=== PATIENT | female | born 1935 | race Caucasian/White ===

== ENCOUNTER 2018-12-09 13:43 | Emergency (ER) | payer OTHER ==
--- OUTSIDE RECORDS SUMMARY | 2018-12-09 13:47 | XMS REPORT ---
:1935 [facility] Care Team Providers Name Role Phone Dixonmadeleine Kourtney Provider Role Unavailable Allergies, Adverse Reactions, Alerts Substance Reaction Event Type Lisinopril rash, itching, bad cough Drug Allergy Levaquin itching and increased anxiety Drug Allergy Problems Problem Type Condition Code Onset Dates Condition Status Problem Weakness R53.1 Active Problem 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 Active Problem History of TIA (transient ischemic Z86.73 Active attack) Problem Dizziness R42 Active Assessment Acute pharyngitis, unspecified J02.9 Active etiology Problem Abnormal liver function K76.89 Active Assessment Respiratory symptoms R09.89 Active Assessment Diarrhea, unspecified type R19.7 Active Problem Hypertension I10 Active Problem Cardiomyopathy I42.9 Active Problem Hypotension I95.9 Active Problem Osteoporosis M81.0 Active Problem Atrial fibrillation I48.91 Active Problem 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 Problem History of fall Z91.81 Active Assessment URI, acute J06.9 Active Problem Serum creatinine raised R79.89 Active Problem IBS (irritable bowel syndrome) K58.9 Active Problem Anorexia R63.0 Active Problem Hypercholesteremia E78.00 Active Problem Hypokalemia E87.6 Active Problem Rib pain R07.81 Active Problem Congestive heart failure I50.9 Active Medications Medication Code Code Instructions Start End Date Status Dosage System Date ProAir HFA [facility] [id number] 108 (90 Base) December Active 2 puffs as MCG/ACT 2017 needed for Inhalation every sob/wheezi 4-6 hrs ng Potassium ND 35993910614 20 MEQ Orally Oct 09January 07, Active 1 capsule Chloride Once a day 2017 2017 Omeprazole ND 38118615589 20 MG Orally Active 1 capsule Once daily Ventolin HFA ND 91415865305 108 (90 Base) December Active 2 puffs as MCG/ACT 2017 needed for Inhalation every sob/wheezi 4-6 hrs ng Cardura ND 24773552191 1 MG topically Active 1 tablet Once a day in evening Augmentin [facility] 35095229547 500-125 MG December Active 1 tablet Orally every 12 2017 hrs Gabapentin [facility] 69564629640 400 MG Orally Active 1 capsule 1-3x ramesh Results Name Result Date Reference Range Unit Abnormality Flag FLU TEST ----A Negative [id number] ----B Negative [id number] STREP A RAPID ----Result Negative [id number] Summary Purpose eClinicalWorks Submission
--- OUTSIDE RECORDS SUMMARY | 2018-12-09 13:47 | XMS REPORT | Clinical Summary ---
:1935 Author Organization [facility] Address [address] [place] [address] Care Team Providers Name Role Phone Kourtney Smith MD Primary Care Provider Allergies Active Allergy Reactions Severity Noted Date Comments Levofloxacin Rash Low 04/06/2016 Lisinopril Rash Low 04/06/2016 Medications Medication Sig Dispensed Refills Start Date End Date Status apixaban (ELIQUIS) 2.5 Take by mouth 2 0 Active mg tablet (two) times a day. amIODarone (PACERONE) Take 200 mg by 0 Active 200 MG tablet mouth daily. potassium chloride Take 20 mEq by 0 Active (K-DUR) 20 MEQ CR mouth 2 (two) tablet times a day. levothyroxine Take 50 mcg by 0 Active (SYNTHROID, LEVOTHROID) mouth every 50 MCG tablet morning. atorvastatin (LIPITOR) Take 20 mg by 0 Active 20 MG tablet mouth daily. gabapentin (NEURONTIN) Take 400 mg by 0 Active 400 MG capsule mouth 2 (two) times a day. omeprazole (PriLOSEC) Take 40 mg by 0 Active 40 MG capsule mouth daily. calcium Chew 1 tablet 2 0 Active carbonate-vitamin D3 (two) times a (CALTRATE 600 + D) 600 day. mg (1,500 mg)-800 unit tablet,chewable MAGNESIUM CHLORIDE Take 1 tablet by 0 Active (SLOW-MAG ORAL) mouth 2 (two) times a day. FOLIC Take 1 tablet by 0 Active ACID/MULTIVIT-MIN/LUTEI mouth daily. N (CENTRUM SILVER ORAL) lidocaine (LIDODERM) 5 Place 1 patch on 0 Active % the skin as needed for mild pain. Remove & Discard patch within 12 hours or as directed by MD Active Problems Problem Noted Date Hyperlipidemia 04/30/2016 Disease of thyroid gland 04/27/2016 Diarrhea 04/27/2016 Acute on chronic systolic CHF (congestive heart failure) 04/27/2016 Anemia 04/27/2016 Atrial fibrillation 04/23/2016 Family History Medical History Relation Name Comments Heart disease Father Breast cancer Mother Heart disease Mother Relation Name Status Comments Father Mother Social History Tobacco Use Types Packs/Day Years Used Date Former Smoker Cigarettes 1947 - 1949 Alcohol Use Drinks/Week oz/Week Comments No Sex Assigned at Date Recorded Not on file Job Start Date Occupation Industry Not on file Not on file Not on file Travel History Travel Start Travel End No recent travel history available. Last Filed Vital Signs Not on file Plan of Treatment Health Maintenance Due Date Last Done Comments SHINGLES VACCINES (#1) 01/18/1984 65+ PNEUMOCOCCAL VACCINE (1 of 2 - PCV13) 1999 PNEUMOCOCCAL POLYSACCHARIDE VACCINE AGE 65 AND OVER 1999 INFLUENZA VACCINE 04/09/2018 Implants Implanted Type Area Soldering Machine Tender Device Identifier Shelf Expiration Model / Date Serial / Lot Medtronic Pacemaker Results Not on fileafter 12/08/2017 Insurance Payer Benefit Plan / Group Subscriber ID Type Phone Address AETNA MEDICARE AETNA MEDICARE HMO/PPO [facility] xxxxxxxx HMO ([place]) [place] [address] Advance Directives Patient has advance care planning documents on file. For more information, please contact:[place] [address]
--- OUTSIDE RECORDS SUMMARY | 2018-12-09 13:47 | XMS REPORT ---
:1935 Author Organization eClinicalWorks Care Team Providers Name Role Phone Kourtney Smith Provider Role Unavailable Allergies No Known Allergies Problems Problem Type Condition Code Onset Dates Condition Status Assessment Exposure to influenza Z20.828 Active Problem Other chronic pain G89.29 Active Problem Chronic kidney disease, unspecified N18.9 Active CKD stage Problem Insomnia, unspecified type G47.00 Active Problem Prediabetes R73.03 Active Problem Hypothyroidism, unspecified type E03.9 Active Problem Neck pain M54.2 Active Problem Hypokalemia E87.6 Active Problem Congestive heart failure I50.9 Active Problem Gastroesophageal reflux disease, K21.9 Active esophagitis presence not specified Problem Weakness R53.1 Active Problem 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 Active Problem History of TIA (transient ischemic Z86.73 Active attack) Problem 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 Problem Serum creatinine raised R79.89 Active Problem History of fall Z91.81 Active Problem 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 Active Problem Chronic pain syndrome G89.4 Active Problem Dorsalgia, unspecified M54.9 Active Problem Cardiomyopathy I42.9 Active Problem Hypotension I95.9 Active Problem Rib pain R07.81 Active Problem 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 11463574421 75 MG Orally Once Oct 31, Active 1 capsule a day 2019 Results No Known Results Summary Purpose eClinicalWorks Submission
--- OUTSIDE RECORDS SUMMARY | 2018-12-09 13:47 | XMS REPORT ---
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 Active Assessment Hypercholesteremia E78.00 Active Problem Chronic pain syndrome G89.4 Active Problem Dorsalgia, unspecified M54.9 Active Assessment Gastroesophageal reflux disease, K21.9 Active esophagitis presence not specified Problem Cardiomyopathy I42.9 Active Assessment Insomnia, unspecified type G47.00 Active Problem Hypotension I95.9 Active Assessment Chronic pain syndrome G89.4 Active Problem Rib pain R07.81 Active Problem 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 Assessment 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 Problem Osteoporosis M81.0 Active Assessment Congestive heart failure I50.9 Active Problem Abnormal liver function K76.89 Active Assessment Prediabetes R73.03 Active Problem Hypercholesteremia E78.00 Active Assessment 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 Active Problem Atrial fibrillation I48.91 Active Assessment Hypothyroidism, unspecified type E03.9 Active Problem IBS (irritable bowel syndrome) K58.9 Active Assessment Chronic kidney disease, unspecified N18.9 Active CKD stage Problem Anorexia R63.0 Active Problem Dizziness R42 Active Problem Hypertension I10 Active Medications Medication Code Code Instructions Start End Status Dosage System Date Date Cardura [facility] 88913639696 1 MG Orally Active 1 tablet Once a day in evening Omeprazole [facility] 02634824554 20 mg Orally Active 1 capsule Once daily ProAir HFA [facility] 32562787648 108 (90 Base) December Active 2 puffs as MCG/ACT 2017 needed for Inhalation sob/wheezi every 4-6 hrs ng Ventolin HFA [facility] 03190742468 108 (90 Base) December Active 2 puffs as MCG/ACT 2017 needed for Inhalation sob/wheezi every 4-6 hrs ng Levothyroxine [facility] 41183050858 50 MCG Orally Active 1 tablet Sodium Once a day on an empty stomach in the morning Potassium [facility] 45803967732 20 MEQ Orally Active 1 tablet Chloride ER Twice a day with food Gabapentin [facility] 62745981562 400 MG Orally Active 1 capsule Three times daily Lasix [facility] 09189554826 20 mg Orally Active 1 tablet Twice daily Results No Known Results Summary Purpose eClinicalWorks Submission
--- OUTSIDE RECORDS SUMMARY | 2018-12-09 13:47 | XMS REPORT ---
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 Active Problem History of TIA (transient ischemic Z86.73 Active attack) Problem Dizziness R42 Active Problem Abnormal liver function K76.89 Active Problem Hypertension I10 Active Problem Cardiomyopathy I42.9 Active Problem Hypotension I95.9 Active Problem Osteoporosis M81.0 Active Problem Atrial fibrillation I48.91 Active Problem 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
--- OUTSIDE RECORDS SUMMARY | 2018-12-09 13:47 | XMS REPORT ---
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 Active Assessment Cardiomyopathy I42.9 Active Assessment Congestive heart failure I50.9 Active Assessment Hypertension I10 Active Problem Other chronic pain G89.29 Active Problem Neck pain M54.2 Active Problem Gastroesophageal reflux disease, K21.9 Active esophagitis presence not specified Problem Dizziness R42 Active Problem Dorsalgia, unspecified M54.9 Active Problem Hypertension I10 Active Problem 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 Active Problem Rib pain R07.81 Active Problem Anorexia R63.0 Active Problem IBS (irritable bowel syndrome) K58.9 Active Problem Hypotension I95.9 Active Problem 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 Active Problem Prediabetes R73.03 Active Problem Insomnia, unspecified type G47.00 Active Problem Cardiomyopathy I42.9 Active Problem Chronic kidney disease, unspecified N18.9 Active CKD stage Problem Congestive heart failure I50.9 Active Problem Hypokalemia E87.6 Active Problem History of TIA (transient ischemic Z86.73 Active attack) Problem Weakness R53.1 Active Assessment Chronic kidney disease, unspecified N18.9 Active CKD stage Problem 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 Assessment Prediabetes R73.03 Active Problem History of fall Z91.81 Active Assessment Hypercholesteremia E78.00 Active Problem Hypothyroidism, unspecified type E03.9 Active Assessment Hypothyroidism, unspecified type E03.9 Active Problem Serum creatinine raised R79.89 Active Assessment Insomnia, unspecified type G47.00 Active Problem Osteoporosis M81.0 Active Assessment Gastroesophageal reflux disease, K21.9 Active esophagitis presence not specified Problem Abnormal liver function K76.89 Active Problem Hypercholesteremia E78.00 Active Problem Atrial fibrillation I48.91 Active Medications Medication Code Code Instructions Start End Status Dosage System Date Date ProAir HFA [facility] 28481574730 108 (90 Base) December Active 2 puffs as MCG/ACT 2017 needed for Inhalation sob/wheezi every 4-6 hrs ng Gabapentin [facility] 37083497642 400 MG Orally Active 1 capsule 1-3x ramesh Lasix [facility] 13535275347 20 mg Orally Active 1 tablet Twice daily Omeprazole [facility] 61190273008 20 mg Orally Active 1 capsule Once daily Potassium [facility] 62029181096 20 MEQ Orally Active 1 tablet Chloride ER Twice a day with food Levothyroxine [facility] 45088024316 50 MCG Orally Active 1 tablet Sodium Once a day on an empty stomach in the morning Ventolin HFA [facility] 55767452825 108 (90 Base) December Active 2 puffs as MCG/ACT 2017 needed for Inhalation sob/wheezi every 4-6 hrs ng Cardura [facility] 16035112660 1 MG Orally Active 1 tablet Once a day in evening Results No Known Results Summary Purpose eClinicalWorks Submission
--- NOTE | 2018-12-09 15:06 | RAD REPORT ---
EXAM DESCRIPTION: CT - Head C Spine Mpr Wo Con - 12/09/2018 2:48 pm CLINICAL HISTORY: Head and neck injury status post fall. Head and neck pain COMPARISON: 2015 TECHNIQUE: Computed axial tomography of the head and cervical spine was obtained. Sagittal and coronal reconstruction was performed. All CT scans are performed using dose optimization technique as appropriate and may include automated exposure control or mA/KV adjustment according to patient size. FINDINGS: Posterior scalp swelling An intracranial bleed is not seen. The ventricles are normal in caliber. An extra-axial fluid collect ion is not noted.Fluid within the visualized sinuses and mastoids is not seen A cervical fracture is not visualized. No dislocation is noted. Spondylosis without significant agee e from 2015 Mild ground-glass opacities right upper lobe IMPRESSION: No acute intracranial abnormality is seen. A cervical fracture is not visualized. If the patient continues to have symptoms to suggest intracra nial /spinal cord pathology then MRI would be recommended Mild ground-glass opacities right upper lobe indicative of an alveolitis
--- NOTE | 2018-12-09 15:12 | RAD REPORT ---
EXAM DESCRIPTION: CT - Facial Bones W/ Mpr - 12/09/2018 2:48 pm CLINICAL HISTORY: Facial injury status post fall TECHNIQUE: Computed axial tomography of the face was obtained. Coronal and sagittal reconstruction w as performed. All CT scans are performed using dose optimization technique as appropriate and may include automated exposure control or mA/KV adjustment according to patient size. FINDINGS: Evaluation of portions of the mandible is nondiagnostic secondary to motion artifact. A f racture is not seen. A fracture is not seen. A TMJ dislocation is not noted. The globes are intact. Fluid within the sinuses is not seen. IMPRESSION: No fracture seen.
[2018-12-09] MEDS ORDERED: ACETAMINOPHEN 325 MG TABLET ONE (15:35)
[2018-12-09] MEDS ORDERED: cloNIDine HCl 0.1 MG TAB ONE (15:41)
[2018-12-09] MEDS ORDERED: AMLODIPINE 5 MG TAB ONE (15:42)
--- NOTE | 2018-12-09 15:42 | RAD REPORT ---
EXAM DESCRIPTION: RAD - Chest Single View - 12/09/2018 3:35 pm CLINICAL HISTORY: COUGH Chest pain. COMPARISON: <Comparisons> FINDINGS: Portable technique limits examination quality. The lungs are grossly clear. The heart is normal in size. No displaced fractures.Multi lead pacer dev ice is present. IMPRESSION: No acute intrathoracic process suspected.
[2018-12-09 15:52] LABS: Absolute Lymphocytes (CBC) 2.6 K/uL (0.7-4.9); Absolute Monocytes 0.8 K/uL (0.1-1.3); Basophils % 1.3 % (0-1.3); Eosinophils % 2.4 % (0-4.4); Hematocrit 42.1 % (36.0-45.0); Lymphocytes % 29.6 % (15.3-44.8); MPV 8.8 fL (7.6-11.3); Monocytes % 9.6 % (3.3-12.3); RBC Red Blood Cell Count 4.68 M/uL (3.86-4.86)
[2018-12-09 15:53] LABS: Protime INR 1.17
[2018-12-09 16:08] LABS: ALT/SGPT 15 U/L (12-78); AST/SGOT 19 U/L (15-37); Albumin 3.6 g/dL (3.4-5.0); Alkaline Phosphatase 71 U/L (45-117); BUN Blood Urea Nitrogen 23 mg/dL (7-18); Bicarbonate 26 mmol/L (21-32); Bilirubin Direct 0.1 mg/dL (0-0.2); Bilirubin Total 0.6 mg/dL (0.2-1.0); Glucose Level 80 mg/dL (74-106); NT PRO-BNP 4345 pg/mL (<450); Protein, Total 7.2 g/dL (6.4-8.2); Sodium Level 142 mmol/L (136-145); Troponin (Emerg Dept Use Only) < 0.02 ng/mL (0.0-0.045)
[2018-12-09] MEDS ORDERED: DOXAZOSIN 4 MG TAB PO ONE (18:00)
--- NOTE | 2018-12-09 18:25 | EDPHYS ---
Physician Documentation [facility] Name: Suri Lemus Age: 83 yrs Sex: Female : 1935 Arrival Date: 12/09/2018 Time: 13:48 Bed 4 Private MD: Kourtney Smith ED Physician Moisés Luna HPI: 12/09 14:10 This 83 yrs old Female presents to ER via Wheelchair with complaints of Fall malia Injury, Head Injury-Adult, Jaw Injury. 14:10 Details of fall: The patient fell from seated position, out of a chair. Onset: The malia symptoms/episode began/occurred just prior to arrival. Associated injuries: The patient sustained injury to the head, neck injury, right cheek and right jaw. Severity of symptoms: At their worst the symptoms were mild, in the emergency department the symptoms are unchanged. The patient has not experienced similar symptoms in the past. Historical: - Allergies: 13:58 Levaquin; tw2 13:58 Lisinopril; tw2 - Home Meds: 13:58 Eliquis 2.5 mg Oral tab 1 tab 2 times per day [Active]; tw2 15:27 Caltrate 600 + D 600 mg (1,500 mg)-800 unit Oral chew twice a day [Active]; Slow-Mag ss 71.5 mg Oral TbEC twice a day [Active]; furosemide 20 mg Oral tab 1 tab 2 times per day [Active]; levothyroxine 50 mcg tab 1 tab once daily [Active]; doxazosin 1 mg oral tab 1 tab once daily [Active]; omeprazole 40 mg Oral cpDR 1 cap once daily [Active]; gabapentin 400 mg Oral cap 1 cap three times a day [Active]; potassium chloride 20 mEq Oral TbER 1 tab once daily [Active]; Centrum Silver 400-250 mcg Oral chew daily [Active]; - PMHx: 13:58 Hyperlipidemia; Hypertension; neuropathy; CHF; tw2 - PSHx: 13:58 Hysterectomy; pacemaker/defibrilator placement; tw2 - Immunization history:: Adult Immunizations. - Social history:: Smoking status: . - Ebola Screening: : Patient negative for fever greater than or equal to 101.5 degrees Fahrenheit, and additional compatible Ebola Virus Disease symptoms. - Family history:: not pertinent. ROS: 14:10 Constitutional: Negative for fever, chills, and weight loss, Eyes: Negative for injury, malia pain, redness, and discharge, ENT: Negative for injury, pain, and discharge, Cardiovascular: Negative for chest pain, palpitations, and edema, Respiratory: Negative for shortness of breath, cough, wheezing, and pleuritic chest pain, Abdomen/GI: Negative for abdominal pain, nausea, vomiting, diarrhea, and constipation, Back: Negative for injury and pain, : Negative for injury, bleeding, discharge, and swelling, Skin: Negative for injury, rash, and discoloration, Psych: Negative for depression, anxiety, suicide ideation, homicidal ideation, and hallucinations, Allergy/Immunology: Negative for hives, rash, and allergies, Endocrine: Negative for neck swelling, polydipsia, polyuria, polyphagia, and marked weight changes, Hematologic/Lymphatic: Negative for swollen nodes, abnormal bleeding, and unusual bruising. 14:10 Neck: Positive for pain with movement, pain at rest. 14:10 Neuro: Positive for headache. Exam: 14:10 Constitutional: This is a well developed, well nourished patient who is awake, alert, malia and in no acute distress. Eyes: Pupils equal round and reactive to light, extra-ocular motions intact. Lids and lashes normal. Conjunctiva and sclera are non-icteric and not injected. Cornea within normal limits. Periorbital areas with no swelling, redness, or edema. ENT: Nares patent. No nasal discharge, no septal abnormalities noted. Tympanic membranes are normal and external auditory canals are clear. Oropharynx with no redness, swelling, or masses, exudates, or evidence of obstruction, uvula midline. Mucous membranes moist. Neck: Trachea midline, no thyromegaly or masses palpated, and no cervical lymphadenopathy. Supple, full range of motion without nuchal rigidity, or vertebral point tenderness. No Meningismus. Chest/axilla: Normal chest wall appearance and motion. Nontender with no deformity. No lesions are appreciated. Cardiovascular: Regular rate and rhythm with a normal S1 and S2. No gallops, murmurs, or rubs. Normal PMI, no JVD. No pulse deficits. Respiratory: Lungs have equal breath sounds bilaterally, clear to auscultation and percussion. No rales, rhonchi or wheezes noted. No increased work of breathing, no retractions or nasal flaring. Abdomen/GI: Soft, non-tender, with normal bowel sounds. No distension or tympany. No guarding or rebound. No evidence of tenderness throughout. Back: No spinal tenderness. No costovertebral tenderness. Full range of motion. Skin: Warm, dry with normal turgor. Normal color with no rashes, no lesions, and no evidence of cellulitis. MS/ Extremity: Pulses equal, no cyanosis. Neurovascular intact. Full, normal range of motion. Neuro: Awake and alert, GCS 15, oriented to person, place, time, and situation. Cranial nerves II-XII grossly intact. Motor strength 5/5 in all extremities. Sensory grossly intact. Cerebellar exam normal. Normal gait. Psych: Awake, alert, with orientation to person, place and time. Behavior, mood, and affect are within normal limits. 14:10 Head/face: Noted is contusion, swelling, that is mild, of the left occipital area, left base of the skull, right occipital area and right base of the skull. 14:10 Neck: External neck: is normal, Thyroid: appears normal, Trachea: is midline with no obvious abnormalities, ROM/movement: limited range of motion, that is mild, in any direction. Vital Signs: 13:57 BP 199 / 85; Pulse 71; Resp 17; Temp 99.2(TE); Pulse Ox 100% on R/A; Weight 49.9 kg tw2 (R); Pain 10/10; 15:03 BP 222 / 98; Pulse 70; Resp 18; Pulse Ox 99% ; sv 15:19 BP 229 / 100; Pulse 71; Resp 14; Pulse Ox 98% on R/A; ph 15:40 BP 214 / 95; Pulse 70; Resp 18; Pulse Ox 98% ; sv 17:00 BP 182 / 91; Pulse 71; Resp 16; Pulse Ox 98% ; sv 17:54 BP 198 / 98; Pulse 71; Resp 15; Pulse Ox 98% ; sv 18:35 BP 179 / 85; Pulse 70; Resp 18; Temp 98.0; Pulse Ox 99% on R/A; ph Ruthann Coma Score: 13:55 Eye Response: spontaneous(4). Verbal Response: oriented(5). Motor Response: obeys tw2 commands(6). Total: 15. 15:19 Eye Response: spontaneous(4). Verbal Response: oriented(5). Motor Response: obeys ph commands(6). Total: 15. 17:51 Eye Response: spontaneous(4). Verbal Response: oriented(5). Motor Response: obeys ph commands(6). Total: 15. 18:35 Eye Response: spontaneous(4). Verbal Response: oriented(5). Motor Response: obeys ph commands(6). Total: 15. Trauma Score (Adult): 13:55 Eye Response: spontaneous(1); Verbal Response: oriented(1); Motor Response: obeys tw2 commands(2); Systolic BP: > 89 mm Hg(4); Respiratory Rate: 10 to 29 per min(4); Ruthann Score: 15; Trauma Score: 12 15:19 Eye Response: spontaneous(1); Verbal Response: oriented(1); Motor Response: obeys ph commands(2); Systolic BP: > 89 mm Hg(4); Respiratory Rate: 10 to 29 per min(4); Ruthann Score: 15; Trauma Score: 12 17:51 Eye Response: spontaneous(1); Verbal Response: oriented(1); Motor Response: obeys ph commands(2); Systolic BP: > 89 mm Hg(4); Respiratory Rate: 10 to 29 per min(4); Ruthann Score: 15; Trauma Score: 12 18:35 Eye Response: spontaneous(1); Verbal Response: oriented(1); Motor Response: obeys ph commands(2); Systolic BP: > 89 mm Hg(4); Respiratory Rate: 10 to 29 per min(4); Ruthann Score: 15; Trauma Score: 12 MDM: 14:08 Patient medically screened. [facility] 14:10 Data reviewed: vital signs, nurses notes, radiologic studies, CT scan. malia 12/09 15:20 Order name: Basic Metabolic Panel; Complete Time: 16:24 malia 12/09 15:20 Order name: CBC with Diff; Complete Time: 16:24 malia 12/09 15:20 Order name: LFT's; Complete Time: 16:24 malia 12/09 15:20 Order name: Magnesium; Complete Time: 16:24 malia 12/09 15:20 Order name: NT PRO-BNP; Complete Time: 16:24 malia 12/09 15:20 Order name: PT-INR; Complete Time: 16:24 malia 12/09 14:09 Order name: CT Head C Spine; Complete Time: 15:15 [facility] 12/09 14:09 Order name: CT Facial Bones W/O Con; Complete Time: 15:15 [facility] 12/09 15:20 Order name: Troponin (emerg Dept Use Only); Complete Time: 16:24 [facility] 12/09 15:20 Order name: XRAY Chest (1 view); Complete Time: 16:24 [facility] 12/09 15:20 Order name: Urine Culture [facility] 12/09 15:23 Order name: Lipase; Complete Time: 16:24 [facility] 12/09 17:55 Order name: Urine Dipstick--Ancillary (enter results) 12/09 17:55 Order name: Urine Dipstick-Ancillary EDMS 12/09 14:10 Order name: Ice pack; Complete Time: 14:38 [facility] 12/09 15:16 Order name: Vital Signs; Complete Time: 15:37 [facility] 12/09 15:20 Order name: EKG; Complete Time: 15:21 [facility] 12/09 15:20 Order name: Cardiac monitoring; Complete Time: 15:36 [facility] 12/09 15:20 Order name: EKG - Nurse/Tech; Complete Time: 15:36 [facility] 12/09 15:20 Order name: Labs collected and sent; Complete Time: 15:36 [facility] 12/09 15:20 Order name: O2 Per Protocol; Complete Time: 15:37 [facility] 12/09 15:20 Order name: O2 Sat Monitoring; Complete Time: 15:37 [facility] 12/09 15:20 Order name: Urine Dipstick-Ancillary (obtain specimen); Complete Time: 17:47 [facility] Administered Medications: 15:10 Drug: Tylenol 650 mg Route: PO; ph 15:35 Drug: Norvasc 5 mg Route: PO; ph 17:47 Follow up: Response: No adverse reaction; Blood pressure is lowered ph 15:35 Drug: cloNIDine 0.1 mg Route: PO; ph 17:48 Follow up: Response: No adverse reaction; Blood pressure is lowered ph 17:47 Drug: Doxazosin 4 mg Route: PO; ph 18:00 Follow up: Response: No adverse reaction ph Disposition: 12/09/18 18:24 Discharged to Home. Impression: Fall due to bumping against object, Headache, Superficial injury of head, Strain of muscle, fascia and tendon at neck level, Essential (primary) hypertension, Unspecified kidney failure, Unspecified combined systolic (congestive) and diastolic (congestive) heart failure - history of CHF. - Condition is Stable. - Discharge Instructions: Head Injury, Adult, Hypertension, Hypertension, Pgns-fa-Ocmu, Cervical Sprain, Zggc-uh-Yceo, Fall Prevention in the Home, Ghyq-mf-Nsuc, How to Take Your Blood Pressure, Higy-zg-Pxdz, Head Injury, Adult, Ynjb-ed-Hyzu, Chronic Kidney Disease, Adult, Tcgt-dy-Nviq, Chronic Kidney Disease, Adult, Managing Your Hypertension. - Prescriptions for Tylenol- Codeine #3 300-30 mg Oral Tablet - take 1 tablet by ORAL route every 6 hours As needed; 20 tablet. Norvasc 5 mg Oral Tablet - take 1 tablet by ORAL route once daily; 20 tablet. Doxazosin 2 mg Oral Tablet - take 1 tablet by ORAL route once daily; 30 tablet. - Medication Reconciliation Form, Thank You Letter, Antibiotic Education, Prescription Opioid Use form. - Follow up: Kourtney Smith; When: 2 - 3 days; Reason: Recheck today's complaints, Continuance of care, Re-evaluation by your physician. Follow up: Peng Mullen; When: 2 - 3 days; Reason: Recheck today's complaints, Continuance of care, Re-evaluation by your physician. - Problem is new. - Symptoms have improved. Signatures: Dispatcher [employer] EDMoisés Escobedo MD MD cha Smirch, Shelby, ANT RN Johanna Velez RN RN ph Wise, Tara, RN RN tw2 Corrections: (The following items were deleted from the chart) 18:48 18:24 12/09/2018 18:24 Discharged to Home. Impression: Fall due to bumping against ph object; Headache; Superficial injury of head; Strain of muscle, fascia and tendon at neck level; Essential (primary) hypertension; Unspecified kidney failure; Unspecified combined systolic (congestive) and diastolic (congestive) heart failure - history of CHF. Condition is Stable. Discharge Instructions: Head Injury, Adult, Cervical Sprain, Flvn-xo-Dfit, Fall Prevention in the Home, Zujn-fw-Ykiq, Head Injury, Adult, Yxdu-tu-Pqvz, Hypertension, Hypertension, Wsby-yw-Fdrt, How to Take Your Blood Pressure, Neeg-nc-Vzij, Managing Your Hypertension, Chronic Kidney Disease, Adult, Uwpa-fz-Gooy, Chronic Kidney Disease, Adult. Prescriptions for Tylenol-Codeine #3 300-30 mg Oral Tablet - take 1 tablet by ORAL route every 6 hours As needed; 20 tablet, Norvasc 5 mg Oral Tablet - take 1 tablet by ORAL route once daily; 20 tablet, Doxazosin 2 mg Oral Tablet - take 1 tablet by ORAL route once daily; 30 tablet. and Forms are Medication Reconciliation Form, Thank You Letter, Antibiotic Education, Prescription Opioid Use. Follow up: Kourtney Smith; When: 2 - 3 days; Reason: Recheck today's complaints, Continuance of care, Re-evaluation by your physician. Follow up: Peng Mullen; When: 2 - 3 days; Reason: Recheck today's complaints, Continuance of care, Re-evaluation by your physician. Problem is new. Symptoms have improved. malia
--- NOTE | 2018-12-09 18:25 | ER ---
Nurse's Notes [facility] Name: Suri Lemus Age: 83 yrs Sex: Female : 1935 Arrival Date: 12/09/2018 Time: 13:48 Bed 4 Private MD: Kourtney Smith Diagnosis: Fall due to bumping against object;Headache;Superficial injury of head;Strain of muscle, fascia and tendon at neck level;Essential (primary) hypertension;Unspecified kidney failure;Unspecified combined systolic (congestive) and diastolic (congestive) heart failure-history of CHF Presentation: 12/09 13:55 Presenting complaint: Patient states: i fell 2 hours ago, i was sitting on a chair on 2 my porch, and i hit the driveway with the back on my head, but my right jaw behind my ear hurts real real bad. Transition of care: patient was not received from another setting of care. Onset of symptoms was December 09, 2018. Risk Assessment: Do you want to hurt yourself or someone else? Patient reports no desire to harm self or others. Initial Sepsis Screen: Does the patient meet any 2 criteria? No. Patient's initial sepsis screen is negative. Does the patient have a suspected source of infection? No. Patient's initial sepsis screen is negative. Care prior to arrival: None. 13:55 Method Of Arrival: Wheelchair [facility] 13:55 Acuity: TAQUERIA 2 2 13:55 Mechanism of Injury: Fall out of chair. Trauma event details: Injury occurred in the [address] 13:57 Note "i dont have blood anywhere but i have a bloody taste in my mouth". [facility] Triage Assessment: 13:56 General: Appears in no apparent distress. Behavior is calm, cooperative, appropriate [facility] for age. Pain: Complains of pain in right ear, right occipital area and right base of the skull. Neuro: Reports blurred vision in right eye. Trauma Activation: Alert Physician: ED Physician; Name: ; Notified At: ; Arrived At: Physician: General Surgeon; Name: ; Notified At: ; Arrived At: Physician: Radiology; Name: ; Notified At: ; Arrived At: Physician: Respiratory; Name: ; Notified At: ; Arrived At: Physician: Lab; Name: ; Notified At: ; Arrived At: Historical: - Allergies: 13:58 Levaquin; tw2 13:58 Lisinopril; tw2 - Home Meds: 13:58 Eliquis 2.5 mg Oral tab 1 tab 2 times per day [Active]; tw2 15:27 Caltrate 600 + D 600 mg (1,500 mg)-800 unit Oral chew twice a day [Active]; Slow-Mag ss 71.5 mg Oral TbEC twice a day [Active]; furosemide 20 mg Oral tab 1 tab 2 times per day [Active]; levothyroxine 50 mcg tab 1 tab once daily [Active]; doxazosin 1 mg oral tab 1 tab once daily [Active]; omeprazole 40 mg Oral cpDR 1 cap once daily [Active]; gabapentin 400 mg Oral cap 1 cap three times a day [Active]; potassium chloride 20 mEq Oral TbER 1 tab once daily [Active]; Centrum Silver 400-250 mcg Oral chew daily [Active]; - PMHx: 13:58 Hyperlipidemia; Hypertension; neuropathy; CHF; tw2 - PSHx: 13:58 Hysterectomy; pacemaker/defibrilator placement; tw2 - Immunization history:: Adult Immunizations. - Social history:: Smoking status: . - Ebola Screening: : Patient negative for fever greater than or equal to 101.5 degrees Fahrenheit, and additional compatible Ebola Virus Disease symptoms. - Family history:: not pertinent. Screenin:18 Abuse screen: Denies threats or abuse. Nutritional screening: No deficits noted. tw2 Tuberculosis screening: No symptoms or risk factors identified. Fall Risk Secondary diagnosis (15 points) impaired mobility. Primary Survey: 13:55 NO uncontrolled hemorrhage observed. A: The patient is alert. Airway: patent. tw2 Breathing/Chest: Respiratory pattern: regular. Breathing/Chest: Respiratory effort: spontaneous, unlabored. Circulation: Skin temperature: warm, dry. Disability Alert. Exposure/Environment: All clothing and personal items were removed. Forensic evidence collection is not deemed to be indicated at this time. Items placed in patient belonging bag. A warming method has been applied: A warm blanket has been provided to the patient. 17:58 Reassessment Airway Airway Patent Oxygen No O2 Breathing/Chest Respiratory pattern ph Regular Respiratory effort Spontaneous Unlabored Circulation Color Burnett Temperature Warm Dry. Assessment: 14:15 General: Appears in no apparent distress. comfortable, slender, well groomed, Behavior ph is calm, cooperative, appropriate for age. Pain: Complains of pain in right jaw and right cheek and right occipital area. Neuro: Level of Consciousness is awake, alert, obeys commands, Oriented to person, place, time, situation, Reports headache Denies dizziness. Cardiovascular: Capillary refill < 3 seconds in bilateral fingers Patient's skin is warm and dry. Respiratory: Airway is patent Respiratory effort is even, unlabored, Respiratory pattern is regular, symmetrical. GI: Patient currently denies nausea, vomiting. Derm: Skin is intact, Skin is pink, warm \\T\\ dry. Musculoskeletal: Circulation, motion, and sensation intact. Range of motion: intact in all extremities. 15:42 Reassessment: Patient appears in no apparent distress at this time. Patient and/or ph family updated on plan of care and expected duration. Pain level reassessed. Patient is alert, oriented x 3, equal unlabored respirations, skin warm/dry/pink. Pt resting quietly, family at bedside, PO BP medications administered per ERP order, will continue to monitor. 16:45 Reassessment: Patient appears in no apparent distress at this time. Patient and/or ph family updated on plan of care and expected duration. Pain level reassessed. Patient is alert, oriented x 3, equal unlabored respirations, skin warm/dry/pink. Pt resting quietly, reports that headache has slightly improved, BP trending downward (see vitals tab), will continue to monitor. 17:48 Reassessment: Patient appears in no apparent distress at this time. Patient and/or ph family updated on plan of care and expected duration. Pain level reassessed. Patient is alert, oriented x 3, equal unlabored respirations, skin warm/dry/pink. Pt ambulated to restroom w/ steady gait, denied dizziness upon standing, accompanied to restroom by communication technician. 18:45 Reassessment: Patient appears in no apparent distress at this time. Patient and/or ph family updated on plan of care and expected duration. Pain level reassessed. Patient is alert, oriented x 3, equal unlabored respirations, skin warm/dry/pink. Patient states feeling better. Vital Signs: 13:57 BP 199 / 85; Pulse 71; Resp 17; Temp 99.2(TE); Pulse Ox 100% on R/A; Weight 49.9 kg tw2 (R); Pain 10/10; 15:03 BP 222 / 98; Pulse 70; Resp 18; Pulse Ox 99% ; sv 15:19 BP 229 / 100; Pulse 71; Resp 14; Pulse Ox 98% on R/A; ph 15:40 BP 214 / 95; Pulse 70; Resp 18; Pulse Ox 98% ; sv 17:00 BP 182 / 91; Pulse 71; Resp 16; Pulse Ox 98% ; sv 17:54 BP 198 / 98; Pulse 71; Resp 15; Pulse Ox 98% ; sv 18:35 BP 179 / 85; Pulse 70; Resp 18; Temp 98.0; Pulse Ox 99% on R/A; ph Ruthann Coma Score: 13:55 Eye Response: spontaneous(4). Verbal Response: oriented(5). Motor Response: obeys tw2 commands(6). Total: 15. 15:19 Eye Response: spontaneous(4). Verbal Response: oriented(5). Motor Response: obeys ph commands(6). Total: 15. 17:51 Eye Response: spontaneous(4). Verbal Response: oriented(5). Motor Response: obeys ph commands(6). Total: 15. 18:35 Eye Response: spontaneous(4). Verbal Response: oriented(5). Motor Response: obeys ph commands(6). Total: 15. Trauma Score (Adult): 13:55 Eye Response: spontaneous(1); Verbal Response: oriented(1); Motor Response: obeys tw2 commands(2); Systolic BP: > 89 mm Hg(4); Respiratory Rate: 10 to 29 per min(4); Dawson Score: 15; Trauma Score: 12 15:19 Eye Response: spontaneous(1); Verbal Response: oriented(1); Motor Response: obeys ph commands(2); Systolic BP: > 89 mm Hg(4); Respiratory Rate: 10 to 29 per min(4); Ruthann Score: 15; Trauma Score: 12 17:51 Eye Response: spontaneous(1); Verbal Response: oriented(1); Motor Response: obeys ph commands(2); Systolic BP: > 89 mm Hg(4); Respiratory Rate: 10 to 29 per min(4); Dawson Score: 15; Trauma Score: 12 18:35 Eye Response: spontaneous(1); Verbal Response: oriented(1); Motor Response: obeys ph commands(2); Systolic BP: > 89 mm Hg(4); Respiratory Rate: 10 to 29 per min(4); Ruthann Score: 15; Trauma Score: 12 ED Course: 13:48 Patient arrived in ED. dp 13:48 Kourtney Smith MD is Private Physician. dp 13:55 Patient maintains SpO2 saturation greater than 95% on room air. tw2 13:56 Triage completed. tw2 13:57 Arm band placed on. tw2 13:58 Placed in gown. Bed in low position. Adult w/ patient. desk monitor on. Pulse ox on. tw2 NIBP on. Warm blanket given. 14:08 Moisés Luna MD is Attending Physician. malia 14:14 Johanna Guido, ANT is Primary Nurse. ph 14:20 Thermoregulation: warm blanket given to patient. sv 14:[address] via stretcher. sj 14:48 CT completed. Patient tolerated procedure well. Patient moved back from CT. sw 14:48 CT Head C Spine In Process Unspecified. EDMS 14:48 CT Facial Bones W/O Con In Process Unspecified. EDMS 15:35 XRAY Chest (1 view) In Process Unspecified. EDMS 15:36 EKG done, by mental health tech. reviewed by Moisés Luna MD. sm3 18:24 Kourtney Smith MD is Referral Physician. malia 18:24 Peng Mullen MD is Referral Physician. malia 18:36 No provider procedures requiring assistance completed. Patient did not have IV access ph during this emergency room visit. Administered Medications: 15:10 Drug: Tylenol 650 mg Route: PO; ph 15:35 Drug: Norvasc 5 mg Route: PO; ph 17:47 Follow up: Response: No adverse reaction; Blood pressure is lowered ph 15:35 Drug: cloNIDine 0.1 mg Route: PO; ph 17:48 Follow up: Response: No adverse reaction; Blood pressure is lowered ph 17:47 Drug: Doxazosin 4 mg Route: PO; ph 18:00 Follow up: Response: No adverse reaction ph Intake: 14:20 PO: 0ml; Total: 0ml. sv Output: 14:20 Urine: 0ml; Total: 0ml. sv Outcome: 18:24 Discharge ordered by . malia 18:46 Discharged to home ambulatory, with family. ph 18:46 Condition: good 18:46 Discharge instructions given to patient, family, Instructed on discharge instructions, follow up and referral plans. medication usage, Demonstrated understanding of instructions, follow-up care, medications, Prescriptions given X 3. 18:48 Patient left the ED. ph 18:48 Patient's length of stay in the Emergency Department was greater than 2 hours. Pt d/c ph after BP stabilizedPatient's length of stay extended due to Signatures: Dispatcher [employer] EDShirin Ching, RN RN Moisés Lassiter MD MD cha Jones, Sujata Tao RN RN ss Johanna Guido RN RN Haroldo, Lisa Bruno RN RN tw2 Beth Judge [facility] Vinod Del Rio
[2018-12-09 19:04] LABS: Urine Blood TRACE (NEG); Urine Glucose NEGATIVE (NEG); Urine Protein NEGATIVE (NEG); Urine Specific Gravity 1.015 (1.005-1.030)
[2018-12-10 07:43] VITALS: BP 179/85; TEMP 98; O2SAT 99
== END 2018-12-09 18:48 | disposition home or self-care (01) ==
LOC: ER 13:43
DX: S16.1XXA Strain of muscle, fascia and tendon at neck level, initial encounter (principal); W07.XXXA Fall from chair, initial encounter; Y93.9 Activity, unspecified; Y92.9 Unspecified place or not applicable; Z79.01 Long term (current) use of anticoagulants; Z88.3 Allergy status to other anti-infective agents; Z88.8 Allergy status to other drugs, medicaments and biological substances; Z95.810 Presence of automatic (implantable) cardiac defibrillator; I10 Essential (primary) hypertension; E78.5 Hyperlipidemia, unspecified; I50.42 Chronic combined systolic (congestive) and diastolic (congestive) heart failure; N19 Unspecified kidney failure
CPT/HCPCS: 36415; 70450; 70486; 71045; 72125; 76377; 80048; 80076; 81003; 83690; 83735; 83880; 84484; 85025; 85610; 87086; 87088; 93005; 99285

== ENCOUNTER 2019-11-16 08:27 | Day surgery (SDC) | payer OTHER ==
--- OUTSIDE RECORDS SUMMARY | 2019-11-16 08:29 | XMS REPORT ---
[...] Start End Date Status Dosage Date Tamiflu [facility] [place] [id number] 75 MG Orally Once Oct 31, Active 1 capsule a day 2019 Results No Known Results Summary Purpose eClinicalWorks Submission
--- OUTSIDE RECORDS SUMMARY | 2019-11-16 08:29 | XMS REPORT ---
:1935 [facility] Team Providers Name Role Phone Kourtney Smith Provider Role Unavailable Allergies No Known Allergies Problems Problem Type Condition Code Onset Dates Condition Status Assessment Fever R50.9 Active Problem Other chronic pain G89.29 Active [...] Status Dosage System Date Date ProAir HFA [facility] [id number] 108 (90 Base) December Active 2 puffs as MCG/ACT 2017 needed for Inhalation sob/wheezi every 4-6 hrs ng Levothyroxine [facility] 76252703086 50 MCG Orally Active 1 tablet Sodium Once a day on an empty stomach in the morning Tamiflu [facility] 25149110514 75 MG Orally Oct 31, Active 1 capsule Once a day 2018 Ventolin HFA [facility] 29430138793 108 (90 Base) December Active 2 puffs as MCG/ACT 2017 needed for Inhalation sob/wheezi every 4-6 hrs ng Cardura [facility] 59220450838 1 MG Orally Active 1 tablet Once a day in evening Potassium [facility] 08105890796 20 MEQ Orally Active 1 tablet Chloride ER Twice a day with food Lasix [facility] 20701144028 20 mg Orally Active 1 tablet Twice daily Gabapentin [facility] 45307047712 400 MG Orally Active 1 capsule Three times daily Omeprazole [facility] 72887655220 20 mg Orally Active 1 capsule Once daily Results Name Result Date Reference Range Unit Abnormality Flag STREP A RAPID ----Result Negative [id number] FLU TEST A/B ----B Negative [id number] ----A Negative [id number] Summary Purpose eClinicalWorks Submission
--- OUTSIDE RECORDS SUMMARY | 2019-11-16 08:29 | XMS REPORT ---
:1935 [facility] Address [address] [place] [address] Dr. Sin [address] [place] [id number] Care Team Providers Name Role Phone Unavailable Unavailable Unavailable Problems This patient has no known problems. Allergies, Adverse Reactions, Alerts This patient has no known allergies or adverse reactions. Medications This patient has no known medications.
--- OUTSIDE RECORDS SUMMARY | 2019-11-16 08:30 | XMS REPORT ---
:1935 Author Organization eClinicalWorks Care Team Providers Name Role Phone Kourtney Smith Provider Role Unavailable Allergies, Adverse Reactions, Alerts Substance Reaction Event Type Lisinopril rash, itching, bad cough Drug Allergy Levaquin itching and increased anxiety Drug Allergy Problems Problem Type Condition Code Onset Dates Condition Status Problem Insomnia, unspecified type G47.00 Active Problem Chronic kidney disease, unspecified N18.9 Active CKD stage Problem Gastroesophageal reflux disease, K21.9 Active esophagitis presence not specified Problem Prediabetes R73.03 Active Problem Other chronic pain G89.29 Active Problem Hypothyroidism, unspecified type E03.9 Active Assessment Gastroesophageal reflux disease, K21.9 Active esophagitis presence not specified Problem Neck pain M54.2 Active Problem Dorsalgia, unspecified M54.9 Active Problem 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 Active Problem History of fall Z91.81 Active Problem 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 Active Problem Hypotension I95.9 Active Problem Hypercholesteremia E78.00 Active Problem Cardiomyopathy I42.9 Active Problem 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 Problem Serum creatinine raised R79.89 Active Problem Diarrhea, unspecified type R19.7 Active Problem Fatigue, unspecified type R53.83 Active Problem Abnormal liver function K76.89 Active Problem Osteoporosis M81.0 Active Assessment Atrial fibrillation I48.91 Active Problem Constipation, unspecified K59.00 Active constipation type Problem Atrial fibrillation I48.91 Active Assessment Chronic kidney disease, unspecified N18.9 Active CKD stage Problem Chronic pain syndrome G89.4 Active Assessment Prediabetes R73.03 Active Problem Rib pain R07.81 Active Assessment Hypercholesteremia E78.00 Active Problem Depression screening Z13.31 Active Assessment Hypothyroidism, unspecified type E03.9 Active Problem 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 Assessment Hypertension I10 Active Problem IBS (irritable bowel syndrome) K58.9 Active Problem Anorexia R63.0 Active Assessment Diarrhea, unspecified type R19.7 Active Problem Dizziness R42 Active Assessment Fatigue, unspecified type R53.83 Active Problem Hypertension I10 Active Assessment Depression screening Z13.31 Active Problem Weakness R53.1 Active Assessment Constipation, unspecified K59.00 Active constipation type Problem History of TIA (transient ischemic Z86.73 Active attack) Problem Hypokalemia E87.6 Active Problem Congestive heart failure I50.9 Active Medications Medication Code Code Instructions Start End Status Dosage System Date Date Tamiflu [facility] 57902379839 75 MG Orally Oct 31, Active 1 capsule Once a day 2018 ProAir A [facility] 78597779578 108 (90 Base) December Active 2 puffs as MCG/ACT 2017 needed for Inhalation sob/wheezi every 4-6 hrs ng Cardura [facility] 71355453035 1 MG Orally Active 1 tablet Once a day in evening Levothyroxine [facility] 74295578178 50 MCG Orally Active 1 tablet Sodium Once a day on an empty stomach in the morning Eliquis 2.5 mg [facility] 18376459413 2.5 mg Orally Active 1 tablet Twice daily Gabapentin [facility] 21624000441 400 MG Orally Active 1 capsule Three times daily Potassium [facility] 38203362145 20 MEQ Orally Active 1 tablet Chloride ER Twice a day with food Lasix [facility] 40295291155 20 mg Orally Active 1 tablet Twice daily Omeprazole [facility] 14858880353 20 MG Orally Active 1 capsule Once daily Ventolin [facility] 34687054171 108 (90 Base) December Active 2 puffs as MCG/ACT 2017 needed for Inhalation sob/wheezi every 4-6 hrs ng Results No Known Results Summary Purpose eClinicalWorks Submission
--- OUTSIDE RECORDS SUMMARY | 2019-11-16 08:30 | XMS REPORT ---
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
--- OUTSIDE RECORDS SUMMARY | 2019-11-16 08:30 | XMS REPORT ---
[...] D04.61 Active skin of right wrist Assessment Acute pharyngitis, unspecified J02.9 Active etiology Problem IBS (irritable bowel syndrome) K58.9 Active Problem Anorexia R63.0 Active Assessment Shortness of breath R06.02 Active Problem Dizziness R42 Active Assessment URI, acute J06.9 Active Problem Hypertension I10 Active Problem Weakness R53.1 Active Problem History of TIA (transient ischemic Z86.73 Active attack) Problem Hypokalemia E87.6 Active Problem Congestive heart failure I50.9 Active Medications Medication Code Code Instructions Start End Status Dosage System Date Date Gabapentin [facility] 58678581980 400 MG Orally Active 1 capsule Three times daily Ventolin HFA [facility] 14807363737 108 (90 Base) December Active 2 puffs as MCG/ACT 2017 needed for Inhalation sob/wheezi every 4-6 hrs ng Levothyroxine [facility] 15898560254 50 MCG Orally Active 1 tablet Sodium Once a day on an empty stomach in the morning Omeprazole [facility] 08820198709 20 MG Orally Active 1 capsule Once daily Tamiflu [facility] 64429940999 75 MG Orally Oct 31, Active 1 capsule Once a day 2018 Eliquis 2.5 mg [facility] 19034419784 2.5 mg Orally Active 1 tablet Twice daily Cardura [facility] 61360547921 1 MG Orally Active 1 tablet Once a day in evening Potassium [facility] 10653973913 20 MEQ Orally Active 1 tablet Chloride ER Twice a day with food Augmentin [facility] 58903759639 500-125 MG Jul 17, Jul 27, Active 1 tablet Orally every 2018 2019 hrs Atorvastatin [place] 11628734690 20 MG Orally March 05, Active 1 tablet Calcium Once a day 2019 ProAir HFA [facility] 34623567088 108 (90 Base) Jul 17, Active 2 puffs as MCG/ACT 2018 needed for Inhalation SOB/wheezi every 4-6 hrs ng ProAir HFA [facility] 88192455144 108 (90 Base) December Active 2 puffs as MCG/ACT 2017 needed for Inhalation sob/wheezi every 4-6 hrs ng Lasix [facility] 12767528687 20 mg Orally Active 1 tablet Twice daily Results Name Result Date Reference Range Unit Abnormality Flag STREP A+ RAPID FLU TEST A/B ----B Negative [id number] ----A Negative [id number] Summary Purpose eClinicalWorks Submission
--- OUTSIDE RECORDS SUMMARY | 2019-11-16 08:30 | XMS REPORT ---
[...] Start End Status Dosage System Date Date Atorvastatin NDC 05425116907 20 MG Orally March 05, Active 1 tablet Calcium Once a day 2019 Results No Known Results Summary Purpose eClinicalWorks Submission
--- OUTSIDE RECORDS SUMMARY | 2019-11-16 08:31 | XMS REPORT ---
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 Active Problem IBS (irritable bowel syndrome) K58.9 Active Problem Anorexia R63.0 Active Problem Hypokalemia E87.6 Active Problem Hypertension I10 Active Problem 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00 Active constipation type Problem Fatigue, unspecified type R53.83 Active Problem Chronic kidney disease, unspecified N18.9 Active CKD stage Problem History of fall Z91.81 Active Problem Insomnia, unspecified type G47.00 Active Problem Hypercholesteremia E78.00 Active Problem Hypotension I95.9 Active Problem Cardiomyopathy I42.9 Active Problem Abnormal liver function K76.89 Active Problem Dizziness R42 Active Problem Atrial fibrillation I48.91 Active Problem Osteoporosis M81.0 Active Medications No Known Medications Results No Known Results Summary Purpose eClinicalWorks Submission
--- OUTSIDE RECORDS SUMMARY | 2019-11-16 08:31 | XMS REPORT ---
:1935 Author Organization eClinicalWorks Care Team Providers Name Role Phone Romy Jain Provider Role Unavailable Allergies, Adverse Reactions, Alerts [...] type G47.00 Active Problem Hypercholesteremia E78.00 Active Assessment Upper respiratory tract infection, J06.9 Active unspecified type Problem Hypotension I95.9 Active Problem Cardiomyopathy I42.9 Active Problem Abnormal liver function K76.89 Active Assessment Cough R05 Active Problem Dizziness R42 Active Problem Atrial fibrillation I48.91 Active Problem Osteoporosis M81.0 Active Medications Medication Code Code Instructions Start End Status Dosage System Date Date Azithromycin [facility] 86284229171 250 MG Orally Sep 25, Sep 30, Active 2 tablets Once a day 2019 2019 on the first day, then 1 tablet daily for 4 days ProAir A [facility] 30641547557 108 (90 Base) Jul 17, Active 2 puffs as MCG/ACT 2018 needed for Inhalation SOB/wheezi every 4-6 hrs ng Ventolin HFA [facility] 55682680739 108 (90 Base) December Active 2 puffs as MCG/ACT 2017 needed for Inhalation sob/wheezi every 4-6 hrs ng Tamiflu [facility] 10579134951 75 MG Orally Oct 31, Active 1 capsule Once a day 2018 Cardura [facility] 68746808770 1 MG Orally Active 1 tablet Once a day in evening Omeprazole [facility] 06100717472 20 MG Orally Active 1 capsule Once daily Levothyroxine [facility] 61622652066 50 MCG Orally Active 1 tablet Sodium Once a day on an empty stomach in the morning Gabapentin [facility] 68608752604 400 MG Orally Active 1 capsule Three times daily Atorvastatin [facility] 95801585164 20 MG Orally March 05, Active 1 tablet Calcium Once a day 2018 ProAir [facility] 73060648984 108 (90 Base) December Active 2 puffs as MCG/ACT 2017 needed for Inhalation sob/wheezi every 4-6 hrs ng Lasix [facility] 60235861190 20 mg Orally Active 1 tablet Twice daily Eliquis 2.5 mg [facility] 51797895415 2.5 mg Orally Active 1 tablet Twice daily Potassium [facility] 05322305336 20 MEQ Orally Active 1 tablet Chloride ER Twice a day with food Results No Known Results Summary Purpose eClinicalWorks Submission
--- OUTSIDE RECORDS SUMMARY | 2019-11-16 08:31 | XMS REPORT ---
[...] Problem Hypothyroidism, unspecified type E03.9 Active Assessment Chronic pain syndrome G89.4 Active Problem Neck pain M54.2 Active Problem [...] K76.89 Active Problem Osteoporosis M81.0 Active Assessment Hypercholesteremia E78.00 Active Problem Constipation, unspecified K59.00 Active constipation type Problem Atrial fibrillation I48.91 Active Assessment Gastroesophageal reflux disease, K21.9 Active esophagitis presence not specified Problem Chronic pain syndrome G89.4 Active Assessment Hypothyroidism, unspecified type E03.9 Active Problem Rib pain R07.81 Active Assessment Neck pain M54.2 Active Problem Depression screening Z13.31 Active Assessment Dorsalgia, unspecified M54.9 Active Problem 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 Assessment Hypertension I10 Active Problem IBS (irritable bowel syndrome) K58.9 Active Problem Anorexia R63.0 Active Assessment 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 Problem Dizziness R42 Active Assessment Atrial fibrillation I48.91 Active Problem Hypertension I10 Active Assessment Prediabetes R73.03 Active Problem Weakness R53.1 Active Assessment Chronic kidney disease, unspecified N18.9 Active CKD stage Problem History of TIA (transient ischemic Z86.73 Active attack) Problem Hypokalemia E87.6 Active Problem Congestive heart failure I50.9 Active Medications Medication Code Code Instructions Start End Status Dosage System Date Date Levothyroxine [facility] 30854867601 50 MCG Orally Active 1 tablet Sodium Once a day on an empty stomach in the morning Omeprazole [facility] 22483072064 20 MG Orally Active 1 capsule Once daily ProAir HFA [facility] 70133869648 108 (90 Base) December Active 2 puffs as MCG/ACT 2017 needed for Inhalation sob/wheezi every 4-6 hrs ng Atorvastatin ND 73656393383 20 MG Orally March 05, Active 1 tablet Calcium Once a day 2018 Potassium [facility] 37506014199 20 MEQ Orally Active 1 tablet Chloride ER Twice a day with food ProAir A [facility] 67120000740 108 (90 Base) Jul 17, Active 2 puffs as MCG/ACT 2018 needed for Inhalation SOB/wheezi every 4-6 hrs ng Gabapentin [facility] 82328073317 400 MG Orally Active 1 capsule Three times daily Cardura [facility] 11018951819 1 MG Orally Active 1 tablet Once a day in evening Lasix [facility] 97054854367 20 mg Orally Active 1 tablet Twice daily Eliquis 2.5 mg [facility] 54160069068 2.5 mg Orally Active 1 tablet Twice daily Tamiflu ND 97631547391 75 MG Orally Oct 31, Active 1 capsule Once a day 2018 Ventolin A [facility] 37190897448 108 (90 Base) December Active 2 puffs as MCG/ACT 2017 needed for Inhalation sob/wheezi every 4-6 hrs ng Results No Known Results Summary Purpose eClinicalWorks Submission
[2019-11-16 09:02] LABS: MPV 8.4 fL (7.6-11.3)
[2019-11-16 09:17] VITALS: BMI 23.2
[2019-11-16 09:50] LABS: Platelet Estimate ADEQ
--- NOTE | 2019-11-16 11:33 | RAD REPORT ---
EXAM DESCRIPTION: RAD - Myelography Lumbar - 11/16/2019 11:23 am CLINICAL HISTORY: . Radiculopathy COMPARISON: No comparisons TECHNIQUE: Lumbar puncture was performed for myelographic contrast injection. CT cervical spine lumb ar myelography separately reported. The procedure, risks and alternatives to the procedure were discussed with the patient in detail. Aft er answering all questions, both oral and written consent were obtained. Time-out procedure was perfo rmed. The patient was placed in an oblique prone position on the fluoroscopic table. The skin of the lower back was prepped and draped in the usual sterile fashion. After anesthetizing the skin and deeper sof t tissues with 1% lidocaine, a 22 gauge needle was advanced into the thecal sac at the L2-3 level. 10 cc of myelographic contrast was injected. At the conclusion of the procedure the needle was withdrawn and a sterile bandage placed over the pun cture site. The patient tolerated the procedure well without immediate complications. The patient was then sent to the the CT gantry for CT myelography as detailed. Total fluoro time: 1.4 minutes Images obtained: 4 IMPRESSION: Successful fluoroscopic guided lumbar puncture for CT myelography.
--- NOTE | 2019-11-16 11:47 | RAD REPORT ---
EXAM DESCRIPTION: CT - Spine Lumbar Wo Con - 11/16/2019 11:26 am CLINICAL HISTORY: Radiculopathy. NECK PAIN , LOW BACK PAIN COMPARISON: No comparisons TECHNIQUE: Axial noncontrast CT imaging of the lumbar spine was performed with coronal and sagittal re-formatted images. All CT scans are performed using dose optimization technique as appropriate and may include automated exposure control or mA/KV adjustment according to patient size. FINDINGS: Lumbar puncture for myelographic injection is separately reported. No acute lumbar spine fracture seen. No aggressive marrow pattern. Paraspinal tissues are normal in thickness. No paraspinal abscess or hematoma seen. T12-L1: Mild posterior disc bulge is seen towards the right without evidence of significant canal or foraminal stenosis. L1-2: Mild posterior disc bulge is seen with central disc calcification evident. Mild facet hypertrop hy is present. Mild narrowing of the anterior inferior aspects of both exit foramina. L2-3: 5 mm retrolisthesis is present, degenerative in etiology. Mild posterior disc bulge with mild f acet and ligamentum flavum hypertrophy and small disc calcification seen. Central canal is mildly carmela rowed no significant exit foraminal stenosis seen. L3-4: Moderate posterior disc bulge asymmetric to the left with moderate facet and ligamentum flavum hypertrophy. Moderate central canal stenosis is seen. Moderate bilateral exit foraminal narrowing. L4-5: Moderate posterior disc bulge with quite significant facet and ligamentum flavum hypertrophy. M oderate central canal stenosis is present. Moderate bilateral exit foraminal narrowing slightly worse on the right. L5-S1: Minimal posterior disc bulge is present mild facet and ligament flavum hypertrophy. No signifi cant canal stenosis or foraminal narrowing. No nerve root clumping is seen to suggest arachnoiditis. IMPRESSION: Multilevel moderately severe spondylosis of the lumbar spine is seen. Moderate central c anal stenosis is seen at L3-4 and L4-5.
[2019-11-16] MEDS ORDERED: HYDROCODONE/APAP 7.5/325 MG TAB ONE (11:51)
--- NOTE | 2019-11-16 12:14 | RAD REPORT ---
EXAM DESCRIPTION: CT - C Spine Wo Con - 11/16/2019 11:26 am CLINICAL HISTORY: NECK PAIN , LOW BACK PAIN Radiculopathy COMPARISON: Head C Spine Mpr Wo Con dated 12/09/2018; CT HEAD CSPINE MPR WO CONTRAST dated 06/09/2015 FINDINGS: Lumbar puncture for myelographic injection is separately reported. No fracture or aggressive marrow lesion is seen. Craniocervical junction is unremarkable. Very prominent left-sided degenerative change with bony hypertrophy and osteophytosis seen at the C1- C2 articulation. C2-3: Mild posterior disc bulge is present attenuating the anterior subarachnoid space. No significan t central or exit foraminal stenosis. C3-4: Mild a posterior disc bulge is seen. No significant canal or foraminal stenosis. C4-5: Posterior osteophyte/disc complex is present. There is a particularly prominent posterior osteo phyte left paracentral location measuring 5 mm in anterior-posterior dimension. This osteophyte appea rs to contact the left hemicord. Uncovertebral spurring is present narrowing both exit foramina. C5-6: Small posterior osteophyte/disc complex is present. Mild right-sided facet hypertrophy narrows the right exit foramen. C6-7: Disc thinning is present with small posterior disc/osteophyte complex. This attenuates the ante rior subarachnoid space and contacts the anterior cord. Left-sided uncovertebral and facet spurring m ildly narrows the left exit foramen. C7-T1: 3 mm anterolisthesis is present. No significant canal or foraminal stenosis. The size of the cervical cord is within normal limits. Prevertebral soft tissues are normal in thickness. IMPRESSION: Moderate multilevel degenerative changes are present throughout the cervical spine. Advanced hypertrophy is present involving the left lateral mass articulation at C1-2. Moderate degenerative changes are noted at C4-5, C6-7. 3 mm degenerative anterolisthesis is present C 7-T1. A particularly prominent left paracentral 5 mm posterior osteophyte is seen at C4-5, contacting the a nterior cord. All CT scans are performed using dose optimization technique as appropriate and may include automated exposure control or mA/KV adjustment according to patient size.
[2019-11-16 13:24] VITALS: BP 186/79; TEMP 98.6; O2SAT 96
== END 2019-11-16 13:30 | disposition home or self-care (01) ==
LOC: DS 08:27
PROVIDERS: ATTEND Specialist
PROC: B02BYZZ Computerized Tomography (CT Scan) of Spinal Cord using Other Contrast (ICD-10-PCS; principal; 2019-11-16)
DX: M54.5 Low back pain (principal); M48.061 Spinal stenosis, lumbar region without neurogenic claudication; M54.2 Cervicalgia
CPT/HCPCS: 36415; 62304; 72125; 72131; 85049

== ENCOUNTER 2020-01-16 12:59 | Emergency (ER) | payer OTHER ==
--- OUTSIDE RECORDS SUMMARY | 2020-01-16 13:02 | XMS REPORT ---
:1935 Author Organization [facility] t Address [address] [place] [address] Care Team Providers Name Role Phone Unavailable Unavailable Unavailable Problems Condition Condition Condition Status Onset Resolution Last Treatin g Comments Name Details Category Date Date Treatment Clinician Date Weakness Weakness Problem Active Eosinophili Eosinophili Problem Active a a History of History of Problem Active TIA TIA (transient (transient ischemic ischemic attack) attack) Dizziness Dizziness Problem Active Abnormal Abnormal Problem Active liver liver function function Hypertensio Hypertensio Problem Active n n Cardiomyopa Cardiomyopa Problem Active thy thy Hypotension Hypotension Problem Active Osteoporosi Osteoporosi Problem Active s s Atrial Atrial Problem Active fibrillatio fibrillatio n n Automatic Automatic Problem Active implantable implantable cardioverte cardioverte r-defibrill r-defibrill ator in ator in situ situ History of History of Problem Active fall fall Serum Serum Problem Active creatinine creatinine raised raised IBS IBS Problem Active (irritable (irritable bowel bowel syndrome) syndrome) Anorexia Anorexia Problem Active Hypercholes Hypercholes Problem Active teremia teremia Hypokalemia Hypokalemia Problem Active Rib pain Rib pain Problem Active Congestive Congestive Problem Active heart heart failure failure Cardiac Cardiac Problem Active pacemaker pacemaker in situ in situ Other Other Problem Active chronic chronic pain pain Neck pain Neck pain Problem Active Gastroesoph Gastroesoph Problem Active ageal ageal reflux reflux disease, disease, esophagitis esophagitis presence presence not not specified specified Dorsalgia, Dorsalgia, Problem Active unspecified unspecified Prediabetes Prediabetes Problem Active Insomnia, Insomnia, Problem Active unspecified unspecified type type Chronic Chronic Problem Active kidney kidney disease, disease, unspecified unspecified CKD stage CKD stage Hypothyroid Hypothyroid Problem Active ism, ism, unspecified unspecified type type 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 Diarrhea, Diarrhea, Problem Active unspecified unspecified type type Fatigue, Fatigue, Problem Active unspecified unspecified type type Constipatio Constipatio Problem Active n, n, unspecified unspecified constipatio constipatio n type n type Depression Depression Problem Active screening screening Upper Upper Problem Active respiratory respiratory tract tract infection, infection, unspecified unspecified type type Cough Cough Problem Active Allergies, Adverse Reactions, Alerts Allergy Name Allergy Status Severity Reaction(s) Onset Inactive Treat ing Comments Type Date Date Clinician Lisinopril Adverse Active rash, Reaction itching, bad cough Levaquin Adverse Active itching and Reaction increased anxiety Medications Ordered Filled Start Stop Current Ordering Indication Dosage Frequency Signature Comments Components Medication Medication Date Date Medication? Clinician (SIG) Name Name Daniella Brewer 2020- Romy 2 tabl ets n n 09-25 Jain on the 00:00: 00:00 first day, 00 :00 then 1 tablet daily for 4 days ProAir HFA ProAir HFA 2018-09 Yes Romy 2 puffs as 1-08 Jain needed for 00:00: SOB/wheezi 00 ng Atorvastati Atorvastati Yes Romy 1 tabl et n Calcium n Calcium 6-27 Jain 00:00: 00 Tamiflu Tamiflu Yes Romy 1 capsule 22 Jain 00:00: 00 Ventolin Ventolin 2017-0 Yes Romy 2 puffs as HFA HFA 4-06 Jain needed for 00:00: sob/wheezi 00 ng ProAir HFA ProAir HFA 0 Yes Romy 2 puffs as 4-06 Jain needed for 00:00: sob/wheezi 00 ng Gabapentin Gabapentin Yes Romy 1 capsule Jain Levothyroxi Levothyroxi Yes Romy 1 table t ne Sodium ne Sodium A[place] on an empty stomach in the morning Omeprazole Omeprazole Yes Romy 1 capsule Jain Eliquis 2.5 Eliquis 2.5 Yes Romy 1 table t mg mg Jain Cardura Cardura Yes Romy 1 tablet Jain in evening Potassium Potassium Yes Romy 1 tablet Chloride ER Chloride ER Jain with theresa d Lasix Lasix Yes Romy 1 tablet Jain Encounters Start End Encounter Admission Attending Care Care Encounter Date/Time Date/Time Type Type Clinicians Facility Department ID 2019-09-25 2019-09-25 [id number] 10:40:00 10:40:00 [facility] 2019-08-17 2019-08-17 [id number] 14:07:00 14:07:00 [facility] 2019-08-17 2019-08-17 [facility] [id number] 08:20:00 08:20:00 [facility] 2019-07-17 2019-07-17 [facility] [id number] 16:20:00 16:20:00 [facility] 2019-03-25 2019-03-25 [facility] [id number] 12:56:00 12:56:00 [facility] 2019-03-05 2019-03-05 [facility] [id number] 09:30:00 09:30:00 [facility] 2019-03-02 2019-03-02 [facility] [id number] 11:00:00 11:00:00 [facility] 2018-12-18 2018-12-18 [facility] [id number] 09:00:00 09:00:00 [facility] 2018-10-31 2018-10-31 [facility] [id number] 12:33:00 12:33:00 [facility] 2018-09-25 2018-09-25 [facility] [id number] 09:00:00 09:00:00 [facility] 2018-03-27 2018-03-27 [facility] [id number] 10:00:00 10:00:00 [facility] 2017-12-13 2017-12-13 [facility] [id number] 16:46:00 16:46:00 [facility] 2017-12-13 2017-12-13 [facility] [id number] 14:45:00 14:45:00 [facility]
--- OUTSIDE RECORDS SUMMARY | 2020-01-16 13:02 | XMS REPORT ---
:1935 [facility] Team Providers Name Role Phone oKurtney Smith Provider Role Unavailable Allergies No Known Allergies Problems Problem Type Condition Code Onset Dates Condition Statu s Assessment Fever R50.9 Active Problem Other chronic pain G89.29 Active Problem Chronic kidney disease, unspecified N18.9 Active CKD stage Problem Insomnia, unspecified type G47.00 A ctive Problem Prediabetes R73.03 Active Problem Hypothyroidism, unspecified type E03.9 Active Problem Neck pain M54.2 Active Problem Hypokalemia E87.6 Active Problem Congestive heart failure I50.9 Act leigha Problem Gastroesophageal reflux disease, K21.9 Active esophagitis presence not specified Problem Weakness R53.1 Active Problem 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 Active Problem History of TIA (transient ischemic Z86.73 Active attack) Problem 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 Problem Serum creatinine raised R79.89 Acti ve Problem History of fall Z91.81 Active Problem 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 Ac tive Problem Chronic pain syndrome G89.4 Active Problem Dorsalgia, unspecified M54.9 Activ e Problem Cardiomyopathy I42.9 Active Problem Hypotension I95.9 Active Problem Rib pain R07.81 Active Problem 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 47470042915 108 (90 Base) December Active 2 p uffs as MCG/ACT 2017 needed for Inhalation sob/wheezi every 4-6 hrs ng Levothyroxine [facility] 61197577957 50 MCG Orally Active 1 tablet Sodium Once a day on an empty stomach in the morning Tamiflu ND 13981131345 75 MG Orally Oct 31 1 capsu le Once a day 2018 Ventolin HFA [facility] 89779970409 108 (90 Base) December Active 2 puffs as MCG/ACT 2017 needed for Inhalation sob/wheezi every 4-6 hrs ng Cardura [facility] 00397267359 1 MG Orally Active 1 tablet Once a day in evening Potassium [facility] 36117884102 20 MEQ Orally Active 1 ta blet Chloride ER Twice a day with theresa d Lasix [facility] 07718693436 20 mg Orally Active 1 table t Twice daily Gabapentin [facility] 87790846001 400 MG Orally Active 1 c apsule Three times daily Omeprazole [facility] 32589026076 20 mg Orally Active 1 ca psule Once daily Results Name Result Date Reference Range Unit Abnormali ty Flag STREP A RAPID ----Result Negative [id number] FLU TEST A/B ----B Negative [id number] ----A Negative [id number] Summary Purpose eClinicalWorks Submission
--- OUTSIDE RECORDS SUMMARY | 2020-01-16 13:02 | XMS REPORT ---
:1935 Author Organization [facility] Care Team Providers Name Role Phone Kourtney Smith Provider Role Unavailable Allergies No Known Allergies Problems Problem Type Condition Code Onset Dates Condition Statu s Assessment Exposure to influenza Z20.828 Active Problem [...] System Code Instructions Start End Date Status Dos age Date Tamiflu [facility] 66530841845 75 MG Orally Once Oct 31, Active 1 capsule a day 2019 Results No Known Results Summary Purpose eClinicalWorks Submission
--- OUTSIDE RECORDS SUMMARY | 2020-01-16 13:02 | XMS REPORT | Clinical Summary ---
:1935 Author Organization [facility] Address [address] [place] [address] Care Team Providers Name Role Phone MD Luis Primary Care Provider Allergies Active Allergy Reactions [...] day. levothyroxine Take 50 mcg by 0 A ctive (SYNTHROID, LEVOTHROID) mouth every 50 MCG tablet morning. atorvastatin (LIPITOR) Take 20 mg by 0 Active 20 MG tablet mouth daily. gabapentin (NEURONTIN) Take 400 mg by 0 Active 400 MG capsule mouth 2 (two) times a day. omeprazole (PriLOSEC) Take 40 mg by 0 Active 40 MG capsule mouth daily. calcium Chew 1 tablet 2 0 Acti ve carbonate-vitamin D3 (two) times a (CALTRATE 600 + D) 600 day. mg (1,500 mg)-800 unit tablet,chewable MAGNESIUM CHLORIDE Take 1 tablet by 0 Active (SLOW-MAG ORAL) mouth 2 (two) times a day. FOLIC Take 1 tablet by 0 Act leigha ACID/MULTIVIT-MIN/LUTEI mouth daily. N (CENTRUM SILVER ORAL) lidocaine (LIDODERM) 5 Place 1 patch on 0 Active % the skin as needed for mild pain. 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
--- OUTSIDE RECORDS SUMMARY | 2020-01-16 13:03 | XMS REPORT ---
:1935 Author Organization [employer]ClinicalWorks Care Team Providers Name Role Phone Kourtney Smith Provider Role Unavailable Allergies No Known Allergies Problems Problem Type Condition Code Onset Dates Condition Statu s Problem Insomnia, unspecified type G47.00 A ctive Problem Chronic kidney disease, unspecified N18.9 Active CKD stage Problem Gastroesophageal reflux disease, K21.9 Active esophagitis presence not specified Problem Prediabetes R73.03 Active Problem Other chronic pain G89.29 Active Problem Hypothyroidism, unspecified type E03.9 Active Problem Neck pain M54.2 Active Problem Dorsalgia, unspecified M54.9 Activ e Problem 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 Ac tive Problem History of fall Z91.81 Active Problem 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 Active Problem Hypotension I95.9 Active Problem Hypercholesteremia E78.00 Active Problem Cardiomyopathy I42.9 Active Problem 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 Problem Serum creatinine raised R79.89 Acti ve Problem Diarrhea, unspecified type R19.7 A ctive Problem Fatigue, unspecified type R53.83 Ac tive Problem Abnormal liver function K76.89 Acti ve Problem Osteoporosis M81.0 Active Problem Constipation, unspecified K59.00 Ac tive constipation type Problem Atrial fibrillation I48.91 Active [...] Problem Congestive heart failure I50.9 Act leigha Medications Medication Code Code Instructions Start End Status Dosage System Date Date Atorvastatin [facility] 10811794234 20 MG Orally March 05, Active 1 tablet Calcium Once a day 2018 Results No Known Results Summary Purpose eClinicalWorks Submission
--- OUTSIDE RECORDS SUMMARY | 2020-01-16 13:03 | XMS REPORT ---
:1935 Author Organization [facility] Care Team Providers Name Role Phone Kourtney Smith Provider Role Unavailable Allergies, Adverse Reactions, Alerts Substance Reaction Event Type Lisinopril rash, itching, bad cough Drug Allergy Levaquin itching and increased anxiety Drug Aller gy Problems Problem Type Condition Code Onset Dates [...] K76.89 Acti ve Problem Osteoporosis M81.0 Active Assessment Atrial fibrillation I48.91 Active Problem Constipation, unspecified K59.00 Ac tive [...] R63.0 Active Assessment Diarrhea, unspecified type R19.7 A ctive Problem Dizziness R42 Active Assessment Fatigue, unspecified type R53.83 Ac tive Problem Hypertension I10 Active Assessment Depression screening Z13.31 Active Problem Weakness R53.1 Active Assessment Constipation, unspecified K59.00 Ac tive constipation type Problem History of TIA (transient ischemic Z86.73 Active attack) Problem Hypokalemia E87.6 Active Problem Congestive heart failure I50.9 Act leigha Medications Medication Code Code Instructions Start End Status Dosage System Date Date Tamiflu [facility] 12539685925 75 MG Orally Oct 31, Active 1 capsu le Once a day 2018 ProAir HFA [facility] 47913796334 108 (90 Base) December Active 2 p uffs as MCG/ACT 2017 needed for Inhalation sob/wheezi every 4-6 hrs ng Cardura [facility] 65522602710 1 MG Orally Active 1 tablet Once a day in evening Levothyroxine [facility] 86894154942 50 MCG Orally Active 1 tablet Sodium Once a day on an empty stomach in the morning Eliquis 2.5 mg [facility] 31371175181 2.5 mg Orally Active 1 tablet Twice daily Gabapentin [facility] 32571341066 400 MG Orally Active 1 c apsule Three times daily Potassium [facility] 22382953685 20 MEQ Orally Active 1 ta blet Chloride ER Twice a day with theresa d Lasix [facility] 77249217441 20 mg Orally Active 1 table t Twice daily Omeprazole [facility] 33208993595 20 MG Orally Active 1 ca psule Once daily Ventolin A [facility] 16724692696 108 (90 Base) December Active 2 puffs as MCG/ACT 2017 needed for Inhalation sob/wheezi every 4-6 hrs ng Results No Known Results Summary Purpose eClinicalWorks Submission
--- OUTSIDE RECORDS SUMMARY | 2020-01-16 13:03 | XMS REPORT ---
[...] Congestive heart failure I50.9 Act leigha Medications No Known Medications Results No Known Results Summary Purpose eClinicalWorks Submission
--- OUTSIDE RECORDS SUMMARY | 2020-01-16 13:04 | XMS REPORT ---
[...] Acti ve Problem Osteoporosis M81.0 Active Assessment Hypercholesteremia E78.00 Active Problem Constipation, unspecified K59.00 Ac tive constipation type Problem Atrial fibrillation I48.91 Active Assessment Gastroesophageal reflux disease, K21.9 Active esophagitis presence not specified Problem Chronic pain syndrome G89.4 Active Assessment Hypothyroidism, unspecified type E03.9 Active Problem Rib pain R07.81 Active Assessment Neck pain M54.2 Active Problem Depression screening Z13.31 Active Assessment Dorsalgia, unspecified M54.9 Activ e Problem Squamous cell carcinoma in situ of [...] Status Dosage System Date Date Levothyroxine [facility] 76434771910 50 MCG Orally Active 1 tablet Sodium Once a day on an empty stomach in the morning Omeprazole ND 44427648796 20 MG Orally Active 1 ca psule Once daily ProAir HFA [facility] 11626830497 108 (90 Base) December Active 2 p uffs as MCG/ACT 2017 needed for Inhalation sob/wheezi every 4-6 hrs ng Atorvastatin ND 31571546835 20 MG Orally March 05, Active 1 tablet Calcium Once a day 2018 Potassium [facility] 23940194112 20 MEQ Orally Active 1 ta blet Chloride ER Twice a day with theresa d ProAir HFA [facility] 36668229829 108 (90 Base) Jul 17, Active 2 p uffs as MCG/ACT 2018 needed for Inhalation SOB/wheezi every 4-6 hrs ng Gabapentin [facility] 43123690003 400 MG Orally Active 1 c apsule Three times daily Cardura [facility] 71582941387 1 MG Orally Active 1 tablet Once a day in evening Lasix ND 44391255869 20 mg Orally Active 1 table t Twice daily Eliquis 2.5 mg ND 64470945734 2.5 mg Orally Active 1 tablet Twice daily Tamiflu ND 70576994938 75 MG Orally Oct 31, Active 1 capsu le Once a day 2018 Ventolin HFA [facility] 01915484863 108 (90 Base) December Active 2 puffs as MCG/ACT 2017 needed for Inhalation sob/wheezi every 4-6 hrs ng Results No Known Results Summary Purpose eClinicalWorks Submission
--- OUTSIDE RECORDS SUMMARY | 2020-01-16 13:04 | XMS REPORT ---
:1935 Author Organization eClinicalWorks Care Team Providers Name Role Phone Kourtney Smith Provider Role Unavailable Allergies No Known Allergies Problems Problem Type Condition Code Onset Dates Condition Statu s Problem Other chronic pain G89.29 Active Problem Gastroesophageal reflux disease, K21.9 Active esophagitis presence not specified Problem Hypothyroidism, unspecified type E03.9 Active Problem Prediabetes R73.03 Active Problem Neck pain M54.2 Active Problem Dorsalgia, unspecified M54.9 Activ e Problem 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 Ac tive Problem IBS (irritable bowel syndrome) K58.9 Active Problem Anorexia R63.0 Active Problem Hypokalemia E87.6 Active Problem Hypertension I10 Active Problem 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 Problem Congestive heart failure I50.9 Act leigha Problem Rib pain R07.81 Active Problem 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 Problem Serum creatinine raised R79.89 Acti ve Problem Upper respiratory tract infection, J06.9 Active unspecified type Problem Depression screening Z13.31 Active Problem 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 Active Problem History of TIA (transient ischemic Z86.73 Active attack) Problem Cough R05 Active Problem Weakness R53.1 Active Problem Diarrhea, unspecified type R19.7 A ctive Problem Chronic pain syndrome G89.4 Active Problem Constipation, unspecified K59.00 Ac tive constipation type Problem Fatigue, unspecified type R53.83 Ac tive Problem Chronic kidney disease, unspecified N18.9 Active CKD stage Problem History of fall Z91.81 Active Problem Insomnia, unspecified type G47.00 A ctive Problem Hypercholesteremia E78.00 Active Problem Hypotension I95.9 Active Problem Cardiomyopathy I42.9 Active Problem Abnormal liver function K76.89 Acti ve Problem Dizziness R42 Active Problem Atrial fibrillation I48.91 Active Problem Osteoporosis M81.0 Active Medications No Known Medications Results No Known Results Summary Purpose eClinicalWorks Submission
--- OUTSIDE RECORDS SUMMARY | 2020-01-16 13:04 | XMS REPORT ---
[...] End Status Dosage System Date Date Gabapentin [facility] 33659950519 400 MG Orally Active 1 c apsule Three times daily Ventolin HFA [facility] 75996749381 108 (90 Base) December Active 2 puffs as MCG/ACT 2017 needed for Inhalation sob/wheezi every 4-6 hrs ng Levothyroxine [facility] 32592238690 50 MCG Orally Active 1 tablet Sodium Once a day on an empty stomach in the morning Omeprazole [facility] 25280681301 20 MG Orally Active 1 ca psule Once daily Tamiflu [facility] 15976436533 75 MG Orally Oct 31, Active 1 capsu le Once a day 2018 Eliquis 2.5 mg [facility] 04168297563 2.5 mg Orally Active 1 tablet Twice daily Cardura [facility] 54843980193 1 MG Orally Active 1 tablet Once a day in evening Potassium [facility] 96778032170 20 MEQ Orally Active 1 ta blet Chloride ER Twice a day with theresa d Augmentin [facility] 78434015910 500-125 MG Jul 17, Jul 27, Active 1 table t Orally every 2018 2019 hrs Atorvastatin [facility] 02826713625 20 MG Orally March 05, Active 1 tablet Calcium Once a day 2018 ProAir HFA [facility] 91562388168 108 (90 Base) Jul 17, Active 2 p uffs as MCG/ACT 2018 needed for Inhalation SOB/wheezi every 4-6 hrs ng ProAir HFA [facility] 19312113607 108 (90 Base) December Active 2 p uffs as MCG/ACT 2017 needed for Inhalation sob/wheezi every 4-6 hrs ng Lasix [facility] 46957937285 20 mg Orally Active 1 table t Twice daily Results Name Result Date Reference Range Unit Abnormali ty Flag STREP A+ RAPID FLU TEST A/B ----B Negative [id number] ----A Negative [id number] Summary Purpose eClinicalWorks Submission
--- OUTSIDE RECORDS SUMMARY | 2020-01-16 13:04 | XMS REPORT ---
:1935 [facility] Team Providers Name Role Phone Cristobal Romy Provider Role Unavailable Allergies, Adverse Reactions, Alerts [...] G47.00 A ctive Problem Hypercholesteremia E78.00 Active Assessment Upper respiratory tract infection, J06.9 Active unspecified type Problem Hypotension I95.9 Active Problem Cardiomyopathy I42.9 Active Problem Abnormal liver function K76.89 Acti ve Assessment Cough R05 Active Problem Dizziness R42 Active Problem Atrial fibrillation I48.91 Active Problem Osteoporosis M81.0 Active Medications Medication Code Code Instructions Start End Status Dosage System Date Date Azithromycin [facility] 32856290683 250 MG Orally Sep 25, Sep 30, Active 2 tablets Once a day 2019 2019 on the first day, then 1 tablet daily for 4 days ProAir HFA [facility] 32375362393 108 (90 Base) Jul 17, Active 2 p uffs as MCG/ACT 2018 needed for Inhalation SOB/wheezi every 4-6 hrs ng Ventolin HFA [facility] 32199527962 108 (90 Base) December Active 2 puffs as MCG/ACT 2017 needed for Inhalation sob/wheezi every 4-6 hrs ng Tamiflu [facility] 34150035082 75 MG Orally Oct 31, Active 1 capsu le Once a day 2018 Cardura [facility] 58457341356 1 MG Orally Active 1 tablet Once a day in evening Omeprazole [facility] 05266379670 20 MG Orally Active 1 ca psule Once daily Levothyroxine [facility] 01128770037 50 MCG Orally Active 1 tablet Sodium Once a day on an empty stomach in the morning Gabapentin ND 45757204535 400 MG Orally Active 1 c apsule Three times daily Atorvastatin ND 93128967642 20 MG Orally March 05, Active 1 tablet Calcium Once a day 2018 ProAir HFA [facility] 06234402173 108 (90 Base) December Active 2 p uffs as MCG/ACT 2017 needed for Inhalation sob/wheezi every 4-6 hrs ng Lasix ND 80344513511 20 mg Orally Active 1 table t Twice daily Eliquis 2.5 mg [facility] 50849421699 2.5 mg Orally Active 1 tablet Twice daily Potassium [facility] 28169483914 20 MEQ Orally Active 1 ta blet Chloride ER Twice a day with theresa d Results No Known Results Summary Purpose eClinicalWorks Submission
[2020-01-16 13:32] LABS: Absolute Lymphocytes (CBC) 1.2 K/uL (0.7-4.9); Hematocrit 38.9 % (36.0-45.0); Lymphocytes % 11.2 % (15.3-44.8); MPV 8.4 fL (7.6-11.3); RBC Red Blood Cell Count 4.42 M/uL (3.86-4.86)
[2020-01-16 13:33] LABS: Protime INR 1.02
[2020-01-16] MEDS ORDERED: NA CHLORIDE 0.9% 1,000 ML ONE (13:49)
[2020-01-16 13:54] LABS: ALT/SGPT 20 U/L (12-78); Albumin 3.4 g/dL (3.4-5.0); Alkaline Phosphatase 68 U/L (45-117); BUN Blood Urea Nitrogen 30 mg/dL (7-18); Bicarbonate 26 mmol/L (21-32); Bilirubin Direct 0.2 mg/dL (0-0.2); Bilirubin Total 0.5 mg/dL (0.2-1.0); Glucose Level 108 mg/dL (74-106); Lipase 169 U/L (73-393); NT PRO-BNP 2357 pg/mL (<450); Protein, Total 7.4 g/dL (6.4-8.2); Sodium Level 142 mmol/L (136-145); Troponin (Emerg Dept Use Only) < 0.02 ng/mL (0.0-0.045)
[2020-01-16 13:55] LABS: AST/SGOT 27 U/L (15-37); Magnesium 2.3 mg/dL (1.8-2.4); Potassium 3.6 mmol/L (3.5-5.1)
--- NOTE | 2020-01-16 14:02 | RAD REPORT ---
EXAM DESCRIPTION: RAD - Chest Single View - 01/16/2020 1:47 pm CLINICAL HISTORY: COUGH COMPARISON: Portable December 2018 TECHNIQUE: AP portable chest image was obtained 01/16/2020 1:47 pm . FINDINGS: Interstitial markings are prominent, slightly increased from comparison. No focal consolid ation or mass. Heart size is upper normal. Vasculature is mildly prominent. Pacemaker overlies the le ft side of the chest. No measurable pleural effusion and no pneumothorax. No acute bony abnormality s een. No acute aortic findings suspected. IMPRESSION: Vasculature and lung markings are fractionally increased over comparison. Differential change is minimal but correlation could be made with any early failure or volume overloa d findings.
--- NOTE | 2020-01-16 14:15 | RAD REPORT ---
EXAM DESCRIPTION: CT - Head Brain Wo Cont - 01/16/2020 1:46 pm CLINICAL HISTORY: Dizziness;Pain, syncope COMPARISON: Head C Spine Mpr Wo Con dated 12/09/2018 TECHNIQUE: Axial 5 mm thick images of the head were obtained without IV contrast. All CT scans are performed using dose optimization technique as appropriate and may include automated exposure control or mA/KV adjustment according to patient size. FINDINGS: No intracranial hemorrhage, mass, edema or shift of mid-line structures. No acute infarcti on changes seen. No abnormal extra-axial fluid collections. Atrophy changes are minimal. Ventricles a re in proportion. Mild for age chronic ischemic changes are present. Intracranial findings are simila r to comparison. Mastoid air cells and visualized portions of the paranasal sinuses are clear. No acute bony findings. IMPRESSION: No acute intracranial finding identifiable. Patient has atrophy and chronic ischemic changes match comparison.
[2020-01-16 14:27] LABS: Urine Blood TRACE (NEG); Urine Glucose NEGATIVE (NEG); Urine Protein TRACE (NEG); Urine Specific Gravity 1.015 (1.005-1.030); Urine pH 5.5 (5.0-7.0)
[2020-01-16] MEDS ORDERED: CEFTRIAXONE/SWI 1gm 1 GM/10 ML SYR ONE (15:04)
[2020-01-16] MEDS ORDERED: FUROSEMIDE 20 MG TABLET ONE (17:14)
[2020-01-16] MEDS ORDERED: AMLODIPINE 5 MG TAB ONE (17:14)
[2020-01-16] MEDS ORDERED: ACETAMINOPHEN 325 MG TABLET ONE ×2 (18:30→18:32)
--- NOTE | 2020-01-16 19:17 | ER ---
Nurse's Notes [facility] [place] Name: Suri Lemus Age: 84 yrs Sex: Female : 1935 Arrival Date: 01/16/2020 Time: 13:05 Bed 14 Private MD: Diagnosis: Weakness;Syncope and collapse-near;Urinary tract infection, site not specified;Unspecified kidney failure;Essential (primary) hypertension Presentation: 01/15 12:58 Chief complaint: EMS states: she walked outside to work with her garden and became ah lightheaded and weak in the legs. EMS states that she was A/O x4 upon arrival. BP 209/88, BS 142. Coronavirus screen: Proceed with normal triage. Patient denies a cough. Patient denies shortness of breath or difficulty breathing. Patient denies measured and/or subjective temperature greater than 100.4F prior to today's visit. Patient denies travel on a cruise ship or to a country the [facility] currently lists as an affected area. Patient denies contact with known and/or suspected case of COVID-19. Ebola Screen: No symptoms or risks identified at this time. Initial Sepsis Screen: Does the patient meet any 2 criteria? No. Patient's initial sepsis screen is negative. Does the patient have a suspected source of infection? No. Patient's initial sepsis screen is negative. Risk Assessment: Do you want to hurt yourself or someone else? Patient reports no desire to harm self or others. Onset of symptoms was January 16, 2020. 12:58 Method Of Arrival: EMS: [facility] 12:58 Acuity: TAQUER[place] 3 ah Historical: - Allergies: 13:18 Levaquin; 13:18 Lisinopril; ah - PMHx: 13:18 CHF; Hyperlipidemia; Hypertension; neuropathy; ah - Immunization history:: Adult Immunizations up to date, Flu vaccine is up to date. - Social history:: Smoking status: Patient denies any tobacco usage or history of. Patient/guardian denies using alcohol. - Family history:: not pertinent. Screenin:47 Abuse screen: Denies threats or abuse. Nutritional screening: No deficits noted. ll1 Tuberculosis screening: No symptoms or risk factors identified. Fall Risk None identified. IV access (20 points). Ambulatory Aid- None/Bed Rest/Nurse Assist (0 pts). Gait- Weak (10 pts.). Total Yadav Fall Scale indicates Low Risk Score (25-44 pts). Fall prevention measures have been instituted. Placed close to Nursing Station Frequent Obs/Assesments occuring As available Patient and Family Educated on Fall Prevention Program and strategies. Assessment: 13:30 General: Appears in no apparent distress. Behavior is calm, cooperative. Pain: Denies ll1 pain. Neuro: Level of Consciousness is awake, alert, obeys commands, Oriented to person, place, time, situation, Water Mechanic are equal bilaterally Moves all extremities. Full function Gait is steady, Speech is normal, Facial symmetry appears normal, Pupils are PERRLA, Had episode of dizziness, generalized weakness that started today while walking. Slight nausea. Feels better at this time.. Reports dizziness, weakness. Cardiovascular:. Respiratory: No deficits noted. GI: Abdomen is flat, Bowel sounds present X 4 quads. Abd is soft and non tender X 4 quads. Reports nausea, episode of nausea, feels better now. : No deficits noted. Musculoskeletal: Circulation, motion, and sensation intact. Capillary refill < 3 seconds, Reports weakness in generalized weakness. 14:00 Reassessment: Patient appears in no apparent distress at this time. Patient and/or vc family updated on plan of care and expected duration. Pain level reassessed. 15:00 Reassessment: Patient appears in no apparent distress at this time. Patient and/or vc family updated on plan of care and expected duration. Pain level reassessed. Patient is alert, oriented x 3, equal unlabored respirations, skin warm/dry/pink. 16:00 Reassessment: Patient appears in no apparent distress at this time. Patient and/or vc family updated on plan of care and expected duration. Pain level reassessed. Patient ambulated to bathroom, very unsteady on her feet. 17:12 Reassessment: Dr. Ford at patients at bedside new orders as follows administer 5mg vc Norvasc, 20mg Lasix, walk patient in one hour, if still unsteady notify Dr. Ford for possible admission. 18:00 Reassessment: Patient appears in no apparent distress at this time. Patient and/or vc family updated on plan of care and expected duration. Pain level reassessed. Patient is alert, oriented x 3, equal unlabored respirations, skin warm/dry/pink. 19:00 Reassessment: Patient appears in no apparent distress at this time. Patient and/or vc family updated on plan of care and expected duration. Pain level reassessed. Patient is alert, oriented x 3, equal unlabored respirations, skin warm/dry/pink. Patient denies pain at this time. Patient states feeling better. Patient states symptoms have improved. 20:00 Reassessment: Patient appears in no apparent distress at this time. Patient and/or vc family updated on plan of care and expected duration. Pain level reassessed. Patient is alert, oriented x 3, equal unlabored respirations, skin warm/dry/pink. Discharge pending med administration, medication not located in ER, must be obtained from one of the floors. Patient denies pain at this time. 20:30 Reassessment: Patient appears in no apparent distress at this time. Patient and/or vc family updated on plan of care and expected duration. Pain level reassessed. Patient is alert, oriented x 3, equal unlabored respirations, skin warm/dry/pink. Patient states feeling better. Patient states symptoms have improved. Vital Signs: 12:58 BP 207 / 84; Pulse 88; Resp 13; Temp 97.8; Pulse Ox 99% ; Weight 52.16 kg; Height 5 ft. ah 0 in. (152.40 cm); Pain 5/10; 13:35 BP 187 / 80; Pulse 69; Resp 15; ll1 14:30 BP 204 / 87; Pulse 68; Resp 12; Pulse Ox 98% on R/A; vc 15:30 BP 189 / 78; Pulse 69; Resp 12; Pulse Ox 95% on R/A; vc 16:00 BP 177 / 86; Pulse 70; Resp 14; Pulse Ox 95% on R/A; vc 16:18 BP 194 / 83 LA Supine (auto/reg); Pulse 72; Pulse Ox 100% on R/A; jp3 16:21 BP 194 / 87 LA Sitting (auto/reg); Pulse 70; Pulse Ox 100% on R/A; jp3 16:25 BP 186 / 84 LA Standing (auto/reg); Pulse 78; Pulse Ox 100% on R/A; jp3 17:00 BP 188 / 77; Pulse 70; Resp 17; Pulse Ox 96% on R/A; vc 18:00 BP 178 / 71; Pulse 69; Resp 13; Pulse Ox 97% on R/A; vc 19:00 BP 186 / 81; Pulse 70; Resp 17; Pulse Ox 94% on R/A; vc 19:30 BP 174 / 68; Pulse 70; Resp 15; Pulse Ox 95% on R/A; vc 12:58 Body Mass Index 22.46 (52.16 kg, 152.40 cm) NIH Stroke Scale Scores: 16:10 NIHSS Score: 0 malia 19:13 NIHSS Score: 0 [facility] ED Course: 13:05 Patient arrived in ED. ll1 13:07 Moisés Luna MD is Attending Physician. [facility] 13:11 Major Mares, ANT is Primary Nurse. ll1 13:17 Triage completed. 13:25 Arm band placed on Patient placed in an exam room, on a stretcher. ll1 13:30 bilingual kindergarten teacher on. Pulse ox on. NIBP on. ll1 13:38 EKG done, by ED staff, reviewed by Moisés Luna MD. jp3 13:46 CT Head Brain wo Cont In Process Unspecified. EDMS 13:46 CT completed. Patient tolerated procedure well. Patient moved back from CT. mw3 13:46 Maintain EMS IV. Dressing intact. Good blood return noted. Site clean \T\ dry. Gauge \T\ ll 1 site: 20 G R AC. 13:48 XRAY Chest (1 view) In Process Unspecified. EDMS 13:48 Patient has correct armband on for positive identification. Bed in low position. Call ll1 light in reach. Side rails up X2. 14:21 Urine collected: clean catch specimen, clear, dayna colored. jp3 19:14 Kourtney Smith MD is Referral Physician. malia 19:14 Corey Zheng MD is Referral Physician. malia 19:15 Jose Francisco Liz MD is Referral Physician. malia 20:00 No provider procedures requiring assistance completed. IV discontinued, intact, vc bleeding controlled, No redness/swelling at site. Pressure dressing applied. Administered Medications: Discontinued: NS 0.9% 1000 ml IV at 1 bolus Per protocol; 1000 mL bolus 13:57 Drug: NS 0.9% 1000 ml Route: IV; Rate: 1 bolus; Site: right antecubital; ll1 14:51 Drug: NS 0.9% 1000 ml Route: IV; Rate: 125 ml/hr; Site: right antecubital; vc 14:58 Drug: Rocephin 1 grams Route: IV; Rate: per protocol; Infused Over: 4 mins; Site: right ll1 antecubital; 17:14 Drug: Norvasc 5 mg Route: PO; vc 17:15 Drug: LaSIX 20 mg Route: PO; vc 18:27 Not Given (Other Intervention Used): Doxazosin 1 mg PO once vc 18:28 Not Given (Other Intervention Used): cloNIDine 0.1 mg PO once vc 18:28 Drug: Tylenol 650 mg Route: PO; vc 20:07 Not Given (Other Intervention Used): Augmentin 500 mg PO once vc 20:08 Drug: Augmentin 875 mg Route: PO; vc 20:30 Drug: Doxazosin 1 mg Route: PO; vc Outcome: 19:16 Discharge ordered by MD. malia 20:00 Discharged to home via wheelchair. vc 20:00 Condition: good 20:00 Discharge instructions given to patient, Instructed on discharge instructions, follow up and referral plans. medication usage, Demonstrated understanding of instructions, follow-up care, medications, Prescriptions given X 3. 20:54 Patient left the ED. vc NIH Stroke Scale - NIH Stroke Score Date: 01/16/2020 Time: 16:10 Total Score = 0 1a. Level of Consciousness (LOC) - 0(Alert) 1b. Level of Consciousness (LOC) (Year \T\ Age) - 0(Both) 1c. LOC Commands (Open \T\ Closes Eyes/[employer]) - 0(Both) 2. Best Gaze (Lateral Gaze Paresis) - 0(Normal) 3. Visual Field Loss - 0(No visual loss) 4. Facial Palsy - 0(Normal) 5a. Left Arm: Motor (10-second hold) - 0(No drift) 5b. Right Arm: Motor (10-second hold) - 0(No drift) 6a. Left Leg: Motor (5-second hold - always test supine) - 0(No drift) 6b. Right Leg: Motor (5-second hold - always test supine) - 0(No drift) 7. Limb Ataxia (finger/nose \T\ heel/hawkins - test with eyes open) - 0(Absent) 8. Sensory Loss (pinprick arms/legs/face) - 0(Normal) 9. Best Language: Aphasia (description/naming/reading) - 0(No aphasia) 10. Dysarthria (speech clarity - read or repeat words) - 0(Normal) 11. Extinction and Inattention (visual/tactile/auditory/spatial/personal) - 0(No abnormality) Initials: malia NIH Stroke Scale - NIH Stroke Score Date: 01/16/2020 Time: 19:13 Total Score = 0 1a. Level of Consciousness (LOC) - 0(Alert) 1b. Level of Consciousness (LOC) (Year \T\ Age) - 0(Both) 1c. LOC Commands (Open \T\ Closes Eyes/[employer]) - 0(Both) 2. Best Gaze (Lateral Gaze Paresis) - 0(Normal) 3. Visual Field Loss - 0(No visual loss) 4. Facial Palsy - 0(Normal) 5a. Left Arm: Motor (10-second hold) - 0(No drift) 5b. Right Arm: Motor (10-second hold) - 0(No drift) 6a. Left Leg: Motor (5-second hold - always test supine) - 0(No drift) 6b. Right Leg: Motor (5-second hold - always test supine) - 0(No drift) 7. Limb Ataxia (finger/nose \T\ heel/hawkins - test with eyes open) - 0(Absent) 8. Sensory Loss (pinprick arms/legs/face) - 0(Normal) 9. Best Language: Aphasia (description/naming/reading) - 0(No aphasia) 10. Dysarthria (speech clarity - read or repeat words) - 0(Normal) 11. Extinction and Inattention (visual/tactile/auditory/spatial/personal) - 0(No abnormality) Initials: malia Addendum: 01/19/2020 15:49 Addendum: Culture Results: Positive urine culture. Bacteria is resistant to, iw has intermediate sensitivity, or is not tested against prescribed antibiotics. Report given to JOSE RAUL for further evaluation and then to cutter down for follow up with patient. Phone call Prescription called-in to pharmacy of choice. called in Bactrim DS, 1 tab, PO BID for 7 days, #14, no refills, called in to [facility]. Signatures: Dispatcher [employer] EDMS Moisés Luna MD MD cha Williams, Irene, RN RN iw Taylor Camarena mw3 Guille Camacho jp3 Sona Gomez RN RN Lyndsey Bazan, RN RN Major Cruz RN RN ll1 Corrections: (The following items were deleted from the chart) 01/15 23:48 22:20 No provider procedures requiring assistance completed. vc vc 23:48 22:20 IV discontinued, intact, bleeding controlled, No redness/swelling at vc site. Pressure dressing applied, vc
--- NOTE | 2020-01-16 19:17 | EDPHYS ---
Physician Documentation [facility] [place] Name: Suri Lemus Age: 84 yrs Sex: Female : 1935 Arrival Date: 01/16/2020 Time: 13:05 Bed 14 Private MD: ED Physician Moisés Luna HPI: 01/15 13:10 This 84 yrs old Female presents to ER via Unassigned with complaints of malia General Weakness. 13:10 The patient has experienced near-syncope, almost passed out, felt dizzy, felt faint, malia felt generally weak. Onset: The symptoms/episode began/occurred just prior to arrival. Duration: This was a single episode, that lasted 2 minute(s). Context: the episode(s) was witnessed, by family, , occurred at home. Associated injury: The patient did not suffer any apparent associated injury. Associated signs and symptoms: Pertinent positives: headache. Current symptoms: Currently, the patient is not experiencing any symptoms. The patient has experienced similar episodes in the past, a few times. Historical: - Allergies: 13:18 Levaquin; ah 13:18 Lisinopril; ah - PMHx: 13:18 CHF; Hyperlipidemia; Hypertension; neuropathy; ah - Immunization history:: Adult Immunizations up to date, Flu vaccine is up to date. - Social history:: Smoking status: Patient denies any tobacco usage or history of. Patient/guardian denies using alcohol. - Family history:: not pertinent. ROS: 13:11 Constitutional: Negative for fever, chills, and weight loss, Eyes: Negative for injury, malia pain, redness, and discharge, ENT: Negative for injury, pain, and discharge, Neck: Negative for injury, pain, and swelling, Cardiovascular: Negative for chest pain, palpitations, and edema, Respiratory: Negative for shortness of breath, cough, wheezing, and pleuritic chest pain, Abdomen/GI: Negative for abdominal pain, nausea, vomiting, diarrhea, and constipation, Back: Negative for injury and pain, : Negative for injury, bleeding, discharge, and swelling, MS/Extremity: Negative for injury and deformity, Skin: Negative for injury, rash, and discoloration. 13:11 Neuro: Positive for headache, near syncope, weakness. Exam: 13:11 Constitutional: This is a well developed, well nourished patient who is awake, alert, malia and in no acute distress. Head/Face: Normocephalic, atraumatic. Eyes: Pupils equal round and reactive to light, extra-ocular motions intact. Lids and lashes normal. Conjunctiva and sclera are non-icteric and not injected. Cornea within normal limits. Periorbital areas with no swelling, redness, or edema. ENT: Nares patent. No nasal discharge, no septal abnormalities noted. Tympanic membranes are normal and external auditory canals are clear. Oropharynx with no redness, swelling, or masses, exudates, or evidence of obstruction, uvula midline. Mucous membranes moist. Neck: Trachea midline, no thyromegaly or masses palpated, and no cervical lymphadenopathy. Supple, full range of motion without nuchal rigidity, or vertebral point tenderness. No Meningismus. Chest/axilla: Normal chest wall appearance and motion. Nontender with no deformity. No lesions are appreciated. Cardiovascular: Regular rate and rhythm with a normal S1 and S2. No gallops, murmurs, or rubs. Normal PMI, no JVD. No pulse deficits. Respiratory: Lungs have equal breath sounds bilaterally, clear to auscultation and percussion. No rales, rhonchi or wheezes noted. No increased work of breathing, no retractions or nasal flaring. Abdomen/GI: Soft, non-tender, with normal bowel sounds. No distension or tympany. No guarding or rebound. No evidence of tenderness throughout. Back: No spinal tenderness. No costovertebral tenderness. Full range of motion. Skin: Warm, dry with normal turgor. Normal color with no rashes, no lesions, and no evidence of cellulitis. MS/ Extremity: Pulses equal, no cyanosis. Neurovascular intact. Full, normal range of motion. Neuro: Awake and alert, GCS 15, oriented to person, place, time, and situation. Cranial nerves II-XII grossly intact. Motor strength 5/5 in all extremities. Sensory grossly intact. Cerebellar exam normal. Normal gait. Psych: Awake, alert, with orientation to person, place and time. Behavior, mood, and affect are within normal limits. 13:11 Neck: C-spine: appears grossly normal, no acute changes, Thyroid: appears normal, no acute changes, Trachea: is midline with no obvious abnormalities, no acute changes, ROM/movement: is normal, no acute changes, Lymph nodes: no appreciated lymphadenopathy, no jvd, no bruits. 13:14 Musculoskeletal/extremity: DVT Exam: No signs of deep vein thrombosis. no pain, no malia swelling, no tenderness, negative Homans' sign noted on exam, no appreciated bluish discoloration, no erythema, no increased warmth. 16:10 Neuro: Orientation: is normal, appropriate for stated age, no acute changes, Mentation: malia is normal, appropriate for stated age, no acute changes, Memory: is normal, appropriate for stated age, no acute changes, Cranial nerves: grossly normal, is grossly normal based on the patient's age, no acute changes, Cerebellar function: is grossly normal, is grossly normal based on the patient's age, no acute changes, Romberg testing is negative, normal finger to nose testing, heel to hawkins testing is normal, able to perform alternating rapid hand movements, Motor: is normal, is grossly normal based on the patient's age, no acute changes, moves all fours, strength is normal, Sensation: is normal, no obvious gross deficits, appropriate no acute changes, numbness, is not appreciated, tingling, is not appreciated, Babinski testing is normal, seizure activity, is not displayed by the patient. Vital Signs: 12:58 BP 207 / 84; Pulse 88; Resp 13; Temp 97.8; Pulse Ox 99% ; Weight 52.16 kg; Height 5 ft. ah 0 in. (152.40 cm); Pain 5/10; 13:35 BP 187 / 80; Pulse 69; Resp 15; ll1 14:30 BP 204 / 87; Pulse 68; Resp 12; Pulse Ox 98% on R/A; vc 15:30 BP 189 / 78; Pulse 69; Resp 12; Pulse Ox 95% on R/A; vc 16:00 BP 177 / 86; Pulse 70; Resp 14; Pulse Ox 95% on R/A; vc 16:18 BP 194 / 83 LA Supine (auto/reg); Pulse 72; Pulse Ox 100% on R/A; jp3 16:21 BP 194 / 87 LA Sitting (auto/reg); Pulse 70; Pulse Ox 100% on R/A; jp3 16:25 BP 186 / 84 LA Standing (auto/reg); Pulse 78; Pulse Ox 100% on R/A; jp3 17:00 BP 188 / 77; Pulse 70; Resp 17; Pulse Ox 96% on R/A; vc 18:00 BP 178 / 71; Pulse 69; Resp 13; Pulse Ox 97% on R/A; vc 19:00 BP 186 / 81; Pulse 70; Resp 17; Pulse Ox 94% on R/A; vc 19:30 BP 174 / 68; Pulse 70; Resp 15; Pulse Ox 95% on R/A; vc 12:58 Body Mass Index 22.46 (52.16 kg, 152.40 cm) NIH Stroke Scale Scores: 16:10 NIHSS Score: 0 malia 19:13 NIHSS Score: 0 malia MDM: 13:08 Patient medically screened. malia 13:13 Differential Diagnosis: cardiac arrhythmia, cerebrovascular accident, GI bleed, malia idiopathic syncope, transient ischemic attack, vasovagal episode. Data reviewed: vital signs, nurses notes, lab test result(s), EKG, radiologic studies, CT scan, plain films. Data interpreted: media monitor: rate is 68 beats/min, Pulse oximetry: on room air is 98 %. Test interpretation: by ED physician or midlevel provider: ECG, plain radiologic studies. Counseling: I had a detailed discussion with the patient and/or guardian regarding: the historical points, exam findings, and any diagnostic results supporting the discharge/admit diagnosis, lab results, radiology results. 16:30 Physician consultation: Edy Ford MD regarding consult, patient's condition, need malia to come to ED to see patient, and will see patient in ED. ED course: pt orthos normal, negative, unsteady when assisted. b/p 186/84. 17:44 ED course: dr morales saw the pt, no grounds to admit despite unsteady state, get malia blood pressure down and dc home for follow up. 19:12 ED course: pt blood pressure is improved, pat ambulating better without assistance. malia 01/15 13:09 Order name: Basic Metabolic Panel; Complete Time: 14:04 malia 01/15 13:09 Order name: CBC with Diff; Complete Time: 13:50 malia 01/15 13:09 Order name: LFT's; Complete Time: 14:04 malia 01/15 13:09 Order name: Magnesium; Complete Time: 14:04 malia 01/15 13:09 Order name: NT PRO-BNP; Complete Time: 14:04 [facility] 01/15 13:09 Order name: PT-INR; Complete Time: 13:50 [facility] 01/15 13:09 Order name: Troponin (emerg Dept Use Only); Complete Time: 14:04 [facility] 01/15 13:09 Order name: XRAY Chest (1 view); Complete Time: 14:04 [facility] 01/15 13:09 Order name: CT Head Brain wo Cont; Complete Time: 14:39 [facility] 01/15 13:09 Order name: Urine Culture [facility] 01/15 13:09 Order name: Lipase; Complete Time: 14:04 [facility] 01/15 14:22 Order name: Urine Dipstick--Ancillary (enter results); Complete Time: 14:39 01/15 13:09 Order name: EKG; Complete Time: 13:10 [facility] 01/15 13:09 Order name: Cardiac monitoring; Complete Time: 13:38 [facility] 01/15 13:09 Order name: EKG - Nurse/Tech; Complete Time: 13:38 [facility] 01/15 13:09 Order name: IV Saline Lock; Complete Time: 13:38 [facility] 01/15 13:09 Order name: Labs collected and sent; Complete Time: 13:39 [facility] 01/15 13:09 Order name: O2 Per Protocol; Complete Time: 13:39 [facility] 01/15 13:09 Order name: O2 Sat Monitoring; Complete Time: 13:38 [facility] 01/15 13:09 Order name: Urine Dipstick-Ancillary (obtain specimen); Complete Time: 14:21 [facility] 01/15 16:03 Order name: Orthostatics; Complete Time: 17:16 [facility] 01/15 16:12 Order name: Misc. Order: ambulate with assistance; Complete Time: 19:46 [facility] 01/15 16:25 Order name: PO challenge: juice; Complete Time: 19:46 [facility] Administered Medications: Discontinued: NS 0.9% 1000 ml IV at 1 bolus Per protocol; 1000 mL bolus 13:57 Drug: NS 0.9% 1000 ml Route: IV; Rate: 1 bolus; Site: right antecubital; ll1 14:51 Drug: NS 0.9% 1000 ml Route: IV; Rate: 125 ml/hr; Site: right antecubital; vc 14:58 Drug: Rocephin 1 grams Route: IV; Rate: per protocol; Infused Over: 4 mins; Site: right ll1 antecubital; 17:14 Drug: Norvasc 5 mg Route: PO; vc 17:15 Drug: LaSIX 20 mg Route: PO; vc 18:27 Not Given (Other Intervention Used): Doxazosin 1 mg PO once vc 18:28 Not Given (Other Intervention Used): cloNIDine 0.1 mg PO once vc 18:28 Drug: Tylenol 650 mg Route: PO; vc 20:07 Not Given (Other Intervention Used): Augmentin 500 mg PO once vc 20:08 Drug: Augmentin 875 mg Route: PO; vc 20:30 Drug: Doxazosin 1 mg Route: PO; vc Disposition: 01/16/20 19:16 Discharged to Home. Impression: Weakness, Syncope and collapse - near, Urinary tract infection, site not specified, Unspecified kidney failure, Essential (primary) hypertension. - Condition is Stable. - Discharge Instructions: Hypertension, Near-Syncope, Urinary Tract Infection, Adult, Weakness, Urinary Tract Infection, Adult, [id number], Near-Syncope, [id number], Hypertension, [id number], How to Take Your Blood Pressure, Prel-ly-Ppdw, Weakness, Cphu-ma-Xdga, Managing Your Hypertension. - Prescriptions for Augmentin 500- 125 mg Oral Tablet - take 1 tablet by ORAL route every 12 hours for 7 days; 14 tablet. Norvasc 5 mg Oral Tablet - take 1 tablet by ORAL route once daily; 20 tablet. Doxazosin 1 mg Oral Tablet - take 1 tablet by ORAL route once daily; 30 tablet. - Medication Reconciliation Form, Thank You Letter, Antibiotic Education, Prescription Opioid Use form. - Follow up: Kourtney Smith MD; When: 2 - 3 days; Reason: Recheck today's complaints, Continuance of care, Re-evaluation by your physician. Follow up: Corey Zheng MD; When: 2 - 3 days; Reason: Recheck today's complaints, Re-evaluation by your physician. Follow up: Jose Francisco Liz MD; When: 2 - 3 days; Reason: Recheck today's complaints, Re-evaluation by your physician. - Problem is new. - Symptoms have improved. NIH Stroke Scale - NIH Stroke Score Date: 01/16/2020 Time: 16:10 Total Score = 0 1a. Level of Consciousness (LOC) - 0(Alert) 1b. Level of Consciousness (LOC) (Year \T\ Age) - 0(Both) 1c. LOC Commands (Open \T\ Closes Eyes/Electric Dolly Operator) - 0(Both) 2. Best Gaze (Lateral Gaze Paresis) - 0(Normal) 3. Visual Field Loss - 0(No visual loss) 4. Facial Palsy - 0(Normal) 5a. Left Arm: Motor (10-second hold) - 0(No drift) 5b. Right Arm: Motor (10-second hold) - 0(No drift) 6a. Left Leg: Motor (5-second hold - always test supine) - 0(No drift) 6b. Right Leg: Motor (5-second hold - always test supine) - 0(No drift) 7. Limb Ataxia (finger/nose \T\ heel/hawkins - test with eyes open) - 0(Absent) 8. Sensory Loss (pinprick arms/legs/face) - 0(Normal) 9. Best Language: Aphasia (description/naming/reading) - 0(No aphasia) 10. Dysarthria (speech clarity - read or repeat words) - 0(Normal) 11. Extinction and Inattention (visual/tactile/auditory/spatial/personal) - 0(No abnormality) Initials: [facility] NIH Stroke Scale - NIH Stroke Score Date: 01/16/2020 Time: 19:13 Total Score = 0 1a. Level of Consciousness (LOC) - 0(Alert) 1b. Level of Consciousness (LOC) (Year \T\ Age) - 0(Both) 1c. LOC Commands (Open \T\ Closes Eyes/Electric Dolly Operator) - 0(Both) 2. Best Gaze (Lateral Gaze Paresis) - 0(Normal) 3. Visual Field Loss - 0(No visual loss) 4. Facial Palsy - 0(Normal) 5a. Left Arm: Motor (10-second hold) - 0(No drift) 5b. Right Arm: Motor (10-second hold) - 0(No drift) 6a. Left Leg: Motor (5-second hold - always test supine) - 0(No drift) 6b. Right Leg: Motor (5-second hold - always test supine) - 0(No drift) 7. Limb Ataxia (finger/nose \T\ heel/hawkins - test with eyes open) - 0(Absent) 8. Sensory Loss (pinprick arms/legs/face) - 0(Normal) 9. Best Language: Aphasia (description/naming/reading) - 0(No aphasia) 10. Dysarthria (speech clarity - read or repeat words) - 0(Normal) 11. Extinction and Inattention (visual/tactile/auditory/spatial/personal) - 0(No abnormality) Initials: malia Signatures: Dispatcher [employer] EDMoisés Escobedo MD MD cha Calcote, Vanessa, RN RN vc Harris, Amy, RN RN ah Lewis, Lynsay, RN RN ll1 Corrections: (The following items were deleted from the chart) 20:54 19:16 01/16/2020 19:16 Discharged to Home. Impression: Weakness; Syncope and vc collapse - near; Urinary tract infection, site not specified; Unspecified kidney failure; Essential (primary) hypertension. Condition is Stable. Forms are Medication Reconciliation Form, Thank You Letter, Antibiotic Education, Prescription Opioid Use. Follow up: Kourtney Smith; When: 2 - 3 days; Reason: Recheck today's complaints, Continuance of care, Re-evaluation by your physician. Follow up: Corey Zheng; When: 2 - 3 days; Reason: Recheck today's complaints, Re-evaluation by your physician. Follow up: Jose Francisco Liz; When: 2 - 3 days; Reason: Recheck today's complaints, Re-evaluation by your physician. Problem is new. Symptoms have improved. malia
[2020-01-16] MEDS ORDERED: AMOX/K CLAV 875 MG TAB ONE (20:04)
[2020-01-16] MEDS ORDERED: DOXAZOSIN 2 MG TAB ONE (20:24)
[2020-01-16 21:14] VITALS: BP 174/68; O2SAT 95
--- NOTE | 2020-01-17 08:40 | EKG ---
Test Date: 2020-01-16 Test Time: 13:36:58 Child Support Agent: ANA MEASUREMENT RESULTS: Intervals: Rate: 70 CT: QRSD: 134 QT: 460 QTc: 496 [place]: P: CT: QRS: 199 T: -6 INTERPRETIVE STATEMENTS: ventricular paced rhythmRight bundle branch block Anterolateral infarct, age undetermined Abnormal ECG Compared to ECG 12/09/2018 15:28:12 [facility] Electronically Signed On 01-17-20 08:40:08 CDT by Corey Zheng
== END 2020-01-16 20:54 | disposition home or self-care (01) ==
LOC: ER 12:59 → SUPCPDRO 12:59 → ER 20:54
DX: N39.0 Urinary tract infection, site not specified (principal); R55 Syncope and collapse; N19 Unspecified kidney failure; I10 Essential (primary) hypertension; Z88.1 Allergy status to other antibiotic agents; Z88.8 Allergy status to other drugs, medicaments and biological substances
CPT/HCPCS: 36415; 70450; 71045; 80048; 80076; 81003; 83690; 83735; 83880; 84484; 85025; 85610; 87077; 87086; 87088; 87186; 93005; 96374; 99285; J0696; J7030

== ENCOUNTER 2022-08-16 11:50 | Inpatient (IN) | payer OTHER ==
--- OUTSIDE RECORDS SUMMARY | 2022-08-16 11:55 | XMS REPORT | Continuity of Care Document ---
:1935 Author Organization [facility] t Address [address] [place] [address] Care Team Providers Name Role Phone Kourtney Smith Primary Care Physician Miriam Rosenbaum Attending Clinician Unavailable Kourtney Smith Attending Clinician Unavailable Doctor Unassigned, [place] Attending Clinician Unavailable Freida Boogie MD Attending Clinician Urmila Bee MD, V. Attending Clinician Byron Wang CRNA Attending Clinician Sam Obrien MD Attending Clinician SAM OBRIEN Attending Clinician Unavailable , [facility] Attending Clinician Unavailable FREIDA BOOGIE Admitting Clinician Unavailable Payers Payer Name Policy Type Policy Number Effective Date Expiration Date S ource AETNA MEDICARE C1 [id number] Common Spi rit PPO - [facility] Problems Condition Condition Condition Status Onset Resolution Last Treating Co mments Source Name Details Category Date Date Treatment Clinician Date AICD at AICD at Disease Active Methodi end of end of [address] st battery battery 00:00: Hospita life life 00 l Primary Primary Disease Active Univers hypothyroi hypothyroi 25 it y of dism dism 00:00: [address] Branch Hyperlipid Hyperlipid Disease Active M ethodi emia emia 04-30 st 00:00: Hospita 00 l Disease of Disease of Disease Active M ethodi thyroid thyroid 04-27 gland gland 00:00: Hospita 00 l Diarrhea Diarrhea Disease Active Metho di 04-27 st 00:00: Hospita 00 l Acute on Acute on Disease Active Metho di chronic chronic 04-27 systolic systolic 00:00: Hospit a CHF CHF 00 l (congestiv (congestiv e heart e heart failure) failure) Anemia Anemia Disease Active Methodi 04-27 st 00:00: Hospita 00 l Atrial Atrial Disease Active Methodi fibrillati fibrillati 04-23 st on on 00:00: Hospita 00 l [id number] Cardiac Problem Active Commo n pacemaker Spirit in [facility] 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 Spir it sterolemia [facility] History of History of Problem Active C ommon fall fall [facility] Serum Serum Problem Active Common creatinine creatinine Sp nieves raised raised [facility] Automatic Automatic Problem Active Com mon implantabl implantabl Sp nieves e cardiac e - CHI defibrilla cardiovert St tor in er-defibri [facility] situ llator in [facility] Anorexia Anorexia Problem Active Commo n [facility] 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) [facility] Rib pain Rib pain Problem Active Commo n [facility] [id number] Gastroesop Problem Active Co mmon hageal Spirit reflux - CHI disease, esophagiti [facility] s presence Medica l not Center specified Hypertensi Hypertensi Problem Active C ommon on on [facility] [id number] Prediabete Problem Active Co mmon s [facility] [id number] Dorsalgia, Problem Active Co mmon unspecifie Spirit d - [facility] [id number] Hypothyroi Problem Active Com mon dism, Spirit unspecifie - CHI d [facility] Eosinophil Eosinophil Problem Active Mary Beth sanchez ia ia [facility] 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 St without attack) [facility] Cardiomyop Cardiomyop Problem Active Mary Beth sanchez athy athy [facility] Hypotensio Hypotensio Problem Active C daniel n n [facility] Osteoporos Osteoporos Problem Active Mary Beth sanchez is is Spirit [facility] [id number] Neck pain Problem Active Comm on [facility] [id number] Other Problem Active Common chronic Spirit pain [facility] Dizziness Dizziness Problem Active Com mon Spirit [facility] [id number] Insomnia, Problem Active Com mon unspecifie Spirit d type [facility] Abnormal Abnormal Problem Active Commo n liver liver Spirit function function - [facility] [id number] Chronic Problem Active Commo n kidney Spirit disease, - [facility] unspecifie [facility] [id number] Chronic Problem Active Commo n pain Spirit syndrome - [facility] [id number] 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 [facility] skin of [facility] [id number] Fatigue, Problem Active Commo n unspecifie Spirit d type [facility] [id number] Cough Problem Active Common [facility] Congestive Congestive Problem Active 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 - [facility] [id number] Skin Problem Active Common lesion [facility] Hypokalemi Hypokalemi Problem Active Mary Beth sanchez a a Spirit [facility] Weakness Weakness Problem Active Commo n [facility] [id number] Constipati Problem Active Com mon on, Spirit unspecifie - CHI d constipati [facility] [id number] Depression Problem Active Co mmon screening Spirit [facility] [id number] Upper Problem Active Common respirator Spirit y tract - [facility]I infection, [facility] Allergies, Adverse Reactions, Alerts Allergy Allergy Status Severity Reaction(s) Onset Inactive Treating Comm ents Source Name Type Date Date Clinician LEVOFLOX DRUG Active Low Rash Univers ACIN INGREDI 10-02 ity of 00:00: [place] 00 [facility] Branch LISINOPR DRUG Active Low Rash Univers IL INGREDI 10-02 ity of 00:00: [place] 00 Medical Branch Levoflox Propensi Active Rash Univer s acin ty to 10-02 ity of adverse 00:00: [place] reaction 00 [facility] Branch Lisinopr Propensi Active Rash Univer s il ty to 10-02 ity of adverse 00:00: [place] reaction Medical s Branch Lisinopr Propensi Active Rash Method i il ty to 04-06 adverse 00:00: Hospita reaction 00 l s to drug Levoflox Propensi Active Rash Method i acin ty to 04-06 adverse 00:00: Hospita reaction 00 l s to drug lisinopr lisinopr Active rash, Common il il itching, bad Spir it cough - [facility] Family History Family Member Diagnosis Comments Start Date Stop Date Source Natural father Heart disease [facility] Natural mother Breast cancer [facility] Natural mother Heart disease [facility] Social History Social Habit Start Date Stop Date Quantity Comments Source History of Common Spirit - Tobacco Use [facility] Exposure to Not sure University SARS-CoV-2 [facility] (event) [place] Alcohol intake 2022-05-07 2022-05-07 [facility] 00:00:00 00:00:00 non-drinker of alcohol (finding) Tobacco use and 2022-05-02 2022-05-02 Smokeless tobacco [facility] exposure 00:00:00 00:00:00 non-user Sex Assigned At [birth year] [facility] 00:00:00 00:00:00 Smoking Status Start Date Stop Date Source Former Smoker 2020-05-29 00:00:00 2020-05-29 00:00:00 Common S pirit - [facility] nter Never smoked tobacco [facility] Medications Ordered Filled Start Stop Current Ordering Indication Dosage Frequency Signature Comments Components Source Medication Medication Date Date Medication? Clinician (SIG) Name Name omeprazole 2022-0 Yes 20mg QD Take 1 Metho di (PriLOSEC) 8-[address] 20 MG 11:47: (20 mg Hospita capsule 02 total) by l mouth daily. donepeziL 2022-0 Yes 5mg QD Take 1 Method i (ARICEPT) 5 8-25 tablet (5 st MG tablet 11:47: mg total) Hos mago 02 by mouth l nightly. amLODIPine 2022-0 Yes 5mg QD Take 1 Metho di (NORVASC) 5 8-25 tablet (5 st mg tablet 11:47: mg total) Hos mago 02 by mouth l daily. carvediloL 2022-0 Yes 25mg Q.5D Take 1 Metho di (COREG) 25 8-25 tablet (25 st MG tablet 11:47: mg total) Hos mago 02 by mouth 2 l (two) times a day with meals. doxazosin 2022-0 Yes 1mg QD Take 1 Method i (CARDURA) 1 8-25 tablet (1 st MG tablet 11:47: mg total) Hos mago 02 by mouth l nightly. hydrOXYzine 2022-0 Yes 25mg Q.5D Take 1 Meth estuardo (ATARAX) 25 8-25 tablet (25 st MG tablet 11:47: mg total) Hos mago 02 by mouth 2 l (two) times a day. furosemide 2022-0 Yes 20mg Q.5D Take 1 Metho di (Lasix) 20 8-25 tablet (20 st mg tablet 11:47: mg total) Hos mago 02 by mouth 2 l (two) times a day. apixaban 2022-0 Yes Q.5D Take by Method i (ELIQUIS) 8-[address] 2.5 mg 11:48: (two) Hospita tablet 08 times a l day. potassium 2022-0 Yes 20meq Q.5D Take 20 Meth estuardo chloride 8-[address] (K-DUR) 20 11:48: mouth 2 Hosp dora MEQ CR 08 (two) l tablet times a day. levothyroxi 2022-0 Yes 50ug QD Take 50 Met hodi ne 8-[address] (SYNTHROID, 11:48: mouth Hospi ta LEVOTHROID) 08 every l 50 MCG morning. tablet atorvastati 2021-0 Yes 20mg QD Take 20 mg Methodi n (LIPITOR) 8-[address] 20 MG 11:48: daily. Hospita tablet 08 l gabapentin 2021-0 Yes 400mg Q.5D Take 400 Me thodi (NEURONTIN) 8-[address] 400 MG 11:48: mouth 2 Hospita capsule 08 (two) l times a day. calcium 2021-0 Yes 1{tbl} Q.5D Chew 1 Method i carbonate-v 8-[address] itamin D3 11:48: (two) Hospita 600 mg-20 08 times a l mcg (800 day. unit) tablet,chew able MAGNESIUM 2021-0 Yes 1{tbl} Q.5D Take 1 Meth estuardo CHLORIDE 8-[address] (SLOW-MAG 11:48: mouth 2 Hospi ta ORAL) 08 (two) l times a day. FOLIC 0 Yes 1{tbl} QD Take 1 Methodi ACID/MULTIV 8-[address] IT-MIN/LUTE 11:48: mouth Hospi ta IN (CENTRUM 08 daily. l SILVER ORAL) lidocaine Yes 1{patch Place 1 Me thodi (LIDODERM) 824 } patch on st 5 % 11:48: the skin Hospita 08 as needed l for mild pain. Remove & Discard patch within 12 hours or as directed by omeprazole 2021- No 40mg QD Take 40 mg Methodi (PriLOSEC) 8- 08-[address] 40 MG 08:07: 00:00 daily. Hospita capsule 04 :00 l amIODarone 0 2021- No 200mg QD Take 200 M ethodi (PACERONE) 8- 08-[address] 200 MG 08:03: 00:00 mouth Hospita tablet 29 :00 daily. l minocycline 2021-0 2021- No 100mg Q.5D Take 1 Me thodi (DYNACIN) 8- 08-[address] 100 MG 00:00: 04:59 (100 mg Hospita tablet 00 :00 total) by l mouth 2 (two) times a day for 5 days. traMADoL 2021-0 2021- [place] [id number] 25mg Q8H Take 0.5 Met hodi (Ultram) 50 8- 08-[address] mg tablet 00:00: 04:59 (25 mg Hospi ta 00 :00 total) by l mouth every 8 (eight) hours as needed for moderate pain for up to 5 days .acute pain. traMADoL 2021- [place] [id number] 50mg Q8H Take 1 Metho di (Ultram) 50 8-24 08-24 tablet (50 s t mg tablet 00:00: 00:00 mg total) Ho spita 00 :00 by mouth l every 8 (eight) hours as needed for moderate pain for up to 5 days .acute pain. levothyroxi Yes [id number] Take one Univers ne 50 mcg 9-10 tablet ity of tablet 00:00: Saturday through Saturday Branch only. Do NOT take on Saturday and saturday levothyroxi Yes [id number] Take one Univers ne 50 mcg 9-10 tablet ity of tablet 00:00: Saturday through Saturday Branch only. Do NOT take on Saturday and saturday Triamcinolo Triamcinolo Yes Kourtney 1 Common ne ne 9-20 Millender applicatio Spir it Acetonide Acetonide 00:00: n to - C HI 00 affected [facility] Triamcinolo Triamcinolo No 1{appli Triamcinol ne ne 9-20 cation_ one Acetonide Acetonide 00:00: to_affe Acetonide 0.1 % 0.1 % 00 cted_ar 0.1 % ea} levothyroxi Yes [id number] Take one Univers ne 50 mcg 9-04 tablet ity of tablet 00:00: Saturday through Saturday Branch only. Do NOT take on Saturday and saturday levothyroxi Yes [id number] Take one Univers ne 50 mcg 9-04 tablet ity of tablet 00:00: Saturday through Saturday Branch only. Do NOT take on Saturday and saturday levothyroxi Yes [id number] Take one Univers ne 50 mcg 9-04 tablet ity of tablet 00:00: Saturday through Saturday Branch only. Do NOT take on Saturday and saturday levothyroxi 2020- No [id number] Take one Univers ne 50 mcg 9-04 09-10 tablet ity of tablet 00:00: 00:00 Saturday [place] 00 :00 through Medical Saturday Branch only. Do NOT take on Saturday and saturday MAGNESIUM Yes 1{tbl} Take 1 Univ ers CHLORIDE 8-30 tablet by ity of (SLOW-MAG 14:54: mouth. [place] ORAL) [address] [place] [address] lidocaine 5 Yes 1{patch Apply 1 Univers % (700 8-30 } Patch to ity of mg/patch) 14:54: skin. [place] patch [address] [place] [address] Multivit-Mi Yes 1{tbl} Take 1 Un viviane neral-Iron- 8-30 tablet by ity of Lutein 14:54: mouth. [place] ([address] ULTRA WOMEN'S) Tab apixaban Yes Take by Univer s 2.5 mg 8-30 mouth. ity of tablet 14:54: [address] calcium Yes 1{tbl} Take 1 Univer s carbonate-v 8-30 tablet by ity of itamin D3 14:54: mouth. [place] (CALTRATE Medical 600 + D) Branch 600 mg (1,500 mg)-800 unit per tablet MAGNESIUM Yes 1{tbl} Take 1 Univ ers CHLORIDE 8-30 tablet by ity of (SLOW-MAG 14:54: mouth. [place] ORAL) [address] [place] [address] lidocaine 5 Yes 1{patch Apply 1 Univers % (700 8-30 } Patch to ity of mg/patch) 14:54: skin. [place] patch [address] [place] [address] Multivit-Mi Yes 1{tbl} Take 1 Un viviane neral-Iron- 8-30 tablet by ity of Lutein 14:54: mouth. [place] ([address] ULTRA WOMEN'S) Tab apixaban Yes Take by Univer s 2.5 mg 8-30 mouth. ity of tablet 14:54: [address] calcium Yes 1{tbl} Take 1 Univer s carbonate-v 8-30 tablet by ity of itamin D3 14:54: mouth. [place] (CALTRATE 23 Medical 600 + D) Branch 600 mg (1,500 mg)-800 unit per tablet MAGNESIUM Yes 1{tbl} Take 1 Univ ers CHLORIDE 8-30 tablet by ity of (SLOW-MAG 14:54: mouth. [place] ORAL) 23 Medical Branch lidocaine 5 Yes 1{patch Apply 1 Univers % (700 8-30 } Patch to ity of mg/patch) 14:54: skin. [place] patch 23 Medical Branch Multivit-Mi Yes 1{tbl} Take 1 Un viviane neral-Iron- 8-30 tablet by ity of Lutein 14:54: mouth. [place] ([facility] 23 Medical SILVER Branch ULTRA WOMEN'S) Tab apixaban Yes Take by Univer s 2.5 mg 8-30 mouth. ity of tablet 14:54: [place] [address] Medical Branch calcium Yes 1{tbl} Take 1 Univer s carbonate-v 8-30 tablet by ity of itamin D3 14:54: mouth. [place] (CALTRATE 23 Medical 600 + D) Branch 600 mg (1,500 mg)-800 unit per tablet MAGNESIUM Yes 1{tbl} Take 1 Univ ers CHLORIDE 8-30 tablet by ity of (SLOW-MAG 14:54: mouth. [place] ORAL) Medical Branch lidocaine 5 Yes 1{patch Apply 1 Univers % (700 8-30 } Patch to ity of mg/patch) 14:54: skin. [place] patch Medical Branch Multivit-Mi Yes 1{tbl} Take 1 Un viviane neral-Iron- 8-30 tablet by ity of Lutein 14:54: mouth. [place] ([facility] 23 Medical SILVER [place] ULTRA WOMEN'S) Tab apixaban Yes Take by Univer s 2.5 mg 8-30 mouth. ity of tablet 14:54: [address] Branch calcium 2018- Yes 1{tbl} Take 1 Univer s carbonate-v 8-30 tablet by ity of itamin D3 14:54: mouth. [place] (CALTRATE 23 Medical 600 + D) Branch 600 mg (1,500 mg)-800 unit per tablet MAGNESIUM 2019-0 Yes 1{tbl} Take 1 Univ ers CHLORIDE 8-30 tablet by ity of (SLOW-MAG 14:54: mouth. [place] ORAL) 23 Medical Branch lidocaine 5 Yes 1{patch Apply 1 Univers % (700 8-30 } Patch to ity of mg/patch) 14:54: skin. [place] patch 23 Medical Branch Multivit-Mi Yes 1{tbl} Take 1 Un viviane neral-Iron- 8-30 tablet by ity of Lutein 14:54: mouth. [place] ([address] SILVER [place] ULTRA WOMEN'S) Tab apixaban Yes Take by Univer s 2.5 mg 8-30 mouth. ity of tablet 14:54: [address] calcium Yes 1{tbl} Take 1 Univer s carbonate-v 8-30 tablet by ity of itamin D3 14:54: mouth. [place] (CALTRATE 23 Medical 600 + D) Branch 600 mg (1,500 mg)-800 unit per tablet apixaban Yes Take by Univer s 2.5 mg 8-30 mouth. ity of tablet 09:54: [address] calcium Yes 1{tbl} Take 1 Univer s carbonate-v 8-30 tablet by ity of itamin D3 09:54: mouth. [place] (CALTRATE 23 Medical 600 + D) Branch 600 mg (1,500 mg)-800 unit per tablet MAGNESIUM Yes 1{tbl} Take 1 Univ ers CHLORIDE 8-30 tablet by ity of (SLOW-MAG 09:54: mouth. [place] ORAL) [address] [place] [address] lidocaine 5 Yes 1{patch Apply 1 Univers % (700 8-30 } Patch to ity of mg/patch) 09:54: skin. [place] patch [address] [place] [address] Multivit-Mi Yes 1{tbl} Take 1 Un viviane neral-Iron- 8-30 tablet by ity of Lutein 09:54: mouth. [place] ([address] SILVER [place] ULTRA WOMEN'S) Tab apixaban Yes Take by Univer s 2.5 mg 8-30 mouth. ity of tablet 09:54: [address] calcium Yes 1{tbl} Take 1 Univer s carbonate-v 8-30 tablet by ity of itamin D3 09:54: mouth. [place] (CALTRATE 23 Medical 600 + D) Branch 600 mg (1,500 mg)-800 unit per tablet MAGNESIUM Yes 1{tbl} Take 1 Univ ers CHLORIDE 8-30 tablet by ity of (SLOW-MAG 09:54: mouth. [place] ORAL) 23 Medical Branch lidocaine 5 Yes 1{patch Apply 1 Univers % (700 8-30 } Patch to ity of mg/patch) 09:54: skin. [place] patch 23 Medical Branch Multivit-Mi Yes 1{tbl} Take 1 Un viviane neral-Iron- 8-30 tablet by ity of Lutein 09:54: mouth. [place] (CENTRUM 23 Medical SILVER Branch ULTRA WOMEN'S) Tab levothyroxi Yes [id number] Take one Univers ne 50 mcg 8-30 tablet ity of tablet 00:00: Saturday 00 through Saturday Branch only. Do NOT take on Saturday and saturday levothyroxi Yes [id number] Take one Univers ne 50 mcg 8-30 tablet ity of tablet 00:00: Saturday through Saturday Branch only. Do NOT take on Saturday and saturday levothyroxi 2020- No [id number] Take one Univers ne 50 mcg 8-30 09-04 tablet ity of tablet 00:00: 00:00 Saturday [place] 00 :00 through Medical Saturday Branch only. Do NOT take on Saturday and saturday levothyroxi 2020- No [id number] Take one Univers ne 50 mcg 8-30 09-04 tablet ity of tablet 00:00: 00:00 Saturday [place] 00 :00 through Saturday Branch only. Do NOT take on Saturday and saturday Atorvastati Atorvastati Yes Kourtney 1 tablet Common n Calcium n Calcium 6-27 Millender Spirit 00:00: - [facility] 00 [facility] levothyroxi Yes [id number] Take one Univers ne 50 mcg 8-20 tablet ity of tablet 00:00: Saturday [place] through Saturday Branch only. Do NOT take on Saturday and saturday calcium Yes 1{tbl} Take 1 Univer s carbonate-v 1-24 tablet by ity of itamin D3 17:07: mouth. [place] (CALTRATE 23 Medical 600 + D) Branch 600 mg (1,500 mg)-800 unit per tablet MAGNESIUM Yes 1{tbl} Take 1 Univ ers CHLORIDE 1-24 tablet by ity of (SLOW-MAG 17:07: mouth. [place] ORAL) 23 Medical Branch lidocaine 5 Yes 1{patch Apply 1 Univers % (700 1-24 } Patch to ity of mg/patch) 17:07: skin. [place] patch 23 Medical [place] Multivit-Mi Yes 1{tbl} Take 1 Un viviane neral-Iron- 1-24 tablet by ity of Lutein 17:07: mouth. [place] (CENTRUM 23 Medical TRAPPE Branch ULTRA WOMEN'S) Tab apixaban Yes Take by Univer s 2.5 mg 1-24 mouth. ity of tablet 17:07: [place] 22 [facility] furosemide Yes TK 1 T PO Un viviane 20 mg 1-11 BID ity of tablet 00:00: [place] [facility] furosemide Yes TK 1 T PO Un viviane 20 mg 1-11 BID ity of tablet 00:00: [place] [facility] furosemide Yes TK 1 T PO Un viviane 20 mg 1-11 BID ity of tablet 00:00: [place] [facility] furosemide Yes TK 1 T PO Un viviane 20 mg 1-11 BID ity of tablet 00:00: [place] [facility] furosemide Yes TK 1 T PO Un viviane 20 mg 1-11 BID ity of tablet 00:00: [address] furosemide Yes TK 1 T PO Un viviane 20 mg 1-11 BID ity of tablet 00:00: [address] furosemide Yes TK 1 T PO Un viviane 20 mg 1-11 BID ity of tablet 00:00: [place] [facility] furosemide Yes TK 1 T PO Un viviane 20 mg 1-11 BID ity of tablet 00:00: [address] omeprazole Yes TK 1 C PO Un viviane 20 mg 1-04 QD ity of capsule 00:00: [place] [facility] omeprazole Yes TK 1 C PO Un viviane 20 mg 1-04 QD ity of capsule 00:00: [address] omeprazole Yes TK 1 C PO Un viviane 20 mg 1-04 QD ity of capsule 00:00: [place] [facility] omeprazole Yes TK 1 C PO Un viviane 20 mg 1-04 QD ity of capsule 00:00: [address] omeprazole Yes TK 1 C PO Un viviane 20 mg 1-04 QD ity of capsule 00:00: [place] [facility] omeprazole Yes TK 1 C PO Un viviane 20 mg 1-04 QD ity of capsule 00:00: [place] [facility] omeprazole Yes TK 1 C PO Un viviane 20 mg -04 QD ity of capsule 00:00: [address] omeprazole Yes TK 1 C PO Un viviane 20 mg - QD ity of capsule 00:00: [place] [facility] doxazosin 1 2015-09 Yes TK 1 T PO U nivers mg tablet 10-01 QHS ity of 00:00: [address] doxazosin 1 2015-09 Yes TK 1 T PO U nivers mg tablet 10-01 QHS ity of 00:00: [address] doxazosin 1 2015-09 Yes TK 1 T PO U nivers mg tablet 10-01 QHS ity of 00:00: [address] doxazosin 1 2015-09 Yes TK 1 T PO U nivers mg tablet 10-01 QHS ity of 00:00: [address] doxazosin 1 2015-09 Yes TK 1 T PO U nivers mg tablet 10-01 QHS ity of 00:00: [address] doxazosin 1 2015-09 Yes TK 1 T PO U nivers mg tablet 10-01 QHS ity of 00:00: [address] doxazosin 1 2015-09 Yes TK 1 T PO U nivers mg tablet 10-01 QHS ity of 00:00: [address] doxazosin 1 2015-09 Yes TK 1 T PO U nivers mg tablet 10-01 QHS ity of 00:00: [address] Eliquis 2.5 Eliquis 2.5 No 1{table Eliquis mg 2.5 mg mg 2.5 mg t} 2.5 mg 2.5 mg Gabapentin Gabapentin No 1{capsu Gabapentin 400 MG 400 MG le} 400 MG Omeprazole Omeprazole No 1{capsu QD Omeprazole 20 MG 20 MG le} 20 MG Potassium Potassium No 1{table BID Potassium Chloride ER Chloride ER t_with_ Chloride 20 MEQ 20 MEQ food} ER 20 MEQ Levothyroxi Levothyroxi No QD Levothyrox ne Sodium ne Sodium ine Sodium 50 MCG 50 MCG 50 MCG Lasix 20 mg Lasix 20 mg No 1{table Lasix 20 t} mg Gabapentin Gabapentin Yes Kourtney 1 capsule Common Millender [facility] Levothyroxi Levothyroxi Yes Kourtney 1 tablet Common ne Sodium ne Sodium Millender on an Spirit empty - [facility] stomach in [facility] Omeprazole Omeprazole Yes Kourtney 1 capsule Common Millender [facility] Eliquis 2.5 Eliquis 2.5 Yes Kourtney 1 tablet Common mg mg Millender [facility] Potassium Potassium Yes Kourtney 1 tablet Common Chloride ER Chloride ER Millender with food [facility] Lasix Lasix Yes Kourtney 1 tablet Common Millender [facility] Cardura Cardura Yes Kourtney 1 tablet Comm on Millender in evening Spir it [facility] Atorvastati Atorvastati No 1{table QD Atorvastat n Calcium n Calcium t} in Calcium 20 MG 20 MG 20 MG Cardura 2 Cardura 2 No QD Cardura 2 MG MG MG Immunizations Ordered Immunization Filled Immunization Date Status Commen ts Source Name Name FLUZONE HIGH DOSE FLUZONE HIGH DOSE 2018-08-06 Completed [employer] OVER 65 OVER 65 13:52:00 [facility] Vital Signs Vital Name Observation Time Observation Value Comments Source Systolic blood 2021-05-19 15:00:00 112 mm[facility]Hg[facility] 2021-05-19 15:00:00 72 [facility] 2021-05-19 15:00:00 92 /min [facility] Body height 2021-05-19 15:00:00 147.3 cm [facility] Body weight 2021-05-19 15:00:00 53.524 kg [facility] BMI 2021-05-19 15:00:00 24.66 kg/m2 [facility] Oxygen saturation in 2021-05-19 15:00:00 95 /min [facility] blood by [facility] Pulse oximetry Branch Systolic blood 2020-05-13 15:47:00 167 mm[Hg] [facility] Diastolic blood 2020-05-13 15:47:00 95 mm[Hg] Unive rsity of pressure [facility] Heart rate 2020-05-13 15:37:00 88 /min Universi ty of [facility] Respiratory rate 2020-05-13 15:37:00 19 /[facility] 2020-05-13 15:37:00 147.3 cm Universi ty of [facility] Body weight 2020-05-13 15:37:00 54.522 kg Universi ty of [facility] BMI 2020-05-13 15:37:00 25.12 kg/m2 Universi ty of [facility] Systolic blood 2020-05-13 15:47:00 167 mm[Hg] Univer sity of pressure [facility] Diastolic blood 2020-05-13 15:47:00 95 mm[Hg] Unive rsity of pressure [facility] Heart rate 2020-05-13 15:37:00 88 /min Universi ty [facility] Respiratory rate 2020-05-13 15:37:00 19 /min [facility] Body height 2020-05-13 15:37:00 147.3 cm Universi ty of [facility] Body weight 2020-05-13 15:37:00 54.522 kg Universi ty [facility] BMI 2020-05-13 15:37:00 25.12 kg/m2 [facility] Systolic blood 2022-05-02 16:30:00 151 mm[Hg] Method [facility] pressure Diastolic blood 2022-05-02 16:30:00 73 mm[Hg] [facility] pressure Heart rate 2022-05-02 16:30:00 69 /min [facility] Respiratory rate 2022-05-02 16:30:00 18 /min [facility] Oxygen saturation in 2022-05-02 16:30:00 97 /min [facility] Arterial blood by Pulse oximetry Body temperature 2022-05-02 14:45:00 35.94 Mar [facility] Body height 2022-05-02 12:53:00 147.3 cm [facility] Body weight 2022-05-02 12:53:00 46.766 kg [facility] BMI 2022-05-02 12:53:00 21.55 kg/m2 [facility] Procedures Procedure Date / Time Performing Clinician Source Performed PHYSICIAN ORDERS 2022-05-19 05:01:00 Doctor Unassigned, No Unive [facility] ECG PRE/POST OP 2022-05-02 14:54:57 [facility] spital EP REMOVE REPLACE 2022-05-02 14:20:26 [facility] PACEMAKER GENERATOR DUAL TYPE AND SCREEN 2022-05-02 12:36:00 [facility]ital ECG PRE/POST OP 2022-05-02 11:22:13 [facility] spital COVID-19 QUALITATIVE 2022-04-30 15:28:00 [facility] RT-PCR COMPREHENSIVE METABOLIC 2022-04-30 15:28:00 [facility] PANEL CBC WITH PLATELET AND 2022-04-30 15:28:00 [facility] DIFFERENTIAL MAGNESIUM LEVEL 2022-04-30 15:28:00 [facility] spital PROTHROMBIN TIME WITH 2022-04-30 15:28:00 [facility] INR ESTIMATED GFR 2022-04-30 15:28:00 [facility] spital ASSIGNMENT OF BENEFITS 2021-05-19 14:24:04 Doctor Unassigned, No [facility] ASSIGNMENT OF BENEFITS 2020-05-13 14:44:43 Doctor Unassigned, No [facility] ASSIGNMENT OF BENEFITS 2019-05-08 14:32:08 Doctor Unassigned, No [facility] Plan of Care Planned Activity Planned Date Details Comments Source Future Scheduled 2022-08-16 HEPATITIS B VACCINES Met [facility] Test 11:53:52 (1 of 3 - 3-dose series) [code = HEPATITIS B VACCINES (1 of 3 - 3-dose series)] Future Scheduled 2022-08-16 SHINGLES VACCINES (1 [facility] Test 11:53:52 of 2) [code = SHINGLES VACCINES (1 of 2)] Future Scheduled 2022-08-16 65+ PNEUMOCOCCAL [facility] Test 11:53:52 VACCINE (2 - PCV) [code = 65+ PNEUMOCOCCAL VACCINE (2 - PCV)] Future Scheduled 2022-08-16 COVID-19 VACCINE (4 - [facility] Test 11:53:52 Booster for Moderna series) [code = COVID-19 VACCINE (4 - Booster for Moderna series)] Future Scheduled 2022-08-16 INFLUENZA VACCINE [facility] Test 11:53:52 [code = INFLUENZA VACCINE] Encounters Start End Encounter Admission Attending Care Care Encounter Source Date/Time Date/Time Type Type Clinicians Facility Department ID 2021-10-04 Outpatient Ilsa, [facility] [id number] Common 12:16:17 Miriam [id number] [facility] 2021-10-04 Outpatient [facility] [id number] Common 12:09:53 [id number] [facility] 2021-10-04 Outpatient Luis [facility] [id number] Common 11:46:27 Kourtney [id number] [facility] 2022-05-19 2022-05-19 Orders Doctor MARRY 1.2.840.114 [id number] Univers 00:00:00 00:00:00 Only Unassigned, ANDREE 350.1.13.10 ity of [place] [facility] 4.2.7.2.686 Osiel as [phone] [place] [address] [address] 2022-05-02 2022-05-02 [facility], 1.2.840.1 [id number] Methodi 05:42:00 11:47:00 Encounter Nadim 69482.1.[address] 3.430.2.7 Hospit a .3.363057 l .8 2022-05-02 2022-05-02 Anesthesia Urmila Bee V. 1.2.840.1 [id number] Methodi 08:11:00 09:47:00 Event Byron Wang 60345.1.[address] 3.430.2.7 Hospit a .3.572316 l .8 2022-05-02 2022-05-02 Surgery [facility], 1.2.840.1 [id number] Methodi 07:30:00 08:50:[address] 3.430.2.7 Hospit a .3.067287 l .8 2022-05-02 2022-05-02 Outpatient [facility] [id number] [address] [place] 00:00:00 00:00:[address] NAD[address] 2022-05-02 2022-05-02 Travel 1.2.840.1 1.2.853.258 [id number] Methodi 00:00:00 00:00:[address] 3.430.2.7 0.2.7.3.698 Ho spita .3.866337 084.8 l .8 2022-04-30 2022-04-30 [facility] Keagan, 1.2.840.1 [id number] Methodi 10:10:00 10:15:[address] 3.430.2.7 Hospit a .3.175827 l .8 2022-04-30 2022-04-30 Travel 1.2.840.1 1.2.946.400 [id number] Methodi 00:00:00 00:00:[address] 3.430.2.7 0.2.7.3.698 Ho spita .3.308756 084.8 l .8 2022-04-30 2022-04-30 Outpatient ON LICENSE OF [facility] [id number] [address] [place] 00:00:00 00:00:00 NADIM [address] 2022-04-24 2022-04-24 [facility] Keagan, 1.2.840.1 [id number] Methodi 00:00:00 00:00:00 Orders Nadim 75080.1.[address] 3.430.2.7 Hospit a .3.199855 l .8 2021-05-19 2021-05-19 Office Camille [facility] 1.2.920.816 [id number] [facility] 09:23:51 10:57:33 Visit [facility] 350.1.13.10 it y of [place] 4.2.7.2.686 Osiel as Nas?Blea [phone] Oh madhu marie [address] [place] [address] Medical Office Building 2021-05-19 2021-05-19 Outpatient R CAMILLE [facility] [id number] Univers 09:30:00 09:30:00 SAM rodriguez [facility] 2021-05-19 2021-05-19 Orders Doctor MARRY 1.2.840.114 [id number] Univers 00:00:00 00:00:00 Only Unassigned, ANDREE 350.1.13.10 it[place] of [place] [facility] 4.2.7.2.686 Osiel as [phone] [address] 2021-05-19 2021-05-19 Orders Doctor MARRY 1.2.840.114 [id number] Univers 00:00:00 00:00:00 Only Unassigned, ANDREE 350.1.13.10 it[place] of [place] [facility] 4.2.7.2.686 Os[place] as [phone] [address] 2020-10-06 2020-10-06 (TEL) STLMLC STLMLC [id number] Co mmon 00:00:00 00:00:00 [facility] 2020-05-29 2020-05-29 Out[facility] [id number] Common 04:21:00 04:21:00 [facility] 2020-05-27 2020-05-27 Outpatient [facility] [id number] Common 13:40:00 13:40:00 [facility] 2020-05-13 2020-05-13 [facility] 1.2.783.139 [id number] 09:45:42 11:15:25 Visit Sam Duran 350.1.13.10 Ray 4.2.7.2.686 Professio [phone] [address] 2020-05-13 2020-05-13 [facility] 1.2.712.663 [id number] [facility] 09:45:42 11:15:25 Visit Sam Duran 350.1.13.10 i ty of [place] 4.2.7.2.686 [place] Professio [phone] Oh dical nal [address] 2020-05-13 2020-05-13 Outpatient Arianne OBRIEN [facility] [id number] Univers 10:00:00 10:00:00 SAM rodriguez [facility] 2020-05-13 2020-05-13 Orders Doctor TUTTLE 1.2.840.114 [id number] 00:00:00 00:00:00 Only Unassigned, ANDREE 350.1.13.10 [facility] 4.2.7.2.686 [place] as [phone] [address] 2020-03-06 2020-03-06 Out[facility] [id number] Common 12:25:00 12:25:00 t [facility] [address] [facility] 2020-02-25 2020-02-25 Outpatient [facility] [id number] Common 15:20:00 15:20:00 t [facility] [address] [facility] 2019-09-25 2019-09-25 Outpatient [facility] [id number] Common 10:40:00 10:40:00 t [facility] [address] [facility] 2019-08-17 2019-08-17 Outpatient [facility] [id number] Common 14:07:00 14:07:00 t [facility] [address] [facility] 2019-08-17 2019-08-17 Outpatient [facility] [id number] Common 08:20:00 08:20:[address] [facility] 2019-07-17 2019-07-17 Out[facility] [id number] Common 16:20:00 16:20:00 t [facility] [address] [facility] 2019-05-08 2019-05-08 Associate Account Manager 1, Adc Lab [facility] 1.2.840.114 [id number] Univers 11:04:20 11:19:20 Visit Sam Obrien 350.1.13.10 [place] 4.2.7.2.686 [place] [facility] [phone] [facility] [address] 2019-05-08 2019-05-08 Orders Doctor MARRY 1.2.840.114 [id number] Univers 00:00:00 00:00:00 Only Unassigned, ANDREE 350.1.13.10 ity of [place] [facility] 4.2.7.2.686 Osiel [phone] [facility] [address] 2019-03-25 2019-03-25 Out[facility] [id number] Common 12:56:00 12:56:[address] [facility] 2019-03-05 2019-03-05 Out[facility] [id number] Common 09:30:00 09:30:[address] [facility] 2019-03-02 2019-03-02 Outpatient [facility] [id number] Common 11:00:00 11:00:[address] [facility] 2018-12-18 2018-12-18 Outpatient [facility] [id number] Common 09:00:00 09:00:[address] [facility] 2018-10-31 2018-10-31 Outpatient [facility] [id number] Common 12:33:00 12:33:[address] [facility] 2018-09-25 2018-09-25 Outpatient [facility] [id number] Common 09:00:00 09:00:[address] [facility] 2018-03-27 2018-03-27 Outpatient [facility] [id number] Common 10:00:00 10:00:[address] [facility] 2017-12-13 2017-12-13 Out[facility] [id number] Common 16:46:00 16:46:[address] [facility] 2017-12-13 2017-12-13 Outpatient [facility] [id number] Common 14:45:00 14:45:00 t [facility] it Road [facility] Results Test Description Test Time Test Comments Results Result Comments Source ECG Pre/Post Op 2022-05-03 00:16:38 Test Item Value Reference Range Interpretation Comme nts Ventricular rate (test code = 253) Atrial rate (test code = 255) QRSD interval (test code = 260) QT interval (test code = 264) QTC interval (test code = 265) QRS axis 1 (test code = 268) T wave axis (test code = 270) EKG impression (test code = 273) Ventricular-paced rhythm with occa sional premature ventricular complexes- [id number] 19:46:47 Test Item Value Reference Interpretation Comments Range Interpretation (test Negative results do not code = 3141251) preclude COVID-19 infection and should not be used asthe sole basis for treatment or other patient management decisions. Negativeresults must be combined with clinical observations, patient history, andepidemiological information. COVID-19 qualitative Not-Detected Not-Detected RT-PCR result (test code = 46408-4) COVID-19 qualitative See link below for PDF Case Number: RT-PCR (test code = Lab Report [id number]) Rolan MahmoodARS-CoV-2 (COVID-19) RNA [Presence] in Respiratory specimen by ROSANNE with probe [id number] 14:46:47 Test Item Value Reference Range Interpretation Comments SARS-CoV-2 (COVID-19) RNA Not detected [Presence] in Respiratory specimen by ROSANNE with probe detection (test code = 67036-7) Whether patient is employed in a Unknown healthcare setting (test code = 06597-6) Whether the patient has symptoms Unknown related to condition of interest (test code = 72666-2) Whether the patient was Unknown hospitalized for condition of interest (test code = 45212-3) Whether the patient was admitted Unknown to intensive care unit (ICU) for condition of interest (test code = 99807-5) Whether patient resides in a Unknown congregate care setting (test code = 92771-8) status (test code = Unknown 23144-0) Date and time of symptom onset Unknown (test code = 92904-0) ERMELINDA DUNNUrine Culture, [id number] 00:00:00 Test Item Value Reference Range Interpretation Comments Urine Culture, Routine (test Final report code = 630-4)
[2022-08-16 12:13] LABS: Absolute Lymphocytes (CBC) 1.5 K/uL (0.7-4.9); Hematocrit 37.1 % (36.0-45.0); Lymphocytes % 14.8 % (15.3-44.8); MCV 86.7 fL (80-100); MPV 8.3 fL (7.6-11.3); RBC Red Blood Cell Count 4.28 M/uL (3.86-4.86)
--- NOTE | 2022-08-16 12:14 | RAD REPORT ---
EXAM DESCRIPTION: CT - Ct Stroke Brain Wo Cont - 08/16/2022 12:04 pm CLINICAL HISTORY: right sided numbnessand weakness COMPARISON: Head Brain Wo Cont dated 08/23/2021 TECHNIQUE: Axial 5 millimeter thick images of the head were obtained without IV contrast. All CT scans are performed using dose optimization technique as appropriate and may include automated exposure control or mA/KV adjustment according to patient size. FINDINGS: No intracranial hemorrhage, mass, or cerebral edema. No acute cortical based infarction id entified. No cortical edema or sulcal effacement. Mild to moderate for age atrophy changes are presen t. Ventricles are in proportion. Cerebral white matter chronic ischemic changes mild. No extra-axial fluid collections. Tubbs matter-white matter differentiation is preserved.Intracranial findings are n ot substantially different from the 2020 comparison. No globe or orbital content abnormality seen. Visualized portions of the mastoid air cells, paranasal sinuses, and orbits are unremarkable. Findings telephoned to Dr. Musa 12:10 p.m. IMPRESSION: No CT evidence of acute intracranial process. The patient's atrophy and chronic ischemic pattern is not significantly different from August 2021.
[2022-08-16 12:20] LABS: Protime INR 1.26
[2022-08-16 12:32] LABS: Potassium 3.4 mmol/L (3.5-5.1); Troponin High Sensitivity 20.5 pg/mL (<58.9)
[2022-08-16] MEDS ORDERED: ASPIRIN 81 MG CHEWABLE TABLET ONE (12:37)
[2022-08-16] MEDS ORDERED: FOLIC ACID 5 MG/ML VIAL ONE (12:38)
[2022-08-16] MEDS ORDERED: NA CHLORIDE 0.9% 500 ML ONE (12:44)
--- NOTE | 2022-08-16 12:59 | RAD REPORT ---
EXAM DESCRIPTION: RAD - Chest Single View - 08/16/2022 12:45 pm CLINICAL HISTORY: right sided numbness Chest pain. COMPARISON: Chest Pa And Lat (2 Views) dated 02/19/2022; Chest Single View dated 01/16/2020; Chest Sing le View dated 12/09/2018; Chest Single View dated 04/23/2016 FINDINGS: Portable technique limits examination quality. The lungs are grossly clear. The heart is mildly prominent with multilead pacer/defibrillator device. No displaced fractures. IMPRESSION: No acute intrathoracic process suspected.
--- NOTE | 2022-08-16 13:01 | ER ---
Nurse's Notes [facility] Name: Suri Lemus Age: 87 yrs Sex: Female : 1935 Arrival Date: 08/16/2022 Time: 11:52 Bed 15 Private MD: Diagnosis: Cerebral infarction, unspecified;Paresthesia of skin Presentation: 08/16 11:51 Chief complaint: Patient states: she started having numbness in her right arm and leg ap3 at approx 1130am this morning. Coronavirus screen: At this time, the client does not indicate any symptoms associated with coronavirus-19. Ebola Screen: No symptoms or risks identified at this time. Initial Sepsis Screen: Does the patient meet any 2 criteria? No. Patient's initial sepsis screen is negative. Does the patient have a suspected source of infection? No. Patient's initial sepsis screen is negative. Risk Assessment: Do you want to hurt yourself or someone else? Patient reports no desire to harm self or others. Onset of symptoms was August 16, 2022 at 11:30. 11:51 Method Of Arrival: Wheelchair ap3 11:51 Acuity: TAQUERIA 2 ap3 Triage Assessment: 11:51 Neuro: Reports numbness in right arm and right leg. Cardiovascular: Patient's skin is ap3 warm and dry. Respiratory: Airway is patent Respiratory effort is even, unlabored. 12:11 General: Appears uncomfortable, Behavior is calm, cooperative. Pain: Denies pain. ap3 Historical: - Allergies: 12:10 Levaquin; ap3 12:10 Lisinopril; ap3 - Home Meds: 12:10 Eliquis 2.5 mg Oral tab 1 tab 2 times per day [Active]; ap3 - PMHx: 12:10 CHF; Hyperlipidemia; Hypertension; neuropathy; ap3 - Immunization history:: Client reports receiving the 2nd dose of the Covid vaccine. - Social history:: Smoking status: Patient denies any tobacco usage or history of. - Family history:: not pertinent. - Hospitalizations: : No recent hospitalization is reported. Screenin:48 Abuse screen: Denies threats or abuse. Nutritional screening: No deficits noted. ll1 Tuberculosis screening: No symptoms or risk factors identified. Fall Risk IV access (20 points). Gait- Weak (10 pts.). Total Yadav Fall Scale indicates Low Risk Score (25-44 pts). Fall prevention measures have been instituted. Side Rails Up X 2 Placed close to Nursing Station Frequent Obs/Assesments occuring Family Present and informed to notify staff if they need to leave bedside As available Patient and Family Educated on Fall Prevention Program and strategies. 13:02 VAN Screening: Arm Drift: Patient shows no arm weakness. Aphasia: No aphasia noted. ll1 Patient has been NPO before screening. The patient is alert, able to follow commands. The patient does not exhibit slurred or garbled speech The patient is not exhibiting difficulty speaking. The patient does not exhibit difficulty understanding words. The patient is able to swallow own secretions with no drooling or need for suction. Patient tolerated one teaspoon of water. No drooling, immediate coughing, gurgling, or clearing of the throat was noted. The patient tolerated 90mL of water. No drooling, immediate coughing, gurgling, or clearing of the throat was noted. The patient passed the bedside swallow screening. Oral medications may be given as ordered. Contact Physician for further diet orders. Provider notified of bedside swallow screening results: Jason Musa MD. Assessment: 13:07 General: Appears in no apparent distress. Behavior is calm, cooperative, appropriate ll1 for age. Pain: Denies pain. Neuro: Reports numbness paresthesias. 13:30 Reassessment: Gait steady to restroom and back. Tolerated well. ll1 Vital Signs: 11:51 Pulse 73; Resp 17; Pulse Ox 97% ; Weight 47.63 kg; Height 4 ft. 10 in. (147.32 cm); ap3 12:30 BP 168 / 75; ap3 12:47 BP 158 / 90; Pulse 74; Temp 97.6; Pulse Ox 99% on R/A; ll1 15:00 BP 148 / 88; Pulse 72; Resp 16; Pulse Ox 99% on R/A; ko1 11:51 Body Mass Index 21.94 (47.63 kg, 147.32 cm) ap3 NIH Stroke Scale Scores: 12:54 NIHSS Score: 1 rn 13:02 NIHSS Score: 1 ll1 ED Course: 11:52 Patient arrived in ED. as 11:52 Jason Musa MD is Attending Physician. rn 12:06 CT Stroke Brain w/o Contrast In Process Unspecified. EDMS 12:07 Major Mares, RN is Primary Nurse. ll1 12:10 Triage completed. ap3 12:11 Arm band placed on right wrist. ap3 12:12 Patient has correct armband on for positive identification. Placed in gown. Bed in low ap3 position. Call light in reach. Side rails up X2. Adult w/ patient. Pulse ox on. NIBP on. Door closed. Noise minimized. 12:15 Initial lab(s) drawn, by [employer] sent to lab. jl7 12:38 Inserted saline lock: 22 gauge in left forearm, using aseptic technique. jl7 12:47 Stroke CXR 1 View In Process Unspecified. EDMS 13:00 CT Head Angio In Process Unspecified. EDMS 13:00 Neck Angio In Process Unspecified. EDMS 13:01 Jennifer Kaye MD is Hospitalizing Provider. rn 13:10 No provider procedures requiring assistance completed. ll1 Administered Medications: 12:40 Drug: Aspirin 81 mg Route: PO; ll1 13:11 Follow up: Response: No adverse reaction ll1 12:40 Drug: foLIC Acid 1 mg Route: IVPB; Site: left forearm; ll1 13:11 Follow up: Response: No adverse reaction; IV Status: Completed infusion; IV Intake: ll1 0.2ml 12:47 Drug: NS 0.9% 500 ml Route: IV; Rate: bolus; Site: left forearm; ll1 Medication: 12:48 VIS not applicable for this client. ll1 Intake: 13:11 IV: 0ml; Total: 0ml. ll1 Outcome: 13:01 Decision to Hospitalize by Provider. rn 20:30 Patient left the ED. rv1 NIH Stroke Scale - NIH Stroke Score Date: 08/16/2022 Time: 12:54 Total Score = 1 1a. Level of Consciousness (LOC) - 0(Alert) 1b. Level of Consciousness (LOC) (Month \T\ Age) - 0(Both) 1c. LOC Commands (Open \T\ Closes Eyes/Refinery Operator Assistant) - 0(Both) 2. Best Gaze (Lateral Gaze Paresis) - 0(Normal) 3. Visual Field Loss - 0(No visual loss) 4. Facial Palsy - 0(Normal) 5a. Left Arm: Motor (10-second hold) - 0(No drift) 5b. Right Arm: Motor (10-second hold) - 0(No drift) 6a. Left Leg: Motor (5-second hold - always test supine) - 0(No drift) 6b. Right Leg: Motor (5-second hold - always test supine) - 0(No drift) 7. Limb Ataxia (finger/nose \T\ heel/hawkins - test with eyes open) - 0(Absent) 8. Sensory Loss (pinprick arms/legs/face) - 1(Mild to moderate loss) 9. Best Language: Aphasia (description/naming/reading) - 0(No aphasia) 10. Dysarthria (speech clarity - read or repeat words) - 0(Normal) 11. Extinction and Inattention (visual/tactile/auditory/spatial/personal) - 0(No abnormality) Initials: elise NIH Stroke Scale - NIH Stroke Score Date: 08/16/2022 Time: 13:02 Total Score = 1 1a. Level of Consciousness (LOC) - 0(Alert) 1b. Level of Consciousness (LOC) (Month \T\ Age) - 0(Both) 1c. LOC Commands (Open \T\ Closes Eyes/Refinery Operator Assistant) - 0(Both) 2. Best Gaze (Lateral Gaze Paresis) - 0(Normal) 3. Visual Field Loss - 0(No visual loss) 4. Facial Palsy - 0(Normal) 5a. Left Arm: Motor (10-second hold) - 0(No drift) 5b. Right Arm: Motor (10-second hold) - 0(No drift) 6a. Left Leg: Motor (5-second hold - always test supine) - 0(No drift) 6b. Right Leg: Motor (5-second hold - always test supine) - 0(No drift) 7. Limb Ataxia (finger/nose \T\ heel/hawkins - test with eyes open) - 0(Absent) 8. Sensory Loss (pinprick arms/legs/face) - 1(Mild to moderate loss) 9. Best Language: Aphasia (description/naming/reading) - 0(No aphasia) 10. Dysarthria (speech clarity - read or repeat words) - 0(Normal) 11. Extinction and Inattention (visual/tactile/auditory/spatial/personal) - 0(No abnormality) Initials: ll1 Signatures: Dispatcher [employer] Rochelle Galvan Roman, MD MD rn Leal, Jahala, RN RN jl7 Mely López, RN RN ap3 Major Mares, RN RN ll1 Funmi Chowdhury, RN RN ko1 Fawn Beasley [facility]
--- NOTE | 2022-08-16 13:02 | EDPHYS ---
Physician Documentation [facility] Name: Suri Lemus Age: 87 yrs Sex: Female : 1935 Arrival Date: 08/16/2022 Time: 11:52 Bed 15 Private MD: ED Physician Jason Musa HPI: 08/16 12:00 This 87 yrs old Female presents to ER via Unassigned with complaints of Numbness. rn 12:00 The patient's problem is reported as paresthesias, in right upper extremity, in right rn lower extremity. Onset: The symptoms/episode began/occurred 30 minute(s) ago. Duration: This was a single incident. The symptoms are alleviated by nothing. The symptoms are aggravated by nothing. Associated signs and symptoms: Pertinent positives: tingling, Pertinent negatives: abdominal pain, chest pain, headache, seizure, shortness of breath, vomiting, weakness. Severity of symptoms: At their worst the symptoms were mild in the emergency department the symptoms are unchanged. The patient has experienced a previous episode. The patient has not recently seen a physician. Pt reports 30 min ago started with numbness on right arm and leg. No weakness. No vision or speech problem. No injury. Takes eliquis. Has had a previous CVA. Not improving or worsening. . Historical: - Allergies: 12:10 Levaquin; ap3 12:10 Lisinopril; ap3 - Home Meds: 12:10 Eliquis 2.5 mg Oral tab 1 tab 2 times per day [Active]; ap3 - PMHx: 12:10 CHF; Hyperlipidemia; Hypertension; neuropathy; ap3 - Immunization history:: Client reports receiving the 2nd dose of the Covid vaccine. - Social history:: Smoking status: Patient denies any tobacco usage or history of. - Family history:: not pertinent. - Hospitalizations: : No recent hospitalization is reported. ROS: 12:00 Constitutional: Negative for fever, chills, and weight loss, Eyes: Negative for injury, rn pain, redness, and discharge, Neck: Negative for injury, pain, and swelling, Cardiovascular: Negative for chest pain, palpitations, and edema, Respiratory: Negative for shortness of breath, cough, wheezing, and pleuritic chest pain, Abdomen/GI: Negative for abdominal pain, nausea, vomiting, diarrhea, and constipation, Back: Negative for injury and pain, MS/Extremity: Negative for injury and deformity, Skin: Negative for injury, rash, and discoloration, Neuro: Negative for headache, weakness, and seizure Exam: 12:00 Constitutional: This is a well developed, well nourished patient who is awake, alert, rn and in no acute distress. Head/Face: Normocephalic, atraumatic. Eyes: Pupils equal round and reactive to light, extra-ocular motions intact. Lids and lashes normal. Conjunctiva and sclera are non-icteric and not injected. Cornea within normal limits. Periorbital areas with no swelling, redness, or edema. Cardiovascular: Regular rate and rhythm. No pulse deficits. Respiratory: No increased work of breathing, no retractions or nasal flaring. Abdomen/GI: Soft, non-tender Skin: Warm, dry with normal turgor. Normal color with no rashes, no lesions, and no evidence of cellulitis. MS/ Extremity: Pulses equal, no cyanosis. Neurovascular intact. Full, normal range of motion. Equal circumference. Neuro: Awake and alert, GCS 15, oriented to person, place, time, and situation. Cranial nerves II-XII grossly intact. Motor strength 5/5 in all extremities without drift. + RUE/RLE decreased sensation. Cerebellar exam normal. 13:17 ECG was reviewed by the Attending Physician. rn Vital Signs: 11:51 Pulse 73; Resp 17; Pulse Ox 97% ; Weight 47.63 kg; Height 4 ft. 10 in. (147.32 cm); ap3 12:30 BP 168 / 75; ap3 12:47 BP 158 / 90; Pulse 74; Temp 97.6; Pulse Ox 99% on R/A; ll1 15:00 BP 148 / 88; Pulse 72; Resp 16; Pulse Ox 99% on R/A; ko1 11:51 Body Mass Index 21.94 (47.63 kg, 147.32 cm) ap3 NIH Stroke Scale Scores: 12:54 NIHSS Score: 1 rn 13:02 NIHSS Score: 1 ll1 MDM: 11:52 Patient medically screened. rn 12:11 ED course: CT stroke protocol neg per Dr. Bryson. . rn 12:13 ED course: Discussed with Dr. Liz, not a TNKase candidate, recommends 81mg rn aspirin, obs to hospitalist, as likely small vessel infarct, no need for transfer. . 12:13 ED course: Contraindication to TNKase 2/2 eliquis. . rn 12:54 ED course: Pt states symptoms seem to be improving. rn 13:00 Differential diagnosis: CVA, TIA, metabolic disorder. Data reviewed: vital signs, rn nurses notes, lab test result(s), radiologic studies, CT scan, and as a result, I will admit patient. Counseling: I had a detailed discussion with the patient and/or guardian regarding: the historical points, exam findings, and any diagnostic results supporting the discharge/admit diagnosis, lab results, radiology results, the need for further work-up and treatment in the hospital. Response to treatment: the patient's symptoms have mildly improved after treatment, and as a result, I will admit patient. Admission orders: after a detailed discussion of the patient's condition and case, the admit orders are written by me. 08/16 11:56 Order name: Basic Metabolic Panel; Complete Time: 12:38 rn 08/16 11:56 Order name: CBC with Diff; Complete Time: 12:38 rn 08/16 11:56 Order name: High Sensitivity Troponin; Complete Time: 12:38 rn 08/16 11:56 Order name: Protime (+inr); Complete Time: 12:38 rn 08/16 11:56 Order name: Ptt, Activated; Complete Time: 12:38 rn 08/16 12:08 Order name: Glucose, Ancillary Testing; Complete Time: 12:11 EDND 08/16 11:56 Order name: CT Stroke Brain w/o Contrast; Complete Time: 12:38 rn 08/16 11:56 Order name: Stroke CXR 1 View; Complete Time: 13:02 rn 08/16 11:57 Order name: CT Head Angio; Complete Time: 17:01 rn 08/16 11:57 Order name: CT Neck Angio rn 08/16 12:04 Order name: Neck Angio; Complete Time: 17:01 EDND 08/16 12:38 Order name: SARS RAPID; Complete Time: 17:01 rn 08 11:56 Order name: EKG; Complete Time: 11:57 rn 08/16 11:56 Order name: Accucheck; Complete Time: 12:08 rn 08/16 11:56 Order name: Cardiac monitoring; Complete Time: 12:08 rn 08/16 11:56 Order name: EKG - Nurse/Tech; Complete Time: 12:18 rn 08/16 11:56 Order name: IV Saline Lock; Complete Time: 12:40 rn 08/16 11:56 Order name: Labs collected and sent; Complete Time: 12:08 rn 08/16 11:56 Order name: NPO; Complete Time: 12:07 rn 08/16 11:56 Order name: O2 Per Protocol; Complete Time: 12:07 rn 08/16 11:56 Order name: O2 Sat Monitoring; Complete Time: 12:07 rn 08/16 11:56 Order name: Stroke Swallow Screen; Complete Time: 12:18 rn EC:17 Rate is 73 beats/min. Rhythm is regular, Paced with Occasional PVCs. Clinical rn impression: Paced rhythm. Interpreted by me. Reviewed by me. Administered Medications: 12:40 Drug: Aspirin 81 mg Route: PO; ll1 13:11 Follow up: Response: No adverse reaction ll1 12:40 Drug: foLIC Acid 1 mg Route: IVPB; Site: left forearm; ll1 13:11 Follow up: Response: No adverse reaction; IV Status: Completed infusion; IV Intake: ll1 0.2ml 12:47 Drug: NS 0.9% 500 ml Route: IV; Rate: bolus; Site: left forearm; ll1 Disposition Summary: 08/16/22 13:01 Hospitalization Ordered Hospitalization Status: Observation rn Provider: Jennifer Kaye [facility]n [facility] rn Condition: Stable rn Problem: new rn Symptoms: have improved rn Bed/Room Type: Standard rn Room Assignment: [id number](08/16/22 17:43) [email or web address] Diagnosis - Cerebral infarction, unspecified rn - Paresthesia of skin rn Forms: - Medication Reconciliation Form rn - SBAR form rn NIH Stroke Scale - NIH Stroke Score Date: 08/16/2022 Time: 12:54 Total Score = 1 1a. Level of Consciousness (LOC) - 0(Alert) 1b. Level of Consciousness (LOC) (Month \T\ Age) - 0(Both) 1c. LOC Commands (Open \T\ Closes Eyes/Asset Protection Assistant) - 0(Both) 2. Best Gaze (Lateral Gaze Paresis) - 0(Normal) 3. Visual Field Loss - 0(No visual loss) 4. Facial Palsy - 0(Normal) 5a. Left Arm: Motor (10-second hold) - 0(No drift) 5b. Right Arm: Motor (10-second hold) - 0(No drift) 6a. Left Leg: Motor (5-second hold - always test supine) - 0(No drift) 6b. Right Leg: Motor (5-second hold - always test supine) - 0(No drift) 7. Limb Ataxia (finger/nose \T\ heel/hawkins - test with eyes open) - 0(Absent) 8. Sensory Loss (pinprick arms/legs/face) - 1(Mild to moderate loss) 9. Best Language: Aphasia (description/naming/reading) - 0(No aphasia) 10. Dysarthria (speech clarity - read or repeat words) - 0(Normal) 11. Extinction and Inattention (visual/tactile/auditory/spatial/personal) - 0(No abnormality) Initials: elise NIH Stroke Scale - NIH Stroke Score Date: 08/16/2022 Time: 13:02 Total Score = 1 1a. Level of Consciousness (LOC) - 0(Alert) 1b. Level of Consciousness (LOC) (Month \T\ Age) - 0(Both) 1c. LOC Commands (Open \T\ Closes Eyes/Asset Protection Assistant) - 0(Both) 2. Best Gaze (Lateral Gaze Paresis) - 0(Normal) 3. Visual Field Loss - 0(No visual loss) 4. Facial Palsy - 0(Normal) 5a. Left Arm: Motor (10-second hold) - 0(No drift) 5b. Right Arm: Motor (10-second hold) - 0(No drift) 6a. Left Leg: Motor (5-second hold - always test supine) - 0(No drift) 6b. Right Leg: Motor (5-second hold - always test supine) - 0(No drift) 7. Limb Ataxia (finger/nose \T\ heel/hawkins - test with eyes open) - 0(Absent) 8. Sensory Loss (pinprick arms/legs/face) - 1(Mild to moderate loss) 9. Best Language: Aphasia (description/naming/reading) - 0(No aphasia) 10. Dysarthria (speech clarity - read or repeat words) - 0(Normal) 11. Extinction and Inattention (visual/tactile/auditory/spatial/personal) - 0(No abnormality) Initials: ll1 Signatures: Dispatcher [employer] Jason Jordan MD MD rn Prokisch, Amanda, RN RN ap3 Jackson, Kandis [email or web address] Major Mares RN RN ll1 Corrections: (The following items were deleted from the chart) 17:43 13:01 elise [email or web address]
--- NOTE | 2022-08-16 13:06 | RAD REPORT ---
EXAM DESCRIPTION: CT - Head angio - 08/16/2022 12:58 pm CLINICAL HISTORY: right sided numbness Headache, drowsiness, CVA symptomology COMPARISON: Ct Stroke Brain Wo Cont dated 08/16/2022; Head Brain Wo Cont dated 08/23/2021 TECHNIQUE: CT angiography of the head was performed with MIPs. All CT scans are performed using dose optimization technique as appropriate and may include automated exposure control or mA/KV adjustment according to patient size. FINDINGS: No evidence of aneurysm is detected. No flow-limiting stenosis or vascular malformation id entified. Antegrade flow is seen in the vertebral arteries. Right vertebral artery is mildly dominant. The visualized dural venous sinuses are patent. IMPRESSION: No significant flow abnormality is detected.
[2022-08-16] MEDS ORDERED: FUROSEMIDE 20 MG TABLET ONE (13:08)
[2022-08-16 13:10] LABS: SARS-CoV-2 Antigen Rapid Res Negative (Negative)
--- NOTE | 2022-08-16 13:16 | RAD REPORT ---
EXAM DESCRIPTION: CT - Neck Angio - 08/16/2022 12:58 pm CLINICAL HISTORY: right sided numbness Headache, drowsiness, CVA symptomology COMPARISON: C Spine Wo Con dated 11/16/2019; Head C Spine Mpr Wo Con dated 12/09/2018; CT HEAD CSPINE MP R WO CONTRAST dated 06/09/2015 TECHNIQUE: CT angiography of the neck vessels was performed with MIPs. All CT scans are performed using dose optimization technique as appropriate and may include automated exposure control or mA/KV adjustment according to patient size. FINDINGS: A left aortic arch is identified with normal three vessel configuration of the great vesse ls. No significant flow abnormality is seen of the common carotid bilaterally. Mild to moderate hard plaque is seen in both carotid bulbs. Stenosis is less than 50% bilaterally bas ed on NASCET criteria. Normal flow is seen within both vertebral arteries. IMPRESSION: Mild to moderate hard plaque in both carotid bulbs without significant stenosis evident.
[2022-08-16] MEDS: NA CHLORIDE 0.9% 1,000 ML IV SCH (16:08)
[2022-08-16] MEDS ORDERED: NA CHLORIDE 0.9% 1,000 ML ONE (16:40)
[2022-08-16] MEDS: AMLODIPINE 5 MG TAB PO ONE ×2 (18:26→19:00)
[2022-08-16] MEDS ORDERED: AMLODIPINE 5 MG TAB ONE (18:35)
[2022-08-16] MEDS ORDERED: DOXAZOSIN 1 MG TAB PO SCH (21:00)
[2022-08-16] MEDS: hydrOXYzine HCL 25 MG TAB PO SCH (21:06)
[2022-08-16] MEDS: ATORVASTATIN 20 MG TAB PO SCH (21:06)
[2022-08-16] MEDS: GABAPENTIN 400 MG CAP PO SCH (21:06)
[2022-08-16] MEDS: APIXABAN 2.5 MG TABLET PO SCH (21:06)
[2022-08-16] MEDS ORDERED: carvediloL 25 MG TAB PO ONE (21:55)
--- NOTE | 2022-08-17 01:45 | HP ---
Date of Admission: 08/16/2022 Chief Complaint: Tingling, numbness, and weakness of right side of body. History Of Present Illness: Ms. Lemus is a very pleasant 87-year-old female patient, who was in her usual state of health until around 11 o'clock this morning, she noticed that she had some tingling, numbness, and weakness of the right arm and right leg. She did not notice any difficulty with speech. No nausea, no vomiting. No headache. No fall or head injury. With this complaint, she was brought into emergency room and after she was evaluated in the ER, she was admitted to the hospital with ischemic stroke. I saw her in the emergency room and her daughter was present with her at bedside. Allergies: TO LISINOPRIL, CAUSING RASH AND ITCHING; AND LEVAQUIN, ALSO CAUSING RASH AND ITCHING. Review of Systems: PERSONNEL QUALITY ASSURANCE AUDITOR: As mentioned above. All other systems reviewed and negative. Medications: Amlodipine 5 mg daily, Eliquis 2.5 mg 2 times a day, atorvastatin 20 mg daily, Caltrate plus D 1 tablet 2 times a day, carvedilol 25 mg 2 times a day, cholestyramine 1/4 pack mixed with 8 ounce water daily rather every other day, Centrum Silver 1 tablet daily, donepezil 5 mg daily at bedtime, doxazosin 1 mg daily at bedtime, furosemide 20 mg 2 times a day, gabapentin 400 mg 2 times a day, levothyroxine 50 mcg daily, hydroxyzine 25 mg 2 times a day, lidocaine patch daily, magnesium oxide 2 times a day, potassium chloride 20 mEq daily. Past Medical History: Significant for stroke in 2014 due to atrial fibrillation with complete recovery, COPD, hypertension, hyperlipidemia, chronic systolic heart failure, chronic atrial fibrillation, carotid artery stenosis, bilateral gastroesophageal reflux disease, chronic kidney disease stage 3B, cervical spondylosis, osteoarthritis at multiple sites. 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 Family History: Father , had heart disease and stroke. Mother , had breast cancer, uterine cancer, and hypertension. Brother , had congestive heart failure. Sister , also had congestive heart failure. Social History: Prior history of smoking, not at present time. Use of alcohol, negative. Physical Examination: VITAL SIGNS: Height 4 feet 10 inches, weight 105 pounds, temperature 98, pulse 70, respiratory rate 14, blood pressure 175/73, oxygen saturation 98% on room air. General: Awake, alert, oriented, not in distress. HEENT: Head atraumatic, normocephalic. Conjunctivae nonerythematous. Sclerae white. Mouth, no thrush or edema noted. Ears/Nose, no mass, lesion, discharge noted. Neck: Supple. No JVD, lymph nodes, bruit, thyromegaly noted. Lungs: Bilateral good equal air entry. Clear to auscultation. No rhonchi. No rales. Heart: Normal heart sounds, no murmur or gallop. Abdomen: Soft, bowel sounds normal. No guarding, rigidity, tenderness, mass, hepatosplenomegaly, distention, or bruit noted. Extremities: No leg edema. No calf tenderness. Skin: No rash, ulcer, cellulitis. Lymphatics: No lymph node enlargement in neck, supraclavicular, infraclavicular region. PERSONNEL QUALITY ASSURANCE AUDITOR: Patient's right upper extremity power is 4/5 and left upper extremity and left lower extremity is 5/5. The patient's speech is normal. No facial asymmetry. Chest: Unremarkable. External Genitalia: Deferred. Rectal: Deferred. Laboratory Data: White count 9.8, hemoglobin 12.5, and platelets 317. Sodium 140, potassium 3.4, chloride 108, bicarb 27, BUN 20, creatinine 1.35. Estimated GFR 38. Calcium 8.7. Troponin 20.5. CAT scan of the head was negative for any acute intracranial changes. Chest x- ray, no acute cardiopulmonary changes. CT head angiogram, no significant flow abnormality noted. CT angiogram of the neck, [id number] plaque in both carotid bulbs without significant stenosis. COVID-19 test negative. Impression: 1. Stroke, acute, non-hemorrhagic. 2. Chronic atrial fibrillation. 3. Bilateral carotid artery stenosis. 4. Chronic systolic heart failure. 5. Hypertension. 6. Hyperlipidemia. 7. Chronic obstructive pulmonary disease. 8. Osteoarthritis, multiple sites. 9. Chronic kidney disease, stage 3B. 10. Gastroesophageal reflux disease. Plan: Admit patient to hospital for further evaluation and management of this problem. The patient is appropriate for inpatient and is expected to spend 2 midnights in hospital. The patient was not a candidate for any thrombolytic therapy because she has been on Eliquis. We will continue her Eliquis. Consult neurologist, Dr. Liz. Consult Physical Therapy, Occupational Therapy, and Speech Therapy. Carotid Doppler and echo will be done tomorrow. If we determined that her stroke was due to underlying atrial fibrillation, then one may need to think about possibility of Watchman's procedure and I did discuss with the patient and patient's daughter, who was at bedside about it. We will consult burial vault setter to assist us with further decision making on this as well. We should add aspirin 81 mg daily along with Eliquis. For hypertension, we will continue current antihypertensive medication, which is amlodipine. Her home medication which is doxazosin and carvedilol will be continued as well. Monitor blood pressure if necessary. Adjust further blood pressure medications. We will continue other home medications per order. Monitor patient's electrolytes and renal function. We will continue her statin therapy per order. Get fasting lipids and chemistry panel tomorrow. Fall precaution was ordered. Plan of treatment discussed with the patient and the patient's daughter who was at bedside. Code status discussed with the patient and she is full code as per her decision. THOM/MODL Voice ID: [id number]
[2022-08-17 01:48] VITALS: BMI 20.8
[2022-08-17 01:58] VITALS: O2SAT 95
[2022-08-17] MEDS: NA CHLORIDE 0.9% 1,000 ML IV SCH (06:26)
--- NOTE | 2022-08-17 08:31 | RAD REPORT ---
EXAM DESCRIPTION: US - CP - 08/17/2022 12:29 am CLINICAL HISTORY: right sided numbness Headache, CVA symptomology COMPARISON: Neck Angio dated 08/16/2022 TECHNIQUE: Real-time sonographic evaluation of both carotid systems was performed. Doppler interroga tion was performed with waveform tracing bilaterally. FINDINGS: Normal high resistance waveforms are noted in both external carotid arteries. The common c arotid arteries and internal carotid arteries show normal low resistance waveforms. Mild to moderate mixed plaque is seen in both carotid bulbs. Peak systolic and end diastolic velocity values and the ICA/CCA ratios are in the non-hemodynamically significant range. Antegrade flow seen in both vertebral arteries. IMPRESSION: Mild to moderate mixed plaque is noted in both carotid bulbs. No evidence of a hemodynamically significant stenosis.
[2022-08-17] MEDS: POTASSIUM CL SA 10 MEQ TAB PO SCH (09:00)
[2022-08-17] MEDS: APIXABAN 2.5 MG TABLET PO SCH ×2 (09:00→20:07)
[2022-08-17] MEDS: ASPIRIN EC 81 MG TAB PO SCH (09:00)
[2022-08-17] MEDS: LEVOTHYROXINE SOD 0.05 MG TABLET PO SCH (09:00)
[2022-08-17] MEDS: hydrOXYzine HCL 25 MG TAB PO SCH ×2 (09:00→20:07)
[2022-08-17] MEDS: FUROSEMIDE 20 MG TABLET PO SCH ×2 (09:01→16:44)
[2022-08-17] MEDS: GABAPENTIN 400 MG CAP PO SCH ×2 (09:02→20:07)
[2022-08-17] MEDS: PANTOPRAZOLE 40MG TABLET PO SCH (09:02)
[2022-08-17] MEDS ORDERED: CHOLESTYRAMINE/ASP 4 GM/PKT PO ONE (12:00)
--- NOTE | 2022-08-17 17:40 | EKG ---
Test Date: 2022-08-16 Test Time: 12:13:56 Customer Service Advocate: JORJE MEASUREMENT RESULTS: Intervals: Rate: 77 [place]: QRSD: 118 QT: 450 QTc: 509 [place]: P: [place]: QRS: -82 T: 46 INTERPRETIVE STATEMENTS: Ventricular-paced rhythm Abnormal ECG Compared to ECG 01/16/2020 13:36:58 Myocardial infarct finding no longer present Electronically Signed On 08-17-22 17:37:59 FINANCIAL MARKET DEALER by Darwin Kaur
--- NOTE | 2022-08-17 19:27 | CON ---
Date of Consultation: 08/17/2022 Reason For Consultation: Evaluation for possible left atrial appendage closure. History Of Present Illness: This 87-year-old female presented to the hospital due to tingling, numbn ess, and weakness involving right, on the right leg. The patient has atrial fibrillation and is on E liquis 2.5 mg twice a day, which she has been compliant with. Since hospitalization, patient has bee n feeling better and her strength is improving. Past Medical History: CVA in 2015, COPD, hypertension, dyslipidemia, systolic heart failure, atrial fibrillation, and carotid artery stenosis. Medications: Refer to reconciliation sheet for detailed list. Allergies: LISINOPRIL AND LEVOFLOXACIN. Family History: No premature coronary artery disease or cancer. Social History: She does not smoke or drink. Does not use any drugs. Review of Systems: All systems reviewed and are negative except what was mentioned in the HPI. Physical Examination: Vital Signs: Temperature is 98.6, pulse 59, breathing at 16, blood pressure 127/81, and saturating 1 00%. General: A pleasant elderly female, in no apparent distress. Head and Neck: Pupils are equal and reactive to light. Intact eye movements. No JVD. No cervical lymphadenopathy. Neck: Supple. Thyroid is not enlarged. Lungs: Clear to auscultation bilaterally. No rhonchi, rales, or crackles. No accessory muscle use. Heart: Irregular. No extra sounds. Abdomen: Soft, nontender. Bowel sounds positive. No organomegaly. No masses or hernia. No rigidi ty or rebound. Extremities: No clubbing or cyanosis. Intact pulses. Skin: No rash. Neurologic: Alert and awake. No acute focal deficits appreciated. Investigations: Troponins negative. BUN is 20 and creatinine is 1.35. Hemoglobin is 12.5. Assessment And Recommendations: 1.Atrial fibrillation with symptoms suggestive of acute cerebrovascular accident that is likely rela to atrial fibrillation. The patient was getting Eliquis at 2.5 mg twice a day as per report and Eliquis at this dose is not predictable especially in an 87-year-old female. I will definitely recom mend left atrial appendage closure to be done as an outpatient. This will allow to provide stroke pr evention without the need to take the Eliquis as the patient has chronic kidney disease and she is 87 years of age. I had a long discussion with the family. I will discuss this further with Dr. Kaye a nd plan accordingly. 2.Acute cerebrovascular accident. A carotid Doppler showed [id number] plaque presence, but wi thout significant stenosis. Likely it is not the source or the culprit for this stroke and more than likely her stroke is related to atrial fibrillation so appendage closure would be appropriate option for her, which can be planned as an outpatient. In the interim, we recommend full dose of anticoagu lation if Neurology is okay with it. SR/MODL Voice ID: [id number] Report ID: [id number]
[2022-08-17] MEDS: ATORVASTATIN 20 MG TAB PO SCH (20:07)
[2022-08-17] MEDS ORDERED: DOXAZOSIN 1 MG PO SCH (21:00)
[2022-08-17] MEDS ORDERED: DOXAZOSIN 2 MG TAB PO SCH (21:00)
[2022-08-17] MEDS ORDERED: ACETAMINOPHEN 500 MG TAB PO PRN (21:21)
[2022-08-18] MEDS: NA CHLORIDE 0.9% 1,000 ML IV SCH (00:14)
[2022-08-18] MEDS: POTASSIUM CL SA 10 MEQ TAB PO SCH (08:46)
[2022-08-18] MEDS: GABAPENTIN 400 MG CAP PO SCH (08:46)
[2022-08-18] MEDS: LEVOTHYROXINE SOD 0.05 MG TABLET PO SCH (08:46)
[2022-08-18] MEDS: ASPIRIN EC 81 MG TAB PO SCH (08:46)
[2022-08-18] MEDS: FUROSEMIDE 20 MG TABLET PO SCH (08:47)
[2022-08-18] MEDS: APIXABAN 2.5 MG TABLET PO SCH (08:47)
[2022-08-18] MEDS: PANTOPRAZOLE 40MG TABLET PO SCH (08:47)
[2022-08-18 08:49] VITALS: BP 138/82
[2022-08-18] MEDS: hydrOXYzine HCL 25 MG TAB PO SCH (08:49)
[2022-08-18 09:41] VITALS: TEMP 97.8
--- NOTE | 2022-08-18 12:24 | PN ---
Date of Progress Note: 08/17/2022 Subjective: The patient was seen this morning for followup. No new complaints problems reported by the patient. She was sitting in chair. Denied any complaints. Her daughter was with her at bedside . Objective: Vital Signs: Reviewed. HEENT: Unremarkable. Lungs: Clear to auscultation. Heart: Sounds normal. Abdomen: Soft. Bowel sounds normal. No guarding, rigidity, tenderness, distention. Extremities: No leg edema. Neurological: Shows minimal weakness in the right lower extremity, overall better than before. Impression: 1.Stroke. 2.Atrial fibrillation. 3.Hypertension. 4.Hyperlipidemia. Plan: We will go ahead and continue current medications, continue Eliquis, continue aspirin. Physic al Therapy to continue to work with the patient. Cardiology consultation was pending when I saw her and I will see her tomorrow for followup. Neurology consultation is also pending. I did talk to the patient and the patient's daughter regarding possibility of a Watchman procedure and they will commu nicate with the broadcast field supervisor. THOM/MODL Voice ID: [id number] Report ID: [id number]
--- NOTE | 2022-08-20 15:08 | EKG ---
Test Date: 2022-08-16 Test Time: 12:14:24 Scientific Process Operator: LML MEASUREMENT RESULTS: Intervals: Rate: 73 ID: QRSD: 120 QT: 468 QTc: 515 Gilbert: P: ID: QRS: [id number] T: 30 INTERPRETIVE STATEMENTS: Ventricular-paced rhythm Abnormal ECG Compared to ECG 08/16/2022 12:13:56 No significant changes Electronically Signed On 08-20-22 14:59:38 CHECK SERVICES CLERK by Darwin Kaur
--- NOTE | 2022-08-20 21:34 | DS ---
Date of Discharge: 08/18/2022 Disposition: Discharged to go home. Physical Examination: HEENT: Unremarkable. Lungs: Clear to auscultation. Heart: Sounds normal. Abdomen: Soft. Bowel sounds normal. No guarding, rigidity, tenderness, or distention. Extremities: No leg edema. Neuro: Left upper and left lower extremity power is 5/5. Right upper and right lower extremity power is 4+/5. No facial asymmetry. Speech is normal. Hospital Course: Ms. Lemus is a pleasant female patient who came into emergency room with complaint of tingling, numbness, and weakness of right side of her body. Please see dictated H and P for more information. After patient was evaluated in the ER, she was admitted to the hospital with stroke. Her workup was done during this hospitalization. The patient was not a candidate for any thrombolytic therapy because she is on chronic anticoagulation therapy with Eliquis 2.5 mg 2 times a day and she is on this medication for her history of atrial fibrillation. The patient qualifies for a lower dose of Eliquis on basis of her age and body weight. She is compliant with her medication and after she came into emergency room, after further workup was done, CAT scan of the head was negative for any acute changes. Clinically, the patient had a stroke, but we were not able to see that on the CAT scan. We were not able to do MRI because patient has a pacemaker and a defibrillator. CT angio of head and neck was done. No acute abnormality detected. Carotid Doppler showed no evidence of any hemodynamically significant stenotic lesion. Physical Therapy and Occupational Therapy were consulted. The patient's condition overall improved and she was discharged to go home in stable condition with following discharge medications and instructions. Neurology consultation was requested from Dr. Liz and he had not seen the patient during this hospitalization, but patient reports that she normally sees Dr. Paulino on outpatient basis so I did advise her to follow up with him on outpatient basis. Discharge Medications And Instructions: 1. Continue all prior home medications. 2. Take aspirin 81 mg daily. 3. Follow up at my office next week. 4. Follow up with embedded software manager in 1-2 weeks for consideration of Watchman procedure and details were discussed with the patient by embedded software manager during this hospitalization as well as by me. 5. Follow up with neurologist Dr. Paulino in 1-2 weeks. Laboratory Data: Upon admission white count 9.8, hemoglobin 12.5, and platelets 317. Sodium 140, potassium 3.4, chloride 108, bicarb 27, BUN 20, creatinine 1.35, and glucose 102. During this hospitalization, her lipid profile showed LDL of 62 indicating adequate control of her cholesterol with statin therapy. Final Diagnoses: 1. Stroke, acute, non-hemorrhagic. 2. Chronic atrial fibrillation. 3. Bilateral carotid artery stenosis. 4. Chronic systolic heart failure. 5. Hypertension. 6. Hyperlipidemia. 7. Chronic obstructive pulmonary disease. 8. Osteoarthritis, multiple sites. 9. Chronic kidney disease, stage 3B. 10. Gastroesophageal reflux disease. THOM/MODL Voice ID: [id number] Report ID: [id number] MTDD
== END 2022-08-18 12:41 | disposition home or self-care (01) | DRG 65 ==
LOC: ER 11:50 → ERHOLD 13:08 → 4TH 20:04 → OBSVTOIN 20:18
PROVIDERS: ADMIT Internal Medicine; ATTEND Internal Medicine
DX: I63.9 Cerebral infarction, unspecified (principal); G81.91 Hemiplegia, unspecified affecting right dominant side; I13.0 Hypertensive heart and chronic kidney disease with heart failure and stage 1 through stage 4 chronic kidney disease, or unspecified chronic kidney disease; I50.22 Chronic systolic (congestive) heart failure; I48.20 Chronic atrial fibrillation, unspecified; N18.32 Chronic kidney disease, stage 3b; E78.5 Hyperlipidemia, unspecified; J44.9 Chronic obstructive pulmonary disease, unspecified; I65.23 Occlusion and stenosis of bilateral carotid arteries; M19.09 Primary osteoarthritis, other specified site; K21.9 Gastro-esophageal reflux disease without esophagitis; R29.701 NIHSS score 1; R20.2 Paresthesia of skin; Z88.1 Allergy status to other antibiotic agents; Z88.8 Allergy status to other drugs, medicaments and biological substances; Z79.01 Long term (current) use of anticoagulants; Z86.73 Personal history of transient ischemic attack (TIA), and cerebral infarction without residual deficits; Z90.710 Acquired absence of both cervix and uterus; Z95.810 Presence of automatic (implantable) cardiac defibrillator; Z20.822 Contact with and (suspected) exposure to COVID-19
CPT/HCPCS: 36415; 70450; 70496; 70498; 71045; 80048; 80061; 82947; 84484; 85025; 85610; 85730; 87811; 92523; 93005; 93880; 96365; 97112; 97116; 97161; 99284; G0378; J7030; J7040; Q9967

== ENCOUNTER 2022-08-19 16:52 | Inpatient (IN) | payer OTHER ==
--- OUTSIDE RECORDS SUMMARY | 2022-08-19 16:56 | XMS REPORT | Continuity of Care Document ---
:1935 Author Organization [facility] t Address [facility] [place] [address] Care Team Providers Name Role Phone Kourtney Smith MD Primary Care Physician Miriam Rosenbaum Attending Clinician Unavailable Kourtney Smith Attending Clinician Unavailable Doctor Unassigned, Fonda Attending Clinician Unavailable Freida Boogie MD Attending Clinician Urmila Bee MD, V. Attending Clinician Byron Wang CRNA Attending Clinician Sam Obrien MD Attending Clinician SAM OBRIEN Attending Clinician Unavailable , [facility] Attending Clinician Unavailable FREIDA BOOGIE Admitting Clinician Unavailable Payers Payer Name Policy Type Policy Number Effective Date Expiration Date S ource AETNA MEDICARE C1 [id number] Common Spi rit PPO - [facility] Problems Condition Condition Condition Status Onset Resolution Last Treating Co mments Source Name Details Category Date Date Treatment Clinician Date AICD at AICD at Disease Active Methodi end of end of 8-24 st battery battery 00:00: Hospita life life 00 l Primary Primary Disease Active Univers hypothyroi hypothyroi 1-25 it y of dism dism 00:00: [address] Branch Hyperlipid Hyperlipid Disease Active M [...] Atrial Atrial Disease Active Methodi fibrillati fibrillati 15 st on on 00:00: Hospita 00 l [id number] Cardiac Problem Active Commo n pacemaker Spirit in [facility] 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) [facility] Rib pain Rib pain Problem Active Commo n [facility] [id number] Gastroesop Problem Active Co mmon hageal Spirit reflux - [facility] disease, esophagiti [facility] s presence Medica l not Center specified Hypertensi Hypertensi Problem Active C ommon on on [facility] [id number] Prediabete Problem Active Co mmon s [facility] [id number] Dorsalgia, Problem Active Co mmon unspecifie Spirit d - [facility] [id number] Hypothyroi Problem Active Com mon dism, Spirit unspecifie - [facility]I d [facility] Eosinophil Eosinophil Problem Active Mary Beth sanchez ia ia Spirit [facility] 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 St without attack) [facility] Cardiomyop Cardiomyop Problem Active Mary Beth sanchez athy athy [facility] Hypotensio Hypotensio Problem Active C daniel n n [facility] Osteoporos Osteoporos Problem Active Mary Beth sanchez is is Spirit [facility] [id number] Neck pain Problem Active Comm on [facility] [id number] Other Problem Active Common chronic Spirit pain [facility] Dizziness Dizziness Problem Active Com mon Spirit [facility] [id number] Insomnia, Problem Active Com mon unspecifie Spirit d type [facility] Abnormal Abnormal Problem Active Commo n liver liver Spirit function function - [facility] [id number] Chronic Problem Active Commo n kidney Spirit disease, - [facility] unspecifie [facility] [id number] Chronic Problem Active Commo n pain Spirit syndrome - [facility] [id number] 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 - [facility] in situ of [facility] skin of [facility] [id number] Fatigue, Problem Active Commo n unspecifie Spirit d type [facility] [id number] Cough Problem Active Common Spirit [facility] Congestive Congestive Problem Active 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 - [facility] [id number] Skin Problem Active Common lesion [facility] Hypokalemi Hypokalemi Problem Active C daniel a a Spirit [facility] Weakness Weakness Problem Active Commo n Spirit [facility] [id number] Constipati Problem Active Com mon on, Spirit unspecifie - CHI d St constipati [facility] [id number] Depression Problem Active Co mmon screening Spirit [facility] [id number] Upper Problem Active Common respirator Spirit y tract - [facility] Allergies, Adverse Reactions, Alerts Allergy Allergy Status [...] ity of adverse 00:00: [place] reaction 00 [facility] Lisinopr Propensi Active Rash Univer s il ty to 10-02 ity of adverse 00:00: [place] reaction 00 [facility] Lisinopr Propensi Active Rash Method i il ty to 04-06 adverse 00:00: Hospita reaction 00 l s to drug Levoflox Propensi Active Rash Method i acin ty to 04-06 adverse 00:00: Hospita reaction 00 l s to drug lisinopr lisinopr Active rash, Common il il itching, bad Spir it cough - CHI [facility] Family History Family Member Diagnosis Comments Start Date Stop Date Source Natural father Heart disease [facility] Natural mother Breast cancer [facility] Natural mother Heart disease [facility] Social History Social Habit Start Date Stop Date Quantity Comments Source History of Common Spirit - Tobacco Use [facility] Exposure to Not sure University of SARS-CoV-2 [facility] [place] [facility] (event) [place] Alcohol intake 2022-05-07 2022-05-07 [facility] 00:00:00 00:00:00 non-drinker of alcohol (finding) Tobacco use and 2022-05-02 2022-05-02 Smokeless tobacco [facility] exposure 00:00:00 00:00:00 non-user Sex Assigned At [birth year] [facility] 00:00:00 00:00:00 Smoking Status Start Date Stop Date Source Former Smoker 2020-05-29 00:00:00 2020-05-29 00:00:00 Common S pirit - [facility]I [facility] nter Never smoked tobacco [facility] Medications Ordered Filled Start Stop Current [...] mouth 2 l (two) times a day. omeprazole 2022-0 Yes 20mg QD Take 1 [...] (two) times a day with meals. doxazosin 2021-0 Yes 1mg QD Take 1 Method i (CARDURA) 1 8-25 tablet (1 st MG tablet 11:47: mg total) Hos mago 02 by mouth l nightly. hydrOXYzine 2021-0 Yes 25mg Q.5D Take 1 Meth estuardo (ATARAX) 25 8-25 tablet (25 st MG tablet 11:47: mg total) Hos mago 02 by mouth 2 l (two) times a day. furosemide 2021-0 Yes 20mg Q.5D Take 1 Metho di (Lasix) 20 8-25 tablet (20 st mg tablet 11:47: mg total) Hos mago 02 by mouth 2 l (two) times a day. FOLIC 2021-0 Yes 1{tbl} QD Take 1 Methodi ACID/MULTIV 8-[address] IT-MIN/LUTE 11:48: mouth Hospi ta IN (CENTRUM 08 daily. l SILVER ORAL) lidocaine 0 Yes 1{patch Place 1 Me thodi (LIDODERM) 8-24 } patch on st 5 % 11:48: the skin Hospita 08 as needed l for mild pain. Remove & Discard patch within 12 hours or as directed by apixaban 2021-0 Yes Q.5D Take by Method i (ELIQUIS) 8-[address] 2.5 mg 11:48: (two) Hospita tablet 08 times a l day. potassium 2021-0 Yes 20meq Q.5D Take 20 Meth estuardo chloride 8-[address] (K-DUR) 20 11:48: mouth 2 Hosp dora MEQ CR 08 (two) l tablet times a day. levothyroxi 2021-0 Yes 50ug QD Take 50 Met hodi ne 8-[address] (SYNTHROID, 11:48: mouth Hospi ta LEVOTHROID) 08 every l 50 MCG morning. tablet atorvastati 0 Yes 20mg QD Take 20 mg Methodi n (LIPITOR) 8-[address] 20 MG 11:48: daily. Hospita tablet 08 l gabapentin 2021-0 Yes 400mg Q.5D Take 400 Me thodi (NEURONTIN) 8-[address] 400 MG 11:48: mouth 2 Hospita capsule 08 (two) l times a day. calcium 2022-0 Yes 1{tbl} Q.5D Chew 1 Method i carbonate-v 8-[address] itamin D3 11:48: (two) Hospita 600 mg-20 08 times a l mcg (800 day. unit) tablet,chew able MAGNESIUM 2-0 Yes 1{tbl} Q.5D Take 1 Meth estuardo CHLORIDE 8-[address] (SLOW-MAG 11:48: mouth 2 Hospi ta ORAL) 08 (two) l times a day. FOLIC 2022-0 Yes 1{tbl} QD Take 1 Methodi ACID/MULTIV 8-[address] IT-MIN/LUTE 11:48: mouth Hospi ta IN (CENTRUM 08 daily. l SILVER ORAL) lidocaine 2021-0 Yes 1{patch Place 1 Me thodi (LIDODERM) 8-24 } patch on st 5 % 11:48: the skin Hospita 08 as needed l for mild pain. Remove & Discard patch within 12 hours or as directed by apixaban 2021-0 Yes Q.5D Take by Method i (ELIQUIS) 8-[address] 2.5 mg 11:48: (two) Hospita tablet 08 times a l day. potassium 2-0 Yes 20meq Q.5D Take 20 Meth estuardo chloride 8-[address] (K-DUR) 20 11:48: mouth 2 Hosp dora MEQ CR 08 (two) l tablet times a day. levothyroxi 2-0 Yes 50ug QD Take 50 Met hodi ne 8-[address] (SYNTHROID, 11:48: mouth Hospi ta LEVOTHROID) 08 every l 50 MCG morning. tablet atorvastati 2-0 Yes 20mg QD Take 20 mg Methodi n (LIPITOR) 8-[address] 20 MG 11:48: daily. Hospita tablet 08 l gabapentin 2-0 Yes 400mg Q.5D Take 400 Me thodi (NEURONTIN) 8-[address] 400 MG 11:48: mouth 2 Hospita capsule 08 (two) l times a day. calcium 2-0 Yes 1{tbl} Q.5D Chew 1 Method i carbonate-v 8-[address] itamin D3 11:48: (two) Hospita 600 mg-20 08 times a l mcg (800 day. unit) tablet,chew able MAGNESIUM Yes 1{tbl} Q.5D Take 1 Meth estuardo CHLORIDE 8-[address] (SLOW-MAG 11:48: mouth 2 Hospi ta ORAL) 08 (two) l times a day. omeprazole 2021-2021- No 40mg QD Take 40 mg Methodi (PriLOSEC) 05-02 08-[address] 40 MG 08:07: 00:00 daily. Hospita capsule 04 :00 l omeprazole 2021-0 2021- No 40mg QD Take 40 mg Methodi (PriLOSEC) 05-02 08-[address] 40 MG 08:07: 00:00 daily. Hospita capsule 04 :00 l amIODarone 2021-2021- No 200mg QD Take 200 M ethodi (PACERONE) 8 08-[address] 200 MG 08:03: 00:00 mouth Hospita tablet 29 :00 daily. l amIODarone 2021-0 2- No 200mg QD Take 200 M ethodi (PACERONE) 8- 08-[address] 200 MG 08:03: 00:00 mouth Hospita tablet 29 :00 daily. l minocycline 2021-0 2021- No 100mg Q.5D Take 1 Me thodi (DYNACIN) 05-02 08-[address] 100 MG 00:00: 04:59 (100 mg Hospita tablet 00 :00 total) by l mouth 2 (two) times a day for 5 days. traMADoL 2021-0 2021- No [id number] 25mg Q8H Take 0.5 Met hodi (Ultram) 50 8- 08-[address] mg tablet 00:00: 04:59 (25 mg Hospi ta 00 :00 total) by l mouth every 8 (eight) hours as needed for moderate pain for up to 5 days .acute pain. minocycline 2021-0 2021- No 100mg Q.5D Take 1 Me thodi (DYNACIN) 8- 08-[address] 100 MG 00:00: 04:59 (100 mg Hospita tablet 00 :00 total) by l mouth 2 (two) times a day for 5 days. traMADoL 2022-0 2022- [place] [id number] 25mg Q8H Take 0.5 Met hodi (Ultram) 50 8-24 08-[address] mg tablet 00:00: 04:59 (25 mg Hospi ta 00 :00 total) by l mouth every 8 (eight) hours as needed for moderate pain for up to 5 days .acute pain. traMADoL 28 50mg Q8H Take 1 Metho di (Ultram) 50 8-24 08-24 tablet (50 s t mg tablet 00:00: 00:00 mg total) Ho spita 00 :00 by mouth l every 8 (eight) hours as needed for moderate pain for up to 5 days .acute pain. traMADoL 28 50mg Q8H Take 1 Metho di (Ultram) 50 8-24 08-24 tablet (50 s t mg tablet 00:00: 00:00 mg total) Ho spita 00 :00 by mouth l every 8 (eight) hours as needed for moderate pain for up to 5 days .acute pain. levothyroxi Yes [id number] Take one Univers ne 50 mcg 9-10 tablet ity of tablet 00:00: Saturday through Saturday Branch only. Do NOT take on Saturday and saturday levothyroxi Yes [id number] Take one Univers ne 50 mcg 9-10 tablet ity of tablet 00:00: Saturday through Saturday Branch only. Do NOT take on Saturday and saturday Triamcinolo Triamcinolo Yes Kourtney 1 Common ne ne 9-20 Millender applicatio Spir it Acetonide Acetonide 00:00: n to - C HI 00 affected [facility] Triamcinolo Triamcinolo No 1{appli Triamcinol ne ne 9-20 cation_ one Acetonide Acetonide 00:00: to_affe Acetonide 0.1 % 0.1 % 00 cted_ar 0.1 % ea} levothyroxi Yes [id number] Take one Univers ne 50 mcg 9-04 tablet ity of tablet 00:00: Saturday through Saturday Branch only. Do NOT take on Saturday and saturday levothyroxi Yes [id number] Take one Univers ne 50 mcg 9-04 tablet ity of tablet 00:00: Saturday through Medical Saturday Branch only. Do NOT take on Saturday and saturday levothyroxi Yes [id number] Take one Univers ne 50 mcg 9-04 tablet ity of tablet 00:00: Saturday 00 through Medical Saturday Branch only. Do NOT take on Saturday and saturday levothyroxi 2020- No [id number] Take one Univers ne 50 mcg 9-04 09-10 tablet ity of tablet 00:00: 00:00 Saturday [place] 00 :00 through Medical Saturday Branch only. Do NOT take on Saturday and saturday calcium Yes 1{tbl} Take 1 Univer s carbonate-v 8-30 tablet by ity of itamin D3 14:54: mouth. [place] (CALTRATE 23 Medical 600 + D) Branch 600 mg (1,500 mg)-800 unit per tablet MAGNESIUM Yes 1{tbl} Take 1 Univ ers CHLORIDE 8-30 tablet by ity of (SLOW-MAG 14:54: mouth. [place] ORAL) [address] [place] [address] lidocaine 5 Yes 1{patch Apply 1 Univers % (700 8-30 } Patch to ity of mg/patch) 14:54: skin. [place] patch [address] [place] [address] Multivit-Mi Yes 1{tbl} Take 1 Un viviane neral-Iron- 8-30 tablet by ity of Lutein 14:54: mouth. [place] (CENTRUM [address] [facility] SILVER Branch ULTRA WOMEN'S) Tab apixaban Yes Take by Univer s 2.5 mg 8-30 mouth. ity of tablet 14:54: [address] calcium Yes 1{tbl} Take 1 Univer s carbonate-v 8-30 tablet by ity of itamin D3 14:54: mouth. [place] (CALTRATE 23 Medical 600 + D) Branch 600 mg (1,500 mg)-800 unit per tablet MAGNESIUM Yes 1{tbl} Take 1 Univ ers CHLORIDE 8-30 tablet by ity of (SLOW-MAG 14:54: mouth. [place] ORAL) [address] [place] [address] lidocaine 5 Yes 1{patch Apply 1 Univers % (700 8-30 } Patch to ity of mg/patch) 14:54: skin. [place] patch 23 Medical [place] Multivit-Mi Yes 1{tbl} Take 1 Un viviane neral-Iron- 8-30 tablet by ity of Lutein 14:54: mouth. [place] ([address] WOMEN'S) Tab apixaban Yes Take by Univer s 2.5 mg 8-30 mouth. ity of tablet 14:54: [place] [address] Medical [place] calcium Yes 1{tbl} Take 1 Univer s carbonate-v 8-30 tablet by ity of itamin D3 14:54: mouth. [place] (CALTRATE 23 Medical 600 + D) Branch 600 mg (1,500 mg)-800 unit per tablet MAGNESIUM Yes 1{tbl} Take 1 Univ ers CHLORIDE 8-30 tablet by ity of (SLOW-MAG 14:54: mouth. [place] ORAL) [address] [place] [address] lidocaine 5 Yes 1{patch Apply 1 Univers % (700 8-30 } Patch to ity of mg/patch) 14:54: skin. [place] patch Medical [place] Multivit-Mi Yes 1{tbl} Take 1 Un viviane neral-Iron- 8-30 tablet by ity of Lutein 14:54: mouth. [place] ([address] WOMENS) Tab apixaban Yes Take by Univer s 2.5 mg 8-30 mouth. ity of tablet 14:54: [address] calcium Yes 1{tbl} Take 1 Univer s carbonate-v 8-30 tablet by ity of itamin D3 14:54: mouth. [place] (CALTRATE 23 Medical 600 + D) Branch 600 mg (1,500 mg)-800 unit per tablet MAGNESIUM Yes 1{tbl} Take 1 Univ ers CHLORIDE 8-30 tablet by ity of (SLOW-MAG 14:54: mouth. [place] ORAL) Medical [place] lidocaine 5 Yes 1{patch Apply 1 Univers % (700 8-30 } Patch to ity of mg/patch) 14:54: skin. [place] patch 23 Medical [place] Multivit-Mi Yes 1{tbl} Take 1 Un viviane neral-Iron- 8-30 tablet by ity of Lutein 14:54: mouth. [place] ([address] WOMEN'S) Tab apixaban Yes Take by Univer s 2.5 mg 8-30 mouth. ity of tablet 14:54: [address] calcium Yes 1{tbl} Take 1 Univer s carbonate-v 8-30 tablet by ity of itamin D3 14:54: mouth. [place] (CALTRATE 23 Medical 600 + D) Branch 600 mg (1,500 mg)-800 unit per tablet MAGNESIUM Yes 1{tbl} Take 1 Univ ers CHLORIDE 8-30 tablet by ity of (SLOW-MAG 14:54: mouth. [place] ORAL) [address] [place] [address] lidocaine 5 Yes 1{patch Apply 1 Univers % (700 8-30 } Patch to ity of mg/patch) 14:54: skin. [place] patch [address] [place] [address] Multivit-Mi Yes 1{tbl} Take 1 Un viviane neral-Iron- 8-30 tablet by ity of Lutein 14:54: mouth. [place] ([address] WOMENS) Tab apixaban Yes Take by Univer s 2.5 mg 8-30 mouth. ity of tablet 14:54: [address] apixaban Yes Take by Univer s 2.5 mg 8-30 mouth. ity of tablet 09:54: [address] calcium Yes 1{tbl} Take 1 Univer s carbonate-v 8-30 tablet by ity of itamin D3 09:54: mouth. [place] (CALTRATE 23 Medical 600 + D) Branch 600 mg (1,500 mg)-800 unit per tablet MAGNESIUM Yes 1{tbl} Take 1 Univ ers CHLORIDE 8-30 tablet by ity of (SLOW-MAG 09:54: mouth. [place] ORAL) [address] [place] [address] lidocaine 5 Yes 1{patch Apply 1 Univers % (700 8-30 } Patch to ity of mg/patch) 09:54: skin. [place] patch [address] [place] [address] Multivit-Mi Yes 1{tbl} Take 1 Un viviane neral-Iron- 8-30 tablet by ity of Lutein 09:54: mouth. [place] ([address] WOMEN'S) Tab apixaban Yes Take by Univer s 2.5 mg 8-30 mouth. ity of tablet 09:54: [address] Branch calcium Yes 1{tbl} Take 1 Univer s carbonate-v 8-30 tablet by ity of itamin D3 09:54: mouth. [place] (CALTRATE 23 Medical 600 + D) [place] 600 mg (1,500 mg)-800 unit per tablet MAGNESIUM Yes 1{tbl} Take 1 Univ ers CHLORIDE 8-30 tablet by ity of (SLOW-MAG 09:54: mouth. [place] ORAL) [address] [place] [address] lidocaine 5 Yes 1{patch Apply 1 Univers % (700 8-30 } Patch to ity of mg/patch) 09:54: skin. [place] patch [address] [place] [address] Multivit-Mi Yes 1{tbl} Take 1 Un viviane neral-Iron- 8-30 tablet by ity of Lutein 09:54: mouth. [place] (CENTRUM 23 Medical [place] Branch ULTRA WOMEN'S) Tab levothyroxi Yes [id number] Take one Univers ne 50 mcg 8-30 tablet ity of tablet 00:00: Saturday [place] 00 through Medical Saturday Branch only. Do NOT take on Saturday and saturday levothyroxi Yes [id number] Take one Univers ne 50 mcg 8-30 tablet ity of tablet 00:00: Saturday through Saturday Branch only. Do NOT take on Saturday and saturday levothyroxi 2020- No [id number] Take one Univers ne 50 mcg 8-30 -04 tablet ity of tablet 00:00: 00:00 Saturday [place] 00 :00 through Medical Saturday Branch only. Do NOT take on Saturday and saturday levothyroxi 2020- No [id number] Take one Univers ne 50 mcg 8-30 09-04 tablet ity of tablet 00:00: 00:00 Saturday [place] 00 :00 through Medical Saturday Branch only. Do NOT take on Saturday and saturday Atorvastati Atorvastati Yes Kourtney 1 tablet Common n Calcium n Calcium 6-27 [place] Spirit 00:00: - [facility]I 00 [facility] levothyroxi Yes [id number] Take one Univers ne 50 mcg 8-20 tablet ity of tablet 00:00: Saturday through Medical Saturday Branch only. Do NOT take on Saturday and saturday calcium Yes 1{tbl} Take 1 Univer s carbonate-v 1-24 tablet by ity of itamin D3 17:07: mouth. [place] (CALTRATE 23 Medical 600 + D) Branch 600 mg (1,500 mg)-800 unit per tablet MAGNESIUM Yes 1{tbl} Take 1 Univ ers CHLORIDE 1-24 tablet by ity of (SLOW-MAG 17:07: mouth. [place] ORAL) Medical Branch lidocaine 5 Yes 1{patch Apply 1 Univers % (700 1-24 } Patch to ity of mg/patch) 17:07: skin. [place] patch [address] [facility] Branch Multivit-Mi Yes 1{tbl} Take 1 Un viviane neral-Iron- 1-24 tablet by ity of Lutein 17:07: mouth. [place] (CENTRUM 23 Medical [place] Branch ULTRA WOMEN'S) Tab apixaban Yes Take by Univer s 2.5 mg 1-24 mouth. ity of tablet 17:07: [address] Branch furosemide Yes TK 1 T PO Un viviane 20 mg 1-11 BID ity of tablet 00:00: [address] Branch furosemide Yes TK 1 T PO Un viviane 20 mg 1-11 BID ity of tablet 00:00: [address] furosemide Yes TK 1 T PO Un viviane 20 mg 1-11 BID ity of tablet 00:00: [place] [facility] furosemide Yes TK 1 T PO Un viviane 20 mg 1-11 BID ity of tablet 00:00: [place] [facility] furosemide Yes TK 1 T PO Un viviane 20 mg 1-11 BID ity of tablet 00:00: [place] [facility] furosemide Yes TK 1 T PO Un viviane 20 mg 1-11 BID ity of tablet 00:00: [place] [facility] furosemide Yes TK 1 T PO Un viviane 20 mg 1-11 BID ity of tablet 00:00: [place] [facility] furosemide Yes TK 1 T PO Un viviane 20 mg 1-11 BID ity of tablet 00:00: [address] Branch omeprazole Yes TK 1 C PO Un viviane 20 mg 1-04 QD ity of capsule 00:00: [place] [facility] omeprazole 2017 Yes TK 1 C PO Un viviane 20 mg 1-04 QD ity of capsule 00:00: [place] [facility] omeprazole 2017 Yes TK 1 C PO Un viviane 20 mg 1-04 QD ity of capsule 00:00: [place] [facility] omeprazole 2017 Yes TK 1 C PO Un viviane 20 mg 1-04 QD ity of capsule 00:00: [place] [facility] omeprazole 2017 Yes TK 1 C PO Un viviane 20 mg 1-04 QD ity of capsule 00:00: [place] [facility] omeprazole 2017 Yes TK 1 C PO Un viviane 20 mg 1-04 QD ity of capsule 00:00: [place] [facility] omeprazole 2017 Yes TK 1 C PO Un viviane 20 mg 1-04 QD ity of capsule 00:00: [place] [facility] omeprazole Yes TK 1 C PO Un viviane 20 mg 1-04 QD ity of capsule 00:00: [place] [facility] doxazosin 1 2015-09 Yes TK 1 T PO U nivers mg tablet -23 QHS ity of 00:00: [place] [facility] doxazosin 1 2015-09 Yes TK 1 T PO U nivers mg tablet -23 QHS ity of 00:00: [place] [facility] doxazosin 1 2015-09 Yes TK 1 T PO U nivers mg tablet -23 QHS ity of 00:00: [place] [facility] doxazosin 1 2015-09 Yes TK 1 T PO U nivers mg tablet -23 QHS ity of 00:00: [place] [facility] doxazosin 1 2015-09 Yes TK 1 T PO U nivers mg tablet -23 QHS ity of 00:00: [place] [facility] doxazosin 1 2015-09 Yes TK 1 T PO U nivers mg tablet -23 QHS ity of 00:00: [place] [facility] doxazosin 1 2015-09 Yes TK 1 T PO U nivers mg tablet -23 QHS ity of 00:00: [place] [facility] doxazosin 1 2015-09 Yes TK 1 T PO U nivers mg tablet -23 QHS ity of 00:00: [address] Gabapentin Gabapentin Yes Kourtney 1 capsule Common [facility] - [facility] Levothyroxi Levothyroxi Yes Kourtney 1 tablet Common ne Sodium ne Sodium Millender on an Spirit empty - [facility] stomach in [facility] Omeprazole Omeprazole Yes Kourtney 1 capsule Common Millender [facility] Eliquis 2.5 Eliquis 2.5 Yes Kourtney 1 tablet Common mg mg Millender [facility] Potassium Potassium Yes Kourtney 1 tablet Common Chloride ER Chloride ER Millender with food [facility] Lasix Lasix Yes Kourtney 1 tablet Common Millender [facility] Cardura Cardura Yes Kourtney 1 tablet Comm on Millender in evening Spir [facility] Atorvastati Atorvastati No 1{table QD Atorvastat n Calcium n Calcium t} in Calcium 20 MG 20 MG 20 MG Cardura 2 Cardura 2 No QD Cardura 2 MG MG MG Eliquis 2.5 Eliquis 2.5 No 1{table Eliquis [...] mg No 1{table Lasix 20 t} mg Immunizations Ordered Immunization Filled Immunization Date Status Commen ts Source Name Name FLUZONE HIGH DOSE FLUZONE HIGH DOSE 2018-08-06 Completed [facility] OVER 65 OVER 65 13:52:00 [facility] Vital Signs Vital Name Observation Time Observation Value Comments Source Systolic blood 2021-05-19 15:00:00 112 mm[Hg] Univer sity of [facility] Diastolic blood 2021-05-19 15:00:00 72 mm[Hg] Unive rsity of [facility] Heart rate 2021-05-19 15:00:00 92 /min [facility] Body height 2021-05-19 15:00:00 147.3 cm Universi ty [facility] [place] [facility] [place] Body weight 2021-05-19 15:00:00 53.524 kg [facility] [place] [facility] [place] BMI 2021-05-19 15:00:00 24.66 kg/m2 Universi ty of [facility] Oxygen saturation in 2021-05-19 15:00:00 95 /min [facility] Arterial blood by [facility] Pulse oximetry Branch Systolic blood 2020-05-13 15:47:00 167 mm[Hg] Univer sity of pressure [facility] Diastolic blood 2020-05-13 15:47:00 95 mm[Hg] Unive rsity of pressure [facility] Heart rate 2020-05-13 15:37:00 88 /min Universi ty of [facility] [facility] Respiratory rate 2020-05-13 15:37:00 19 /min [facility] Body height 2020-05-13 15:37:00 147.3 cm [facility] Body weight 2020-05-13 15:37:00 54.522 kg [facility] BMI 2020-05-13 15:37:00 25.12 kg/m2 [facility] Systolic blood 2020-05-13 15:47:00 167 mm[Hg] Univer sity of pressure [facility] Diastolic blood 2020-05-13 15:47:00 95 mm[Hg] Unive rsity of pressure [facility] Heart rate 2020-05-13 15:37:00 88 /min [facility] Respiratory rate 2020-05-13 15:37:00 19 /min [facility] Body height 2020-05-13 15:37:00 147.3 cm [facility] Body weight 2020-05-13 15:37:00 54.522 kg [facility] BMI 2020-05-13 15:37:00 25.12 kg/m2 [facility] ty [facility] Systolic blood 2022-05-02 16:30:00 151 mm[Hg] [facility] pressure Diastolic blood 2022-05-02 16:30:00 73 mm[Hg] [facility] pressure Heart rate 2022-05-02 16:30:00 69 /min [facility] Respiratory rate 2022-05-02 16:30:00 18 /min [facility] Oxygen saturation in 2022-05-02 16:30:00 97 /min [facility] Arterial blood by Pulse oximetry Body temperature 2022-05-02 14:45:00 35.94 [facility] Body height 2022-05-02 12:53:00 147.3 cm [facility] Body weight 2022-05-02 12:53:00 46.766 kg [facility] BMI 2022-05-02 12:53:00 21.55 kg/m2 [facility] Procedures Procedure Date / Time Performing Clinician Source Performed PHYSICIAN ORDERS 2022-05-19 05:01:00 Doctor Unassigned, No [facility] ECG PRE/POST OP 2022-05-02 14:54:57 Keagan [facility] EP REMOVE REPLACE 2022-05-02 14:20:26 [facility] PACEMAKER GENERATOR DUAL TYPE AND SCREEN 2022-05-02 12:36:00 Freida Boogie spital ECG PRE/POST OP 2022-05-02 11:22:13 Keagan [facility] COVID-19 QUALITATIVE 2022-04-30 15:28:00 [facility] RT-PCR COMPREHENSIVE METABOLIC 2022-04-30 15:28:00 [facility] PANEL CBC WITH PLATELET AND 2022-04-30 15:28:00 [facility] DIFFERENTIAL MAGNESIUM LEVEL 2022-04-30 15:28:00 Gill Boogie [facility] PROTHROMBIN TIME WITH 2022-04-30 15:28:00 [facility] INR ESTIMATED GFR 2022-04-30 15:28:00 Keagan [facility] ASSIGNMENT OF BENEFITS 2021-05-19 14:24:04 Doctor Unassigned, No [facility] ASSIGNMENT OF BENEFITS 2020-05-13 14:44:43 Doctor Unassigned, No [facility] ASSIGNMENT OF BENEFITS 2019-05-08 14:32:08 Doctor Unassigned, No [facility] Plan of Care Planned Activity Planned Date Details Comments Source Future Scheduled 2022-08-16 HEPATITIS B VACCINES [facility] 11:53:52 (1 of 3 - 3-dose series) [code = HEPATITIS B VACCINES (1 of 3 - 3-dose series)] Future Scheduled 2022-08-16 SHINGLES VACCINES (1 [facility] Test 11:53:52 of 2) [code = SHINGLES VACCINES (1 of 2)] Future Scheduled 2022-08-16 65+ PNEUMOCOCCAL [facility] Test 11:53:52 VACCINE (2 - PCV) [code = 65+ PNEUMOCOCCAL VACCINE (2 - PCV)] Future Scheduled 2022-08-16 COVID-19 VACCINE (4 - [facility] Test 11:53:52 Booster for Moderna series) [code = COVID-19 VACCINE (4 - Booster for Moderna series)] Future Scheduled 2022-08-16 INFLUENZA VACCINE [facility] Test 11:53:52 [code = INFLUENZA VACCINE] Future Scheduled 2022-08-16 HEPATITIS B VACCINES [facility] Test 11:53:52 (1 of 3 - 3-dose series) [code = HEPATITIS B VACCINES (1 of 3 - 3-dose series)] Future Scheduled 2022-08-16 SHINGLES VACCINES (1 Met [facility] Test 11:53:52 of 2) [code = SHINGLES VACCINES (1 of 2)] Future Scheduled 2022-08-16 65+ PNEUMOCOCCAL [facility] Test 11:53:52 VACCINE (2 - PCV) [code = 65+ PNEUMOCOCCAL VACCINE (2 - PCV)] Future Scheduled 2022-08-16 COVID-19 VACCINE (4 - Me [facility] Test 11:53:52 Booster for Moderna series) [code = COVID-19 VACCINE (4 - Booster for Moderna series)] Future Scheduled 2022-08-16 INFLUENZA VACCINE [facility] Test 11:53:52 [code = INFLUENZA VACCINE] Encounters Start End Encounter Admission Attending Care Care Encounter Source Date/Time Date/Time Type Type Clinicians Facility Department ID 2021-10-04 Outpatient Ilsa [facility] [id number] Common 12:16:17 Miriam [id number] [facility] 2021-10-04 Outpatient [facility] [id number] Common 12:09:53 [id number] [facility] 2021-10-04 [facility] [id number] Common 11:46:27 Kourtney [id number] [facility] 2022-05-19 2022-05-19 Orders Doctor MARRY 1.2.840.114 [id number] Univers 00:00:00 00:00:00 Only Unassigned, ANDREE 350.1.13.10 ity of [place] [facility] 4.2.7.2.686 Osiel as [phone] [place] [address] [place] 2022-05-02 2022-05-02 [facility] 1.2.840.1 [id number] Methodi 05:42:00 11:47:00 Encounter Nadim 71008.1.[address] 3.430.2.7 Hospit a .3.388598 l .8 2022-05-02 2022-05-02 [facility], 1.2.840.1 [id number] Methodi 05:42:00 11:47:00 Encounter Nadim 39244.1.[address] 3.430.2.7 Hospit a .3.203628 l .8 2022-05-02 2022-05-02 Anesthesia Urmila Bee V. 1.2.840.1 [id number] Methodi 08:11:00 09:47:00 Event Byron Wang 33813.1.[address] 3.430.2.7 Hospit a .3.555208 l .8 2022-05-02 2022-05-02 Anesthesia Urmila Bee V. 1.2.840.1 [id number] Methodi 08:11:00 09:47:00 Event Byron Wang 20421.1.[address] 3.430.2.7 Hospit a .3.476514 l .8 2022-05-02 2022-05-02 [facility], 1.2.840.1 [id number] Methodi 07:30:00 08:50:[address] 3.430.2.7 Hospit a .3.367980 l .8 2022-05-02 2022-05-02 Surgery Keagan, 1.2.840.1 [id number] Methodi 07:30:00 08:50:[address] 3.430.2.7 Hospit a .3.837356 l .8 2022-05-02 2022-05-02 Travel 1.2.840.1 1.2.322.326 [id number] [id number] Methodi 00:00:00 00:00:[address] 3.430.2.7 0.2.7.3.698 Ho spita .3.409465 084.8 l .8 2022-05-02 2022-05-02 Travel 1.2.840.1 1.2.813.501 6405 [id number] Methodi 00:00:00 00:00:[address] 3.430.2.7 0.2.7.3.698 Ho spita .3.247614 084.8 l .8 2022-04-30 2022-04-30 Lab Keagan, 1.2.840.1 [id number] 1260 Methodi 10:10:00 10:15:[address] 3.430.2.7 Hospit a .3.621211 l .8 2022-04-30 2022-04-30 Lab Keagan, 1.2.840.1 [id number] 3929 Methodi 10:10:00 10:15:[address] 3.430.2.7 Hospit a .3.288561 l .8 2022-04-30 2022-04-30 Travel 1.2.840.1 1.2.839.245 9164 [id number] Methodi 00:00:00 00:00:[address] 3.430.2.7 0.2.7.3.698 Ho spita .3.264307 084.8 l .8 2022-04-30 2022-04-30 Travel 1.2.840.1 1.2.441.918 [id number] [id number] Methodi 00:00:00 00:00:[address] 3.430.2.7 0.2.7.3.698 Ho spita .3.632263 084.8 l .8 2022-04-24 2022-04-24 Community Keagan, 1.2.840.1 [id number] [id number] Methodi 00:00:00 00:00:00 Orders Nadim 06811.1.[address] 3.430.2.7 Hospit a .3.262614 l .8 2022-04-24 2022-04-24 Community Keagan, 1.2.840.1 [id number] Methodi 00:00:00 00:00:00 Orders Nadim 95362.1.[address] 3.430.2.7 Hospit a .3.965556 l .8 2021-05-19 2021-05-19 [facility] 1.2.998.865 [id number] [facility] 09:23:51 10:57:33 Visit Sam [facility] 350.1.13.10 it y of [place] 4.2.7.2.686 Osiel as Nas?Blea [phone] [address] Medical Office Building 2021-05-19 2021-05-19 [facility] [id number] [facility] 09:30:00 09:30:00 SAM rodriguez of [facility] 2021-05-19 2021-05-19 Orders Doctor TUTTLE 1.2.840.114 [id number] Univers 00:00:00 00:00:00 Only UnassignedANDREE 350.1.13.[address] [facility] 4.2.7.2.686 Osiel as [phone] [address] 2021-05-19 2021-05-19 Orders Doctor TUTTLE 1.2.840.114 [id number] Univers 00:00:00 00:00:00 Only UnassignedANDREE 350.1.13.10 [facility] [place] [facility] 4.2.7.2.686 Osiel as [phone] [address] 2020-10-06 2020-10-06 (TEL) [facility] [id number] Co mmon 00:00:00 00:00:00 [facility] 2020-05-29 2020-05-29 Outpatient Kassandra Page [id number] Common 04:21:00 04:21:00 [facility] 2020-05-27 2020-05-27 Outpatient Kassandra Page [id number] Common 13:40:00 13:40:00 [facility] 2020-05-13 2020-05-13 [facility] 1.2.886.442 [id number] 09:45:42 11:15:25 Visit Sam Duran 350.1.13.10 [place] 4.2.7.2.686 Professio [phone] [address] 2020-05-13 2020-05-13 [facility] 1.2.753.917 [id number] [facility] 09:45:42 11:15:25 Visit Sam Duran 350.1.13.10 i ty [place].2.[place] [phone] Me dical [address] 2020-05-13 2020-05-13 [facility] [id number] Univers 10:00:00 10:00:00 SAM rodriguez of [facility] 2020-05-13 2020-05-13 Orders Doctor TUTTLE 1.2.840.114 [id number] 00:00:00 00:00:00 Only Unassigned, ANDREE 350.1.13.10 ity of [place] [facility] 4.2.7.2.686 Osiel as [phone] [address] 2020-03-06 2020-03-06 Outpatient Kassandra Page [id number] Common 12:25:00 12:25:00 [facility] 2020-02-25 2020-02-25 [facility] [id number] Common 15:20:00 15:20:[address] [facility] 2019-09-25 2019-09-25 [facility] [id number] Common 10:40:00 10:40:[address] [facility] 2019-08-17 2019-08-17 [facility] [id number] Common 14:07:00 14:07:[address] [facility] 2019-08-17 2019-08-17 [facility] [id number] Common 08:20:00 08:20:[address] [facility] 2019-07-17 2019-07-17 [facility] [id number] Common 16:20:00 16:20:[address] 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 [place] 4.2.7.2.686 [facility] [phone] [facility] [address] 2019-03-25 2019-03-25 [facility] [id number] Common 12:56:00 12:56:[address] [facility] 2019-03-05 2019-03-05 [facility] [id number] Common 09:30:00 09:30:[address] [facility] 2019-03-02 2019-03-02 [facility] [id number] Common 11:00:00 11:00:[address] [facility] 2018-12-18 2018-12-18 [facility] [id number] Common 09:00:00 09:00:[address] [facility] 2018-10-31 2018-10-31 [facility] [id number] Common 12:33:00 12:33:[address] [facility] 2018-09-25 2018-09-25 [facility] [id number] Common 09:00:00 09:00:[address] [facility] 2018-03-27 2018-03-27 [facility] [id number] Common 10:00:00 10:00:[address] [facility] 2017-12-13 2017-12-13 [facility] [id number] Common 16:46:00 16:46:[address] [facility] 2017-12-13 2017-12-13 [facility] [id number] Common 14:45:00 14:45:[address] [facility] Results Test Description Test Time Test Comments [...] rhythm with occa sional premature ventricular complexes- [facility] [id number] 00:16:38 Test Item Value Reference Range Interpretation Comments Ventricular rate (test code = 253) Atrial rate (test code = 255) QRSD interval (test code = 260) QT interval (test code = 264) QTC interval (test code = 265) QRS axis 1 (test code = 268) T wave axis (test code = 270) EKG impression (test Ventricular-paced code = 273) rhythm with occasional premature ventricular complexes-Electronical ly Signed By Jake Boogie MD ([id number]) on 05/02/2022 7:16:35 PM [facility] [id number] 19:46:47 Test Item Value Reference Interpretation Comments Range Interpretation (test Negative results do not code = 2212222) preclude COVID-19 infection and should not be used asthe sole basis for treatment or other patient management decisions. Negativeresults must be combined with clinical observations, patient history, andepidemiological information. COVID-19 qualitative Not-Detected Not-Detected RT-PCR result (test code = 52570-1) COVID-19 qualitative See link below for PDF Case Number: RT-PCR (test code = Lab Report [id number]) [facility] [id number] 19:46:47 Test Item Value Reference Interpretation Comments Range Interpretation (test Negative results do not code = 4639922) preclude COVID-19 infection and should not be used asthe sole basis for treatment or other patient management decisions. Negativeresults must be combined with clinical observations, patient history, andepidemiological information. COVID-19 qualitative Not-Detected Not-Detected RT-PCR result (test code = 12231-1) COVID-19 qualitative See link below for PDF Case Number: RT-PCR (test code = Lab Report [id number]) [facility] [Presence] in Respiratory specimen by ROSANNE with probe [id number] 14:46:47 Test Item Value Reference Range Interpretation Comments SARS-CoV-2 (COVID-19) RNA Not detected [Presence] in Respiratory specimen by ROSANNE with probe detection (test code = 46137-1) Whether patient is employed in a Unknown healthcare setting (test code = 90487-9) Whether the patient has symptoms Unknown related to condition of interest (test code = 86403-3) Whether the patient was Unknown hospitalized for condition of interest (test code = 06997-4) Whether the patient was admitted Unknown to intensive care unit (ICU) for condition of interest (test code = 79382-3) Whether patient resides in a Unknown congregate care setting (test code = 75782-3) status (test code = Unknown 05041-8) Date and time of symptom onset Unknown (test code = 10216-5) ERMELINDA Pollard Culture, [id number] 00:00:00 Test Item Value Reference Range Interpretation Comments Urine Culture, Routine (test Final report code = 630-4)
--- NOTE | 2022-08-19 17:31 | RAD REPORT ---
EXAM DESCRIPTION: CT - Ct Stroke Brain Wo Cont - 08/19/2022 5:16 pm CLINICAL HISTORY: WEAKNESS -- RT SIDED NUMBNESS COMPARISON: 08/16/2022 TECHNIQUE: All CT scans are performed using dose optimization technique as appropriate and may inclu de automated exposure control or mA/KV adjustment according to patient size. FINDINGS: No intracranial hemorrhage, hydrocephalus or extra-axial fluid collection.No areas of brai n edema or evidence of midline shift. Mild chronic small vessel ischemic changes. The paranasal sinuses and mastoids are clear. The calvarium is intact. IMPRESSION: No acute intracranial abnormality. Discussed with Dr. Ventura by Dr. Connolly at 1715 on 08/19/22
[2022-08-19 17:39] LABS: Absolute Lymphocytes (CBC) 1.9 K/uL (0.7-4.9); Hematocrit 35.6 % (36.0-45.0); MPV 8.8 fL (7.6-11.3); RBC Red Blood Cell Count 4.09 M/uL (3.86-4.86)
[2022-08-19 17:43] LABS: Protime INR 1.55
[2022-08-19 17:55] LABS: Potassium 3.3 mmol/L (3.5-5.1); Troponin High Sensitivity 14.9 pg/mL (<58.9)
--- NOTE | 2022-08-19 18:03 | RAD REPORT ---
EXAM DESCRIPTION: RAD - Chest Single View - 08/19/2022 5:47 pm CLINICAL HISTORY: stroke COMPARISON: 08/16/2022 FINDINGS: Lines: Pacemaker/ICD. Lungs: No evidence of edema or pneumonia. Pleural: Chronic blunting of the costophrenic angles. Cardiac: Cardiomegaly. Mediastinum: Within normal limits. Bones: No acute fractures. Other: None IMPRESSION: No acute cardiopulmonary disease.
[2022-08-19] MEDS ORDERED: ACETAMINOPHEN 500 MG TAB PO PRN (18:30)
[2022-08-19 18:32] LABS: SARS-COV-2 RT PCR NEGATIVE (NEGATIVE)
--- NOTE | 2022-08-19 18:34 | ER ---
Nurse's Notes [facility] Name: Suri Lemus Age: 87 yrs Sex: Female : 1935 Arrival Date: 08/19/2022 Time: 16:54 Bed 7 Private MD: Diagnosis: Leukocytosis;Weakness Presentation: 08/19 17:24 Chief complaint: Patient's son or daughter states: patient has numbness in her R leg kr3 and R arm. Discharged from [facility] 08/17/22, was running a 102 temp this morning and given tylenol which reduced the fever to normal after an hour. Has had a cough for 1 month that sounded worse this morning. Coronavirus screen: Vaccine status: Client denies travel out of the [place] in the last 14 days. Ebola Screen: Patient denies travel to an Ebola-affected area in the 21 days before illness onset. Initial Sepsis Screen: Does the patient meet any 2 criteria? No. Patient's initial sepsis screen is negative. Does the patient have a suspected source of infection? No. Patient's initial sepsis screen is negative. Risk Assessment: Do you want to hurt yourself or someone else? Patient reports no desire to harm self or others. Onset of symptoms was August 19, 2022. 17:24 Method Of Arrival: Wheelchair kr3 17:24 Acuity: TAQUERIA 2 kr3 Triage Assessment: 17:37 General: Appears in no apparent distress. comfortable, Behavior is calm, cooperative, kr3 appropriate for age. Pain: Denies pain. Historical: - Allergies: 17:36 Levaquin; kr3 17:36 Lisinopril; kr3 - Home Meds: 17:36 amiodarone 200 mg Oral tab 1 tab once daily [Active]; kr3 - PMHx: 17:36 CHF; Hyperlipidemia; Hypertension; neuropathy; pacemaker; kr3 22:30 Cerebrovascular accident; pf1 - Immunization history:: Adult Immunizations up to date. - Social history:: Smoking status: Patient denies any tobacco usage or history of. Screenin:04 Abuse screen: Denies threats or abuse. Nutritional screening: No deficits noted. kr3 Tuberculosis screening: No symptoms or risk factors identified. Fall Risk IV access (20 points). Gait- Weak (10 pts.). Total Yadav Fall Scale indicates Low Risk Score (25-44 pts). Fall prevention measures have been instituted. Side Rails Up X 2 Placed close to Nursing Station Frequent Obs/Assesments occuring Family Present and informed to notify staff if they need to leave bedside. 19:08 The patient is able to swallow own secretions with no drooling or need for suction. The kr3 patient did not tolerate one teaspoon of water. Drooling, immediate coughing, gurgling, or clearing of the throat was noted. Bedside swallow screening discontinued. Patient kept NPO until cleared by Speech Therapy or Physician. Assessment: 19:05 Reassessment: No changes from previously documented assessment. Patient and/or family kr3 updated on plan of care and expected duration. Pain level reassessed. Patient is alert, oriented x 3, equal unlabored respirations, skin warm/dry/pink. 21:13 General: Pure wick placed and connect to wall suction. Patient tolerating well. . pf1 Vital Signs: 17:24 BP 108 / 57; Pulse 71; Resp 16; Temp 97.7; Pulse Ox 94% on R/A; kr3 19:30 BP 120 / 63; Pulse 71; Resp 14; Temp 97.9; Pulse Ox 97% ; Pain 0/10; pf1 20:49 BP 134 / 71; Pulse 70; Resp 14; Temp 97.9; Pulse Ox 97% ; Pain 0/10; pf1 21:00 BP 137 / 74; Pulse 72; Resp 18; Pulse Ox 100% ; Pain 0/10; pf1 22:00 BP 125 / 56; Pulse 70; Resp 18; Temp 98; Pulse Ox 97% ; Pain 0/10; pf1 23:00 BP 141 / 69; Pulse 70; Resp 14; Pulse Ox 96% ; Pain 0/10; pf1 12/12 00:00 BP 123 / 68; Pulse 70; Resp 14; Temp 97.9; Pulse Ox 97% on R/A; Pain 0/10; pf1 NIH Stroke Scale Scores: 1211 17:19 NIHSS Score: 0 ms3 19:08 NIHSS Score: 0 kr3 19:30 NIHSS Score: 0 pf1 20:30 NIHSS Score: 0 pf1 21:30 NIHSS Score: 0 pf1 ED Course: 16:54 Patient arrived in ED. as 17:01 Garry Ventura DO is Attending Physician. ms3 17:05 Arm band placed on right wrist. Patient placed in an exam room, on a stretcher. kr3 17:13 Ct Stroke Brain Wo Cont In Process Unspecified. EDMS 17:17 Basic Metabolic Panel Sent. rs5 17:17 CBC with Diff Sent. rs5 17:17 High Sensitivity Troponin Sent. rs5 17:17 Protime (+inr) Sent. rs5 17:17 Ptt, Activated Sent. rs5 17:17 Inserted saline lock: 22 gauge 24 gauge in right forearm, using aseptic technique. rs5 17:20 Prema James, ANT is Primary Nurse. kr3 17:36 Triage completed. kr3 17:49 Stroke CXR 1 View In Process Unspecified. EDMS 18:33 Luis Alberto Kaye MD is Hospitalizing Provider. ms3 19:04 UA MICROSCOPIC Sent. kr3 19:11 Inserted saline lock: 22 gauge in left antecubital area, using aseptic technique. Blood kr3 collected. 19:30 Primary Nurse role handed off by Prema James, ANT mw2 19:30 Patient has correct armband on for positive identification. Bed in low position. Call pf1 light in reach. Side rails up X2. Adult w/ patient. 19:35 Prema James, ANT is Primary Nurse. kr3 21:11 No provider procedures requiring assistance completed. IV is patent, is intact, with pf1 good blood return, 22 gauge to right forearm. IV per dayshift. 08/20 01:00 Patient admitted, IV remains in place. pf1 02:44 Attending Physician role handed off by Garry Ventura DO pf1 02:44 Primary Nurse role handed off by Prema James RN pf1 02:45 Sonya Gordillo RN is Primary Nurse. kd3 Administered Medications: 08/19 21:03 Drug: Rocephin (cefTRIAXone) 1 grams Route: IV; Rate: calculated rate; Site: left pf1 antecubital; 21:05 Follow up: IV Status: Completed infusion; IV Intake: 10ml pf1 22:00 Follow up: Response: No adverse reaction pf1 22:00 Follow up: Response: No adverse reaction pf1 Medication: 19:30 VIS not applicable for this client. pf1 Intake: 21:05 IV: 10ml; Total: 10ml. pf1 Outcome: 18:34 Decision to Hospitalize by Provider. ms3 08/20 01:00 Admitted to ER Hold. [facility] for further documentation. pf1 01:00 Condition: stable pf1 01:00 Instructed on the need for admit, Demonstrated understanding of instructions. 02:44 Patient left the ED. pf1 18:07 Patient left the ED. ll1 NIH Stroke Scale - NIH Stroke Score Date: 08/19/2022 Time: 17:19 Total Score = 0 1a. Level of Consciousness (LOC) - 0(Alert) 1b. Level of Consciousness (LOC) (Month \T\ Age) - 0(Both) 1c. LOC Commands (Open \T\ Closes Eyes/Audit Officer) - 0(Both) 2. Best Gaze (Lateral Gaze Paresis) - 0(Normal) 3. Visual Field Loss - 0(No visual loss) 4. Facial Palsy - 0(Normal) 5a. Left Arm: Motor (10-second hold) - 0(No drift) 5b. Right Arm: Motor (10-second hold) - 0(No drift) 6a. Left Leg: Motor (5-second hold - always test supine) - 0(No drift) 6b. Right Leg: Motor (5-second hold - always test supine) - 0(No drift) 7. Limb Ataxia (finger/nose \T\ heel/hawkins - test with eyes open) - 0(Absent) 8. Sensory Loss (pinprick arms/legs/face) - 0(Normal) 9. Best Language: Aphasia (description/naming/reading) - 0(No aphasia) 10. Dysarthria (speech clarity - read or repeat words) - 0(Normal) 11. Extinction and Inattention (visual/tactile/auditory/spatial/personal) - 0(No abnormality) Initials: ms3 NIH Stroke Scale - NIH Stroke Score Date: 08/19/2022 Time: 19:08 Total Score = 0 1a. Level of Consciousness (LOC) - 0(Alert) 1b. Level of Consciousness (LOC) (Month \T\ Age) - 0(Both) 1c. LOC Commands (Open \T\ Closes Eyes/Audit Officer) - 0(Both) 2. Best Gaze (Lateral Gaze Paresis) - 0(Normal) 3. Visual Field Loss - 0(No visual loss) 4. Facial Palsy - 0(Normal) 5a. Left Arm: Motor (10-second hold) - 0(No drift) 5b. Right Arm: Motor (10-second hold) - 0(No drift) 6a. Left Leg: Motor (5-second hold - always test supine) - 0(No drift) 6b. Right Leg: Motor (5-second hold - always test supine) - 0(No drift) 7. Limb Ataxia (finger/nose \T\ heel/hawkins - test with eyes open) - 0(Absent) 8. Sensory Loss (pinprick arms/legs/face) - 0(Normal) 9. Best Language: Aphasia (description/naming/reading) - 0(No aphasia) 10. Dysarthria (speech clarity - read or repeat words) - 0(Normal) 11. Extinction and Inattention (visual/tactile/auditory/spatial/personal) - 0(No abnormality) Initials: kr3 NIH Stroke Scale - NIH Stroke Score Date: 08/19/2022 Time: 19:30 Total Score = 0 1a. Level of Consciousness (LOC) - 0(Alert) 1b. Level of Consciousness (LOC) (Month \T\ Age) - 0(Both) 1c. LOC Commands (Open \T\ Closes Eyes/Audit Officer) - 0(Both) 2. Best Gaze (Lateral Gaze Paresis) - 0(Normal) 3. Visual Field Loss - 0(No visual loss) 4. Facial Palsy - 0(Normal) 5a. Left Arm: Motor (10-second hold) - 0(No drift) 5b. Right Arm: Motor (10-second hold) - 0(No drift) 6a. Left Leg: Motor (5-second hold - always test supine) - 0(No drift) 6b. Right Leg: Motor (5-second hold - always test supine) - 0(No drift) 7. Limb Ataxia (finger/nose \T\ heel/hawkins - test with eyes open) - 0(Absent) 8. Sensory Loss (pinprick arms/legs/face) - 0(Normal) 9. Best Language: Aphasia (description/naming/reading) - 0(No aphasia) 10. Dysarthria (speech clarity - read or repeat words) - 0(Normal) 11. Extinction and Inattention (visual/tactile/auditory/spatial/personal) - 0(No abnormality) Initials: pf1 NIH Stroke Scale - NIH Stroke Score Date: 08/19/2022 Time: 20:30 Total Score = 0 1a. Level of Consciousness (LOC) - 0(Alert) 1b. Level of Consciousness (LOC) (Month \T\ Age) - 0(Both) 1c. LOC Commands (Open \T\ Closes Eyes/Audit Officer) - 0(Both) 2. Best Gaze (Lateral Gaze Paresis) - 0(Normal) 3. Visual Field Loss - 0(No visual loss) 4. Facial Palsy - 0(Normal) 5a. Left Arm: Motor (10-second hold) - 0(No drift) 5b. Right Arm: Motor (10-second hold) - 0(No drift) 6a. Left Leg: Motor (5-second hold - always test supine) - 0(No drift) 6b. Right Leg: Motor (5-second hold - always test supine) - 0(No drift) 7. Limb Ataxia (finger/nose \T\ heel/hawkins - test with eyes open) - 0(Absent) 8. Sensory Loss (pinprick arms/legs/face) - 0(Normal) 9. Best Language: Aphasia (description/naming/reading) - 0(No aphasia) 10. Dysarthria (speech clarity - read or repeat words) - 0(Normal) 11. Extinction and Inattention (visual/tactile/auditory/spatial/personal) - 0(No abnormality) Initials: pf1 NIH Stroke Scale - NIH Stroke Score Date: 08/19/2022 Time: 21:30 Total Score = 0 1a. Level of Consciousness (LOC) - 0(Alert) 1b. Level of Consciousness (LOC) (Month \T\ Age) - 0(Both) 1c. LOC Commands (Open \T\ Closes Eyes/Audit Officer) - 0(Both) 2. Best Gaze (Lateral Gaze Paresis) - 0(Normal) 3. Visual Field Loss - 0(No visual loss) 4. Facial Palsy - 0(Normal) 5a. Left Arm: Motor (10-second hold) - 0(No drift) 5b. Right Arm: Motor (10-second hold) - 0(No drift) 6a. Left Leg: Motor (5-second hold - always test supine) - 0(No drift) 6b. Right Leg: Motor (5-second hold - always test supine) - 0(No drift) 7. Limb Ataxia (finger/nose \T\ heel/hawkins - test with eyes open) - 0(Absent) 8. Sensory Loss (pinprick arms/legs/face) - 0(Normal) 9. Best Language: Aphasia (description/naming/reading) - 0(No aphasia) 10. Dysarthria (speech clarity - read or repeat words) - 0(Normal) 11. Extinction and Inattention (visual/tactile/auditory/spatial/personal) - 0(No abnormality) Initials: pf1 Signatures: Dispatcher [employer] EDRochelle Coy MyKena mw2 Major Mares, RN RN ll1 Garry Ventura, DO ms3 Sonya Gordillo RN RN kd3 Prema James RN RN kr3 Doris tolentino RN RN pf1 Mckinley Middleton rs5 Corrections: (The following items were deleted from the chart) 08/19 17:39 17:04 Chief complaint: kr3 kr3
--- NOTE | 2022-08-19 18:35 | EDPHYS ---
Physician Documentation [facility] [place] Name: Suri Lemus Age: 87 yrs Sex: Female : 1935 Arrival Date: 08/19/2022 Time: 16:54 Bed 7 Private MD: ED Physician HPI: 08/19 17:19 This 87 yrs old Female presents to ER via Unassigned with complaints of Numbness. ms3 17:19 The patient's problem is reported as Right sided weakness and numbness. Onset: The ms3 symptoms/episode began/occurred acutely, Noted at 4 PM after waking from nap. Patient's daughter states patient went to sleep at approximately 2 PM. Duration: This was a single incident. Context: symptoms became apparent upon waking, occurred at home. The symptoms are alleviated by nothing. The symptoms are aggravated by nothing. Associated signs and symptoms: Pertinent positives: numbness, weakness. Severity of symptoms: At their worst the symptoms were moderate in the emergency department the symptoms have resolved Pain is currently a 0 / 10. Historical: - Allergies: 17:36 Levaquin; kr3 17:36 Lisinopril; kr3 - Home Meds: 17:36 amiodarone 200 mg Oral tab 1 tab once daily [Active]; kr3 - PMHx: 17:36 CHF; Hyperlipidemia; Hypertension; neuropathy; pacemaker; kr3 22:30 Cerebrovascular accident; pf1 - Immunization history:: Adult Immunizations up to date. - Social history:: Smoking status: Patient denies any tobacco usage or history of. ROS: 17:19 Constitutional: Negative for fever, and chills. Neck: Negative for injury, pain, and ms3 swelling, Cardiovascular: Negative for chest pain, and palpitations. Respiratory: Negative for shortness of breath, cough, wheezing, and pleuritic chest pain, Abdomen/GI: Negative for abdominal pain, nausea, vomiting, diarrhea, and constipation, Skin: Negative for injury, rash, and discoloration. 17:19 Neuro: Positive for numbness, weakness. 17:19 All other systems are negative. Exam: 17:19 Radiologist reports: negative acute ms3 17:19 Constitutional: This is a well developed, well nourished patient who is awake, alert, and in no acute distress. Neck: Trachea midline, no cervical lymphadenopathy. Supple, full range of motion without nuchal rigidity, or vertebral point tenderness. No Meningismus. Chest/axilla: Normal chest wall appearance and motion. Nontender with no deformity. Cardiovascular: Regular rate and rhythm with a normal S1 and S2. No gallops, murmurs, or rubs. Normal PMI, no JVD. No pulse deficits. Respiratory: Lungs have equal breath sounds bilaterally, clear to auscultation and percussion. No rales, rhonchi or wheezes noted. No increased work of breathing, no retractions or nasal flaring. Abdomen/GI: Soft, non-tender, with normal bowel sounds. No distension or tympany. No guarding or rebound. No evidence of tenderness throughout. Skin: Warm, dry with normal turgor. Normal color with no rashes, no lesions, and no evidence of cellulitis. MS/ Extremity: Pulses equal, no cyanosis. Neurovascular intact. Full, normal range of motion. 17:19 Neuro: Orientation: is normal, to person, place, time \T\ situation. Mentation: is normal, Memory: is normal, Cranial nerves: CN II- XII are normal as tested, Cerebellar function: is grossly normal, normal finger to nose testing, Motor: is normal, moves all fours, Sensation: is normal, no obvious gross deficits. 18:35 ECG was reviewed by the Attending Physician. ms3 Vital Signs: 17:24 BP 108 / 57; Pulse 71; Resp 16; Temp 97.7; Pulse Ox 94% on R/A; kr3 19:30 BP 120 / 63; Pulse 71; Resp 14; Temp 97.9; Pulse Ox 97% ; Pain 0/10; pf1 20:49 BP 134 / 71; Pulse 70; Resp 14; Temp 97.9; Pulse Ox 97% ; Pain 0/10; pf1 21:00 BP 137 / 74; Pulse 72; Resp 18; Pulse Ox 100% ; Pain 0/10; pf1 22:00 BP 125 / 56; Pulse 70; Resp 18; Temp 98; Pulse Ox 97% ; Pain 0/10; pf1 23:00 BP 141 / 69; Pulse 70; Resp 14; Pulse Ox 96% ; Pain 0/10; pf1 12 00:00 BP 123 / 68; Pulse 70; Resp 14; Temp 97.9; Pulse Ox 97% on R/A; Pain 0/10; pf1 NIH Stroke Scale Scores: 12 17:19 NIHSS Score: 0 ms3 19:08 NIHSS Score: 0 kr3 19:30 NIHSS Score: 0 pf1 20:30 NIHSS Score: 0 pf1 21:30 NIHSS Score: 0 pf1 MDM: 17:08 Patient medically screened. ms3 17:19 Differential diagnosis: CVA, TIA, metabolic disorder, UTI. ms3 18:38 Data reviewed: vital signs, nurses notes, lab test result(s), EKG, radiologic studies, ms3 and as a result, I will admit patient. Counseling: I had a detailed discussion with the patient and/or guardian regarding: the historical points, exam findings, and any diagnostic results supporting the discharge/admit diagnosis, lab results, radiology results, the need for further work-up and treatment in the hospital. ED course: Discussed case with Dr. Kaye and he accepts patient for admission. All questions were answered. Patient and her family understand and agree with need for admission. 08/19 17:03 Order name: Basic Metabolic Panel; Complete Time: 17:58 ms3 08/19 17:03 Order name: CBC with Diff; Complete Time: 17:58 ms3 08/19 17:03 Order name: High Sensitivity Troponin; Complete Time: 17:58 ms3 08/19 17:03 Order name: Protime (+inr); Complete Time: 17:58 ms3 08/19 17:03 Order name: Ptt, Activated; Complete Time: 17:58 ms3 08/19 17:19 Order name: COVID-19/FLU A+B/RSV; Complete Time: 07:10 ms3 08/19 17:24 Order name: Glucose, Ancillary Testing; Complete Time: 17:24 EDMS 08/19 17:24 Order name: Urinalysis ms3 08/19 17:42 Order name: Blood Culture Adult (2) ms3 08/19 17:42 Order name: CMP; Complete Time: 07:10 ms3 08/19 17:42 Order name: Lactate w/ 2H reflex if indic.; Complete Time: 07:10 ms3 08/19 18:34 Order name: Basic Metabolic Panel EDMS 08/19 18:34 Order name: Basic Metabolic Panel; Complete Time: 07:10 EDMS 08/19 18:34 Order name: CBC with Automated Diff EDMS 08/19 17:03 Order name: CT Stroke Brain w/o Contrast ms3 08/19 17:03 Order name: Stroke CXR 1 View; Complete Time: 18:21 ms3 08/19 17:03 Order name: EKG; Complete Time: 17:04 ms3 08/19 17:03 Order name: Accucheck; Complete Time: 18:19 ms3 08/19 17:03 Order name: Cardiac monitoring; Complete Time: 18:19 ms3 08/19 17:03 Order name: EKG - Nurse/Tech; Complete Time: 18:19 ms3 08/19 17:03 Order name: IV Saline Lock; Complete Time: 17:17 ms3 08/19 17:13 Order name: Ct Stroke Brain Wo Cont; Complete Time: 17:58 EDMS 08/19 18:34 Order name: NPO EDMS 08/19 18:34 Order name: CBC with Automated Diff; Complete Time: 07:10 EDMS 08/19 18:34 Order name: SARS RAPID jl7 08/19 18:53 Order name: Urine Dipstick-Ancillary; Complete Time: 07:10 EDMS 08/19 18:54 Order name: UA MICROSCOPIC vg1 08/19 19:21 Order name: Urine Microscopic Only; Complete Time: 07:10 EDMS 08/19 17:03 Order name: Labs collected and sent; Complete Time: 17:17 ms3 08/19 17:03 Order name: NPO; Complete Time: 18:19 ms3 08/19 17:03 Order name: O2 Per Protocol; Complete Time: 18:19 ms3 08/19 17:03 Order name: O2 Sat Monitoring; Complete Time: 18:19 ms3 08/19 17:03 Order name: Stroke Swallow Screen; Complete Time: 18:19 ms3 08/19 17:24 Order name: Urine Dipstick-Ancillary (obtain specimen); Complete Time: 18:51 ms3 08/19 17:42 Order name: IV Saline Lock - Large Bore; Complete Time: 18:19 ms3 08/19 17:42 Order name: Vital Signs; Complete Time: 18:19 ms3 EC:35 Rate is 73 beats/min. Rhythm is regular. QRS interval is prolonged. Clinical ms3 impression: Paced. Interpreted by me. Reviewed by me. Administered Medications: 21:03 Drug: Rocephin (cefTRIAXone) 1 grams Route: IV; Rate: calculated rate; Site: left pf1 antecubital; 21:05 Follow up: IV Status: Completed infusion; IV Intake: 10ml pf1 22:00 Follow up: Response: No adverse reaction pf1 22:00 Follow up: Response: No adverse reaction pf1 Disposition Summary: 08/19/22 18:34 Hospitalization Ordered Hospitalization Status: Inpatient Admission ms3 Provider: Luis Alberto Kaye ms3 Condition: Stable ms3 Problem: new ms3 Symptoms: are unchanged ms3 Bed/Room Type: Standard ms3 Location: Telemetry/MedSurg (Inpatient)(08/20/22 16:14) bd Room Assignment: 405(08/20/22 16:19) [facility] Diagnosis - Leukocytosis ms3 - Weakness ms3 Forms: - Medication Reconciliation Form ms3 - SBAR form ms3 NIH Stroke Scale - NIH Stroke Score Date: 08/19/2022 Time: 17:19 Total Score = 0 1a. Level of Consciousness (LOC) - 0(Alert) 1b. Level of Consciousness (LOC) (Month \T\ Age) - 0(Both) 1c. LOC Commands (Open \T\ Closes Eyes/Garde Manager) - 0(Both) 2. Best Gaze (Lateral Gaze Paresis) - 0(Normal) 3. Visual Field Loss - 0(No visual loss) 4. Facial Palsy - 0(Normal) 5a. Left Arm: Motor (10-second hold) - 0(No drift) 5b. Right Arm: Motor (10-second hold) - 0(No drift) 6a. Left Leg: Motor (5-second hold - always test supine) - 0(No drift) 6b. Right Leg: Motor (5-second hold - always test supine) - 0(No drift) 7. Limb Ataxia (finger/nose \T\ heel/hawkins - test with eyes open) - 0(Absent) 8. Sensory Loss (pinprick arms/legs/face) - 0(Normal) 9. Best Language: Aphasia (description/naming/reading) - 0(No aphasia) 10. Dysarthria (speech clarity - read or repeat words) - 0(Normal) 11. Extinction and Inattention (visual/tactile/auditory/spatial/personal) - 0(No abnormality) Initials: ms3 NIH Stroke Scale - NIH Stroke Score Date: 08/19/2022 Time: 19:08 Total Score = 0 1a. Level of Consciousness (LOC) - 0(Alert) 1b. Level of Consciousness (LOC) (Month \T\ Age) - 0(Both) 1c. LOC Commands (Open \T\ Closes Eyes/Garde Manager) - 0(Both) 2. Best Gaze (Lateral Gaze Paresis) - 0(Normal) 3. Visual Field Loss - 0(No visual loss) 4. Facial Palsy - 0(Normal) 5a. Left Arm: Motor (10-second hold) - 0(No drift) 5b. Right Arm: Motor (10-second hold) - 0(No drift) 6a. Left Leg: Motor (5-second hold - always test supine) - 0(No drift) 6b. Right Leg: Motor (5-second hold - always test supine) - 0(No drift) 7. Limb Ataxia (finger/nose \T\ heel/hawkins - test with eyes open) - 0(Absent) 8. Sensory Loss (pinprick arms/legs/face) - 0(Normal) 9. Best Language: Aphasia (description/naming/reading) - 0(No aphasia) 10. Dysarthria (speech clarity - read or repeat words) - 0(Normal) 11. Extinction and Inattention (visual/tactile/auditory/spatial/personal) - 0(No abnormality) Initials: kr3 NIH Stroke Scale - NIH Stroke Score Date: 08/19/2022 Time: 19:30 Total Score = 0 1a. Level of Consciousness (LOC) - 0(Alert) 1b. Level of Consciousness (LOC) (Month \T\ Age) - 0(Both) 1c. LOC Commands (Open \T\ Closes Eyes/Garde Manager) - 0(Both) 2. Best Gaze (Lateral Gaze Paresis) - 0(Normal) 3. Visual Field Loss - 0(No visual loss) 4. Facial Palsy - 0(Normal) 5a. Left Arm: Motor (10-second hold) - 0(No drift) 5b. Right Arm: Motor (10-second hold) - 0(No drift) 6a. Left Leg: Motor (5-second hold - always test supine) - 0(No drift) 6b. Right Leg: Motor (5-second hold - always test supine) - 0(No drift) 7. Limb Ataxia (finger/nose \T\ heel/hawkins - test with eyes open) - 0(Absent) 8. Sensory Loss (pinprick arms/legs/face) - 0(Normal) 9. Best Language: Aphasia (description/naming/reading) - 0(No aphasia) 10. Dysarthria (speech clarity - read or repeat words) - 0(Normal) 11. Extinction and Inattention (visual/tactile/auditory/spatial/personal) - 0(No abnormality) Initials: pf1 NIH Stroke Scale - NIH Stroke Score Date: 08/19/2022 Time: 20:30 Total Score = 0 1a. Level of Consciousness (LOC) - 0(Alert) 1b. Level of Consciousness (LOC) (Month \T\ Age) - 0(Both) 1c. LOC Commands (Open \T\ Closes Eyes/Garde Manager) - 0(Both) 2. Best Gaze (Lateral Gaze Paresis) - 0(Normal) 3. Visual Field Loss - 0(No visual loss) 4. Facial Palsy - 0(Normal) 5a. Left Arm: Motor (10-second hold) - 0(No drift) 5b. Right Arm: Motor (10-second hold) - 0(No drift) 6a. Left Leg: Motor (5-second hold - always test supine) - 0(No drift) 6b. Right Leg: Motor (5-second hold - always test supine) - 0(No drift) 7. Limb Ataxia (finger/nose \T\ heel/hawkins - test with eyes open) - 0(Absent) 8. Sensory Loss (pinprick arms/legs/face) - 0(Normal) 9. Best Language: Aphasia (description/naming/reading) - 0(No aphasia) 10. Dysarthria (speech clarity - read or repeat words) - 0(Normal) 11. Extinction and Inattention (visual/tactile/auditory/spatial/personal) - 0(No abnormality) Initials: pf1 NIH Stroke Scale - NIH Stroke Score Date: 08/19/2022 Time: 21:30 Total Score = 0 1a. Level of Consciousness (LOC) - 0(Alert) 1b. Level of Consciousness (LOC) (Month \T\ Age) - 0(Both) 1c. LOC Commands (Open \T\ Closes Eyes/Garde Manager) - 0(Both) 2. Best Gaze (Lateral Gaze Paresis) - 0(Normal) 3. Visual Field Loss - 0(No visual loss) 4. Facial Palsy - 0(Normal) 5a. Left Arm: Motor (10-second hold) - 0(No drift) 5b. Right Arm: Motor (10-second hold) - 0(No drift) 6a. Left Leg: Motor (5-second hold - always test supine) - 0(No drift) 6b. Right Leg: Motor (5-second hold - always test supine) - 0(No drift) 7. Limb Ataxia (finger/nose \T\ heel/hawkins - test with eyes open) - 0(Absent) 8. Sensory Loss (pinprick arms/legs/face) - 0(Normal) 9. Best Language: Aphasia (description/naming/reading) - 0(No aphasia) 10. Dysarthria (speech clarity - read or repeat words) - 0(Normal) 11. Extinction and Inattention (visual/tactile/auditory/spatial/personal) - 0(No abnormality) Initials: pf1 Signatures: Dispatcher [employer] EDMS Awilda Rice bd Jason Musa MD MD rn Garcia, Cindy, RN RN cg Santino Marion RN RN ja1 Garry Ventura DO DO ms3 Prema James, RN RN kr3 Doris tolentino, RN RN pf1 Corrections: (The following items were deleted from the chart) 17:13 17:10 CT-STROKE BRAIN W/O CONTRAST ordered. EDMS EDMS 19:00 18:34 Telemetry/MedSurg (Inpatient) ms3 cg 19:00 18:34 ms3 cg 08/20 16:14 08/19 19:[address] [facility] ER HOLD cg bd 08/20 16:14 08/19 19:00 ERHOLD- cg bd 08/20 16:19 16:14 423 ja1
[2022-08-19 18:53] LABS: Urine Blood Trace-intact (Negative); Urine Glucose Negative (Negative); Urine Protein Negative (Negative); Urine Specific Gravity <=1.005 (1.005-1.030)
[2022-08-19] MEDS ORDERED: NA CHLORIDE 0.9% 1,000 ML IV SCH (19:00)
[2022-08-19 19:12] LABS: Urine Bacteria <20 /HPF (<20); Urine RBC <5 /HPF (None Seen); Urine WBC Clump Occasional /HPF (None Seen)
[2022-08-19 19:31] LABS: Albumin 2.8 g/dL (3.4-5.0); Bilirubin Total 0.8 mg/dL (0.2-1.0); Potassium 3.2 mmol/L (3.5-5.1); Protein, Total 6.2 g/dL (6.4-8.2)
[2022-08-19] MEDS: CEFTRIAXONE 1,000 MG in NA CHLORIDE 0.9% 50 ML IVPB SCH (21:00)
[2022-08-19] MEDS ORDERED: CEFTRIAXONE 1000 MG/VIAL ONE (21:02)
[2022-08-20] MEDS: ATORVASTATIN 20 MG TAB PO SCH ×2 (01:00→21:03)
[2022-08-20] MEDS ORDERED: APIXABAN 5 MG TABLET ONE (01:02)
[2022-08-20] MEDS ORDERED: NA CHLORIDE 0.9% 1,000 ML ONE (01:03)
[2022-08-20] MEDS ORDERED: ATORVASTATIN 20 MG TAB ONE (01:03)
[2022-08-20 01:38] VITALS: BMI 20.9
[2022-08-20] MEDS: APIXABAN 2.5 MG TABLET PO SCH ×3 (01:40→21:03)
[2022-08-20 03:10] LABS: Absolute Lymphocytes (CBC) 2.2 K/uL (0.7-4.9); Hematocrit 34.1 % (36.0-45.0); Lymphocytes % 13.1 % (15.3-44.8); MCV 86.8 fL (80-100); RBC Red Blood Cell Count 3.93 M/uL (3.86-4.86)
[2022-08-20] MEDS ORDERED: POTASSIUM CL SA 10 MEQ TAB PO ONE ×2 (07:31→07:45)
[2022-08-20] MEDS ORDERED: CEFTRIAXONE 1000 MG/VIAL ONE (07:42)
[2022-08-20] MEDS ORDERED: NA CHLORIDE 0.9% 50 ML IV ONE (07:43)
[2022-08-20] MEDS ORDERED: ASPIRIN 81 MG CHEWABLE TABLET ONE (07:44)
[2022-08-20] MEDS ORDERED: AMLODIPINE 5 MG TAB ONE (07:44)
[2022-08-20] MEDS ORDERED: GABAPENTIN 300 MG CAP ONE (07:54)
[2022-08-20] MEDS: CHOLESTYRAMINE/ASP 4 GM/PKT PO SCH (08:00)
[2022-08-20] MEDS ORDERED: PNEUMOCOCCAL VACCINE 0.5 ML IMVAC ONE (08:00)
[2022-08-20] MEDS: LEVOTHYROXINE SOD 0.05 MG TABLET PO SCH (08:00)
[2022-08-20] MEDS: NA CHLORIDE 0.9% 1,000 ML IV SCH ×2 (08:00→19:29)
[2022-08-20] MEDS: carvediloL 25 MG TAB PO SCH ×2 (08:00→16:53)
[2022-08-20] MEDS: GABAPENTIN 400 MG CAP PO SCH ×2 (09:00→21:03)
[2022-08-20] MEDS: CEFTRIAXONE 1,000 MG in NA CHLORIDE 0.9% 50 ML IVPB SCH ×2 (09:00→21:04)
[2022-08-20] MEDS: ASPIRIN EC 81 MG TAB PO SCH (09:00)
[2022-08-20] MEDS: POTASSIUM CL SA 10 MEQ TAB PO SCH ×2 (09:00→21:03)
[2022-08-20] MEDS: AMLODIPINE 5 MG TAB PO SCH (09:00)
[2022-08-20] MEDS ORDERED: GABAPENTIN 400 MG CAP ONE (09:02)
--- NOTE | 2022-08-20 14:57 | EKG ---
Test Date: 2022-08-19 Test Time: 18:26:45 Terminal Worker: MEASUREMENT RESULTS: Intervals: Rate: 73 PA: QRSD: 128 QT: 472 QTc: 519 Marvin: P: PA: QRS: 149 T: 26 INTERPRETIVE STATEMENTS: Ventricular-paced rhythm Abnormal ECG Compared to ECG 08/16/2022 12:14:24 No significant changes Electronically Signed On 08-20-22 14:55:18 CROTCH PIECE BASTER by Darwin Kuar
[2022-08-20] MEDS: DONEPEZIL HCL 5 MG TAB PO SCH (21:03)
--- NOTE | 2022-08-20 22:10 | HP ---
Date of Admission: 08/20/2022 Chief Complaint: Fever, tingling, and numbness. History Of Present Illness: Ms. Lemus is a pleasant elderly female patient who was recently in the hospital with stroke. The patient was discharged to go home on 08/18/2022 and she was doing fine in her usual state of health until yesterday when she started to have fever and was having some tingling and numbness of right side of the body and she came to emergency room. After she was evaluated in the ER, she was admitted to the hospital with urinary tract infection. When I saw her this morning, she was feeling much better. She was still in the emergency room and her daughter was with her at bedside. Allergies: TO LISINOPRIL, CAUSING RASH AND ITCHING; AND LEVAQUIN, ALSO CAUSING RASH AND ITCHING. Review of Systems: BUSINESS SUPPORT: As mentioned above. Constitutional: As mentioned above. All other systems reviewed and negative. Medications: Amlodipine 5 mg daily, Eliquis 2.5 mg 2 times a day, atorvastatin 20 mg daily, Caltrate plus D 1 tablet 2 times a day, carvedilol 25 mg 2 times a day, cholestyramine 1/4 pack mixed with 8 ounce water daily rather every other day, Centrum Silver 1 tablet daily, donepezil 5 mg daily at bedtime, doxazosin 1 mg daily at bedtime, furosemide 20 mg 2 times a day, gabapentin 400 mg 2 times a day, levothyroxine 50 mcg daily, hydroxyzine 25 mg 2 times a day, lidocaine patch daily, magnesium oxide 2 times a day, potassium chloride 20 mEq daily, Aspirin 81 mg daily. Past Medical History: Significant for stroke in 2015 due to atrial fibrillation with complete recovery, recent stroke with right sided hemiparesis and tingling and numbness on 08/16/2022, COPD, hypertension, hyperlipidemia, chronic systolic heart failure, chronic atrial fibrillation, carotid artery stenosis, bilateral gastroesophageal reflux disease, chronic kidney disease stage 3B, cervical spondylosis, osteoarthritis at multiple sites. 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 Family History: Father , had heart disease and stroke. Mother , had breast cancer, uterine cancer, and hypertension. Brother , had congestive heart failure. Sister , also had congestive heart failure. Social History: Prior history of smoking, not at present time. Use of alcohol, negative. Physical Examination: Vital Signs: Temperature 97.9, pulse 73, respiratory rate 15, blood pressure 142/70, and oxygen saturation 97%. Height 4 feet 10 inches, weight 100 pounds. General: Awake, alert, oriented, not in distress. HEENT: Head atraumatic, normocephalic. Conjunctivae nonerythematous. Sclerae white. Mouth, no thrush or edema noted. Ears/Nose, no mass, lesion, discharge noted. Neck: Supple. No JVD, lymph nodes, bruit, thyromegaly noted. Lungs: Bilateral good equal air entry. Clear to auscultation. No rhonchi. No rales. Heart: Normal heart sounds, no murmur or gallop. Abdomen: Soft, bowel sounds normal. No guarding, rigidity, tenderness, mass, hepatosplenomegaly, distention, or bruit noted. Extremities: No leg edema. No calf tenderness. Skin: No rash, ulcer, cellulitis. Lymphatics: No lymph node enlargement in neck, supraclavicular, infraclavicular region. Neuro: The patient's right upper and right lower extremity power is 4+/5 and left side is normal. This is unchanged from her last exam on the day of discharge on 08/18/2022. Chest: Unremarkable. External Genitalia: Deferred. Rectal: Deferred. Laboratory Data: Chest x-ray: No acute cardiopulmonary changes. CAT scan of the head: No acute intracranial changes. COVID-19 test negative. Influenza A, B, and RSV test negative. Yesterday white count was 23.7, hemoglobin 11.9, and platelets 321. Sodium 136, potassium 3.3, chloride 105, bicarb 28, BUN 17, creatinine 1.41, glucose 88, estimated GFR 36. Liver function tests unremarkable. This morning white count is 16.7, hemoglobin 11.3, and platelets 302. Sodium 142, potassium 3, chloride 110 bicarb 27, BUN 17, creatinine 1.24, and glucose 94. Urinalysis shows 2+ leukocyte esterase and 20 to 50 WBC. Impression: 1. Urinary tract infection. 2. Stroke with right-sided hemiparesis. 3. Hypokalemia. 4. Chronic kidney disease, stage 3b. 5. Hypertension. 6. Chronic atrial fibrillation. 7. Chronic anticoagulation therapy. 8. Bilateral carotid artery stenosis. 9. Chronic systolic heart failure. 10. Hyperlipidemia. 11. Chronic obstructive pulmonary disease. 12. Osteoarthritis, multiple sites. 13. Gastroesophageal reflux disease. Plan: We will go ahead and admit patient to hospital for further evaluation and management of this problem. The patient is appropriate for inpatient and is expected to spend 2 midnights in hospital. We will start the patient on empiric antibiotic ceftriaxone, which was started yesterday and today WBC count is already showing improvement. We will follow up on urine culture and blood culture. Replace electrolyte, which is potassium per order. We will follow up on blood work again tomorrow morning including her blood count, electrolytes, and renal function. The patient received IV fluid per order today. We will reduce IV fluid to 30 cc/hour. For hypertension, we will continue antihypertensive medication per order. Hold if systolic blood pressure is less than 140. For hyperlipidemia, we will continue her statin therapy per order. For atrial fibrillation, continue Eliquis 2.5 mg 2 times a day and for stroke, patient is receiving dual therapy, which is Eliquis and aspirin 81 mg daily and we will continue that. We will continue her cholestyramine that she takes at home and plan of treatment discussed with her and her daughter, who was at bedside. I will see her tomorrow morning for followup. THOM/MODL Voice ID: [id number]
[2022-08-21] MEDS: LEVOTHYROXINE SOD 0.05 MG TABLET PO SCH (05:39)
[2022-08-21 07:56] LABS: Absolute Lymphocytes (CBC) 1.2 K/uL (0.7-4.9); Hematocrit 34.4 % (36.0-45.0); Lymphocytes % 10.1 % (15.3-44.8); RBC Red Blood Cell Count 3.96 M/uL (3.86-4.86)
[2022-08-21 08:12] LABS: Magnesium 1.7 mg/dL (1.6-2.4); Potassium 3.8 mmol/L (3.5-5.1)
[2022-08-21] MEDS: GABAPENTIN 400 MG CAP PO SCH ×2 (09:00→20:38)
[2022-08-21] MEDS: ASPIRIN EC 81 MG TAB PO SCH (09:16)
[2022-08-21] MEDS: carvediloL 25 MG TAB PO SCH ×2 (09:17→17:00)
[2022-08-21] MEDS: APIXABAN 2.5 MG TABLET PO SCH ×2 (09:18→20:38)
[2022-08-21] MEDS: CHOLESTYRAMINE/ASP 4 GM/PKT PO SCH (09:18)
[2022-08-21] MEDS: AMLODIPINE 5 MG TAB PO SCH (09:18)
[2022-08-21] MEDS: POTASSIUM CL SA 10 MEQ TAB PO SCH ×2 (09:18→20:37)
[2022-08-21] MEDS: CEFTRIAXONE 1,000 MG in NA CHLORIDE 0.9% 50 ML IVPB SCH ×2 (09:19→20:38)
[2022-08-21 10:08] VITALS: O2SAT 96
[2022-08-21] MEDS: DONEPEZIL HCL 5 MG TAB PO SCH (20:38)
[2022-08-21] MEDS: ATORVASTATIN 20 MG TAB PO SCH (20:38)
--- NOTE | 2022-08-21 22:37 | PN ---
Date of Progress Note: 08/21/2022 Subjective: Patient was seen this morning for followup. She was feeling fine. Denied any complaints. Objective: Vital Signs: Reviewed. HEENT: Unremarkable. Lungs: Clear to auscultation. Heart: Sounds normal. Abdomen: Soft. Bowel sounds normal. No guarding, rigidity, tenderness, distention. Extremities: No leg edema. Laboratory Data: Reviewed. Impression: 1. Urinary tract infection. 2. Hypertension. 3. Chronic atrial fibrillation. 4. Chronic anticoagulation therapy. 5. Stroke. Plan: We will continue current anticoagulation therapy. Continue current antihypertensive medication. Continue aspirin. We will continue current antibiotic, ceftriaxone. WBC count is almost back to normal. Blood culture negative. Urine culture growing gram-negative rods, definite identification and sensitivity result pending. Hopefully, result will be ready by tomorrow and then we will plan to discharge her. THOM/MODL Voice ID: [id number] Report ID: [id number]
[2022-08-22] MEDS: LEVOTHYROXINE SOD 0.05 MG TABLET PO SCH (05:55)
[2022-08-22 06:22] VITALS: TEMP 98
[2022-08-22] MEDS: CEFTRIAXONE 1,000 MG in NA CHLORIDE 0.9% 50 ML IVPB SCH (09:20)
[2022-08-22] MEDS: CHOLESTYRAMINE/ASP 4 GM/PKT PO SCH (09:22)
[2022-08-22] MEDS: AMLODIPINE 5 MG TAB PO SCH (09:23)
[2022-08-22] MEDS: carvediloL 25 MG TAB PO SCH (09:23)
[2022-08-22] MEDS: ASPIRIN EC 81 MG TAB PO SCH (09:23)
[2022-08-22] MEDS: APIXABAN 2.5 MG TABLET PO SCH (09:23)
[2022-08-22] MEDS: GABAPENTIN 400 MG CAP PO SCH (09:23)
[2022-08-22] MEDS: POTASSIUM CL SA 10 MEQ TAB PO SCH (09:23)
[2022-08-22 09:35] VITALS: BP 129/67
--- NOTE | 2022-08-23 11:16 | DS ---
Date of Discharge: 08/22/2022 Disposition: Discharged to go home. Physical Examination: HEENT: Unremarkable. Lungs: Clear to auscultation. Heart: Sounds normal. Abdomen: Soft. Bowel sounds normal. No guarding, rigidity, tenderness, distention. Extremities: No leg edema. Neurological: No focal neurological deficit noted except very, very minimal weakness of right upper and right lower extremity, and power is 4+/5, almost normal in both right upper and lower extremity, but very, very subtle weakness compared to the left side, but overall better than before. Laboratory Data: Urine culture grew E coli. Blood culture negative. White count when she was admitted was 23.7, hemoglobin 11.9, platelets 321 and yesterday white count 11.4, hemoglobin 11.6, platelets 300. Chemistry upon admission: Sodium 136, potassium 3.3, chloride 105, bicarb 28, BUN 17, creatinine 1.41, estimated GFR 36, glucose 88. Yesterday, sodium 143, potassium 3.8, chloride 113, bicarb 24, BUN 14, creatinine 1.13, glucose 95. Hospital Course: This is an 87-year-old very pleasant female patient admitted to the hospital with fever and tingling, numbness of the right side of the body. Please see dictated H and P for more information. The patient was evaluated in the emergency room. She was admitted to the hospital with urinary tract infection problem. CAT scan of the head was negative for any acute changes. Her neurological findings were unchanged from last hospital admissions. Blood culture was done. Patient was started on empiric antibiotic, ceftriaxone, and she responded very well. Has remained afebrile. She started ambulating well. She tolerated diet very well. Home medications were continued, and today she was discharged to go home in stable condition once we got the final urine culture results back. Final Diagnoses: 1. Urinary tract infection. 2. Stroke with right-sided hemiparesis. 3. Hypokalemia. 4. Chronic kidney disease, stage 3b. 5. Hypertension. 6. Chronic atrial fibrillation. 7. Chronic anticoagulation therapy. 8. Bilateral carotid artery stenosis. 9. Chronic systolic heart failure. 10. Hyperlipidemia. 11. Chronic obstructive pulmonary disease. 12. Osteoarthritis, multiple sites. 13. Gastroesophageal reflux disease. Discharge Medications And Instructions: 1. Continue all prior home medications. 2. Take Augmentin 500 mg 2 times a day for 1 week. 3. Follow up at my office next month and the patient already has appointment scheduled for September 11, 2022. THOM/MICHELLE Voice ID: [id number] Report ID: [id number]
== END 2022-08-22 10:55 | disposition home or self-care (01) | DRG 689 ==
LOC: ER 16:52 → ERHOLD 18:29 → 4TH 08-20 16:52
PROVIDERS: ADMIT Internal Medicine; ATTEND Internal Medicine
DX: N39.0 Urinary tract infection, site not specified (principal); I63.9 Cerebral infarction, unspecified; G81.91 Hemiplegia, unspecified affecting right dominant side; I48.20 Chronic atrial fibrillation, unspecified; I50.22 Chronic systolic (congestive) heart failure; I13.0 Hypertensive heart and chronic kidney disease with heart failure and stage 1 through stage 4 chronic kidney disease, or unspecified chronic kidney disease; N18.32 Chronic kidney disease, stage 3b; I48.0 Paroxysmal atrial fibrillation; D72.829 Elevated white blood cell count, unspecified; R20.0 Anesthesia of skin; Z20.822 Contact with and (suspected) exposure to COVID-19; B96.20 Unspecified Escherichia coli [E. coli] as the cause of diseases classified elsewhere; Z79.01 Long term (current) use of anticoagulants; J44.9 Chronic obstructive pulmonary disease, unspecified; E87.6 Hypokalemia; I65.23 Occlusion and stenosis of bilateral carotid arteries; M15.9 Polyosteoarthritis, unspecified; K21.9 Gastro-esophageal reflux disease without esophagitis
CPT/HCPCS: 0241U; 36415; 70450; 71045; 80048; 80053; 81003; 81015; 82947; 83605; 83735; 84484; 85025; 85610; 85730; 87040; 87077; 87086; 87088; 87186; 90471; 93005; 96374; 97116; 97161; 97165; 97530; 99285; J7030

== ENCOUNTER 2022-10-08 07:00 | Day surgery (SDC) | payer OTHER ==
[2022-10-05 11:03] LABS: Hematocrit 35.1 % (36.0-45.0); MCV 87.3 fL (80-100); MPV 8.7 fL (7.6-11.3); RBC Red Blood Cell Count 4.02 M/uL (3.86-4.86)
[2022-10-05 11:12] LABS: Potassium 3.1 mmol/L (3.5-5.1)
[2022-10-05 11:27] LABS: Absolute Lymphocytes (CBC) 1.5 K/uL (0.7-4.9)
[2022-10-08] MEDS ORDERED: Ringers Lactate 1,000 ML IV ONE (07:11)
[2022-10-08] MEDS ORDERED: CEFAZOLIN SODIUM 1 GM/VIAL ONE (07:11)
[2022-10-08] MEDS ORDERED: FENTANYL CITR 100 MCG/2 ML ONE (08:32)
[2022-10-08] MEDS ORDERED: ONDANSETRON 4 MG/2 ML VIAL ONE (08:33)
[2022-10-08] MEDS ORDERED: propofoL 200 MG/20 ML VIAL IV ONE (08:33)
[2022-10-08] MEDS ORDERED: LIDOCAINE 2% MPF 5 ML VIAL ONE (08:36)
--- NOTE | 2022-10-08 09:16 | P.BOP ---
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
[2022-10-08 09:43] VITALS: BP 154/78; TEMP 97.8
[2022-10-08 10:20] VITALS: O2SAT 98
== END 2022-10-08 10:09 | disposition home or self-care (01) ==
LOC: OR 07:00
PROVIDERS: ATTEND Surgery
PROC: 0JBP0ZZ Excision of Left Lower Leg Subcutaneous Tissue and Fascia, Open Approach (ICD-10-PCS; principal; 2022-10-08 08:30)
DX: C44.729 Squamous cell carcinoma of skin of left lower limb, including hip (principal); I10 Essential (primary) hypertension; E78.00 Pure hypercholesterolemia, unspecified; I50.9 Heart failure, unspecified; M81.0 Age-related osteoporosis without current pathological fracture; Z86.73 Personal history of transient ischemic attack (TIA), and cerebral infarction without residual deficits; Z88.1 Allergy status to other antibiotic agents
CPT/HCPCS: 85025; 80048; 36415; 88331; 88332; 88305; 11602; J2704; J2001; J3010; J7120; J2405; J0690

== ENCOUNTER 2022-12-19 09:05 | Inpatient (IN) | payer OTHER ==
--- OUTSIDE RECORDS SUMMARY | 2022-12-19 09:11 | XMS REPORT | Continuity of Care Document ---
:1935 Author Organization [facility] t Address [address] [facility] [address] [place] [address] Care Team Providers Name Role Phone Kourtney Smith MD Primary Care Physician Miriam Rosenbaum Attending Clinician Unavailable Kourtney Smith Attending Clinician Unavailable COLEEN CONLEY Attending Clinician Unavailable Coleen Conley Attending Clinician Rafael Avina MD Attending Clinician COLEEN CONLEY Attending Clinician Unavailable Leelee CLEARY, Eloina Baig Attending Clinician [phone] Doctor Unassigned, [place] Attending Clinician Unavailable Keagan CLEARY, Freida Attending Clinician Rohit CLEARY, Urmila Hatfield Attending Clinician Byron Wang CRNA Attending Clinician Sam Obrien MD Attending Clinician SAM OBRIEN Attending Clinician Unavailable 1, [facility] Attending Clinician Unavailable COLEEN CONLEY Admitting Clinician Unavailable FREIDA BOOGIE Admitting Clinician Unavailable Payers Payer Name Policy Type Policy Number Effective Date Expiration Date S pako AETNA MEDICARE [id number] 2022 HMO POS 00:00:00 MEDICARE PLAN [id number] PPO - AETNA AETNA MEDICARE C1 [id number] Common Spi rit PPO [facility] Problems Condition Condition Condition Status Onset Resolution Last Treating Co mments Source Name Details Category Date Date Treatment Clinician Date AICD at AICD at Disease Active Methodi end of end of 8[address] st battery battery 00:00: Hospita life life 00 l Primary Primary Disease Active Univers hypothyroi hypothyroi 25 it y of dism dism 00:00: [address] Hyperlipid Hyperlipid Disease Active M ethodi emia emia 04-30 st 00:00: Hospita 00 l Disease of Disease of Disease Active M ethodi thyroid thyroid 04-27 gland gland 00:00: Hospita 00 l Diarrhea Diarrhea Disease Active Metho di 04-27 st 00:00: Hospita 00 l Acute on Acute on Disease Active Metho di chronic chronic 04-27 st systolic systolic 00:00: Hospit a CHF CHF 00 l (congestiv (congestiv e heart e heart failure) failure) Anemia Anemia Disease Active Methodi 819 st 00:00: Hospita 00 l Atrial Atrial Disease Active Methodi fibrillati fibrillati 815 st on on 00:00: Hospita 00 l [id number] Cardiac Problem Active Commo n pacemaker Spirit in situ [facility] 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 Spir it sterolemia [facility] History of History of Problem Active C ommon fall fall [facility] Serum Serum Problem Active Common creatinine creatinine Sp nieves raised raised [facility] Automatic Automatic Problem Active Com mon implantabl implantabl Sp nieves e cardiac e - CHI defibrilla cardiovert tor in er-defibri [facility] situ llator in Medical situ Center Anorexia Anorexia Problem Active Commo n Spirit [facility] 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) [facility] Rib pain Rib pain Problem Active Commo n Spirit [facility] [id number] Gastroesop Problem Active Co mmon hageal Spirit reflux - CHI disease, esophagiti [facility] s presence Medica l not Center specified Hypertensi Hypertensi Problem Active Mary Beth sanchez on on Spirit [facility] [id number] Prediabete Problem Active Co mmon s Spirit - [facility] [id number] Dorsalgia, Problem Active Co mmon unspecifie Spirit d - [facility] [id number] Hypothyroi Problem Active Com mon dism, Spirit unspecifie - CHI d [facility] Eosinophil Eosinophil Problem Active Mary Beth sanchez ia ia [facility] 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 St without attack) [facility] Cardiomyop Cardiomyop Problem Active Mary Beth sanchez athy athy [facility] Hypotensio Hypotensio Problem Active Mary Beth sanchez n n [facility] Osteoporos Osteoporos Problem Active Mary Beth daniel is is Spirit [facility] [id number] Neck pain Problem Active Comm on Spirit [facility] [id number] Other Problem Active Common chronic Spirit pain - [facility] Dizziness Dizziness Problem Active Com mon Spirit [facility] [id number] Insomnia, Problem Active Com mon unspecifie Spirit d type [facility] Abnormal Abnormal Problem Active Commo n liver liver Spirit function function - [facility] [id number] Chronic Problem Active Commo n kidney Spirit disease, - CHI unspecifie 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 [facility] [id number] Fatigue, Problem Active Commo n unspecifie Spirit d type [facility] [id number] Cough Problem Active Common Spirit - [facility] Congestive Congestive Problem Active C ommon heart heart [facility] failure failure - [facility] [id number] Skin Problem Active Common lesion [facility] Hypokalemi Hypokalemi Problem Active C ommon a a [facility] Weakness Weakness Problem Active Commo n [facility] [id number] Constipati Problem Active Com mon on, Spirit unspecifie - CHI d [facility] constipati [facility] on [facility] [id number] Depression Problem Active Co mmon screening [facility] [id number] Upper Problem Active Common respirator Spirit y tract - CHI infection, St unspecifie [facility] d [facility] Allergies, Adverse Reactions, Alerts Allergy Allergy Status Severity Reaction(s) Onset Inactive Treating Comm ents Source Name Type Date Date Clinician Levaquin Propensi Active Hives [facility] ty to 11-08 [place] adverse 00:00: of reaction 00 Medicin s to e drug Lisinopr Propensi Active Hives [facility] ty to 11-08 [place] adverse 00:00: of reaction 00 Medicin s to e drug LEVOFLOX DRUG Active Low Rash 2016-0 Univers ACIN INGREDI 1-24 ity of 00:00: [place] 00 Medical Branch LISINOPR DRUG Active Low Rash 2016-0 Univers IL INGREDI 1-24 ity of 00:00: [place] 00 Medical Branch Levoflox Propensi Active Rash 2016-0 Univer s acin ty to 1-24 ity of adverse 00:00: [place] reaction 00 Medical Branch Lisinopr Propensi Active Rash 2016-0 Univer s il ty to 1-24 ity of adverse 00:00: [place] reaction 00 Medical s Branch Levoflox Drug Active Hives, Other [facility] I [facility] acin Allergy (See 04-06 [facility] Comments), 00:00: Medica l Rash 00 Center Lisinopr Drug Active Hives, Other [facility] I [facility] il Allergy (See 04-06 [facility] Comments), 00:00: Medica l Rash 00 Center LEVOFLOX Allergy Active High Hives [facility] ACIN 04-06 [facility] 00:00: Medical 00 Center LISINOPR Allergy Active High Hives [facility] [place] 04-06 [facility] 00:00: Medical 00 Center Lisinopr Propensi Active Rash Method i il ty to 04-06 st adverse 00:00: Hospita reaction 00 l s to drug Levoflox Propensi Active Rash Method i acin ty to 04-06 st adverse 00:00: Hospita reaction 00 l s to drug Family History Family Member Diagnosis Comments Start Date Stop Date Source Natural father Heart disease [facility] Natural mother Breast cancer [facility] Natural mother Heart disease [facility] Social History Social Habit Start Date Stop Date Quantity Comments Source History SDOH [facility] Alcohol Comment Medical C enter History of Current smoker [facility] tobacco use Medical Cent[facility] r History SDOH [facility] Alcohol Std Medical Cente r Drinks History SDOH [facility] Alcohol Binge Medical Eli ter Exposure to 2022-11-10 2022-11-[address] [facility] SARS-CoV-2 00:00:00 06:56:00 Medical Center (event) Tobacco use and 2022-11-15 2022-11-15 Smokeless tobacco [facility] exposure 00:00:00 00:00:00 non-user Medical Center History SDOH 2022-11-15 2022-11-[address] [facility] Alcohol Frequency 00:00[facility]00 [facility] Tobacco Comment 2022-11-15 2022-11-15 quit [address] [facility] 00:[facility] Alcohol intake 2022-05-07 2022-05-07 Current [employer] 00:00:00 00:00:00 non-drinker of Hospital alcohol (finding) Sex Ass[birth year] At [birth year] [facility] [facility] 00:00:00 00:00:00 Hospital Smoking Status Start Date Stop Date Source Ex-smoker 2022-11-15 00:00:00 2022-11-15 00:00:[address] [facility] [facility] Never smoked tobacco [facility] Medications Ordered Filled Start Stop Current Ordering Indication Dosage Frequency Signature Comments Components Source Medication Medication Date Date Medication? Clinician (SIG) Name Name apixaban Yes 2.5mg Q.5D Take 2.[address] (Eliquis) 3-14 mg by [facility]ukes 2.5 mg Tab 10:33: mouth 2 Medi jose eduardo tablet 01 (two) Center times daily. potassium 0 Yes 20meq Q.5D Take [address] chloride 3-14 mEq by Lukes (KLOR-CON) 10:33: mouth 2 Medi jose eduardo 20 mEq 01 (two) Center packet times daily. levothyroxi 0 Yes 50ug Take [address] ne 3-14 mcg by Lukes (SYNTHROID, 10:33: mouth Medic al LEVOTHROID) 01 Every Center 50 MCG morning on tablet an empty stomach. atorvastati 0 Yes 20mg QD Take [address] n (LIPITOR) 3-14 by mouth Luke s 20 MG 10:33: daily. Medical tablet 01 Center gabapentin Yes 400mg Q.5D Take [address] (NEURONTIN) 3-14 mg by Lukes 400 MG 10:33: mouth 2 Medical capsule 01 (two) Center times daily. folic 0 Yes QD Take by [facility] acid/multiv 3-14 mouth Lukes it-min/lute 10:33: daily. Medi jose eduardo in (CENTRUM 01 Center SILVER ORAL) magnesium 0 Yes Q.5D Take by CHI S t chloride 3-14 mouth 2 Lukes (SLOW-MAG 10:33: (two) Medical ORAL) 01 times Center daily. donepeziL 0 Yes 5mg QD Take [address] (ARICEPT) 5 3-14 by mouth Luke s MG tablet 10:33: nightly. Medi jose eduardo 01 Center calcium Yes 1{tbl} QD Take [address] carbonate-v 3-14 tablet by Odilon es itamin D3 10:33: mouth Medical 500 01 daily. Center mg-3.125 mcg (125 unit) per tablet lidocaine Yes 1{patch Q24H Place [address] (LIDODERM) 3-14 } patch onto Odilon es 5 % patch 10:33: the skin Medi jose eduardo 01 daily Center Remove & Discard patch within 12 hours or as directed by . omeprazole 0 Yes 20mg QD Take [address] (PriLOSEC) 3-14 by mouth Lukes 20 MG 10:33: daily. Medical capsule 01 Center amLODIPine 0 Yes 5mg QD Take [address] (NORVASC) 5 3-14 by mouth Luke s MG tablet 10:33: daily. Medica l 01 Center carvediloL 2022-0 Yes 25mg Take [address] (COREG) 25 3-14 by mouth 2 Odilon es MG tablet 10:33: (two) Medical 01 times Center daily with breakfast and dinner. doxazosin 2022-0 Yes 1mg QD Take [address] (CARDURA) 1 3-14 by mouth Luke s MG tablet 10:33: nightly. Medi jose eduardo 01 Center hydrOXYzine 2022-0 Yes 25mg Q.5D Take [address] (ATARAX) 25 3-14 by mouth 2 Maryan kes MG tablet 10:33: (two) Medical 01 times Center daily. furosemide 2022-0 Yes 20mg Q.5D Take [address] (LASIX) 20 3-14 by mouth 2 Odilon es MG tablet 10:33: (two) Medical 01 times Center daily. apixaban 0 Yes 2.5mg Q.5D Take 2.[address] (Eliquis) 3-14 mg by Lukes 2.5 mg Tab 10:33: mouth 2 Medi jose eduardo tablet 01 (two) Center times daily. potassium 2022-0 Yes 20meq Q.5D Take [address] chloride 3-14 mEq by Lukes (KLOR-CON) 10:33: mouth 2 Medi jose eduardo 20 mEq 01 (two) Center packet times daily. levothyroxi 0 Yes 50ug Take [address] ne 3-14 mcg by Lukes (SYNTHROID, 10:33: mouth Medic al LEVOTHROID) 01 Every Center 50 MCG morning on tablet an empty stomach. atorvastati 0 Yes 20mg QD Take [address] n (LIPITOR) 3-14 by mouth Luke s 20 MG 10:33: daily. Medical tablet 01 Center gabapentin 2022-0 Yes 400mg Q.5D Take [address] (NEURONTIN) 3-14 mg by Lukes 400 MG 10:33: mouth 2 Medical capsule 01 (two) Center times daily. folic 2022-0 Yes QD Take by [facility] acid/multiv 3-14 mouth Lukes it-min/lute 10:33: daily. Medi jose eduardo in (CENTRUM 01 Center SILVER ORAL) magnesium 2022-0 Yes Q.5D Take by CHI S t chloride 3-14 mouth 2 Lukes (SLOW-MAG 10:33: (two) Medical ORAL) 01 times Center daily. donepeziL 2022-0 Yes 5mg QD Take [address] (ARICEPT) 5 3-14 by mouth Luke s MG tablet 10:33: nightly. [address] calcium 2022-0 Yes 1{tbl} QD Take [address] carbonate-v 3-14 tablet by Odilon es itamin D3 10:33: mouth Medical 500 01 daily. [place] mg-3.125 mcg (125 unit) per tablet lidocaine 2022-0 Yes 1{patch Q24H Place [address] (LIDODERM) 3-14 } patch onto Odilon es 5 % patch 10:33: the skin [place] [address] daily Center Remove & Discard patch within 12 hours or as directed by . omeprazole 2022-0 Yes 20mg QD Take [address] (PriLOSEC) 3-14 by mouth Lukes 20 MG 10:33: daily. Medical capsule [address] [place] [address] amLODIPine 2022-0 Yes 5mg QD Take [address] (NORVASC) 5 3-14 by mouth Luke s MG tablet 10:33: daily. Medica l [address] [place] [address] carvediloL 0 Yes 25mg Take [address] (COREG) 25 3-14 by mouth 2 Odilon es MG tablet 10:33: (two) Medical 01 times Center daily with breakfast and dinner. doxazosin 2022-0 Yes 1mg QD Take [address] (CARDURA) 1 3-14 by mouth Luke s MG tablet 10:33: nightly. [address] hydrOXYzine 2022-0 Yes 25mg Q.5D Take [address] (ATARAX) 25 3-14 by mouth 2 Maryan kes MG tablet 10:33: (two) Medical 01 times Center daily. furosemide 2022-0 Yes 20mg Q.5D Take [address] (LASIX) 20 3-14 by mouth 2 Odilon es MG tablet 10:33: (two) Medical 01 times Center daily. apixaban 2022-0 Yes 2.5mg Q.5D Take 2.[address] (Eliquis) 3-14 mg by Lukes 2.5 mg Tab 07:03: mouth 2 Medi jose eduardo tablet 36 (two) Center times daily. potassium 2023-0 Yes 20meq Q.5D Take [address] chloride 3-14 mEq by Lukes (KLOR-CON) 07:03: mouth 2 Medi jose eduardo 20 mEq 36 (two) Center packet times daily. levothyroxi 2022-0 Yes 50ug Take [address] ne 3-14 mcg by Lukes (SYNTHROID, 07:03: mouth Medic al LEVOTHROID) 36 Every Center 50 MCG morning on tablet an empty stomach. atorvastati 2022-0 Yes 20mg QD Take [address] n (LIPITOR) 3-14 by mouth Luke s 20 MG 07:03: daily. Medical tablet 36 Center gabapentin 0 Yes 400mg Q.5D Take [address] (NEURONTIN) 3-14 mg by Lukes 400 MG 07:03: mouth 2 Medical capsule 36 (two) Center times daily. folic 2022-0 Yes QD Take by [facility] acid/multiv 3-14 mouth Lukes it-min/lute 07:03: daily. Medi jose eduardo in (CENTRUM 36 Center SILVER ORAL) magnesium 2022-0 Yes Q.5D Take by CHI S t chloride 3-14 mouth 2 Lukes (SLOW-MAG 07:03: (two) Medical ORAL) 36 times Center daily. donepeziL 0 Yes 5mg QD Take [address] (ARICEPT) 5 3-14 by mouth Luke s MG tablet 07:03: nightly. Medi jose eduardo 36 Center calcium 2022-0 Yes 1{tbl} QD Take [address] carbonate-v 3-14 tablet by Odilon es itamin D3 07:03: mouth Medical 500 36 daily. Center mg-3.125 mcg (125 unit) per tablet lidocaine 2022-0 Yes 1{patch Q24H Place [address] (LIDODERM) 3-14 } patch onto Odilon es 5 % patch 07:03: the skin Medi jose eduardo 36 daily Center Remove & Discard patch within 12 hours or as directed by . omeprazole 2022-0 Yes 20mg QD Take [address] (PriLOSEC) 3-14 by mouth Lukes 20 MG 07:03: daily. Medical capsule 36 Center amLODIPine 2022-0 Yes 5mg QD Take [address] (NORVASC) 5 3-14 by mouth Luke s MG tablet 07:03: daily. Medica [address] carvediloL 2023-0 Yes 25mg Take [address] (COREG) 25 3-14 by mouth 2 Odilon es MG tablet 07:03: (two) [place] [address] times [place] daily with breakfast and dinner. doxazosin 2023-0 Yes 1mg QD Take [address] (CARDURA) 1 3-14 by mouth Luke s MG tablet 07:03: nightly. [address] hydrOXYzine 3-0 Yes 25mg Q.5D Take [address] (ATARAX) 25 3-14 by mouth 2 Maryan kes MG tablet 07:03: (two) [facility] 36 times [place] daily. furosemide 2023-0 Yes 20mg Q.5D Take [address] (LASIX) 20 3-14 by mouth 2 Odilon es MG tablet 07:03: (two) [place] [address] times [place] daily. Apixaban 3-0 Yes Take by [facility] 2.5 MG TABS 3-02 mouth. Colleg e 12:02: of 17 Medicin e carvedilol 3-0 Yes 25mg Take 1 [facility] (COREG) 25 3-02 Tablet by Julia ege MG tablet 12:02: mouth two of 17 times Medicin daily. e donepezil 2023-0 Yes 5mg Take 1 Dat (ARICEPT) 5 3-02 Tablet by Col lege MG tablet 12:02: mouth. of 17 Medicin e furosemide 3-0 Yes 20mg Take 1 [facility] (LASIX) 20 3-02 Tablet by Julia ege MG tablet 12:02: mouth two of 17 times Medicin daily. e omeprazole 2022-0 Yes 20mg QD Take 1 [...] mago 02 by mouth l daily. carvediloL 2-0 Yes 25mg Q.5D Take 1 Metho di (COREG) 25 8-25 tablet (25 st MG tablet 11:47: mg total) Hos mago 02 by mouth 2 l (two) times a day with meals. doxazosin 2021-0 Yes 1mg QD Take 1 Method i (CARDURA) 1 8-25 tablet (1 st MG tablet 11:47: mg total) Hos mago 02 by mouth l nightly. hydrOXYzine 2-0 Yes 25mg Q.5D Take 1 Meth estuardo (ATARAX) 25 8-25 tablet (25 st MG tablet 11:47: mg total) Hos mago 02 by mouth 2 l (two) times a day. furosemide 2021-0 Yes 20mg Q.5D Take 1 Metho di (Lasix) 20 8-25 tablet (20 st mg tablet 11:47: mg total) Hos mago 02 by mouth 2 l (two) times a day. calcium 2021-0 Yes 1{tbl} Q.5D Chew 1 Method i carbonate-v 8-[address] itamin D3 11:48: (two) Hospita 600 mg-20 08 times a l mcg (800 day. unit) tablet,chew able MAGNESIUM 2021-0 Yes 1{tbl} Q.5D Take 1 Meth estuardo CHLORIDE 8-[address] (SLOW-MAG 11:48: mouth 2 Hospi ta ORAL) 08 (two) l times a day. FOLIC 2021-0 Yes 1{tbl} [...] 08 (two) l times a day. FOLIC 2021-0 Yes 1{tbl} [...] 08 (two) l times a day. FOLIC 2021-0 Yes 1{tbl} [...] every l 50 MCG morning. tablet atorvastati 2022-0 Yes 20mg QD Take 20 mg Methodi n (LIPITOR) 8-[address] 20 MG 11:48: daily. Hospita tablet 08 l gabapentin 2022-0 Yes 400mg Q.5D Take 400 Me thodi (NEURONTIN) 8-[address] 400 MG 11:48: mouth 2 Hospita capsule 08 (two) l times a day. apixaban 2022-0 Yes Q.5D [...] 11:48: daily. Hospita tablet 08 l gabapentin 2022-0 Yes 400mg Q.5D Take 400 Me thodi [...] (CENTRUM 08 daily. l SILVER ORAL) lidocaine 2022-0 Yes 1{patch Place 1 Me thodi (LIDODERM) 8-24 } patch on st 5 % 11:48: the skin Hospita 08 as needed l for mild pain. Remove & Discard patch within 12 hours or as directed by omeprazole 2022-0 2022- No 40mg QD Take 40 mg Methodi (PriLOSEC) 8- 08-[address] 40 MG 08:07: 00:00 daily. Hospita capsule 04 :00 l omeprazole 2022-0 2022- No 40mg QD Take 40 mg Methodi (PriLOSEC) 8- 08-[address] 40 MG 08:07: 00:00 daily. Hospita capsule 04 :00 l omeprazole 2022-0 2022- No 40mg QD Take 40 mg Methodi (PriLOSEC) 8- 08-[address] 40 MG 08:07: 00:00 daily. Hospita capsule 04 :00 l omeprazole 2022-0 2022- No 40mg QD Take 40 mg Methodi (PriLOSEC) 8-02 05-[address] 40 MG 08:07: 00:00 daily. Hospita capsule 04 :00 l amIODarone 2022-0 2022- No 200mg QD Take 200 M ethodi (PACERONE) 8-24 08-[address] 200 MG 08:03: 00:00 mouth Hospita tablet 29 :00 daily. l amIODarone 2022-0 2022- No 200mg QD Take 200 M ethodi (PACERONE) 8-24 08-[address] 200 MG 08:03: 00:00 mouth Hospita tablet 29 :00 daily. l amIODarone 2022-0 2022- No 200mg QD Take 200 M ethodi (PACERONE) 8-24 08-[address] 200 MG 08:03: 00:00 mouth Hospita tablet 29 :00 daily. l amIODarone 2022-0 2022- No 200mg QD Take 200 M ethodi (PACERONE) 8-24 08-[address] 200 MG 08:03: 00:00 mouth Hospita tablet 29 :00 daily. l minocycline 2022-0 2022- No 100mg Q.5D Take 1 Me thodi (DYNACIN) 8- 08-[address] 100 MG 00:00: 04:59 (100 mg Hospita tablet 00 :00 total) by l mouth 2 (two) times a day for 5 days. traMADoL 2021-0 2021- [place] [id number] 25mg Q8H Take 0.5 Met hodi (Ultram) 50 8-24 08-[address] mg tablet 00:00: 04:59 (25 mg Hospi ta 00 :00 total) by l mouth every 8 (eight) hours as needed for moderate pain for up to 5 days .acute pain. minocycline 2021-0 2021- No 100mg Q.5D Take 1 Me thodi (DYNACIN) 8-24 08-[address] 100 MG 00:00: 04:59 (100 mg Hospita tablet 00 :00 total) by l mouth 2 (two) times a day for 5 days. traMADoL 2021-0 2021- No [id number] 25mg Q8H Take 0.5 Met hodi (Ultram) 50 8-24 08-[address] mg tablet 00:00: 04:59 (25 mg Hospi ta 00 :00 total) by l mouth every 8 (eight) hours as needed for moderate pain for up to 5 days .acute pain. minocycline 2021-0 2021- No 100mg Q.5D Take 1 Me thodi (DYNACIN) 8-24 08-[address] 100 MG 00:00: 04:59 (100 mg Hospita tablet 00 :00 total) by l mouth 2 (two) times a day for 5 days. traMADoL 2021-0 2021- No [id number] 25mg Q8H Take 0.5 Met hodi (Ultram) 50 8-24 08-[address] mg tablet 00:00: 04:59 (25 mg Hospi ta 00 :00 total) by l mouth every 8 (eight) hours as needed for moderate pain for up to 5 days .acute pain. minocycline 2021-0 2021- No 100mg Q.5D Take 1 Me thodi (DYNACIN) 8-24 08-[address] 100 MG 00:00: 04:59 (100 mg Hospita tablet 00 :00 total) by l mouth 2 (two) times a day for 5 days. traMADoL 2021-0 2021- [place] [id number] 25mg Q8H Take 0.5 Met hodi (Ultram) 50 8-24 08-[address] mg tablet 00:00: 04:59 (25 mg Hospi ta 00 :00 total) by l mouth every 8 (eight) hours as needed for moderate pain for up to 5 days .acute pain. traMADoL 2021- [place] [id number] 50mg Q8H Take 1 Metho di (Ultram) 50 8-24 08-24 tablet (50 s t mg tablet 00:00: 00:00 mg total) Ho spita 00 :00 by mouth l every 8 (eight) hours as needed for moderate pain for up to 5 days .acute pain. traMADoL 2021- [place] [id number] 50mg Q8H Take 1 Metho di (Ultram) 50 8-24 08-24 tablet (50 s t mg tablet 00:00: 00:00 mg total) Ho spita 00 :00 by mouth l every 8 (eight) hours as needed for moderate pain for up to 5 days .acute pain. traMADoL 2021- [place] [id number] 50mg Q8H Take 1 Metho di (Ultram) 50 8-24 08-24 tablet (50 s t mg tablet 00:00: 00:00 mg total) Ho spita 00 :00 by mouth l every 8 (eight) hours as needed for moderate pain for up to 5 days .acute pain. traMADoL 2021- [place] [id number] 50mg Q8H Take 1 Metho di (Ultram) 50 8-24 08-24 tablet (50 s t mg tablet 00:00: 00:00 mg total) Ho spita 00 :00 by mouth l every 8 (eight) hours as needed for moderate pain for up to 5 days .acute pain. potassium Yes 20meq Take 1 [facility] chloride SA 5-12 Tablet by Col lege (K-DUR, 00:00: mouth. of KLOR-CON 00 Medicin M20) 20 MEQ e tablet hydrOXYzine Yes 25mg Take 1 [facility] (ATARAX) 25 5-12 Tablet by Col lege MG tablet 00:00: mouth. of 00 Medicin e gabapentin Yes 1 capsule [facility] (NEURONTIN) 5-12 College 400 MG 00:00: of capsule 00 Medicin e levothyroxi Yes [id number] Take one Univers ne 50 mcg 9-10 tablet ity of tablet 00:00: [place] 00 through Medical Saturday Branch only. Do NOT take on Saturday and saturday levothyroxi Yes [id number] Take one Univers ne 50 mcg 9-10 tablet ity of tablet 00:00: Saturday through Saturday Branch only. Do NOT take on Saturday and saturday Triamcinolo Triamcinolo Yes Kourtney 1 Common ne ne 9-20 Millender applicatio Spir it Acetonide Acetonide 00:00: n to - C HI 00 affected [facility] Triamcinolo No 1{appli Triamcinol ne ne 9-20 cation_ one Acetonide Acetonide 00:00: to_affe Acetonide 0.1 % 0.1 % 00 cted_ar 0.1 % ea} levothyroxi Yes [id number] Take one Univers ne 50 mcg 9-04 tablet ity of tablet 00:00: Saturday through Saturday Branch only. Do NOT take on Saturday and saturday levothyroxi Yes [id number] Take one Univers ne 50 mcg 9-04 tablet ity of tablet 00:00: Saturday through Saturday Branch only. Do NOT take on Saturday and saturday levothyroxi Yes [id number] Take one Univers ne 50 mcg 9-04 tablet ity of tablet 00:00: Saturday through Saturday Branch only. Do NOT take on Saturday and saturday levothyroxi 2020- No [id number] Take one Univers ne 50 mcg 9-04 09-10 tablet ity of tablet 00:00: 00:00 Saturday 00 :00 through Saturday Branch only. Do NOT take on Saturday and saturday MAGNESIUM Yes 1{tbl} Take 1 Univ ers CHLORIDE 8-30 tablet by ity of (SLOW-MAG 14:54: mouth. [place] ORAL) [address] [place] [address] lidocaine 5 Yes 1{patch Apply 1 Univers % (700 8-30 } Patch to ity of mg/patch) 14:54: skin. [place] patch [address] [place] [address] Multivit-Mi Yes 1{tbl} Take 1 Un viviane neral-Iron- 8-30 tablet by ity of Lutein 14:54: mouth. [place] ([address] WOMEN'S) Tab apixaban Yes Take by Univer s 2.5 mg 8-30 mouth. ity of tablet 14:54: [address] calcium Yes 1{tbl} Take 1 Univer s carbonate-v 8-30 tablet by ity of itamin D3 14:54: mouth. [place] (CALTRATE 23 Medical 600 + D) Branch 600 mg (1,500 mg)-800 unit per tablet MAGNESIUM Yes 1{tbl} Take 1 Univ ers CHLORIDE 8-30 tablet by ity of (SLOW-MAG 14:54: mouth. [place] ORAL) [address] [place] [address] lidocaine 5 Yes 1{patch Apply 1 Univers % (700 8-30 } Patch to ity of mg/patch) 14:54: skin. [place] patch [address] [place] [address] Multivit-Mi Yes 1{tbl} Take 1 Un viviane neral-Iron- 8-30 tablet by ity of Lutein 14:54: mouth. [place] ([address] WOMENS) Tab apixaban Yes Take by Univer s 2.5 mg 8-30 mouth. ity of tablet 14:54: [address] calcium Yes 1{tbl} Take 1 Univer s carbonate-v 8-30 tablet by ity of itamin D3 14:54: mouth. [place] (CALTRATE 23 Medical 600 + D) Branch 600 mg (1,500 mg)-800 unit per tablet MAGNESIUM Yes 1{tbl} Take 1 Univ ers CHLORIDE 8-30 tablet by ity of (SLOW-MAG 14:54: mouth. [place] ORAL) [address] [place] [address] lidocaine 5 Yes 1{patch Apply 1 Univers % (700 8-30 } Patch to ity of mg/patch) 14:54: skin. [place] patch [address] [place] [address] Multivit-Mi Yes 1{tbl} Take 1 Un viviane neral-Iron- 8-30 tablet by ity of Lutein 14:54: mouth. [place] ([address] WOMENS) Tab apixaban Yes Take by Univer s 2.5 mg 8-30 mouth. ity of tablet 14:54: [address] calcium Yes 1{tbl} Take 1 Univer s carbonate-v 8-30 tablet by ity of itamin D3 14:54: mouth. [place] (CALTRATE 23 Medical 600 + D) Branch [...] tablet by ity of Lutein 14:54: mouth. [place] ([address] SILVER [place] ULTRA WOMEN'S) Tab apixaban Yes Take by Univer s 2.5 mg 8-30 mouth. ity of tablet 14:54: [address] calcium Yes 1{tbl} Take 1 Univer s carbonate-v 8-30 tablet by ity of itamin D3 14:54: mouth. [place] (CALTRATE 23 Medical 600 + D) Branch 600 mg (1,500 mg)-800 unit per tablet MAGNESIUM Yes 1{tbl} Take 1 Univ ers CHLORIDE 8-30 tablet by ity of (SLOW-MAG 14:54: mouth. [place] ORAL) Medical [place] lidocaine 5 Yes 1{patch Apply 1 Univers % (700 8-30 } Patch to ity of mg/patch) 14:54: skin. [place] patch Medical [place] Multivit-Mi Yes 1{tbl} Take 1 Un viviane neral-Iron- 8-30 tablet by ity of Lutein 14:54: mouth. [place] ([facility] 23 Medical SILVER [place] ULTRA WOMEN'S) Tab apixaban 2018-0 Yes Take by Univer s 2.5 mg 8-30 mouth. ity of tablet 14:54: [address] calcium 2018- Yes 1{tbl} Take 1 Univer s carbonate-v 8-30 tablet by ity of itamin D3 14:54: mouth. [place] (CALTRATE 23 Medical 600 + D) Branch 600 mg (1,500 mg)-800 unit per tablet apixaban 2019-0 Yes Take by Univer s 2.5 mg 8-30 mouth. ity of tablet 09:54: [address] calcium Yes 1{tbl} Take 1 Univer s carbonate-v 8-30 tablet by ity of itamin D3 09:54: mouth. [place] (CALTRATE 23 Medical 600 + D) Branch 600 mg (1,500 mg)-800 unit per tablet MAGNESIUM Yes 1{tbl} Take 1 Univ ers CHLORIDE 8-30 tablet by ity of (SLOW-MAG 09:54: mouth. [place] ORAL) [address] [place] [address] lidocaine 5 Yes 1{patch Apply 1 Univers % (700 8-30 } Patch to ity of mg/patch) 09:54: skin. [place] patch [address] [place] [address] Multivit-Mi Yes 1{tbl} Take 1 Un viviane neral-Iron- 8-30 tablet by ity of Lutein 09:54: mouth. [place] ([address] ULTRA WOMEN'S) Tab apixaban Yes Take by Univer s 2.5 mg 8-30 mouth. ity of tablet 09:54: [address] calcium Yes 1{tbl} Take 1 Univer s carbonate-v 8-30 tablet by ity of itamin D3 09:54: mouth. [place] (CALTRATE 23 Medical 600 + D) Branch 600 mg (1,500 mg)-800 unit per tablet MAGNESIUM Yes 1{tbl} Take 1 Univ ers CHLORIDE 8-30 tablet by ity of (SLOW-MAG 09:54: mouth. [place] ORAL) [address] [place] [address] lidocaine 5 Yes 1{patch Apply 1 Univers % (700 8-30 } Patch to ity of mg/patch) 09:54: skin. [place] patch [address] [place] [address] Multivit-Mi Yes 1{tbl} Take 1 Un viviane neral-Iron- 8-30 tablet by ity of Lutein 09:54: mouth. [place] ([address] ULTRA WOMEN'S) Tab levothyroxi Yes [id number] Take one Univers ne 50 mcg 8-30 tablet ity of tablet 00:00: Saturday [place] 00 through Medical Saturday Branch only. Do NOT take on Saturday and saturday levothyroxi Yes [id number] Take one Univers ne 50 mcg 8-30 tablet ity of tablet 00:00: Saturday 00 through Saturday Branch only. Do NOT take on Saturday and saturday levothyroxi 2020- No [id number] Take one Univers ne 50 mcg 8-30 09-04 tablet ity of tablet 00:00: 00:00 Saturday 00 :00 through Saturday Branch only. Do NOT take on Saturday and saturday levothyroxi 2020- No [id number] Take one Univers ne 50 mcg 8-30 09-04 tablet ity of tablet 00:00: 00:00 Saturday 00 :00 through Saturday Branch only. Do NOT take on Saturday and saturday Atorvastati Atorvastati Yes Kourtney 1 tablet Common n Calcium n Calcium 6-27 [facility] 00:00: - [facility] levothyroxi Yes [id number] Take one Univers ne 50 mcg 8-20 tablet ity of tablet 00:00: Saturday through Saturday Branch only. Do NOT take on Saturday and saturday calcium Yes 1{tbl} Take 1 Univer s carbonate-v 1-24 tablet by ity of itamin D3 17:07: mouth. [place] (CALTRATE 23 Medical 600 + D) Branch 600 mg (1,500 mg)-800 unit per tablet MAGNESIUM Yes 1{tbl} Take 1 Univ ers CHLORIDE 1-24 tablet by ity of (SLOW-MAG 17:07: mouth. [place] ORAL) Medical Branch lidocaine 5 Yes 1{patch Apply 1 Univers % (700 1-24 } Patch to ity of mg/patch) 17:07: skin. [place] patch 23 Medical Branch Multivit-Mi Yes 1{tbl} Take 1 Un viviane neral-Iron- 1-24 tablet by ity of Lutein 17:07: mouth. [place] (CENTRUM 23 Medical [place] Branch ULTRA WOMEN'S) Tab apixaban Yes Take by Univer s 2.5 mg 1-24 mouth. ity of tablet 17:07: [place] 22 Medical Branch furosemide 2016- Yes TK 1 T PO Un viviane 20 mg 1-11 BID ity of tablet 00:00: [place] 00 Medical Branch furosemide 2017-0 Yes TK 1 T PO Un viviane 20 mg 1-11 BID ity of tablet 00:00: [place] [facility] furosemide 2017- Yes TK 1 T PO Un viviane 20 mg 1-11 BID ity of tablet 00:00: [place] [facility] furosemide 2017 Yes TK 1 T PO Un viviane 20 mg 1-11 BID ity of tablet 00:00: [place] [facility] furosemide 2017- Yes TK 1 T PO Un viviane 20 mg 1-11 BID ity of tablet 00:00: [place] [facility] furosemide 2017 Yes TK 1 T PO Un viviane 20 mg 1-11 BID ity of tablet 00:00: [place] [facility] furosemide 2017 Yes TK 1 T PO Un viviane 20 mg 1-11 BID ity of tablet 00:00: [place] [facility] furosemide 2017 Yes TK 1 T PO Un viviane 20 mg 1-11 BID ity of tablet 00:00: [place] [facility] omeprazole 2017- Yes TK 1 C PO Un viviane 20 mg 1-04 QD ity of capsule 00:00: [place] [facility] omeprazole 2017- Yes TK 1 C PO Un viviane 20 mg 1-04 QD ity of capsule 00:00: [place] [facility] omeprazole 2017- Yes TK 1 C PO Un viviane 20 mg 1-04 QD ity of capsule 00:00: [place] [facility] omeprazole 2017- Yes TK 1 C PO Un viviane 20 mg 1-04 QD ity of capsule 00:00: [place] [facility] omeprazole 2017- Yes TK 1 C PO Un viviane 20 mg 1-04 QD ity of capsule 00:00: [place] [facility] omeprazole 2017-0 Yes TK 1 C PO Un viviane 20 mg 1-04 QD ity of capsule 00:00: [place] [facility] omeprazole 2017- Yes TK 1 C PO Un viviane 20 mg 1-04 QD ity of capsule 00:00: [place] [facility] omeprazole 2017- Yes TK 1 C PO Un viviane 20 mg 1-04 QD ity of capsule 00:00: [place] [facility] doxazosin 1 2015-09 Yes TK 1 T PO U nivers mg tablet -23 QHS ity of 00:00: [place] [facility] doxazosin 1 2015-09 Yes TK 1 T PO U nivers mg tablet 1-23 QHS ity of 00:00: [place] [facility] doxazosin 1 2015-09 Yes TK 1 T PO U nivers mg tablet 10-01 QHS ity of 00:00: [place] [facility] doxazosin 1 2015-09 Yes TK 1 T PO U nivers mg tablet 10-01 QHS ity of 00:00: [place] [facility] doxazosin 1 2015-09 Yes TK 1 T PO U nivers mg tablet 10-01 QHS ity of 00:00: [place] [facility] doxazosin 1 2015-09 Yes TK 1 T PO U nivers mg tablet 10-01 QHS ity of 00:00: [place] [facility] doxazosin 1 2015-09 Yes TK 1 T PO U nivers mg tablet 10-01 QHS ity of 00:00: [place] [facility] doxazosin 1 2015-09 Yes TK 1 T PO U nivers mg tablet 10-01 QHS ity of 00:00: [address] Gabapentin Gabapentin Yes Kourtney 1 capsule Common [facility] Levothyroxi Levothyroxi Yes Kourtney 1 tablet Common ne Sodium ne Sodium Millender on an [facility] empty [facility] stomach in [facility] Omeprazole Omeprazole Yes Kourtney 1 capsule Common [facility] Eliquis 2.5 Eliquis 2.5 Yes Kourteny 1 tablet Common mg mg Millender [facility] Potassium Potassium Yes Kourtney 1 tablet Common Chloride ER Chloride ER Millender with food [facility] Lasix Lasix Yes Kourtney 1 tablet Common [facility] Cardura Cardura Yes Kourtney 1 tablet Comm on Millender in evening Spir [facility] Atorvastati Atorvastati No 1{table QD Atorvastat n [...] HIGH DOSE FLUZONE HIGH DOSE 2018-08-06 Completed [facility] OVER 65 OVER 65 13:52:00 [facility] Vital Signs Vital Name Observation Time Observation Value Comments Source WEIGHT 2022-11-20 07:09:00 45.723 kg HEIGHT 2022-11-20 07:09:00 147.3 cm WEIGHT 2022-11-15 09:24:00 44.453 kg HEIGHT 2022-11-15 09:24:00 147.3 cm WEIGHT 2022-11-20 07:09:00 45.723 kg HEIGHT 2022-11-20 07:09:00 147.3 cm WEIGHT 2022-11-15 09:24:00 44.453 kg HEIGHT 2022-11-15 09:24:00 147.3 cm WEIGHT 2022-11-20 07:09:00 45.723 kg HEIGHT 2022-11-20 07:09:00 147.3 cm WEIGHT 2022-11-15 09:24:00 44.453 kg HEIGHT 2022-11-15 09:24:00 147.3 cm Systolic blood 2022-11-08 17:40:00 98 mm[Hg] [facility] pressure Medicine Diastolic blood 2022-11-08 17:40:00 65 mm[Hg] [facility] of pressure Medicine Heart rate 2022-11-08 17:40:00 78 /min [facility] Body height 2022-11-08 17:40:00 147.3 cm [facility] Body weight 2022-11-08 17:40:00 [facility] BMI 2022-11-08 17:40:00 20.31 kg/m2 [facility] Systolic blood 2021-05-19 15:00:00 112 mm[Hg] Univer sity of pressure [place] [facility] Diastolic blood 2021-05-19 15:00:00 72 mm[Hg] Unive rsity of pressure [facility] Heart rate 2021-05-19 15:00:00 92 /min [facility] [place] [facility] [place] Body height 2021-05-19 15:00:00 147.3 cm [facility] ty [facility] [place] [facility] [place] Body weight 2021-05-19 15:00:00 53.524 kg [facility]i ty [facility] [place] [facility] BMI 2021-05-19 15:00:00 24.66 kg/m2 Universi ty of [place] [facility] Oxygen saturation in 2021-05-19 15:00:00 95 /min University of Arterial blood by [facility] Pulse oximetry Branch Systolic blood 2020-05-13 15:47:00 167 mm[Hg] Univer sity of pressure [facility] Diastolic blood 2020-05-13 15:47:00 95 mm[Hg] Unive rsity of pressure [facility] Heart rate 2020-05-13 15:37:00 88 /min Universi ty of [facility] Respiratory rate 2020-05-13 15:37:00 19 /min Univ ersity of [facility] Body height 2020-05-13 15:37:00 147.3 cm [facility]i ty [facility] [place] [facility] Body weight 2020-05-13 15:37:00 54.522 kg [facility] [place] [facility] BMI 2020-05-13 15:37:00 25.12 kg/m2 [facility] [place] [facility] Systolic blood 2020-05-13 15:47:00 167 mm[Hg] Univer sity of pressure [facility] Diastolic blood 2020-05-13 15:47:00 95 mm[Hg] Unive rsity of pressure [facility] Heart rate 2020-05-13 15:37:00 88 /min [facility]i ty [facility] [place] [facility] Respiratory rate 2020-05-13 15:37:00 19 /min Univ ersity of [place] [facility] Body height 2020-05-13 15:37:00 147.3 cm [facility] [place] [facility] [place] Body weight 2020-05-13 15:37:00 54.522 kg [facility] [place] [facility] BMI 2020-05-13 15:37:00 25.12 kg/m2 Universi ty of [place] [facility] Systolic blood 2022-11-20 09:41:00 149 mm[Hg] [facility] Diastolic blood 2022-11-20 09:41:00 69 mm[Hg] [facility] Heart rate 2022-11-20 09:41:00 83 /min [facility] Body temperature 2022-11-20 09:41:00 36.83 Mar [facility] Respiratory rate 2022-11-20 09:41:00 18 /min [facility] Oxygen saturation in 2022-11-20 09:41:00 97 /min [facility] Arterial blood by Medical Ce nter Pulse oximetry Systolic blood 2022-11-20 07:09:00 144 mm[Hg] [facility] Diastolic blood 2022-11-20 07:09:00 72 mm[Hg] [facility] Heart rate 2022-11-20 07:09:00 97 /min [facility] Body temperature 2022-11-20 07:09:00 36.67 Mar [facility] Respiratory rate 2022-11-20 07:09:00 16 /min [facility] Oxygen saturation in 2022-11-20 07:09:00 99 /min [facility] Arterial blood by Medical Ce nter Pulse oximetry Body height 2022-11-20 07:09:[address] [facility] Body weight 2022-11-20 07:09:[address] [facility] BMI 2022-11-20 07:09:00 21.07 kg/m2 [facility] Systolic blood 2022-05-02 16:30:00 151 mm[Hg] [facility] Diastolic blood 2022-05-02 16:30:00 73 mm[Hg] [facility] pressure Heart rate 2022-05-02 16:30:00 69 /min [facility] Respiratory rate 2022-05-02 16:30:00 18 /min [facility] Oxygen saturation in 2022-05-02 16:30:00 97 /min [facility] Arterial blood by Pulse oximetry Body temperature 2022-05-02 14:45:00 35.94 Mar [facility] Body height 2022-05-02 12:53:00 147.3 cm [facility] Body weight 2022-05-02 12:53:00 46.766 kg [facility] BMI 2022-05-02 12:53:00 21.55 kg/m2 [facility] Procedures Procedure Date / Time Performing Clinician Source Performed REPORT OF PROCEDURE - 2022-11-20 09:07:25 [facility] ENDOSCOPY URL Center ESOPHAGOGASTRODUODENOSCO 2022-11-20 08:02:00 [facility]sein[facility], WITH ENDOSCOPIC US Center ULTRASOUND, UPPER GI 2022-11-20 08:02[facility] FINE NEEDLE ASPIRATION ESOPHAGOGASTRODUODENOSCO 2022-11-20 08:[facility], WITH ENDOSCOPIC US Center ULTRASOUND, UPPER GI 2022-11-20 08:00[facility] FINE NEEDLE ASPIRATION PHYSICIAN ORDERS 2022-05-19 05:01:00 Doctor Unassigned, No Unive [facility] ECG PRE/POST OP 2022-05-02 14:54:57 Freida [facility]ital EP REMOVE REPLACE 2022-05-02 14:20:26 [facility] PACEMAKER GENERATOR DUAL TYPE AND SCREEN 2022-05-02 12:36:00 Freida Bo[facility]ie spital ECG PRE/POST OP 2022-05-02 11:22:13 Freida Boogie spital COVID-19 QUALITATIVE 2022-04-30 15:28:00 Keagan [facility] RT-PCR COMPREHENSIVE METABOLIC 2022-04-30 15:28:00 [facility] PANEL CBC WITH PLATELET AND 2022-04-30 15:28:00 [facility] DIFFERENTIAL MAGNESIUM LEVEL 2022-04-30 15:28:00 Freida Boogie spital PROTHROMBIN TIME WITH 2022-04-30 15:28:00 [facility] IN[facility] ESTIMATED GFR 2022-04-30 15:28:00 Freida Boogie ASSIGNMENT OF BENEFITS 2021-05-19 14:24:04 Doctor Unassigned, No [facility] ASSIGNMENT OF BENEFITS 2020-05-13 14:44:43 Doctor Unassigned, No [facility] ASSIGNMENT OF BENEFITS 2019-05-08 14:32:08 Doctor Unassigned, No [facility] Plan of Care Planned Activity Planned Date Details Comments Source Future Scheduled 2023-11-[address] [facility] Test 00:00:00 [facility] Screening (12+) [code = Tobacco Cessation Counseling and Screening (12+)] Future Scheduled 2023-11-[address] [facility] Test 00:00:00 [facility] Screening (12+) [code = Tobacco Cessation Counseling and Screening (12+)] Future Scheduled 2023-11-[address] [facility] Test 00:00:00 [facility] Screening (12+) [code = Tobacco Cessation Counseling and Screening (12+)] Future Scheduled 2023-05-[address] [facility] Test 00:00:00 (Season Ended) Medical Cente r [code = INFLUENZA VACCINE (Season Ended)] Future Scheduled 2023-05-[address] [facility] Test 00:00:00 (Season Ended) Medical Cente r [code = INFLUENZA VACCINE (Season Ended)] Future Scheduled 2022-12-14 SHINGLES VACCINES Method ist Test 15:12:11 (1 of 2) [code = Hospital SHINGLES VACCINES (1 of 2)] Future Scheduled 2022-12-14 65+ [facility]NEUMOCOCCAL [facility] Test 15:12:11 VACCINE (2 - PCV) Hospital [code = 65+ PNEUMOCOCCAL VACCINE (2 - PCV)] Future Scheduled 2022-12-14 COVID-19 VACCINE (4 Meth odist Test 15:12:11 - Booster for Hospital Moderna series) [code = COVID-19 VACCINE (4 - Booster for Moderna series)] Future Scheduled 2022-12-14 INFLUENZA VACCINE Method ist Test 15:12:11 [code = INFLUENZA Hospital VACCINE] Future Scheduled 2022-12-14 SHINGLES VACCINES Method ist Test 15:12:11 (1 of 2) [code = Hospital SHINGLES VACCINES (1 of 2)] Future Scheduled 2022-12-14 65+ [facility]UMOCOCCAL [facility] Test 15:12:11 VACCINE (2 - PCV) Hospital [code = 65+ PNEUMOCOCCAL VACCINE (2 - PCV)] Future Scheduled 2022-12-14 COVID-19 VACCINE (4 Meth odist Test 15:12:11 - Booster for Hospital Moderna series) [code = COVID-19 VACCINE (4 - Booster for Moderna series)] Future Scheduled 2022-12-14 INFLUENZA VACCINE Method ist Test 15:12:11 [code = INFLUENZA Hospital VACCINE] Future Scheduled 2022-11-08 COVID-19 Vaccine [facility] Test 14:35:11 (#1) [code = of Medicine COVID-19 Vaccine (#1)] Future Scheduled 2022-11-08 TETANUS SHOT [facility] Julia ege Test 14:35:11 (ADULT) [code = of Medicine TETANUS SHOT (ADULT)] Future Scheduled 2022-11-08 ZOSTER VACCINE (1 [facility] Test 14:35:11 of 2) [code = of Medicine ZOSTER VACCINE (1 of 2)] Future Scheduled 2022-11-08 Fall Screen [code = [employer] Test 14:35:11 Fall Screen] of Medicine Future Scheduled 2022-11-08 Screening for Dat Col lege Test 14:35:11 osteoporosis of Medicine (procedure) [code = [id number]] Future Scheduled 2022-11-08 Pneumococcal 65+ (1 [employer] Test 14:35:11 - PCV) [code = of Medicine Pneumococcal 65+ (1 - PCV)] Future Scheduled 2022-11-08 FLU VACCINE > 6 [facility] C [facility] Test 14:35:11 MONTHS [code = FLU of Medici ne VACCINE > 6 MONTHS] Future Scheduled 2022-11-08 Medicare IPPE [facility] Col [facility]ge Test 14:35:11 (Welcome to of Medicine Medicare) [code = Medicare IPPE (Welcome to Medicare)] Future Scheduled 2022-11-08 EUS WITH MAC, UPPER 1 Occurrences [facility] Test 11:57:34 WITH FNA [code = starting of Medicine NOCPT] 11/08/2022 until 05/11/2023 Future Scheduled 2022-09-[address] [facility] 00:[facility]:00 SCREENING (12+) Medical Cent er [code = DEPRESSION SCREENING (12+)] Future Scheduled 2022-09-[address] [facility] Test 00:00:00 SCREENING [code = Medical Ce nter FALLS RISK SCREENING] Future Scheduled 2022-09-[address] [facility] 00:[facility]:00 (WELCOME TO Medical Center MEDICARE) [code = Medicare IPPE (WELCOME TO MEDICARE)] Future Scheduled 2022-09-[address] [facility] Test 00:00:00 SCREENING (12+) Medical Cent er [code = DEPRESSION SCREENING (12+)] Future Scheduled 2022-09-[address] [facility] Test 00:00:00 SCREENING [code = Medical Ce nter FALLS RISK SCREENING] Future Scheduled 2022-09-[address] [facility] Test 00:00:00 (WELCOME TO Medical Center MEDICARE) [code = Medicare IPPE (WELCOME TO MEDICARE)] Future Scheduled 2022-09-[address] [facility] Test 00:00:00 SCREENING (12+) Medical Cent er [code = DEPRESSION SCREENING (12+)] Future Scheduled 2022-09-[address] [facility] Test 00:00:00 SCREENING [code = Medical Ce nter FALLS RISK SCREENING] Future Scheduled 2022-09-[address] [facility] 00:[facility]:00 [facility]) [code = Medicare IPPE (WELCOME TO MEDICARE)] Future Scheduled 2022-08-16 HEPATITIS B [facility] [facility] Test 11:53:52 VACCINES (1 of 3 - Hospital 3-dose series) [code = HEPATITIS B VACCINES (1 of 3 - 3-dose series)] Future Scheduled 2022-08-16 SHINGLES VACCINES Method ist Test 11:53:52 (1 of 2) [code = Hospital SHINGLES VACCINES (1 of 2)] Future Scheduled 2022-08-16 65+ [facility]UMOCOCCAL [facility] Test 11:53:52 VACCINE (2 - PCV) Hospital [code = 65+ PNEUMOCOCCAL VACCINE (2 - PCV)] Future Scheduled 2022-08-16 COVID-19 VACCINE (4 Meth [facility]ist Test 11:53:52 - Booster for Hospital Moderna series) [code = COVID-19 VACCINE (4 - Booster for Moderna series)] Future Scheduled 2022-08-16 INFLUENZA VACCINE Method ist Test 11:53:52 [code = INFLUENZA Hospital VACCINE] Future Scheduled 2022-08-16 HEPATITIS B [facility] Test 11:53:52 VACCINES (1 of 3 - Hospital 3-dose series) [code = HEPATITIS B VACCINES (1 of 3 - 3-dose series)] Future Scheduled 2022-08-16 SHINGLES VACCINES Method ist Test 11:53:52 (1 of 2) [code = Hospital SHINGLES VACCINES (1 of 2)] Future Scheduled 2022-08-16 65+ [facility]UMOCOCCAL [facility] Test 11:53:52 VACCINE (2 - PCV) Hospital [code = 65+ PNEUMOCOCCAL VACCINE (2 - PCV)] Future Scheduled 2022-08-16 COVID-19 VACCINE (4 Meth [facility]ist Test 11:53:52 - Booster for Hospital Moderna series) [code = COVID-19 VACCINE (4 - Booster for Moderna series)] Future Scheduled 2022-08-16 INFLUENZA VACCINE Method ist Test 11:53:52 [code = INFLUENZA Hospital VACCINE] Future Scheduled 2022-05-[address] [facility] Test 00:00:00 (#1) [code = Medical Center INFLUENZA VACCINE (#1)] Future Scheduled 2021-10-31 COVID-19 VACCINE ([address] [facility] Test 00:00:00 - Booster for Medical Center Moderna series) [code = COVID-19 VACCINE (4 - Booster for Moderna series)] Future Scheduled 2021-08-25 COVID-19 VACCINE ([address] [facility] Test 00:00:00 - Booster for Medical Center Moderna series) [code = COVID-19 VACCINE (4 - Booster for Moderna series)] Future Scheduled 2021-08-25 COVID-19 VACCINE ([address] [facility] Test 00:00:00 - Booster for Medical Center Moderna series) [code = COVID-19 VACCINE (4 - Booster for Moderna series)] Future Scheduled 2016-05-12 PNEUMOCOCCAL [address]+ [facility] Test 00:00:00 YRS (2 - PCV) [code Medical Center = PNEUMOCOCCAL 65+ YRS (2 - PCV)] Future Scheduled 1984-01-[address] [facility] Test 00:00:00 (1 of 2) [code = Medical [facility] ter SHINGLES VACCINES (1 of 2)] Future Scheduled 1984-01-[address] [facility] Test 00:00:00 (1 of 2) [code = Medical [facility] ter SHINGLES VACCINES (1 of 2)] Future Scheduled 1984-01-[address] [facility] Test 00:00:00 (1 of 2) [code = Medical [facility] ter SHINGLES VACCINES (1 of 2)] Future Scheduled 1953 DTAP/TDAP/TD [facility] 00:[facility]00 VACCINES (1 - Tdap[facility] [code = DTAP/TDAP/TD VACCINES (1 - Tdap)] Future Scheduled 1953 DTAP/TDAP/TD [facility] Test 00:00:00 VACCINES (1 - Tdap) [facility] Center [code = DTAP/TDAP/TD VACCINES (1 - Tdap)] Future Scheduled 1954 DTAP/TDAP/TD [facility] 00:00:00 VACCINES (1 - Tdap) [facility] [code = DTAP/TDAP/TD VACCINES (1 - Tdap)] Encounters Start End Encounter Admission Attending Care Care Encounter Source Date/Time Date/Time Type Type Clinicians Facility Department ID 2021-10-04 Outpatient [place], [facility] [id number] Common 12:16:17 Miriam [id number] [facility] 2021-10-[address] [facility] [id number] Common 12:09:53 [id number] [facility] 2021-10-04 Outpatient Luis, [facility] [id number] Common 11:46:27 Kourtney [id number] [facility] 2022-11-20 2022-11-20 Outpatient [facility] Surgery [id number] [facility] 06:10:00 10:28:00 [facility] 2022-11-20 2022-11-20 [facility] [id number] [facility] 06:10:00 10:28:00 Encounter [facility] 2022-11-20 2022-11-20 [facility] [id number] [facility] 06:10:00 10:28:00 Encounter [facility] 2022-11-20 2022-11-20 Anesthesia Lang, [facility] [id number] [facility] 08:02:00 09:08:00 Event [facility] 2022-11-20 2022-11-20 Anesthesia Fabrice, [facility] [id number] [facility] 08:02:00 09:08:00 Event [facility] 2022-11-20 2022-11-20 Surgery B[place]agar, [facility] [id number] [facility] 08:00:00 09:00:00 [facility] 2022-11-20 2022-11-20 Surgery Hosseinkalee [facility] [id number] 08:00:00 09:00:00 [facility] 2022-11-20 2022-11-20 Outpatient DAVID CONLEY [facility] [id number] [facility] 07:46:05 07:46:05 [facility] Dashawn e of Medicin e 2022-11-20 2022-11-20 Travel [facility] [id number] [facility] 00:[facility] 00:00:00 [facility] 2022-11-20 2022-11-20 Travel [facility] [id number] [facility] 00:[facility]00 00:00:00 [facility] 2022-11-15 2022-11-15 Anesthesia Leelee [facility] [id number] [facility] 23:59:59 23:59:59 Event [facility] 2022-11-15 2022-11-15 [facility] [id number] 08:55:00 08:55:00 Encounter [facility] 2022-11-15 2022-11-15 [facility] [id number] 08:55:00 08:55:00 Encounter [facility] 2022-11-15 2022-11-15 Outpatient [facility] [id number] [facility] 00:00:00 00:00:00 2022-11-15 2022-11-15 Travel [facility] [id number] [facility] 00:[facility]00 00:00:00 [facility] 2022-11-15 2022-11-15 Travel [facility] [id number] [facility] 00:[facility]00 00:00:00 [facility] 2022-11-08 2022-11-08 Office DAVID CONLEY 1.2.840.114 [id number] [facility] 10:16:51 10:16:51 Visit CLOEEN AMBULATOR 350.1.13.21 College Y 0.2.7.2.686 of [id number] [facility] catracho 325 e 2022-05-19 2022-05-19 Orders Doctor MARRY 1.2.840.114 [id number] Univers 00:00:00 00:00:00 Only Unassigned, ANDREE 350.1.13.10 it[place] [facility] 4.2.7.2.686 Osiel as [phone] [facility] jose eduardo [address] 2022-05-02 2022-05-02 [facility] 1.2.840.1 [id number] Methodi 05:42:00 11:47:00 Encounter Nadim 54066.1.[address] 3.430.2.7 Hospit a .3.060413 l .8 2022-05-02 2022-05-02 [facility], 1.2.840.1 [id number] Methodi 05:42:00 11:47:00 Encounter Nadim 72280.1.[address] 3.430.2.7 Hospit a .3.009769 l .8 2022-05-02 2022-05-02 Anesthesia Urmila Bee V. 1.2.840.1 [id number] Methodi 08:11:00 09:47:00 Event Byron Wang 52190.1.[address] 3.430.2.7 Hospit a .3.205374 l .8 2022-05-02 2022-05-02 Anesthesia Urmila Bee V. 1.2.840.1 [id number] Methodi 08:11:00 09:47:00 Event Byron Wang 46397.1.[address] 3.430.2.7 Hospit a .3.949761 l .8 2022-05-02 2022-05-02 Surgery Keagan, 1.2.840.1 [id number] [facility]i 07:30:00 08:50:[address] 3.430.2.7 Hospit a .3.742048 l .8 2022-05-02 2022-05-02 Surgery Keagan, 1.2.840.1 [id number] Methodi 07:30:00 08:50:[address] 3.430.2.7 Hospit a .3.482842 l .8 2022-05-02 2022-05-02 Travel 1.2.840.1 1.2.561.044 [id number] Methodi 00:00:00 00:00:[address] 3.430.2.7 0.2.7.3.698 Ho spita .3.441883 084.8 l .8 2022-05-02 2022-05-02 Travel 1.2.840.1 1.2.054.405 [id number] [id number] Methodi 00:00:00 00:00:[address] 3.430.2.7 0.2.7.3.698 Ho spita .3.008133 084.8 l .8 2022-04-30 2022-04-30 Lab Keagan, 1.2.840.1 [id number] Methodi 10:10:00 10:15:[address] 3.430.2.7 Hospit a .3.706858 l .8 2022-04-30 2022-04-30 Lab Keagan, 1.2.840.1 [id number] Methodi 10:10:00 10:15:[address] 3.430.2.7 Hospit a .3.872007 l .8 2022-04-30 2022-04-30 Travel 1.2.840.1 1.2.790.842 [id number] [id number] Methodi 00:00:00 00:00:[address] 3.430.2.7 0.2.7.3.698 Ho spita .3.013376 084.8 l .8 2022-04-30 2022-04-30 Travel 1.2.840.1 1.2.399.636 [id number] Methodi 00:00:00 00:00:[address] 3.430.2.7 0.2.7.3.698 Ho spita .3.349440 084.8 l .8 2022-04-24 2022-04-24 Community Keagan, 1.2.840.1 [id number] Methodi 00:00:00 00:00:00 Orders Nadim 73978.1.[address] 3.430.2.7 Hospit a .3.692116 l .8 2022-04-24 2022-04-24 Community Keagan, 1.2.840.1 [id number] Methodi 00:00:00 00:00:00 Orders Nadim 80641.1.[address] 3.430.2.7 Hospit a .3.372021 l .8 2021-05-19 2021-05-19 Office Camille [facility] 1.2.873.827 [id number] 09:23:51 10:57:33 Visit Sam Abby 350.1.13.10 agustin velasco of [place] 4.2.7.2.686 Osiel as Nas?Blea [phone] Fl madhu [address] Medical Office Building 2021-05-19 2021-05-19 [facility] [id number] [facility] 09:30:00 09:30:00 SAM rodriguez [facility] 2021-05-19 2021-05-19 Orders Doctor MARRY 1.2.840.114 [id number] Univers 00:00:00 00:00:00 Only Unassigned, ANDREE 350.1.13.10 [place] [facility] 4.2.7.2.686 Osiel as [phone] [address] 2021-05-19 2021-05-19 Orders Doctor MARRY 1.2.840.114 [id number] Univers 00:00:00 00:00:00 Only Unassigned, ANDREE 350.1.13.10 [place] [facility] 4.2.7.2.686 Osiel as [phone] [address] 2020-10-06 2020-10-06 (TEL) STLMLC STLMLC [id number] Co mmon 00:00:00 00:00:00 [facility] 2020-05-29 2020-05-29 Outpatient [facility] [id number] Common 04:21:00 04:21:00 [facility] 2020-05-27 2020-05-27 Outpatient [facility] [id number] Common 13:40:00 13:40:00 [facility] 2020-05-13 2020-05-13 [facility] 1.2.726.340 [id number] 09:45:42 11:15:25 Visit Sam Duarn 350.1.13.10 [place] 4.2.7.2.686 Professio [id number] [address] 2020-05-13 2020-05-13 [facility] 1.2.365.988 [id number] [facility] 09:45:42 11:15:25 Visit Sam Duran 350.1.13.10 [place].2.[place] [id number] Fl dical [address] 2020-05-13 2020-05-13 Outpatient [facility] [id number] Univers 10:00:00 10:00:00 SAM rodriguez [facility] 2020-05-13 2020-05-13 Orders Doctor MARRY 1.2.840.114 [id number] 00:00:00 00:00:00 Only Unassigned, ANDREE 350.1.13.10 [facility] 4.2.7.2.686 [facility] [id number] [facility] [address] 2020-03-06 2020-03-06 Outpatient [facility] [id number] Common 12:25:00 12:25:[address] [facility] 2020-02-25 2020-02-25 Outpatient [facility] [id number] Common 15:20:00 15:20:[address] [facility] 2019-09-25 2019-09-25 Outpatient [facility] [id number] Common 10:40:00 10:40:[address] [facility] 2019-08-17 2019-08-17 Outpatient [facility] 28 [id number] Common 14:07:00 14:07:[address] [facility] 2019-08-17 2019-08-17 Outpatient [facility] [id number] Common 08:20:00 08:20:[address] [facility] 2019-07-17 2019-07-17 Outpatient [facility] [id number] Common 16:20:00 16:20:[address] [facility] 2019-05-08 2019-05-08 Roof [employer] 1, Adc Lab [facility] 1.2.840.114 [id number] [facility] 11:04:20 11:19:20 Visit Sam Obrien 350.1.13.10 ity [facility] 4.2.7.2.686 [facility] [phone] [facility] [address] 2019-05-08 2019-05-08 Orders Doctor TUTTLE 1.2.840.114 [id number] Univers 00:00:00 00:00:00 Only Unassigned, ANDREE 350.1.13.10 [place] [facility] 4.2.7.2.686 Osiel [place] [id number] [place] [address] [address] 2019-03-25 2019-03-25 Outpatient [facility] [id number] Common 12:56:00 12:56:[address] [facility] 2019-03-05 2019-03-05 Outpatient [facility] [id number] Common 09:30:00 09:30:[address] [facility] 2019-03-02 2019-03-02 Outpatient [facility] [id number] Common 11:00:00 11:00:[address] [facility] 2018-12-18 2018-12-18 Outpatient [facility] 25 [id number] Common 09:00:00 09:00:[address] [facility] 2018-10-31 2018-10-31 Outpatient [facility] [id number] Common 12:33:00 12:33:[address] [facility] 2018-09-25 2018-09-25 Outpatient [facility] [id number] Common 09:00:00 09:00:[address] [facility] 2018-03-27 2018-03-27 Outpatient [facility] [id number] Common 10:00:00 10:00:[address] [facility] 2017-12-13 2017-12-13 Outpatient [facility] 13 [id number] Common 16:46:00 16:46:[address] [facility] 2017-12-13 2017-12-13 Outpatient [facility] [id number] Common 14:45:00 14:45:[address] [facility] Results Test Description Test Time [...] rhythm with occa sional premature ventricular complexes- [facility] Pre/Post [id number] 00:16:38 Test Item Value Reference Range Interpretation Comments Ventricular rate (test 74 code = 253) Atrial rate (test code 39 = 255) QRSD interval (test 154 code = 260) QT interval (test code 466 = 264) QTC interval (test code 517 = 265) QRS axis 1 (test code = 179 268) T wave axis (test code 31 = 270) EKG impression (test Ventricular-paced code = 273) rhythm with occasional premature ventricular complexes-Electronical ly Signed By Jake Boogie MD ([id number]) on 05/02/2022 7:16:35 PM [facility] Pre/Post [id number] 00:16:38 Test Item Value Reference Range Interpretation [...] Boogie MD ([id number]) on 05/02/2022 7:16:35 PM [facility] Pre/Post [id number] 00:16:38 Test Item Value Reference Range Interpretation Comments Ventricular rate (test 74 code = 253) Atrial rate (test code 39 = 255) QRSD interval (test 154 code = 260) QT interval (test code 466 = 264) QTC interval (test code 517 = 265) QRS axis 1 (test code = 179 268) T wave axis (test code 31 = 270) EKG impression (test Ventricular-paced code = 273) rhythm with occasional premature ventricular complexes-Electronical ly Signed By Jake Boogie MD ([id number]) on 05/02/2022 7:16:35 PM [facility] [id number] 19:46:47 Test Item Value Reference Interpretation Comments Range Interpretation (test Negative results do not code = 7719013) preclude COVID-19 infection and should not be used asthe sole basis for treatment or other patient management decisions. Negativeresults must be combined with clinical observations, patient history, andepidemiological information. COVID-19 qualitative Not-Detected Not-Detected RT-PCR result (test code = 18763-4) COVID-19 qualitative See link below for PDF Case Number: RT-PCR (test code = Lab Report [id number] 3701 7070) [facility] [id number] 19:46:47 Test Item Value Reference Interpretation Comments Range Interpretation (test Negative results do not code = 0022877) preclude COVID-19 infection and should not be used asthe sole basis for treatment or other patient management decisions. Negativeresults must be combined with clinical observations, patient history, andepidemiological information. COVID-19 qualitative Not-Detected Not-Detected RT-PCR result (test code = 49576-2) COVID-19 qualitative See link below for PDF Case Number: RT-PCR PDF (test Lab Report [id number] 1 code = 7070) [facility] [id number] 19:46:47 Test Item Value Reference Interpretation Comments Range Interpretation (test Negative results do not code = 5930672) preclude COVID-19 infection and should not be used asthe sole basis for treatment or other patient management decisions. Negativeresults must be combined with clinical observations, patient history, andepidemiological information. COVID-19 qualitative Not-Detected Not-Detected RT-PCR result (test code = 50634-3) COVID-19 qualitative See link below for PDF Case Number: RT-PCR (test code = Lab Report [id number] 3701 7070) [facility] [id number] 19:46:47 Test Item Value Reference Interpretation Comments Range Interpretation (test Negative results do not code = 0701128) preclude COVID-19 infection and should not be used asthe sole basis for treatment or other patient management decisions. Negativeresults must be combined with clinical observations, patient history, andepidemiological information. COVID-19 qualitative Not-Detected Not-Detected RT-PCR result (test code = 72446-2) COVID-19 qualitative See link below for PDF Case Number: RT-PCR PDF (test Lab Report [id number] 1 code = 7070) Rolan MahmoodARS-CoV-2 (COVID-19) RNA [Presence] in Respiratory specimen by ROSANNE with probe [id number] 14:46:47 Test Item Value Reference Range Interpretation Comments SARS-CoV-2 (COVID-19) RNA Not detected [Presence] in Respiratory specimen by ROSANNE with probe detection (test code = 85788-6) Whether patient is employed in a Unknown healthcare setting (test code = 67468-7) Whether the patient has symptoms Unknown related to condition of interest (test code = 69075-5) Whether the patient was Unknown hospitalized for condition of interest (test code = 63676-4) Whether the patient was admitted Unknown to intensive care unit (ICU) for condition of interest (test code = 73335-7) Whether patient resides in a Unknown congregate care setting (test code = 48925-2) status (test code = Unknown 02445-3) Date and time of symptom onset Unknown (test code = 72729-5) ERMELINDA DUNNUrine Culture, [id number] 00:00:00 Test Item Value Reference Range Interpretation Comments Urine Culture, Routine (test Final report code = 630-4)
[2022-12-19 10:04] LABS: Hematocrit 32.4 % (36.0-45.0); Lymphocytes % 5.3 % (15.3-44.8); MCV 86.7 fL (80-100); MPV 8.7 fL (7.6-11.3); RBC Red Blood Cell Count 3.74 M/uL (3.86-4.86)
[2022-12-19 10:09] LABS: Protime INR 1.55
[2022-12-19 10:15] LABS: Urine Bilirubin NEGATIVE (Negative); Urine Blood Negative (Negative); Urine Clarity Clear (Clear); Urine Color Light-Yellow (Yellow); Urine Glucose NEGATIVE (Negative); Urine Protein NEGATIVE (Negative); Urine Urobilinogen Normal (Normal)
[2022-12-19 10:28] LABS: Blood Morphology Comment NOT SEEN (NOT SEEN); Platelet Estimate ADEQ
--- NOTE | 2022-12-19 10:57 | RAD REPORT ---
EXAM DESCRIPTION: CT - Head Brain Wo Cont - 12/19/2022 10:07 am CLINICAL HISTORY: ams COMPARISON: Facial Bones W Con Mpr dated 12/15/2022; Ct Stroke Brain Wo Cont dated 08/19/2022 TECHNIQUE: Noncontrast head CT images ad were obtained without IV contrast. Multiplanar reformats we re generated and reviewed. All CT scans are performed using dose optimization technique as appropriate and may include automated exposure control or mA/KV adjustment according to patient size. FINDINGS: No intracranial hemorrhage, mass, or edema. Midline structures are unremarkable. Normal ventricular caliber for age. Tubbs-white matter differentiation is preserved, without evidence of acute infarct. No abnormal extra- axial fluid collections. Mild periventricular and deep white matter subtle hypoattenuation, nonspecific, but most suggestive o f chronic small vessel ischemic changes. Mastoid air cells and visualized portions of the paranasal sinuses are clear. No acute bony findings. IMPRESSION: No evidence of an acute intracranial process.
--- NOTE | 2022-12-19 11:20 | RAD REPORT ---
[facility] DES[facility] CLINICAL HISTORY: ams COMPARISON: Chest Single View dated 08/19/2022; Chest Single View dated 08/16/2022; Chest Pa And Lat (2 Views) dated 02/19/2022; Chest Single View dated 01/16/2020 TECHNIQUE: Portable AP view of the chest. FINDINGS: Patchy central predominant right lung opacities, with some opacities in the medial right l ower lobe as well. No pneumothorax or effusion. The mediastinal contours are unchanged. Stable mild c ardiomegaly. Left chest wall pacer/ AICD in place. . IMPRESSION: Patchy right lung opacities as above, concerning for early pneumonia.
[2022-12-19 11:38] LABS: Troponin High Sensitivity 9.4 pg/mL (<58.9)
[2022-12-19 11:40] LABS: Potassium 4.2 mEq/L (3.5-5.1)
--- NOTE | 2022-12-19 11:46 | EDPHYS ---
Physician Documentation [facility] Name: Suri Lemus Age: 87 yrs Sex: Female : 1935 Arrival Date: 12/19/2022 Time: 09:08 Bed 4 Private MD: Jennifer Kaye C ED Physician Cate Lantigua HPI: 12/19 09:04 This 87 yrs old Female presents to ER via Ambulatory with complaints of Altered Mental jmm Status. 09:04 The patient presents with confusion, dysphasia. Onset: The symptoms/episode jmm began/occurred gradually, 2 day(s) ago. Is an 87-year-old female with history of CVA, hyperlipidemia hypertension the presents emerged from with altered mental status beginning this past Saturday per family. Noticed the patient has had confusion. Yesterday the patient had a dental procedure performed. Today the patient had weakness to the extent she was unable to stand up. Patient was recently admitted for dental abscess and is currently taking amoxicillin. Historical: - Allergies: 09:43 Levaquin; ss 09:43 Lisinopril; ss - PMHx: 09:43 Cerebrovascular accident; CHF; Hyperlipidemia; Hypertension; neuropathy; Pacemaker; ss - PSHx: 09:43 pacemaker; ss - Immunization history:: Client reports receiving the 2nd dose of the Covid vaccine. - Social history:: Smoking status: Patient denies any tobacco usage or history of. ROS: 09:04 Constitutional: Positive for fatigue. jmm 09:04 Neuro: Positive for altered mental status. 09:04 All other systems are negative. Exam: 09:04 Constitutional: This is a well developed, well nourished patient who is awake, alert, jmm and in no acute distress. Head/Face: atraumatic. Eyes: EOMI, no conjunctival erythema appreciated ENT: Moist Mucus Membranes Neck: Trachea midline, Supple Chest/axilla: Normal chest wall appearance and motion. Cardiovascular: Regular rate and rhythm. No edema appreciated Respiratory: Normal respirations, no respiratory distress appreciated Abdomen/GI: Non distended Back: Normal ROM Skin: General appearance color normal 09:04 Musculoskeletal/extremity: ROM: intact in all extremities. 09:04 Skin: Appearance: Color: normal in color. 09:04 Neuro: Motor: is normal. Vital Signs: 09:39 BP 119 / 70; Pulse 73; Resp 17; Temp 99.3(TE); Pulse Ox 99% on R/A; Height 4 ft. 10 in. ss ; Pain 0/10; 11:03 BP 128 / 60; Pulse 70; Resp 22; Pulse Ox 97% on R/A; ld1 12:00 BP 110 / 56; Pulse 70; Resp 14; Pulse Ox 98% on R/A; ld1 13:00 BP 108 / 59; Pulse 70; Resp 16; Pulse Ox 97% on R/A; ld1 14:00 BP 124 / 61; Pulse 70; Resp 16; Pulse Ox 96% on R/A; ld1 15:00 BP 130 / 60; Pulse 71; Resp 17; Pulse Ox 97% on R/A; ld1 15:38 BP 127 / 61; Pulse 70; Resp 16; Pulse Ox 97% ; ld1 09:39 Pain Scale: Adult ss MDM: 09:34 Patient medically screened. [facility] 11:54 Differential Diagnosis: CVA, electrolyte abnormality, pneumonia, sepsis, UTI, volume jmm depletion. Data reviewed: vital signs, nurses notes, lab test result(s). Consideration of Admission/Observation Patient was admitted/placed on observation. Management of patient was discussed with the following: Dr. Kaye. I considered the following discharge prescriptions or medication management in the emergency department Medications were administered in the Emergency Department. See MAR. Historians other than the Patient: Family. Counseling: I had a detailed discussion with the patient and/or guardian regarding: the historical points, exam findings, and any diagnostic results supporting the discharge/admit diagnosis, lab results, radiology results, the need for further work-up and treatment in the hospital. 17:17 ED course: A) Source Pneumonia B) SIRS Met with leukocytosis and ams changes C) Creat jmm greater than 2. Meets criteria for severe sepsis. Does not qualify for septic shock. . 12/19 09:34 Order name: Basic Metabolic Panel; Complete Time: 11:41 [facility] 12/19 09:34 Order name: CBC with Diff; Complete Time: 10:29 [facility] 12/19 09:34 Order name: Troponin HS; Complete Time: 11:41 [facility] 12/19 09:34 Order name: Lactate w/ 2H reflex if indic.; Complete Time: 10:25 [facility] 12/19 09:34 Order name: Blood Culture Adult (2) [facility] 12/19 09:34 Order name: PT-INR; Complete Time: 10:10 [facility] 12/19 09:35 Order name: Urinalysis w/ reflexes; Complete Time: 10:18 [facility] 12/19 10:28 Order name: Manual Differential; Complete Time: 10:29 [facility] 12/19 12:05 Order name: Basic Metabolic Panel [facility] 12/19 12:05 Order name: Basic Metabolic Panel [facility] 12/19 12:05 Order name: CBC with Automated Diff [facility] 12/19 12:05 Order name: CBC with Automated Diff [facility] 12/19 09:34 Order name: XRAY Chest (1 view); Complete Time: 11:22 [facility] 12/19 09:35 Order name: CT Head Brain wo Cont; Complete Time: 10:58 [facility] 12/19 09:34 Order name: EKG; Complete Time: 09:35 [facility] 12/19 09:34 Order name: Cardiac monitoring; Complete Time: 09:48 [facility] 12/19 09:34 Order name: EKG - Nurse/Tech; Complete Time: 09:48 [facility] 12/19 09:34 Order name: IV Saline Lock; Complete Time: 09:48 [facility] 12/19 09:34 Order name: Labs collected and sent; Complete Time: 09:48 [facility] 12/19 09:34 Order name: O2 Per Protocol; Complete Time: 09:48 [facility] 12/19 09:34 Order name: O2 Sat Monitoring; Complete Time: 09:48 [facility] Administered Medications: 11:50 Not Given (Duplicate Order): Rocephin IV 1 grams IV at calculated rate once; Given slow [facility] IV push per pharmacy instructions 11:50 Not Given (Duplicate Order): Zithromax IVPB 500 mg IVPB once over 1 hrs; mix in 250 mL [facility] NS 12:08 Drug: NS 0.9% IV 500 ml Route: IV; Rate: bolus; Site: left antecubital; ld1 12:08 Drug: Cefepime IVPB 1 grams Route: IVPB; Rate: 200 ml/hr; Infused Over: 30 mins; Site: ld1 right antecubital; 12:40 Drug: doxycycline 100 mg Route: IVP; Site: right antecubital; ld1 Disposition Summary: 12/19/22 11:45 Hospitalization Ordered Hospitalization Status: Inpatient Admission [facility] Provider: Jennifer Kaye Location: Telemetry/MedSurg (Inpatient) jmm Condition: Stable jmm Problem: new jmm Symptoms: are unchanged jmm Bed/Room Type: Standard [facility] Room Assignment: 408(12/19/22 16:56) ashley Diagnosis - Pneumonia jmm - Altered mental status jmm - Dehydration jmm Forms: - Medication Reconciliation Form jmm - SBAR form jmm Signatures: Dispatcher [employer] EDAK Jet Zheng PA PA jmm Sujata Sullivan, RN RN Santino Marion RN RN ja1 Geovanna Ventura RN RN ld1 Corrections: (The following items were deleted from the chart) 11:22 09:40 Brain Wo Cont+MRI.RAD.BRZ ordered. EDAK EDAK 16:56 11:45 jovanni ramirez
--- NOTE | 2022-12-19 11:46 | ER ---
Nurse's Notes [facility] [place] Name: Suri Lemus Age: 87 yrs Sex: Female : 1935 Arrival Date: 12/19/2022 Time: 09:08 Bed 4 Private MD: Jennifer Kaye C Diagnosis: Pneumonia;Altered mental status;Dehydration Presentation: 12/19 09:39 Chief complaint: Patient states: AMS, increased weakness that began last night and is ss worse today. Pt recently in hospital over the weekend, and had a dental abscess drained and root canal performed. Family is worried that patient may be becoming septic. Coronavirus screen: Client denies travel out of the [place] in the last 14 days. Ebola Screen: Patient denies exposure to infectious person. Patient denies travel to an Ebola-affected area in the 21 days before illness onset. Initial Sepsis Screen: Does the patient meet any 2 criteria? No. Patient's initial sepsis screen is negative. Does the patient have a suspected source of infection? No. Patient's initial sepsis screen is negative. Risk Assessment: Do you want to hurt yourself or someone else? Patient reports no desire to harm self or others. Onset of symptoms was December 18, 2022. 09:39 Method Of Arrival: Ambulatory ss 09:39 Acuity: TAQUERIA 2 ss Historical: - Allergies: 09:43 Levaquin; ss 09:43 Lisinopril; ss - PMHx: 09:43 Cerebrovascular accident; CHF; Hyperlipidemia; Hypertension; neuropathy; Pacemaker; ss - PSHx: 09:43 pacemaker; ss - Immunization history:: Client reports receiving the 2nd dose of the Covid vaccine. - Social history:: Smoking status: Patient denies any tobacco usage or history of. Screenin:02 [facility] ED Fall Risk Assessment (Adult) History of falling in the last 3 months, ld1 including since admission No falls in past 3 months (0 pts). Abuse screen: Denies threats or abuse. Denies injuries from another. Nutritional screening: No deficits noted. Tuberculosis screening: No symptoms or risk factors identified. Assessment: 10:02 General: Appears in no apparent distress. comfortable, Behavior is calm, cooperative, ld1 appropriate for age. Pain: Denies pain. Neuro: Level of Consciousness is awake, alert, obeys commands, Oriented to person, place, time, situation, Appropriate for age. Cardiovascular: Capillary refill < 3 seconds Patient's skin is warm and dry. Rhythm is sinus rhythm. Respiratory: Airway is patent Respiratory effort is even, unlabored. GI: Abdomen is flat, non-distended. : No signs and/or symptoms were reported regarding the genitourinary system. EENT: No signs and/or symptoms were reported regarding the EENT system. Derm: No signs and/or symptoms reported regarding the dermatologic system. Musculoskeletal: No signs and/or symptoms reported regarding the musculoskeletal system. 11:30 Reassessment: Patient appears in no apparent distress at this time. Patient and/or ld1 family updated on plan of care and expected duration. Pain level reassessed. Patient states symptoms have not improved. 12:30 Reassessment: Patient appears in no apparent distress at this time. Patient and/or ld1 family updated on plan of care and expected duration. Pain level reassessed. Patient states symptoms have not improved. 13:30 Reassessment: No changes from previously documented assessment. Pt resting in bed with ld1 family at bedside. Denies concerns at this time. Patient states symptoms have not improved. Vital Signs: 09:39 BP 119 / 70; Pulse 73; Resp 17; Temp 99.3(TE); Pulse Ox 99% on R/A; Height 4 ft. 10 in. ss ; Pain 0/10; 11:03 BP 128 / 60; Pulse 70; Resp 22; Pulse Ox 97% on R/A; ld1 12:00 BP 110 / 56; Pulse 70; Resp 14; Pulse Ox 98% on R/A; ld1 13:00 BP 108 / 59; Pulse 70; Resp 16; Pulse Ox 97% on R/A; ld1 14:00 BP 124 / 61; Pulse 70; Resp 16; Pulse Ox 96% on R/A; ld1 15:00 BP 130 / 60; Pulse 71; Resp 17; Pulse Ox 97% on R/A; ld1 15:38 BP 127 / 61; Pulse 70; Resp 16; Pulse Ox 97% ; ld1 09:39 Pain Scale: Adult ss ED Course: 09:08 Patient arrived in ED. rg4 09:08 Gunnar Erazo MD is Private Physician. rg4 09:08 Jennifer Kaye MD is Private Physician. rg4 09:32 Cate Lantigua MD is Attending Physician. sp3 09:33 Jet Zheng PA is PHCP. jmm 09:40 Missed attempt(s): 20 gauge in right antecubital area. bc6 09:43 Triage completed. ss 09:43 Arm band placed on left wrist. ss 09:52 Radiology exam delayed due to. ls3 10:02 Geovanna Ventura, RN is Primary Nurse. ld1 10:02 Patient has correct armband on for positive identification. Placed in gown. Bed in low ld1 position. Call light in reach. Side rails up X2. ekg monitor tech on. Pulse ox on. NIBP on. Door closed. Noise minimized. Warm blanket given. 10:02 Inserted saline lock: 20 gauge in right forearm, using aseptic technique. bc6 10:02 No provider procedures requiring assistance completed. ld1 10:04 Patient is placed in psych hold. Cleaned of incontinence. ld1 10:04 Blood Culture Adult (2) Sent. ld1 10:04 Lactate w/ 2H reflex if indic. Sent. ld1 10:04 Straight cath inserted, using sterile technique, Specimen obtained. Patient tolerated ld1 well. 10:08 CT Head Brain wo Cont In Process Unspecified. EDMS 10:19 XRAY Chest (1 view) In Process Unspecified. EDMS 11:45 Jennifer Kaye MD is Hospitalizing Provider. m 17:32 Patient admitted, IV remains in place. ld1 Administered Medications: 11:50 Not Given (Duplicate Order): Rocephin IV 1 grams IV at calculated rate once; Given slow [facility] IV push per pharmacy instructions 11:50 Not Given (Duplicate Order): Zithromax IVPB 500 mg IVPB once over 1 hrs; mix in 250 mL [facility] NS 12:08 Drug: NS 0.9% IV 500 ml Route: IV; Rate: bolus; Site: left antecubital; ld1 12:08 Drug: Cefepime IVPB 1 grams Route: IVPB; Rate: 200 ml/hr; Infused Over: 30 mins; Site: ld1 right antecubital; 12:40 Drug: doxycycline 100 mg Route: IVP; Site: right antecubital; ld1 Medication: 10:02 VIS not applicable for this client. ld1 Outcome: 11:45 Decision to Hospitalize by Provider. jmm 17:31 Admitted to Med/surg accompanied by nicola via wheelchair, room 408. ld1 17:31 Condition: stable 17:31 Instructed on the need for admit. 17:36 Patient left the ED. ld1 Signatures: Dispatcher [employer] EDMS Jet Zheng PA PA jmm Smirch, Shelby, ANT RN Adela Mccarthy rg4 Dejan Núñez ls3 Geovanna Ventura RN RN ld1 Cate Lantigua MD MD sp3 Jillian Villasenor 6
[2022-12-19] MEDS ORDERED: CEFTRIAXONE 1000 MG/VIAL ONE (11:53)
[2022-12-19] MEDS ORDERED: AZITHROMYCIN 500 MG INJ IVPB ONE (11:53)
[2022-12-19] MEDS ORDERED: NA CHLORIDE 0.9% 250 ML ONE (11:53)
[2022-12-19] MEDS ORDERED: NA CHLORIDE 0.9% 500 ML ONE (11:54)
[2022-12-19] MEDS ORDERED: CEFEPIME 1 GM/VIAL ONE (12:00)
[2022-12-19] MEDS ORDERED: ONDANSETRON 4 MG/2 ML VIAL IV PRN (12:00)
[2022-12-19] MEDS: NA CHLORIDE 0.9% 1,000 ML IV SCH ×2 (12:00→18:07)
[2022-12-19] MEDS ORDERED: NA CHLORIDE 0.9% 0 ML ONE (12:00)
[2022-12-19] MEDS ORDERED: ACETAMINOPHEN 500 MG TAB PO PRN (12:00)
[2022-12-19] MEDS ORDERED: DOXYCYCLINE 100 MG in NA CHLORIDE 0.9% 100 ML IVPB ONE (12:00)
[2022-12-19] MEDS ORDERED: NA CHLORIDE 0.9% 1,000 ML ONE (17:05)
[2022-12-19] MEDS ORDERED: NA CHLORIDE 0.9% 100 ML ONE (19:40)
[2022-12-19] MEDS ORDERED: DOXYCYCLINE HYCLATE 100MG INJ ONE (19:59)
[2022-12-19] MEDS: DOXYCYCLINE 100 MG in NA CHLORIDE 0.9% 100 ML IVPB SCH (20:02)
[2022-12-19] MEDS ORDERED: CHOLESTYRAMINE/ASP 4 GM/PKT PO SCH (23:00)
--- NOTE | 2022-12-19 23:14 | HP ---
Date of Admission: 12/19/2022 Chief Complaint: Feeling weak, altered mental status. History Of Present Illness: This is an 87-year-old female patient, who was in hospital recently with cellulitis of the right side of the neck and maxillary sinusitis. During her recent hospital admiss vijaya, she received IV Zosyn and she was discharged to go home with Augmentin. The patient has been ta malcom her antibiotics as prescribed. She had a root canal treatment done yesterday by development writer eric herrmann last couple of days she is having some altered mental status. Initially, it was thought that this could have been due to tramadol that she took day before yesterday, but she has not taken any such pa in medication yesterday at all and last night her daughter stayed with her and this morning she conta cted my office with concerns that the patient was having confusion, increasing generalized weakness, poor appetite, and she was advised to come to emergency room. After she was evaluated in the ER, she was admitted to the hospital with pneumonia problem. The patient was having significant generalized weakness to the extent that the daughter had to literally carry her today from chair to the bed posi tion. After she came to emergency room, she did have fever. The patient was evaluated in the ER and admitted to the hospital with pneumonia problem. She was also noted to be dehydrated and IV fluid w as started. When I saw her this evening, daughter was present with her at bedside. Physical Examination: Vital Signs: Temperature 98.7, pulse 74, respiratory rate 20, blood pressure 132/65, and oxygen satu ration 97%. General: Patient appeared weaker than normal, not in any distress. Answers questions appropriately. HEENT: Head atraumatic, normocephalic. Conjunctivae nonerythematous. Sclerae white. Mouth, no thr ush or edema noted. Ears/Nose, no mass, lesion, discharge noted. Neck: Supple. No JVD, lymph nodes, bruit, thyromegaly noted. Lungs: Presence of some scattered rales in right upper and right lower lung region. Not using any a ccessory muscles of respiration. Heart: Normal heart sounds, no murmur or gallop. Abdomen: Soft, bowel sounds normal. No guarding, rigidity, tenderness, mass, hepatosplenomegaly, dis tention, or bruit noted. Extremities: No leg edema. No calf tenderness. Skin: No rash, ulcer, cellulitis. Lymphatics: No lymph node enlargement in neck, supraclavicular, infraclavicular region. Neuro: No focal neurological deficit. Chest: Unremarkable. External Genitalia: Deferred. Rectal: Deferred. Laboratory Data: White count 18.3, hemoglobin 11, and platelet count of 323. Sodium 140, potassium 4.2, chloride 113, bicarb 22, BUN 25, creatinine 2.22, glucose 109. Troponin 9.4. Chest x-ray shows patchy right lung opacities. CAT scan of the brain shows no evidence of any acute intracranial sy ges. Impression: 1.Pneumonia. 2.Toxic encephalopathy. 3.Right maxillary sinusitis. 4.Chronic kidney disease, stage 3B. 5.Acute kidney injury. 6.Volume depletion. 7.Hypertension. 8.Chronic atrial fibrillation. 9.Chronic anticoagulation therapy. 10.Chronic systolic heart failure. 11.Hyperlipidemia. 12.Chronic obstructive pulmonary disease. 13.Osteoarthritis, multiple sites. 14.Gastroesophageal reflux disease. 15.Chronic diarrhea. Plan: Admit patient to hospital for further evaluation and management of this problem. The patient is appropriate for inpatient and is expected to spend 2 midnights in hospital. We will go ahead and give IV fluid for volume depletion and acute kidney injury. Follow up on electrolytes and renal func tion tomorrow. For pneumonia, we will go ahead and give cefepime and doxycycline. Repeat chest x-ra y and I will see her tomorrow for followup. We will consult Physical Therapy for her generalized wea kness problem. Toxic encephalopathy problem should improve as her infection related to pneumonia imp roves. I did talk to her in presence of her daughter regarding her advanced directives and the patie nt is full code as per her decision. We will continue her anticoagulation therapy per order. Contin ue her antihypertensive medication per order. Monitor blood pressure. If necessary, adjust antihype rtensive medications. Details and plan of treatment discussed with the patient and the patient's marck reyes who was in the room. THOM/MODL Voice ID: [id number]
[2022-12-20] MEDS: NA CHLORIDE 0.9% 1,000 ML IV SCH (05:36)
[2022-12-20 06:19] LABS: Absolute Lymphocytes (CBC) 1.7 K/uL (0.7-4.9); Lymphocytes % 11.8 % (15.3-44.8); MPV 8.5 fL (7.6-11.3); RBC Red Blood Cell Count 3.67 M/uL (3.86-4.86)
[2022-12-20 06:35] LABS: Potassium 3.6 mEq/L (3.5-5.1)
[2022-12-20] MEDS: APIXABAN 2.5 MG TABLET PO SCH ×2 (08:09→20:42)
[2022-12-20] MEDS: MAGNESIUM CHLORIDE 64 MG TAB PO SCH ×2 (08:09→20:41)
[2022-12-20] MEDS: GABAPENTIN 400 MG CAP PO SCH ×2 (08:09→20:41)
[2022-12-20] MEDS: DOXYCYCLINE 100 MG in NA CHLORIDE 0.9% 100 ML IVPB SCH ×2 (08:10→20:41)
[2022-12-20] MEDS: AMLODIPINE 5 MG TAB PO SCH ×2 (08:15→20:42)
--- NOTE | 2022-12-20 09:09 | EKG ---
Test Date: 2022-12-19 Test Time: 09:42:53 [employer]: MICHELLE MEASUREMENT RESULTS: Intervals: Rate: 74 CO: QRSD: 118 QT: 410 QTc: 455 [place]: P: CO: QRS: -82 T: 104 INTERPRETIVE STATEMENTS: Ventricular-paced rhythm Abnormal ECG Compared to ECG 08/19/2022 18:26:45 No significant changes Electronically Signed On 12-20-22 09:04:34 CDT by Corey Zheng
[2022-12-20] MEDS: CEFEPIME 1 GM in NA CHLORIDE 0.9% 100 ML IV SCH (11:38)
[2022-12-20 13:24] VITALS: BMI 22.4
[2022-12-20] MEDS: DONEPEZIL HCL 5 MG TAB PO SCH (20:41)
[2022-12-20] MEDS: ATORVASTATIN 20 MG TAB PO SCH (20:42)
--- NOTE | 2022-12-20 22:43 | PN ---
Date of Progress Note: 12/20/2022 Subjective: Patient was seen this morning for followup. No new complaints or problems reported by chuy bowser. She slept very well last night and daughter was with her this morning who spent last night w ith her. Denies any new complaints overnight. Objective: Vital Signs: Reviewed. HEENT: Unremarkable. Lungs: Bilateral good equal air entry with some minimal rales noted in the right lung field. Not us ing any accessory muscles of respiration. Heart: Sounds normal. Abdomen: Soft. Bowel sounds normal. Rigidity, tenderness, distention. Extremities: No leg edema. Laboratory Data: White count 14.8, hemoglobin 10.6, and platelets of 243. Sodium 142, potassium 3.6 , chloride 114, bicarb 23, BUN 18, creatinine 1.60, and glucose 93. Impression: 1.Pneumonia. 2.Volume depletion. 3.Acute kidney injury. 4.Hypertension. Plan: We will go ahead and continue current empiric antibiotics. Physical Therapy to work with the patient to ambulate her. Continue antihypertensive medication and continue current anticoagulation t herapy. She is responding well to treatment. I will see her tomorrow morning for followup, possible discharge to go home over this weekend. THOM/MODL Voice ID: [id number] Report ID: [id number]
[2022-12-21] MEDS: DOXYCYCLINE 100 MG in NA CHLORIDE 0.9% 100 ML IVPB SCH ×2 (08:08→22:26)
[2022-12-21] MEDS: GABAPENTIN 400 MG CAP PO SCH ×2 (08:09→22:27)
[2022-12-21] MEDS: AMLODIPINE 5 MG TAB PO SCH ×2 (08:09→22:28)
[2022-12-21] MEDS: MAGNESIUM CHLORIDE 64 MG TAB PO SCH ×2 (08:09→22:27)
[2022-12-21] MEDS: APIXABAN 2.5 MG TABLET PO SCH ×2 (08:09→22:27)
--- NOTE | 2022-12-21 10:24 | RAD REPORT ---
EXAM DESCRIPTION: RAD - Chest Pa And Lat (2 Views) - 12/21/2022 10:14 am CLINICAL HISTORY: pneumonia Chest pain. COMPARISON: Chest Single View dated 12/19/2022; Chest Single View dated 08/19/2022; Chest Single View dated 08/16/2022; Chest Pa And Lat (2 Views) dated 02/19/2022 FINDINGS: The lungs are hyperexpanded compatible with COPD. Previously noted right-sided opacities h ave improved and the lungs appear essentially clear. Trace bilateral pleural effusions. The heart is moderately enlarged. No displaced fractures. Multi lead pacer/defibrillator device.
[2022-12-21] MEDS: CEFEPIME 1 GM in NA CHLORIDE 0.9% 100 ML IV SCH (12:25)
[2022-12-21] MEDS: DONEPEZIL HCL 5 MG TAB PO SCH (22:27)
[2022-12-21] MEDS: ATORVASTATIN 20 MG TAB PO SCH (22:28)
--- NOTE | 2022-12-21 23:28 | PN ---
Date of Progress Note: 12/21/2022 Subjective: Patient was seen this morning for followup. No new complaints or problems reported by chuy bowser. Lying in bed, not in distress. Her daughter was with her at bedside. Objective: Vital Signs: Reviewed. HEENT: Unremarkable. Lungs: Clear to auscultation. No wheezing. No rales. Heart: Sounds normal. Abdomen: Soft. Bowel sounds normal. No guarding, rigidity, tenderness, distention. Extremities: No leg edema. Laboratory Data: Chest x-ray today shows no evidence of any definite infiltrate. Overall, better th an before. Impression: 1.Pneumonia. 2.Generalized weakness. 3.Hypertension. Plan: We will go ahead and continue current antibiotic. Continue to follow with Physical Therapy. I will see her tomorrow for followup. We will continue current antihypertensive medication. Possibl e discharge to go home tomorrow depending on her condition. Details were discussed with the patient. Cultures remain negative. THOM/MODL Voice ID: [id number] Report ID: [id number]
[2022-12-22 06:55] LABS: Absolute Lymphocytes (CBC) 1.3 K/uL (0.7-4.9); Hematocrit 30.8 % (36.0-45.0); MCV 86.4 fL (80-100); MPV 8.4 fL (7.6-11.3); RBC Red Blood Cell Count 3.57 M/uL (3.86-4.86)
[2022-12-22 07:15] LABS: Potassium 3.7 mEq/L (3.5-5.1)
[2022-12-22] MEDS: MAGNESIUM CHLORIDE 64 MG TAB PO SCH (08:04)
[2022-12-22] MEDS: GABAPENTIN 400 MG CAP PO SCH (08:04)
[2022-12-22] MEDS: DOXYCYCLINE 100 MG in NA CHLORIDE 0.9% 100 ML IVPB SCH (08:04)
[2022-12-22] MEDS: AMLODIPINE 5 MG TAB PO SCH (08:04)
[2022-12-22] MEDS: APIXABAN 2.5 MG TABLET PO SCH (08:04)
[2022-12-22] MEDS: CEFEPIME 1 GM in NA CHLORIDE 0.9% 100 ML IV SCH (11:33)
[2022-12-22 11:49] VITALS: BP 130/61; TEMP 97.3
[2022-12-22] MEDS ORDERED: CEFEPIME 1 GM in NA CHLORIDE 0.9% 100 ML IV SCH (12:00)
[2022-12-22 12:34] VITALS: O2SAT 96
--- NOTE | 2022-12-22 13:00 | DS ---
Date of Discharge: 12/22/2022 Disposition: Discharged to go home. Physical Examination: HEENT: Unremarkable. Lungs: Clear to auscultation. No rales. No wheezing. Not in any respiratory distress. Heart: Sounds normal. Abdomen: Soft. Bowel sounds normal. No guarding, rigidity, tenderness, distention. Extremities: No leg edema. Laboratory Data: Upon admission, white count 18.3, hemoglobin 11, platelets 323. Today, white count 9.5, hemoglobin 10.4, platelets 326. Chemistry upon admission, sodium 140, potassium 4.2, chloride 113, bicarbonate 22, BUN 25, creatinine 2.22, glucose 109. Today, sodium 142, potassium 4.7, chlorid e 115, bicarb 25, BUN 18, creatinine 1.30, glucose 103. Discharge Medications And Instructions: 1.Continue all prior home medication except do not take any amoxicillin. 2.Take cefuroxime 250 mg 2 times a day with food for 1 week and doxycycline 100 mg 2 times a day wit h food for 1 week. 3.Follow up at my office week after next. 4.Patient was instructed to avoid any excessive sunlight exposure while taking doxycycline antibioti c for 1 week. Hospital Course: This is an 87-year-old very pleasant female patient admitted to the hospital with c omplaints of feeling weak and altered mental status. Please see dictated H and P for more informatio n. After patient was evaluated in the emergency room, she was diagnosed as having pneumonia and admi tted to the hospital with pneumonia along with toxic encephalopathy, acute kidney injury, and volume depletion. The patient was given IV fluid, empiric IV antibiotic, which was cefepime and vancomycin. Doxycycline was started. She responded very well to antibiotics. Initial chest x-ray had shown pn eumonia in the right lung and the last chest x-ray from yesterday was normal. No evidence of pneumon ia. The patient tolerated antibiotic very well and has responded well to it. Started ambulating wel l. Her altered mental status has improved. Volume depletion and acute kidney injury problem has imp roved with IV fluid hydration. Overall, her condition is back to her normal baseline now. She is am bulating well. Has a good appetite and today she will be discharged to go home in improved and stabl e condition with above-mentioned medications and instructions. Final Diagnoses: 1.Pneumonia. 2.Toxic encephalopathy. 3.Right maxillary sinusitis. 4.Acute kidney injury. 5.Volume depletion. 6.Chronic kidney disease, stage 3B. 7.Hypertension. 8.Chronic atrial fibrillation. 9.Chronic anticoagulation therapy. 10.Chronic systolic heart failure. 11.Hyperlipidemia. 12.Chronic obstructive pulmonary disease. 13.Osteoarthritis, multiple sites. 14.Gastroesophageal reflux disease. 15.Chronic diarrhea. THOM/MODL Voice ID: [id number] Report ID: [id number]
== END 2022-12-22 12:43 | disposition home or self-care (01) | DRG 193 ==
LOC: ER 09:05 → ERHOLD 11:59 → 4TH 17:23
PROVIDERS: ADMIT Internal Medicine; ATTEND Internal Medicine
DX: J18.9 Pneumonia, unspecified organism (principal); G92.9 Unspecified toxic encephalopathy; N17.9 Acute kidney failure, unspecified; I48.20 Chronic atrial fibrillation, unspecified; I50.22 Chronic systolic (congestive) heart failure; I13.0 Hypertensive heart and chronic kidney disease with heart failure and stage 1 through stage 4 chronic kidney disease, or unspecified chronic kidney disease; J44.0 Chronic obstructive pulmonary disease with (acute) lower respiratory infection; N18.32 Chronic kidney disease, stage 3b; K52.9 Noninfective gastroenteritis and colitis, unspecified; E86.0 Dehydration; M19.09 Primary osteoarthritis, other specified site; J32.0 Chronic maxillary sinusitis; E78.5 Hyperlipidemia, unspecified; K21.9 Gastro-esophageal reflux disease without esophagitis; Z88.1 Allergy status to other antibiotic agents; Z88.8 Allergy status to other drugs, medicaments and biological substances; Z95.0 Presence of cardiac pacemaker; Z86.73 Personal history of transient ischemic attack (TIA), and cerebral infarction without residual deficits; Z79.01 Long term (current) use of anticoagulants
CPT/HCPCS: 36415; 51702; 70450; 71045; 71046; 80048; 81003; 83605; 84484; 85025; 85610; 87040; 93005; 97116; 97161; 99285; J0692; J0696; J7030; J7040; J7050

== ENCOUNTER 2023-02-15 10:47 | Emergency (ER) | payer OTHER ==
--- OUTSIDE RECORDS SUMMARY | 2023-02-15 10:54 | XMS REPORT | Continuity of Care Document ---
:1935 Author Organization [facility] t Address [address] [facility] [address] [place] [address] Care Team Providers Name Role Phone Kourtney Smith Primary Care Physician Miriam Rosenbaum Attending Clinician Unavailable Kourtney Smith Attending Clinician Unavailable COLEEN CONLEY Attending Clinician Unavailable COLEEN CONLEY Attending Clinician Unavailable Coleen Conley Attending Clinician Rafael Avina MD Attending Clinician Leelee CLEARY, Eloina Baig Attending Clinician [phone] Doctor Unassigned, [place] Attending Clinician Unavailable Keagan CLEARY, Freida Attending Clinician Rohit CLEARY, Urmila Hatfield Attending Clinician Byorn Wang CRNA Attending Clinician Sam Obrien MD Attending Clinician SAM OBRIEN Attending Clinician Unavailable 1, [facility] Attending Clinician Unavailable COLEEN CONLEY Admitting Clinician Unavailable FREIDA BOOGIE Admitting Clinician Unavailable Payers Payer Name Policy Type Policy Number Effective Date Expiration Date Jasmine min MEDICARE PLAN [id number] PPO - AETNA AETNA MEDICARE [id number] 2022 HMO POS 00:00:00 AETNA MEDICARE C1 [id number] Common Spi rit PPO [facility] Problems Condition Condition Condition Status Onset Resolution Last Treating Co mments Source Name Details Category Date Date Treatment Clinician Date AICD at AICD at Disease Active Methodi end of end of 8[address] st battery battery 00:00: Hospita life life 00 l Primary Primary Disease Active Univers hypothyroi hypothyroi 25 it y of dism dism 00:00: [address] Hyperlipid Hyperlipid Disease Active M ethodi [...] st on on 00:00: Hospita 00 l [id number] Cardiac Problem Active Commo n pacemaker Spirit in situ [facility] 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 s presence Medica l not Center specified Hypertensi Hypertensi Problem Active C sandramon on on Spirit [facility] [id number] Prediabete Problem Active Co mmon s Spirit [facility] [id number] Dorsalgia, Problem Active Co mmon unspecifie Spirit d - [facility] [id number] Hypothyroi Problem Active Com mon dism, Spirit unspecifie - [facility]I d [facility] Eosinophil Eosinophil Problem Active Mary Beth sanchez ia ia [facility] 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 St without attack) [facility] Cardiomyop Cardiomyop Problem Active C daniel athy athy [facility] Hypotensio Hypotensio Problem Active C sandramon n n [facility] Osteoporos Osteoporos Problem Active Mary Beth daniel is is Spirit [facility] [id number] Neck pain Problem Active Comm on Spirit [facility] [id number] Other Problem Active Common chronic Spirit pain - [facility] Dizziness Dizziness Problem Active Com mon Spirit [facility] [id number] Insomnia, Problem Active Com mon unspecifie Spirit d type [facility] Abnormal Abnormal Problem Active Commo n liver liver Spirit function function - [facility] [id number] Chronic Problem Active Commo n kidney Spirit disease, - [facility] unspecifie [facility] [id number] Chronic Problem Active Commo n pain Spirit syndrome - [facility] [id number] 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 [facility] [id number] Fatigue, Problem Active Commo n unspecifie Spirit d type [facility] [id number] Cough Problem Active Common Spirit [facility] Congestive Congestive Problem Active C ommon heart heart Spirit failure failure - [facility] [id number] Skin Problem Active Common lesion [facility] Hypokalemi Hypokalemi Problem Active C ommon a a Spirit [facility] Weakness Weakness Problem Active Commo n [facility] [id number] Constipati Problem Active Com mon on, Spirit unspecifie - [facility]I d [facility] constipati [facility] [id number] Depression Problem Active Co mmon screening [facility] [id number] Upper Problem Active Common respirator Spirit y tract - CHI infection, St unspecifie [facility] d [facility] Allergies, Adverse Reactions, Alerts Allergy Allergy Status Severity Reaction(s) Onset Inactive Treating Comm ents Source Name Type Date Date Clinician Levaquin Propensi Active Hives [facility] ty to 11-08 [place] adverse 00:00: of reaction 00 Medicin s to e drug Lisinopr Propensi Active Hives [facility] il ty to 11-08 [place] adverse 00:00: of reaction 00 Medicin s to e drug LEVOFLOX DRUG Active Low Rash Univers ACIN INGREDI - ity of 00:00: [place] 00 Medical Branch LISINOPR DRUG Active Low Rash Univers IL INGREDI 10-02 ity of 00:00: [place] 00 Medical Branch Levoflox Propensi Active Rash Univer s acin ty to 24 ity of adverse 00:00: [place] reaction 00 Medical s Branch Lisinopr Propensi Active Rash Univer s il ty to 24 ity of adverse 00:00: [place] reaction 00 Medical s Branch LEVOFLOX Allergy Active High Hives [facility] [...] reaction 00 l s to drug Levoflox Drug Active Hives, Other [facility] I [facility] acin Allergy (See 04[facility]06 [facility] Comments), 00:00: Medica l Rash 00 Center Lisinopr Drug Active Hives, Other [facility] I [facility] il Allergy (See 04-06 [facility] Comments), 00:00: Medica l Rash 00 Center Family History Family Member Diagnosis Comments Start Date Stop Date Source Natural father Heart disease [facility] Natural mother Breast cancer [facility] Natural mother Heart disease [facility] Social History Social Habit Start Date Stop Date Quantity Comments Source History SDOH [facility] Alcohol Comment Medical C enter History of tobacco Current smoker [facility] use [facility] Gender identity Jainism [facility] Sexual orientation [facility] History SDOH [facility] History SDOH [facility] Alcohol Binge Medical Eli ter Exposure to 2022-11-10 2022-11-[address] [facility] SARS-CoV-2 (event) 00:00:00 06:56:00 [facility] Tobacco use and 2022-11-15 2022-11-[address] [facility] k[facility] exposure 00:00:00 00:00:00 tobacco non-user Medical Center History SDOH 2022-11-15 2022-11-[address] [facility] Alcohol Frequency 00:00:00 00:00:00 Medical Center Tobacco Comment 2022-11-15 2022-11-15 quit [address] [facility] 00:00:00 00:00:00 ago Medical Center Alcohol intake 2022-05-07 2022-05-07 Current Jainism 00:00:00 00:00:00 non-drinker of Hospital alcohol (finding) History of Social 2022-05-07 2022-05-[address] function 00:00:00 00:00:00 Hospital Sex Ass[birth year] At [birth year] Jainism 00:00:00 00:00:00 Hospital Smoking Status Start Date Stop Date Source Ex-smoker 2022-11-15 00:00:00 2022-11-15 00:00:[address] [facility] [facility] Never smoked tobacco [facility] Medications Ordered Filled Start Stop Current Ordering Indication Dosage Frequency Signature Comments Components Source Medication Medication Date Date Medication? Clinician (SIG) Name Name gabapentin 2023-0 Yes 400mg Q.5D Take [address] (NEURONTIN) 3-14 mg by [facility] 400 MG 10:33: mouth 2 Medical capsule 01 (two) Center times daily. folic 2022-0 Yes QD Take by [facility] acid/multiv 3-14 mouth [facility]ukes it-min/lute 10:33: daily. [facility] in (CENTRUM 01 Center SILVER ORAL) magnesium 2022-0 Yes Q.5D Take by CHI S t chloride 3-14 mouth 2 [facility]ukes (SLOW-MAG 10:33: (two) Medical ORAL) 01 times Center daily. donepeziL 2022-0 Yes 5mg QD Take [address] (ARICEPT) 5 3-14 by mouth Luke s MG tablet 10:33: nightly. [address] calcium 2022-0 Yes 1{tbl} QD Take [address] carbonate-v 3-14 tablet by Odilon es itamin D3 10:33: mouth Medical 500 01 daily. Center mg-3.125 mcg (125 unit) per tablet lidocaine 2022- Yes 1{patch Q24H Place [address] (LIDODERM) 3-14 } patch onto Odilon es 5 % patch 10:33: the skin [place] [address] daily Center Remove & Discard patch within 12 hours or as directed by MD . omeprazole 2022-0 Yes 20mg QD Take [address] (PriLOSEC) 3-14 by mouth Lukes 20 MG 10:33: daily. Medical capsule 01 Center amLODIPine 2022-0 Yes 5mg QD Take [address] (NORVASC) 5 3-14 by mouth Luke s MG tablet 10:33: daily. Medica l [address] [place] [address] carvediloL 2022-0 Yes 25mg Take [address] (COREG) 25 3-14 by mouth 2 Odilon es MG tablet 10:33: (two) Medical 01 times Center daily with breakfast and dinner. doxazosin 2022-0 Yes 1mg QD Take [address] (CARDURA) 1 3-14 by mouth Luke s MG tablet 10:33: nightly. [place] [address] Center hydrOXYzine 2022-0 Yes 25mg Q.5D Take [address] (ATARAX) 25 3-14 by mouth 2 Maryan kes MG tablet 10:33: (two) Medical 01 times Center daily. furosemide 2023-0 Yes 20mg Q.5D Take [address] (LASIX) 20 3-14 by mouth 2 Odilon es MG tablet 10:33: (two) Medical 01 times Center daily. apixaban 3-0 Yes 2.5mg Q.5D Take 2.[address] (Eliquis) 3-14 mg by Lukes 2.5 mg Tab 10:33: mouth 2 Medi jose eduardo tablet 01 (two) Center times daily. potassium 2022-0 Yes 20meq Q.5D Take [address] chloride 3-14 mEq by Lukes (KLOR-CON) 10:33: mouth 2 Medi jose eduardo 20 mEq 01 (two) Center packet times daily. levothyroxi 2022-0 [...] 10:33: nightly. Medi jose eduardo 01 Center apixaban 2022-0 Yes 2.5mg Q.5D Take 2.[address] (Eliquis) 3-14 mg by Lukes 2.5 mg Tab 10:33: mouth 2 Medi jose eduardo tablet 01 (two) Center times daily. potassium 2023-0 Yes 20meq Q.5D Take [address] chloride 3-14 mEq by Lukes (KLOR-CON) 10:33: mouth 2 Medi jose eduardo 20 mEq 01 (two) Center packet times daily. levothyroxi Yes 50ug Take [address] ne 3-14 mcg by Lukes (SYNTHROID, 10:33: mouth Medic al LEVOTHROID) 01 Every Center 50 MCG morning on tablet an empty stomach. atorvastati Yes 20mg QD Take [address] n (LIPITOR) 3-14 by mouth Luke s 20 MG 10:33: daily. Medical tablet 01 Center gabapentin 0 Yes 400mg Q.5D Take [address] (NEURONTIN) 3-14 mg by Lukes 400 MG 10:33: mouth 2 Medical capsule 01 (two) Center times daily. calcium Yes 1{tbl} QD Take [address] carbonate-v 3-14 tablet by Odilon es itamin D3 10:33: mouth Medical 500 01 daily. Center mg-3.125 mcg (125 unit) per tablet folic Yes QD Take by [facility] acid/multiv 3-14 mouth Lukes it-min/lute 10:33: daily. Medi jose eduardo in (CENTRUM 01 Center SILVER ORAL) magnesium Yes Q.5D Take by CHI S t [...] mouth Luke s MG tablet 10:33: [facility]. [facility] [address] carvediloL 2023-0 Yes 25mg Take [address] (COREG) 25 3-14 by mouth 2 Odilon es MG tablet 10:33: (two) Medical 01 times Center daily with breakfast and dinner. doxazosin 2023-0 Yes 1mg QD Take [address] (CARDURA) 1 3-14 by mouth Luke s MG tablet 10:33: nightly. [address] hydrOXYzine 2023-0 Yes 25mg Q.5D Take [address] (ATARAX) 25 3-14 by mouth 2 Maryan kes MG tablet 10:33: (two) Medical 01 times [place] daily. lidocaine 3-0 Yes 1{patch Q24H Place [address] (LIDODERM) 3-14 } patch onto Odilon es 5 % patch 10:33: the skin [place] [address] daily Center Remove & Discard patch within 12 hours or as directed by . furosemide 2023-0 Yes 20mg Q.5D Take [address] (LASIX) 20 3-14 by mouth 2 Odilon es MG tablet 10:33: (two) Medical 01 times [place] daily. omeprazole 2023-0 Yes 20mg QD Take [address] (PriLOSEC) 3-14 by mouth Lukes 20 MG 10:33: daily. [address] amLODIPine 3-0 Yes 5mg QD Take [address] (NORVASC) 5 3-14 by mouth Luke s MG tablet 10:33: daily. [address] carvediloL 2023-0 Yes 25mg Take [address] (COREG) 25 3-14 by mouth 2 Odilon es MG tablet 10:33: (two) Medical 01 times [place] daily with breakfast and dinner. doxazosin 2023-0 Yes 1mg QD Take [address] (CARDURA) 1 3-14 by mouth Luke s MG tablet 10:33: nightly. [address] hydrOXYzine 2023-0 Yes 25mg Q.5D Take [address] (ATARAX) 25 3-14 by mouth 2 Maryan kes MG tablet 10:33: (two) Medical 01 times [place] daily. furosemide 2023-0 Yes 20mg Q.5D Take [...] 01 (two) Center packet times daily. levothyroxi 2022-0 Yes 50ug Take [address] ne 3-14 mcg by Lukes (SYNTHROID, 10:33: mouth Medic al LEVOTHROID) 01 Every Center 50 MCG morning on tablet an empty stomach. atorvastati 0 Yes 20mg QD Take [address] n (LIPITOR) 3-14 by mouth Luke s 20 MG 10:33: daily. Medical tablet 01 Center gabapentin 0 Yes 400mg Q.5D Take [...] nightly. Medi jose eduardo 01 Center calcium 2022-0 Yes 1{tbl} QD Take [...] hours or as directed by . omeprazole 3-0 Yes 20mg QD Take [address] (PriLOSEC) 3-14 by mouth Lukes 20 MG 10:33: daily. Medical capsule 01 Center amLODIPine 2022-0 Yes 5mg QD Take [...] 01 (two) Center packet times daily. levothyroxi 2022-0 Yes 50ug Take [address] ne 3-14 mcg by Lukes (SYNTHROID, 10:33: mouth Medic al LEVOTHROID) 01 Every Center 50 MCG morning on tablet an empty stomach. atorvastati 2022-0 Yes 20mg QD Take [address] n (LIPITOR) 3-14 by mouth Luke s 20 MG 10:33: daily. Medical tablet 01 Center apixaban 2022-0 Yes 2.5mg Q.5D Take 2.[address] (Eliquis) 3-14 mg by Lukes 2.5 mg Tab 07:03: mouth 2 Medi jose eduardo tablet 36 (two) Center times daily. potassium 2022-0 Yes [...] capsule 36 (two) Center times daily. folic 0 Yes QD Take by [facility] acid/multiv 3-14 mouth Lukes it-min/lute 07:03: daily. Medi jose eduardo in (CENTRUM 36 Center SILVER ORAL) magnesium 0 Yes Q.5D Take by CHI S t chloride 3-14 mouth 2 Lukes (SLOW-MAG 07:03: (two) Medical ORAL) 36 times Center daily. donepeziL 0 Yes 5mg QD Take [address] (ARICEPT) 5 3-14 by mouth Luke s MG tablet 07:03: nightly. Medi jose eduardo 36 Center calcium 0 Yes 1{tbl} QD Take [address] carbonate-v 3-14 tablet by Odilon es itamin D3 07:03: mouth Medical 500 36 daily. Center mg-3.125 mcg (125 unit) per tablet lidocaine 0 Yes 1{patch Q24H Place 1 CH I [...] 07:03: daily. Medical capsule 36 Center amLODIPine 3-0 Yes 5mg QD Take [address] (NORVASC) 5 3-14 by mouth Luke s MG tablet 07:03: daily. Medica l 36 Center carvediloL 3-0 Yes 25mg Take [address] (COREG) 25 3-14 by mouth 2 Odilon es MG tablet 07:03: (two) [facility] 36 times Center daily with breakfast and dinner. doxazosin 3-0 Yes 1mg QD Take [address] (CARDURA) 1 3-14 by mouth Luke s MG tablet 07:03: nightly. [facility] jose eduardo 36 [place] hydrOXYzine 3-0 Yes 25mg Q.5D Take [address] (ATARAX) 25 3-14 by mouth 2 Maryan kes MG tablet 07:03: (two) [facility] 36 times [place] daily. furosemide 3-0 Yes 20mg Q.5D Take [address] (LASIX) 20 3-14 by mouth 2 Odilon es MG tablet 07:03: (two) [facility] 36 times [place] daily. carvedilol 2023-0 Yes 25mg Take 1 [facility] (COREG) 25 3-02 Tablet by Julia ege MG tablet 12:02: mouth two of 17 times Medicin daily. e donepezil 2023-0 Yes 5mg Take 1 [facility] (ARICEPT) 5 3-02 Tablet by Col lege MG tablet 12:02: mouth. of 17 Medicin e furosemide 3-0 Yes 20mg Take 1 [facility] (LASIX) 20 3-02 Tablet by Julia ege MG tablet 12:02: mouth two of 17 times Medicin daily. e Apixaban 2023-0 Yes Take by [facility] 2.5 MG TABS 3-02 mouth. Colleg e 12:02: of 17 Medicin e omeprazole 2022-0 Yes 20mg QD Take [...] 2022-0 Yes 25mg Q.5D Take 1 Meth etsuardo (ATARAX) 25 8-25 tablet (25 st MG [...] 12 hours or as directed by omeprazole 2021-0 2022- No 40mg QD Take 40 mg [facility] (PriLOSEC) 8-24 08-[address] 40 MG 08:07: 00:00 daily. Hospita capsule 04 :00 l omeprazole 2022-0 2022- No 40mg QD Take 40 mg [facility] (PriLOSEC) 8-24 08-[address] 40 MG 08:07: 00:00 daily. Hospita capsule 04 :00 l omeprazole 2022-0 2022- No 40mg QD Take 40 mg [facility] (PriLOSEC) 8-24 08-[address] 40 MG 08:07: 00:00 daily. Hospita capsule 04 :00 l omeprazole 2021- No 40mg QD Take 40 mg [facility] (PriLOSEC) 8 08-[address] 40 MG 08:07: 00:00 daily. Hospita capsule 04 :00 l omeprazole 2021-2021- No 40mg QD Take 40 mg [facility] (PriLOSEC) 05-02-[address] 40 MG 08:07: 00:00 daily. Hospita capsule 04 :00 l amIODarone 2021- No 200mg QD Take 200 M ethodi (PACERONE) 8 08-[address] 200 MG 08:03: 00:00 mouth Hospita tablet 29 :00 daily. l amIODarone 2021-2021- No 200mg QD Take 200 M ethodi (PACERONE) 8 08-[address] 200 MG 08:03: 00:00 mouth Hospita tablet 29 :00 daily. l amIODarone 2021-2021- No 200mg QD Take 200 M ethodi (PACERONE) 8- 08-[address] 200 MG 08:03: 00:00 mouth Hospita tablet 29 :00 daily. l amIODarone 2021-0 2021- No 200mg QD Take 200 M ethodi (PACERONE) 8- 08-[address] 200 MG 08:03: 00:00 mouth Hospita tablet 29 :00 daily. l amIODarone 2021-0 2021- No 200mg QD Take 200 M ethodi (PACERONE) 05-02 08-[address] 200 MG 08:03: 00:00 mouth Hospita tablet 29 :00 daily. l minocycline 2021-0 2021- No 100mg Q.5D Take 1 Me [facility]odi (DYNACIN) 05-02-[address] 100 MG 00:00: 04:59 (100 mg Hospita tablet 00 :00 total) by l mouth 2 (two) times a day for 5 days. traMADoL 2021-0 2021- [place] [id number] 25mg Q8H Take 0.5 Met hodi (Ultram) 50 05-02 08-[address] mg tablet 00:00: 04:59 (25 mg Hospi ta 00 :00 total) by l mouth every 8 (eight) hours as needed for moderate pain for up to 5 days .acute pain. minocycline 2021-0 2- No 100mg Q.5D Take 1 Me [facility] (DYNACIN) 8-24 08-[address] 100 MG 00:00: 04:59 (100 mg Hospita tablet 00 :00 total) by l mouth 2 (two) times a day for 5 days. traMADoL 2021-0 2021- [place] [id number] 25mg Q8H Take 0.5 Met hodi (Ultram) [...] for 5 days. traMADoL 2021-0 2021- [place] [id number] 25mg Q8H Take 0.5 Met hodi (Ultram) 50 8-24 08-[address] mg tablet 00:00: 04:59 (25 mg Hospi ta 00 :00 total) by l mouth every 8 (eight) hours as needed for moderate pain for up to 5 days .acute pain. minocycline 2021-0 2- No 100mg Q.5D Take 1 Me [facility]odi (DYNACIN) 8-24 08-[address] 100 MG 00:00: 04:59 (100 mg Hospita tablet 00 :00 total) by l mouth 2 (two) times a day for 5 days. traMADoL 2021-0 2021- [place] [id number] 25mg Q8H Take 0.5 Met hodi (Ultram) 50 8-24 08-[address] mg tablet 00:00: 04:59 (25 mg Hospi ta 00 :00 total) by l mouth every 8 (eight) hours as needed for moderate pain for up to 5 days .acute pain. minocycline 2021-0 2- No 100mg Q.5D Take 1 Me thodi (DYNACIN) 8-24 08-[address] 100 MG 00:00: 04:59 (100 mg Hospita tablet 00 :00 total) by l mouth 2 (two) times a day for 5 days. traMADoL 25mg Q8H Take 0.5 Met hodi (Ultram) 50 8-24 08-[address] mg tablet 00:00: 04:59 (25 mg Hospi ta 00 :00 total) by l mouth every 8 (eight) hours as needed for moderate pain for up to 5 days .acute pain. traMADoL 50mg Q8H Take 1 Metho di (Ultram) 50 8-24 08-24 tablet (50 s t mg tablet 00:00: 00:00 mg total) Ho spita 00 :00 by mouth l every 8 (eight) hours as needed for moderate pain for up to 5 days .acute pain. traMADoL 50mg Q8H Take 1 Metho di (Ultram) 50 8-24 08-24 tablet (50 s t mg tablet 00:00: 00:00 mg total) Ho spita 00 :00 by mouth l every 8 (eight) hours as needed for moderate pain for up to 5 days .acute pain. traMADoL 50mg Q8H Take 1 Metho di (Ultram) [...] up to 5 days .acute pain. traMADoL 50mg Q8H Take 1 Metho di (Ultram) [...] of capsule 00 Medicin e levothyroxi Yes [id number] Take one Univers ne 50 mcg 9-10 tablet ity of tablet 00:00: Saturday through Saturday Branch only. Do NOT take on Saturday and saturday levothyroxi Yes [id number] Take one Univers ne 50 mcg 9-10 tablet ity of tablet 00:00: Saturday through Saturday Branch only. Do NOT take on Saturday and saturday Triamcinolo Triamcinolo Yes Kourtney 1 Common ne ne 9-20 Millender applicatio Spir it Acetonide Acetonide 00:00: n to - C HI 00 affected [facility] Triamcinolo Triamcinolo No 1{appli Triamcinol ne ne 9-20 cation_ one Acetonide Acetonide 00:00: to_affe Acetonide 0.1 % 0.1 % 00 cted_ar 0.1 % ea} levothyroxi Yes [id number] Take one Univers ne 50 mcg 9-04 tablet ity of tablet 00:00: Saturday through Saturday Branch only. Do NOT take on Saturday and saturday levothyroxi Yes [id number] Take one Univers ne 50 mcg 9-04 tablet ity of tablet 00:00: Saturday through Saturday Branch only. Do NOT take on Saturday and saturday levothyroxi Yes [id number] Take one Univers ne 50 mcg 9-04 tablet ity of tablet 00:00: Saturday through Saturday Branch only. Do NOT take on Saturday and saturday levothyroxi 2020- No [id number] Take one Univers ne 50 mcg 9-04 09-10 tablet ity of tablet 00:00: 00:00 Saturday [place] 00 :00 through Medical Saturday Branch only. Do NOT take on Saturday and saturday MAGNESIUM Yes 1{tbl} Take 1 Univ ers CHLORIDE 8-30 tablet by ity of (SLOW-MAG 14:54: mouth. [place] ORAL) [address] [place] [address] Branch lidocaine 5 Yes 1{patch Apply 1 Univers % (700 8-30 } Patch to ity of mg/patch) 14:54: skin. [place] patch [address] [place] [address] Branch Multivit-Mi Yes 1{tbl} Take 1 Un viviane neral-Iron- 8-30 tablet by ity of Lutein 14:54: mouth. [place] ([address] ULTRA WOMEN'S) Tab apixaban Yes Take by Univer s 2.5 mg 8-30 mouth. ity of tablet 14:54: [address] calcium Yes 1{tbl} Take 1 Univer s carbonate-v 8-30 tablet by ity of itamin D3 14:54: mouth. [place] (CALTRATE Medical 600 + D) Branch 600 mg (1,500 mg)-800 unit per tablet MAGNESIUM Yes 1{tbl} Take 1 Univ ers CHLORIDE 8-30 tablet by ity of (SLOW-MAG 14:54: mouth. [place] ORAL) [address] [place] [address] lidocaine 5 Yes 1{patch Apply 1 Univers % (700 8-30 } Patch to ity of mg/patch) 14:54: skin. [place] patch [address] [place] [address] Multivit-Mi Yes 1{tbl} Take 1 Un viviane neral-Iron- 8-30 tablet by ity of Lutein 14:54: mouth. [place] ([address] SILVER [place] ULTRA WOMEN'S) Tab apixaban Yes Take by Univer s 2.5 mg 8-30 mouth. ity of tablet 14:54: [address] calcium Yes 1{tbl} Take 1 Univer s carbonate-v 8-30 tablet by ity of itamin D3 14:54: mouth. [place] (CALTRATE 23 Medical 600 + D) Branch 600 mg (1,500 mg)-800 unit per tablet MAGNESIUM Yes 1{tbl} Take 1 Univ ers CHLORIDE 8-30 tablet by ity of (SLOW-MAG 14:54: mouth. [place] ORAL) Medical Branch lidocaine 5 Yes 1{patch Apply 1 Univers % (700 8-30 } Patch to ity of mg/patch) 14:54: skin. [place] patch [address] [place] [address] Branch Multivit-Mi Yes 1{tbl} Take 1 Un viviane neral-Iron- 8-30 tablet by ity of Lutein 14:54: mouth. [place] ([address] SILVER [place] ULTRA WOMEN'S) Tab apixaban Yes Take by Univer s 2.5 mg 8-30 mouth. ity of tablet 14:54: [address] calcium Yes 1{tbl} Take 1 Univer s carbonate-v 8-30 tablet by ity of itamin D3 14:54: mouth. [place] (CALTRATE 23 Medical 600 + D) Branch 600 mg (1,500 mg)-800 unit per tablet MAGNESIUM 2018- Yes 1{tbl} Take 1 Univ ers CHLORIDE 8-30 tablet by ity of (SLOW-MAG 14:54: mouth. [place] ORAL) [address] [place] [address] lidocaine 5 Yes 1{patch Apply 1 Univers % (700 8-30 } Patch to ity of mg/patch) 14:54: skin. [place] patch [address] [place] [address] Multivit-Mi Yes 1{tbl} Take 1 Un viviane neral-Iron- 8-30 tablet by ity of Lutein 14:54: mouth. [place] ([address] ULTRA WOMEN'S) Tab apixaban Yes Take by Univer s 2.5 mg 8-30 mouth. ity of tablet 14:54: [address] calcium 2018- Yes 1{tbl} Take 1 Univer s carbonate-v 8-30 tablet by ity of itamin D3 14:54: mouth. [place] (CALTRATE 23 Medical 600 + D) Branch 600 mg (1,500 mg)-800 unit per tablet MAGNESIUM 2019-0 Yes 1{tbl} Take 1 Univ ers CHLORIDE 8-30 tablet by ity of (SLOW-MAG 14:54: mouth. [place] ORAL) [address] [place] [address] Branch lidocaine 5 Yes 1{patch Apply 1 Univers % (700 8-30 } Patch to ity of mg/patch) 14:54: skin. [place] patch [address] [place] [address] Multivit-Mi Yes 1{tbl} Take 1 Un viviane neral-Iron- 8-30 tablet by ity of Lutein 14:54: mouth. [place] ([address] SILVER [place] ULTRA WOMEN'S) Tab apixaban Yes Take by Univer s 2.5 mg 8-30 mouth. ity of tablet 14:54: [address] calcium Yes 1{tbl} Take 1 Univer s carbonate-v 8-30 tablet by ity of itamin D3 14:54: mouth. [place] (CALTRATE 23 Medical 600 + D) Branch 600 mg (1,500 mg)-800 unit per tablet apixaban Yes Take by Univer s 2.5 mg 8-30 mouth. ity of tablet 09:54: [address] calcium Yes 1{tbl} Take 1 Univer s carbonate-v 8-30 tablet by ity of itamin D3 09:54: mouth. [place] (CALTRATE 23 Medical 600 + D) Branch 600 mg (1,500 mg)-800 unit per tablet MAGNESIUM Yes 1{tbl} Take 1 Univ ers CHLORIDE 8-30 tablet by ity of (SLOW-MAG 09:54: mouth. [place] ORAL) [address] [place] [address] lidocaine 5 Yes 1{patch Apply 1 Univers % (700 8-30 } Patch to ity of mg/patch) 09:54: skin. [place] patch [address] [place] [address] Multivit-Mi Yes 1{tbl} Take 1 Un viviane neral-Iron- 8-30 tablet by ity of Lutein 09:54: mouth. [place] ([facility] SILVER [place] ULTRA WOMEN'S) Tab apixaban Yes Take by Univer s 2.5 mg 8-30 mouth. ity of tablet 09:54: [address] calcium Yes 1{tbl} Take 1 Univer s carbonate-v 8-30 tablet by ity of itamin D3 09:54: mouth. [place] (CALTRATE 23 Medical 600 + D) Branch 600 mg (1,500 mg)-800 unit per tablet MAGNESIUM Yes 1{tbl} Take 1 Univ ers CHLORIDE 8-30 tablet by ity of (SLOW-MAG 09:54: mouth. [place] ORAL) 23 Medical Branch lidocaine 5 Yes 1{patch Apply 1 Univers % (700 8-30 } Patch to ity of mg/patch) 09:54: skin. [place] patch [address] [place] [address] Branch Multivit-Mi Yes 1{tbl} Take 1 Un viviane neral-Iron- 8-30 tablet by ity of Lutein 09:54: mouth. [place] (CENTRUM 23 Medical SILVER Branch ULTRA WOMEN'S) Tab levothyroxi Yes [id number] Take one Univers ne 50 mcg 8-30 tablet ity of tablet 00:00: Saturday [place] 00 through Saturday Branch only. Do NOT take on Saturday and saturday levothyroxi Yes [id number] Take one Univers ne 50 mcg 8-30 tablet ity of tablet 00:00: Saturday [place] through Saturday Branch only. Do NOT take on Saturday and saturday levothyroxi 2020- No [id number] Take one Univers ne 50 mcg 8-30 09-04 tablet ity of tablet 00:00: 00:00 Saturday [place] 00 :00 through Saturday Branch only. Do NOT take on Saturday and saturday levothyroxi 2020- No [id number] Take one Univers ne 50 mcg 8-30 09-04 tablet ity of tablet 00:00: 00:00 Saturday [place] 00 :00 through Saturday Branch only. Do NOT take on Saturday and saturday Atorvastati Atorvastati Yes Kourtney 1 tablet Common n Calcium n Calcium 6-27 [facility] 00:00: - [facility] 00 [facility] levothyroxi Yes [id number] Take one Univers ne 50 mcg 8-20 tablet ity of tablet 00:00: Saturday [place] through Saturday Branch only. Do NOT take on Saturday and saturday calcium Yes 1{tbl} Take 1 Univer s carbonate-v 1-24 tablet by ity of itamin D3 17:07: mouth. [place] (CALTRATE 23 Medical 600 + D) Branch 600 mg (1,500 mg)-800 unit per tablet MAGNESIUM Yes 1{tbl} Take 1 Univ ers CHLORIDE 1-24 tablet by ity of (SLOW-MAG 17:07: mouth. [place] ORAL) 23 Medical Branch lidocaine 5 Yes 1{patch Apply 1 Univers % (700 1-24 } Patch to ity of mg/patch) 17:07: skin. [place] patch 23 Medical [place] Multivit-Mi Yes 1{tbl} Take 1 Un viviane neral-Iron- 1-24 tablet by ity of Lutein 17:07: mouth. [place] (CENTRUM 23 Medical DINUBA Branch ULTRA WOMEN'S) Tab apixaban Yes Take by Univer s 2.5 mg 1-24 mouth. ity of tablet 17:07: [place] 22 [facility] furosemide Yes TK 1 T PO Un viviane 20 mg 1-11 BID ity of tablet 00:00: [place] [facility] furosemide Yes TK 1 T PO Un viviane 20 mg 1-11 BID ity of tablet 00:00: [place] [facility] furosemide Yes TK 1 T PO Un viviane 20 mg 1-11 BID ity of tablet 00:00: [place] [facility] furosemide Yes TK 1 T PO Un viviane 20 mg 1-11 BID ity of tablet 00:00: [place] [facility] furosemide Yes TK 1 T PO Un viviane 20 mg 1-11 BID ity of tablet 00:00: [place] [facility] furosemide Yes TK 1 T PO Un viviane 20 mg 1-11 BID ity of tablet 00:00: [place] [facility] furosemide Yes TK 1 T PO Un viviane 20 mg 1-11 BID ity of tablet 00:00: [place] [facility] furosemide Yes TK 1 T PO Un viviane 20 mg 1-11 BID ity of tablet 00:00: [place] [facility] omeprazole Yes TK 1 C PO Un viviane 20 mg 1-04 QD ity of capsule 00:00: [place] [facility] omeprazole Yes TK 1 C PO Un viviane 20 mg 1-04 QD ity of capsule 00:00: [place] [facility] omeprazole Yes TK 1 C PO Un viviane 20 mg 1-04 QD ity of capsule 00:00: [address] omeprazole Yes TK 1 C PO Un viviane 20 mg 1-04 QD ity of capsule 00:00: [address] omeprazole Yes TK 1 C PO Un viviane 20 mg 1-04 QD ity of capsule 00:00: [place] [facility] omeprazole Yes TK 1 C PO Un viviane 20 mg 1-04 QD ity of capsule 00:00: [place] [facility] omeprazole Yes TK 1 C PO Un viviane 20 mg 1-04 QD ity of capsule 00:00: [place] [facility] omeprazole Yes TK 1 C PO Un viviane 20 mg 1-04 QD ity of capsule 00:00: [place] [facility] doxazosin 1 2015-09 Yes TK 1 T PO U nivers mg tablet -23 QHS ity of 00:00: [place] [facility] doxazosin 1 2015-09 Yes TK 1 T PO U nivers mg tablet -23 QHS ity of 00:00: [place] [facility] doxazosin 1 2015-09 Yes TK 1 T PO U nivers mg tablet 10-01 QHS ity of 00:00: [place] [facility] doxazosin 1 2015-09 Yes TK 1 T PO U nivers mg tablet 23 QHS ity of 00:00: [place] [facility] doxazosin 1 2015-09 Yes TK 1 T PO U nivers mg tablet 23 QHS ity of 00:00: [place] [facility] doxazosin 1 2015-09 Yes TK 1 T PO U nivers mg tablet 23 QHS ity of 00:00: [place] [facility] doxazosin 1 2015-09 Yes TK 1 T PO U nivers mg tablet 23 QHS ity of 00:00: [place] [facility] doxazosin 1 2015-09 Yes TK 1 T PO U nivers mg tablet 23 QHS ity of 00:00: [address] Gabapentin Gabapentin Yes Kourtney 1 capsule Common [facility] Levothyroxi Levothyroxi Yes Kourtney 1 tablet Common ne Sodium ne Sodium Millender on an Spirit empty - [facility]I stomach in [facility] Omeprazole Omeprazole Yes Kourtney 1 capsule Common [facility] Eliquis 2.5 Eliquis 2.5 Yes Kourtney 1 tablet Common mg mg [facility] Potassium Potassium Yes Kourtney 1 tablet Common Chloride ER Chloride ER Millender with food [facility] Lasix Lasix Yes Kourtney 1 tablet Common [facility] Cardura Cardura Yes Kourtney 1 tablet Comm on Millender in evening Spir it - [facility] Atorvastati Atorvastati No 1{table QD Atorvastat [...] Common Spirit OVER 65 OVER 65 13:52:00 - [facility] Vital Signs Vital Name Observation Time Observation Value Comments Source Systolic blood 2022-11-08 17:40:00 98 mm[Hg] [facility] of pressure Medicine Diastolic blood 2022-11-08 17:40:00 65 mm[Hg] [facility] of pressure Medicine Heart rate 2022-11-08 17:40:00 78 /min [facility] Body height 2022-11-08 17:40:00 147.3 cm [facility] Body weight 2022-11-08 17:40:00 44.09 kg [facility] BMI 2022-11-08 17:40:00 20.31 kg/m2 [facility] WEIGHT 2022-11-20 07:09:00 45.723 kg HEIGHT 2022-11-20 07:09:00 147.3 cm HEIGHT 2022-11-15 09:24:00 147.3 cm WEIGHT 2022-11-15 09:24:00 44.453 kg WEIGHT 2022-11-20 07:09:00 45.723 kg HEIGHT 2022-11-20 07:09:00 147.3 cm HEIGHT 2022-11-15 09:24:00 147.3 cm WEIGHT 2022-11-15 09:24:00 44.453 kg WEIGHT 2022-11-20 07:09:00 45.723 kg HEIGHT 2022-11-20 07:09:00 147.3 cm HEIGHT 2022-11-15 09:24:00 147.3 cm WEIGHT 2022-11-15 09:24:00 44.453 kg Systolic blood 2021-05-19 15:00:00 112 mm[Hg] Univer sity of pressure [facility] Diastolic blood 2021-05-19 15:00:00 72 mm[Hg] Unive rsity of pressure [facility] Heart rate 2021-05-19 15:00:00 92 /min Universi ty of [facility] Body height 2021-05-19 15:00:00 147.3 cm Universi ty of [facility] Body weight 2021-05-19 15:00:00 53.524 kg Universi ty of [facility] BMI 2021-05-19 15:00:00 24.66 kg/m2 Universi ty of [facility] Oxygen saturation in 2021-05-19 15:00:00 95 /min University Arterial blood by [facility] Pulse oximetry Branch Systolic blood 2020-05-13 15:47:00 167 mm[Hg] Univer sity of pressure [facility] Diastolic blood 2020-05-13 15:47:00 95 mm[Hg] Unive rsity of pressure [facility] Heart rate 2020-05-13 15:37:00 88 /min Universi ty of [facility] Respiratory rate 2020-05-13 15:37:00 19 /min Univ ersity of [facility] Body height 2020-05-13 15:37:00 147.3 cm Universi ty of [facility] Body weight 2020-05-13 15:37:00 54.522 kg Universi ty of [facility] BMI 2020-05-13 15:37:00 25.12 kg/m2 Universi ty of [facility] Systolic blood 2020-05-13 15:47:00 167 mm[Hg] Univer sity of [facility] Diastolic blood 2020-05-13 15:47:00 95 mm[Hg] Unive rsity of [facility] Heart rate 2020-05-13 15:37:00 88 /min Universi ty [facility] Respiratory rate 2020-05-13 15:37:00 19 /min [facility] Body height 2020-05-13 15:37:00 147.3 [facility] 2020-05-13 15:37:00 54.522 [facility] BMI 2020-05-13 15:37:00 25.12 kg/m2 [facility] Systolic blood 2022-11-20 09:41:00 149 mm[Hg] [facility] Diastolic blood 2022-11-20 09:41:00 69 mm[Hg] [facility] Heart rate 2022-11-20 09:41:00 83 /min [facility] Body temperature 2022-11-20 09:41:00 36.83 Mar [facility] Respiratory rate 2022-11-20 09:41:00 18 /min [facility] Oxygen saturation in 2022-11-20 09:41:00 97 /min [facility] Arterial blood by Medical Ce nter Pulse oximetry Systolic blood 2022-11-20 07:09:00 144 mm[Hg] [facility] Diastolic blood 2022-11-20 07:09:00 72 mm[Hg] [facility] Heart rate 2022-11-20 07:09:00 97 /min [facility] Body temperature 2022-11-20 07:09:00 36.67 Mar [facility] Respiratory rate 2022-11-20 07:09:00 16 /min [facility] Oxygen saturation in 2022-11-20 07:09:00 99 /min [facility] Arterial blood by Medical Ce nter Pulse oximetry Body height 2022-11-20 07:09:00 147.3 cm [facility] Body weight 2022-11-20 07:09:00 45.723 kg [facility] BMI 2022-11-20 07:09:00 21.07 kg/m2 [facility] Systolic blood 2022-05-02 16:30:00 151 mm[Hg] [facility] pressure Diastolic blood 2022-05-02 16:30:00 73 mm[Hg] [facility] [place] pressure Heart rate 2022-05-02 16:30:00 69 /min [facility] Respiratory rate 2022-05-02 16:30:00 18 /min [facility] Oxygen saturation in 2022-05-02 16:30:00 97 /min [facility] Arterial blood by Pulse oximetry Body temperature 2022-05-02 14:45:00 35.94 Mar [facility] Body height 2022-05-02 12:53:00 147.3 cm [facility] Body weight 2022-05-02 12:53:00 46.766 kg [facility] BMI 2022-05-02 12:53:00 21.55 kg/m2 [facility] Procedures Procedure Date / Time Performing Clinician Source Performed REPORT OF PROCEDURE - 2022-11-20 09:07:25 Jarvis [facility] ENDOSCOPY URL Center ESOPHAGOGASTRODUODENOSCO 2022-11-20 08:02:00 Jarvis [facility], WITH ENDOSCOPIC US Center ULTRASOUND, UPPER GI 2022-11-20 08:02:00 Jarvis [facility], ENDOSCOPIC, WITH Center FINE NEEDLE ASPIRATION ESOPHAGOGASTRODUODENOSCO 2022-11-20 08:00:00 Jarvis [facility], WITH ENDOSCOPIC US Center ULTRASOUND, UPPER GI 2022-11-20 08:00:00 [facility] WITH Center FINE NEEDLE ASPIRATION PHYSICIAN ORDERS 2022-05-19 05:01:00 Doctor Unassigned, No Unive [facility] Branch ECG PRE/POST OP 2022-05-02 14:54:57 Freida Boogie spital EP REMOVE REPLACE 2022-05-02 14:20:[address] [facility] PACEMAKER GENERATOR DUAL TYPE AND SCREEN 2022-05-02 12:36:00 Freida Boogie spital ECG PRE/POST OP 2022-05-02 11:22:13 Freida Boogie spital COVID-19 QUALITATIVE 2022-04-30 15:28:00 [facility] COMPREHENSIVE METABOLIC 2022-04-30 15:28:00 [facility] PANEL CBC WITH PLATELET AND 2022-04-30 15:28:00 [facility] DIFFERENTIAL MAGNESIUM LEVEL 2022-04-30 15:28:00 Freida Boogie spital PROTHROMBIN TIME WITH 2022-04-30 15:28:00 [facility] INR ESTIMATED GFR 2022-04-30 15:28:00 Freida Boogie spital ASSIGNMENT OF BENEFITS 2021-05-19 14:24:04 Doctor Unassigned, No [facility] ASSIGNMENT OF BENEFITS 2020-05-13 14:44:43 Doctor Unassigned, No [facility] ASSIGNMENT OF BENEFITS 2019-05-08 14:32:08 Doctor Unassigned, No [facility] Plan of Care Planned Activity Planned [...] = INFLUENZA VACCINE (Season Ended)] Future Scheduled 2023-02-14 SHINGLES VACCINES Method ist Test 14:46:34 (1 of 2) [code = Hospital SHINGLES VACCINES (1 of 2)] Future Scheduled 2023-02-14 65+ PNEUMOCOCCAL Methodi [facility] Test 14:46:34 VACCINE (2 - PCV) Hospital [code = 65+ PNEUMOCOCCAL VACCINE (2 - PCV)] Future Scheduled 2023-02-14 COVID-19 VACCINE (4 Meth odist Test 14:46:34 - Moderna series) Hospital [code = COVID-19 VACCINE (4 - Moderna series)] Future Scheduled 2023-02-14 INFLUENZA VACCINE Method ist Test 14:46:34 [code = INFLUENZA Hospital VACCINE] Future Scheduled [...] Hospital VACCINE] Future Scheduled 2022-11-08 COVID-19 Vaccine [facility] College Test 14:35:11 (#1) [code = of Medicine COVID-19 Vaccine (#1)] Future Scheduled 2022-11-08 TETANUS SHOT [facility] Julia ege Test 14:35:11 (ADULT) [code = of Medicine TETANUS SHOT (ADULT)] Future Scheduled 2022-11-08 ZOSTER VACCINE (1 [facility] College Test 14:35:11 of 2) [code = of Medicine ZOSTER VACCINE (1 of 2)] Future Scheduled 2022-11-08 Fall Screen [code = [facility] College Test 14:35:11 Fall Screen] of Medicine Future Scheduled 2022-11-08 Screening for [facility] Col lege Test 14:35:11 osteoporosis of Medicine (procedure) [code = [id number]] Future Scheduled 2022-11-08 Pneumococcal 65+ (1 [facility] Test 14:35:11 - PCV) [code = of Medicine Pneumococcal 65+ (1 - PCV)] Future Scheduled 2022-11-08 FLU VACCINE > 6 [facility] C ollege Test 14:35:11 MONTHS [code = FLU of Medici ne VACCINE > 6 MONTHS] Future Scheduled 2022-11-08 Medicare IPPE [facility] Col lege Test 14:35:11 (Welcome to of Medicine Medicare) [code = Medicare IPPE (Welcome to Medicare)] Future Scheduled 2022-11-08 EUS WITH MAC, UPPER 1 Occurrences [facility] College Test 11:57:34 WITH FNA [code = starting of Medicine NOCPT] 11/08/2022 until 05/11/2023 Future Scheduled 2022-09-[address] [...] = DEPRESSION SCREENING (12+)] Future Scheduled 2022-09-[address] [facility] [...] TO MEDICARE)] Future Scheduled 2022-08-16 HEPATITIS B [facility] Test 11:53:52 VACCINES (1 of 3 - [...] Hospital VACCINE] Future Scheduled 2022-08-16 HEPATITIS B [facility] Test 11:53:52 VACCINES (1 of 3 - [...] [facility] 00:[facility] (#1) [code = [facility] INFLUENZA VACCINE (#1)] Future Scheduled 2021-10-31 COVID-19 VACCINE ([address] [facility] Test 00:00:00 - Booster for [facility] Moderna series) [code = COVID-19 VACCINE [...] s Test 00:00:00 VACCINES (1 - Tdap) [facility] [code = DTAP/TDAP/TD VACCINES (1 - Tdap)] Future Scheduled 1953 DTAP/TDAP/TD [facility] Test 00:00:00 VACCINES (1 - Tdap) [facility] [code = DTAP/TDAP/TD VACCINES (1 - Tdap)] Future Scheduled 1953 DTAP/TDAP/TD [facility] Test 00:00:00 VACCINES (1 - Tdap) [facility] [code = DTAP/TDAP/TD VACCINES (1 - Tdap)] Future Scheduled 1953 DTAP/TDAP/TD [facility] Test 00:00:00 VACCINES (1 - Tdap) [facility] [code = DTAP/TDAP/TD VACCINES (1 - Tdap)] Future Scheduled 1953 DTAP/TDAP/TD [facility] Test 00:00:00 VACCINES (1 - Tdap) [facility] [code = DTAP/TDAP/TD VACCINES (1 - Tdap)] Encounters Start End Encounter Admission Attending Care Care Encounter Source Date/Time Date/Time Type Type Clinicians Facility Department ID 2021-10-04 Outpatient Ilsa, [facility] [id number] Common 12:16:17 Miriam [id number] [facility] 2021-10-04 Outpatient [facility] [id number] Common 12:09:53 [id number] [facility] 2021-10-04 Outpatient Luis, [facility] [id number] Common 11:46:27 Kourtney [id number] [facility] 2022-11-08 2022-12-27 Office DAVID CONLEY [id number] [facility] 10:16:51 06:40:46 Visit COLEEN AMBULATOR 350.1.13.21 College Y 0.2.7.2.686 of [id number] [facility] 325 e 2022-11-20 2022-11-20 Outpatient XOCHITL GRIJALVA Surgery [id number] [facility] 06:10:00 10:28:00 COLEEN 2022-11-20 2022-11-20 [facility] [id number] 06:10:00 10:28:00 Encounter [facility] 2022-11-20 2022-11-20 [facility] [id number] 06:10:00 10:28:00 Encounter [facility] 2022-11-20 2022-11-20 [address]hesia Lang, [facility] [id number] 08:02:00 09:08:00 Event [facility] 2022-11-20 2022-11-20 Anesthesia Lang, [facility] [id number] 08:02:00 09:08:00 Event [facility] 2022-11-20 2022-11-20 [facility] [id number] 08:00:00 09:00:00 [facility] 2022-11-20 2022-11-20 Surgery [facility] [id number] 08:00:00 09:00:00 [facility] 2022-11-20 2022-11-20 Outpatient DAVID CONLEY [facility] [id number] [facility] 07:46:05 07:46:05 COLEEN Dashawn morton of Medicin e 2022-11-20 2022-11-20 Travel [facility] [id number] [facility] 00:00:00 [facility] 2022-11-20 2022-11-20 Travel [facility] [id number] [facility] 00:[facility] 00:00:00 [facility] 2022-11-15 2022-11-[address] [facility] [id number] [facility] 23:59:59 23:59:[address] [facility] 2022-11-15 2022-11-15 [facility] [id number] 08:55:00 08:55:00 Encounter [facility] 2022-11-15 2022-11-15 [facility] [id number] 08:55:00 08:55:00 Encounter [facility] 2022-11-15 2022-11-15 Outpatient [facility] [id number] [facility] 00:00:00 00:00:00 2022-11-15 2022-11-15 Travel [facility] [id number] [facility] 00:00:00 [facility] 2022-11-15 2022-11-15 Travel [facility] [id number] [facility] 00:[facility] 00:00:00 [facility] 2022-05-19 2022-05-19 Orders Doctor MARRY [id number] Univers 00:00:00 00:00:00 Only Unassigned, ANDREE 350.1.13.10 ity of [place] [facility] 4.2.7.2.686 Osiel as [id number] [place] [address] Branch 2022-05-02 2022-05-02 [facility] 1.2.840.1 [id number] Methodi 05:42:00 11:47:00 Encounter Nadim 22767.1.[address] 3.430.2.7 Hospit a .3.554434 l .8 2022-05-02 2022-05-02 [facility] 1.2.840.1 [id number] Methodi 05:42:00 11:47:00 Encounter Nadim 51281.1.[address] 3.430.2.7 Hospit a .3.008183 l .8 2022-05-02 2022-05-02 Anesthesia Urmlia Bee V. 1.2.840.1 [id number] Methodi 08:11:00 09:47:00 Event Byron Wang 12844.1.[address] 3.430.2.7 Hospit a .3.287524 l .8 2022-05-02 2022-05-02 Anesthesia Urmila Bee V. 1.2.840.1 [id number] Methodi 08:11:00 09:47:00 Event Byron Wang 42156.1.[address] 3.430.2.7 Hospit a .3.895752 l .8 2022-05-02 2022-05-02 Surgery Keagan, 1.2.840.1 [id number] Methodi 07:30:00 08:50:[address] 3.430.2.7 Hospit a .3.263647 l .8 2022-05-02 2022-05-02 Surgery Keagan, 1.2.840.1 [id number] Methodi 07:30:00 08:50:[address] 3.430.2.7 Hospit a .3.999620 l .8 2022-05-02 2022-05-02 Travel 1.2.840.1 [id number] [id number] Methodi 00:00:00 00:00:[address] 3.430.2.7 0.2.7.3.698 Ho spita .3.632396 084.8 l .8 2022-05-02 2022-05-02 Travel 1.2.840.1 1.2.239.875 [id number] Methodi 00:00:00 00:00:[address] 3.430.2.7 0.2.7.3.698 Ho spita .3.275477 084.8 l .8 2022-04-30 2022-04-30 Lab Keagan, 1.2.840.1 [id number] Methodi 10:10:00 10:15:[address] 3.430.2.7 Hospit a .3.697505 l .8 2022-04-30 2022-04-30 Lab Keagan, 1.2.840.1 [id number] Methodi 10:10:00 10:15:[address] 3.430.2.7 Hospit a .3.452644 l .8 2022-04-30 2022-04-30 Travel 1.2.840.1 [id number] [id number] Methodi 00:00:00 00:00:[address] 3.430.2.7 0.2.7.3.698 Ho spita .3.990297 084.8 l .8 2022-04-30 2022-04-30 Travel 1.2.840.1 1.2.929.558 [id number] Methodi 00:00:00 00:00:[address] 3.430.2.7 0.2.7.3.698 Ho spita .3.692885 084.8 l .8 2022-04-24 2022-04-24 Community Keagan, 1.2.840.1 [id number] Methodi 00:00:00 00:00:00 Orders Nadim 44987.1.[address] 3.430.2.7 Hospit a .3.432661 l .8 2022-04-24 2022-04-24 Community Keagan, 1.2.840.1 [id number] Methodi 00:00:00 00:00:00 Orders Nadim 98860.1.[address] 3.430.2.7 Hospit a .3.975514 l .8 2021-05-19 2021-05-19 Office Camille [facility] [id number] [facility] 09:23:51 10:57:33 Visit Sam [facility] 350.1.13.10 agustin velasco of [place] 4.2.7.2.686 Osiel as Nas?Blea [id number] [address] Medical Office Building 2021-05-19 2021-05-19 [facility] [id number] [facility] 09:30:00 09:30:00 SAM [facility]z [facility] [facility] 2021-05-19 2021-05-19 Orders Doctor MARRY [id number] Univers 00:00:00 00:00:00 Only Unassigned, ANDREE [id number] ity of [place] [facility] 4.2.7.2.686 [place] as [phone] [address] 2021-05-19 2021-05-19 Orders Doctor MARRY [id number] Univers 00:00:00 00:00:00 Only Unassigned, ANDREE [id number] ity of [place] [facility] [id number] [place] as [phone] [address] 2020-10-06 2020-10-06 (TEL) STLMLC STLMLC [id number] Co mmon 00:00:00 00:00:00 [facility] 2020-05-29 2020-05-29 [facility] [id number] Common 04:21:00 04:21:00 [facility] 2020-05-27 2020-05-27 [facility] [id number] Common 13:40:00 13:40:00 [facility] 2020-05-13 2020-05-13 [facility] [id number] [facility] 09:45:42 11:15:25 Visit Sam Duran 350.1.13.10 i [place]2.[place] [phone] Hi dical [address] 2020-05-13 2020-05-13 [facility] [id number] 09:45:42 11:15:25 Visit Sam Duran 350.1.13.10 Ray 4.2.7.2.686 Professio [phone] [address] 2020-05-13 2020-05-13 [facility] [id number] Univers 10:00:00 10:00:00 SAM rodriguez [facility] 2020-05-13 2020-05-13 Orders Doctor MARRY [id number] 00:00:00 00:00:00 Only Unassigned, ANDREE 350.1.13.10 ity of [facility] 4.2.7.2.686 [facility] [phone] [facility] [address] 2020-03-06 2020-03-06 [facility] [id number] Common 12:25:00 12:25:[address] [facility] 2020-02-25 2020-02-25 [facility] [id number] Common 15:20:00 15:20:[address] [facility] 2019-09-25 2019-09-25 [facility] [id number] Common 10:40:00 10:40:[address] [facility] 2019-08-17 2019-08-17 [facility] [id number] Common 14:07:00 14:07:[address] [facility] 2019-08-17 2019-08-17 [facility] [id number] Common 08:20:00 08:20:[address] [facility] 2019-07-17 2019-07-17 [facility] [id number] Common 16:20:00 16:20:[address] [facility] 2019-05-08 2019-05-08 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 4.2.7.2.686 [facility] [phone] [facility] [address] 2019-05-08 2019-05-08 Orders Doctor MARRY [id number] Univers 00:00:00 00:00:00 Only Unassigned, ANDREE [id number] ity of [place] [facility] [id number] [place] as [phone] [place] [address] [address] 2019-03-25 2019-03-25 [facility] [id number] Common 12:56:00 12:56:[address] [facility] 2019-03-05 2019-03-05 [facility] [id number] Common 09:30:00 09:30:[address] [facility] 2019-03-02 2019-03-02 [facility] [id number] Common 11:00:00 11:00:[address] [facility] 2018-12-18 2018-12-18 [facility] [id number] Common 09:00:00 09:00:[address] [facility] 2018-10-31 2018-10-31 [facility] [id number] Common 12:33:00 12:33:[address] [facility] 2018-09-25 2018-09-25 [facility] [id number] Common 09:00:00 09:00:[address] [facility] 2018-03-27 2018-03-27 [facility] [id number] Common 10:00:00 10:00:[address] [facility] 2017-12-13 2017-12-13 [facility] [id number] Common 16:46:00 16:46:[address] [facility] 2017-12-13 2017-12-13 [facility] [id number] Common 14:45:00 14:45:[address] [facility] Results Test Description Test Time Test Comments [...] rhythm with occa sional premature ventricular complexes- [facility] Pre/Post [id number] 00:16:38 Test Item Value Reference Range Interpretation [...] Boogie MD ([id number]) on 05/02/2022 7:16:[address] [facility] Pre/Post [id number] 00:16:38 Test Item Value Reference Range Interpretation [...] Boogie MD ([id number]) on 05/02/2022 7:16:[address] [facility] Pre/Post [id number] 00:16:38 Test Item Value Reference Range Interpretation [...] Boogie MD ([id number]) on 05/02/2022 7:16:[address] [facility] Pre/Post [id number] 00:16:38 Test Item Value Reference Range Interpretation [...] Boogie MD ([id number]) on 05/02/2022 7:16:35 [facility] [id number] 19:46:47 Test Item Value Reference Interpretation Comments Range Interpretation (test Negative results do not code = 3352557) preclude COVID-19 infection and should not be used asthe sole basis for treatment or other patient management decisions. Negativeresults must be combined with clinical observations, patient history, andepidemiological information. COVID-19 qualitative Not-Detected Not-Detected RT-PCR result (test code = 17951-4) COVID-19 qualitative See link below for PDF Case Number: RT-PCR (test code = Lab Report [id number] 3701 7070) [facility] [id number] 19:46:47 Test Item Value Reference Interpretation Comments Range Interpretation (test Negative results do not code = 4713044) preclude COVID-19 infection and should not be used asthe sole basis for treatment or other patient management decisions. Negativeresults must be combined with clinical observations, patient history, andepidemiological information. COVID-19 qualitative Not-Detected Not-Detected RT-PCR result (test code = 00796-5) COVID-19 qualitative See link below for PDF Case Number: RT-PCR PDF (test Lab Report [id number] 1 code = 7070) [facility] [id number] 19:46:47 Test Item Value Reference Interpretation Comments Range Interpretation (test Negative results do not code = 6284966) preclude COVID-19 infection and should not be used asthe sole basis for treatment or other patient management decisions. Negativeresults must be combined with clinical observations, patient history, andepidemiological information. COVID-19 qualitative Not-Detected Not-Detected RT-PCR result (test code = 49150-8) COVID-19 qualitative See link below for PDF Case Number: RT-PCR PDF (test Lab Report [id number] 1 code = 7070) [facility] [id number] 19:46:47 Test Item Value Reference Interpretation Comments Range Interpretation (test Negative results do not code = 6392408) preclude COVID-19 infection and should not be used asthe sole basis for treatment or other patient management decisions. Negativeresults must be combined with clinical observations, patient history, andepidemiological information. COVID-19 qualitative Not-Detected Not-Detected RT-PCR result (test code = 05435-4) COVID-19 qualitative See link below for PDF Case Number: RT-PCR (test code = Lab Report [id number] 3701 7070) [facility] [id number] 19:46:47 Test Item Value Reference Interpretation Comments Range Interpretation (test Negative results do not code = 9138627) preclude COVID-19 infection and should not be used asthe sole basis for treatment or other patient management decisions. Negativeresults must be combined with clinical observations, patient history, andepidemiological information. COVID-19 qualitative Not-Detected Not-Detected RT-PCR result (test code = 69641-5) COVID-19 qualitative See link below for PDF Case Number: RT-PCR PDF (test Lab Report [id number] 1 code = 7070) [facility] [Presence] in Respiratory specimen by ROSANNE with probe [id number] 14:46:47 Test Item Value Reference Range Interpretation Comments SARS-CoV-2 (COVID-19) RNA Not detected [Presence] in Respiratory specimen by ROSANNE with probe detection (test code = 56725-0) Whether patient is employed in a Unknown healthcare setting (test code = 63432-7) Whether the patient has symptoms Unknown related to condition of interest (test code = 67532-0) Whether the patient was Unknown hospitalized for condition of interest (test code = 50874-1) Whether the patient was admitted Unknown to intensive care unit (ICU) for condition of interest (test code = 55348-9) Whether patient resides in a Unknown congregate care setting (test code = 41322-0) status (test code = Unknown 83761-2) Date and time of symptom onset Unknown (test code = 07928-3) [facility] Culture, [id number] 00:00:00 Test Item Value Reference Range Interpretation Comments Urine Culture, Routine (test Final report code = 630-4)
--- NOTE | 2023-02-15 13:43 | RAD REPORT ---
EXAM DESCRIPTION: RAD - Foot Left 3 View - 02/15/2023 12:56 pm CLINICAL HISTORY: Left Foot pain FINDINGS: No fracture or dislocation is seen. Hallux valgus deformity. Osteoporosis
--- NOTE | 2023-02-15 14:12 | ER ---
Nurse's Notes [facility] [place] Name: Suri Lemus Age: 88 yrs Sex: Female : 1935 Arrival Date: 02/15/2023 Time: 10:47 Bed 12 Private MD: Jennifer Kaye C Diagnosis: Contusion of left foot Presentation: 02/15 11:04 Chief complaint: Patient states: Dropped concrete block on left foot on Saturday. ld1 Coronavirus screen: At this time, the client does not indicate any symptoms associated with coronavirus-19. Ebola Screen: No symptoms or risks identified at this time. Initial Sepsis Screen: Does the patient meet any 2 criteria? No. Patient's initial sepsis screen is negative. Does the patient have a suspected source of infection? No. Patient's initial sepsis screen is negative. Risk Assessment: Do you want to hurt yourself or someone else? Patient reports no desire to harm self or others. Onset of symptoms was February 15, 2023. 11:04 Method Of Arrival: Ambulatory ld1 11:04 Acuity: TAQUERIA 4 ld1 Triage Assessment: 11:05 General: Appears in no apparent distress. comfortable, Behavior is calm, cooperative, ld1 appropriate for age. Pain: Complains of pain in left foot Pain does not radiate. Pain currently is 8 out of 10 on a pain scale. Quality of pain is described as throbbing. EENT: No signs and/or symptoms were reported regarding the EENT system. Neuro: Level of Consciousness is awake, alert, obeys commands, Oriented to person, place, time, situation. Cardiovascular: Capillary refill < 3 seconds Patient's skin is warm and dry. Respiratory: Airway is patent Respiratory effort is even, unlabored. GI: Abdomen is flat, non-distended. : No signs and/or symptoms were reported regarding the genitourinary system. Derm: No signs and/or symptoms reported regarding the dermatologic system. Musculoskeletal: No signs and/or symptoms reported regarding the musculoskeletal system. Historical: - Allergies: 11:05 Levaquin; ld1 11:05 Lisinopril; ld1 - PMHx: 11:05 Cerebrovascular accident; CHF; Hyperlipidemia; Hypertension; neuropathy; Pacemaker; ld1 - PSHx: 11:05 pacemaker; ld1 - Immunization history:: Adult Immunizations up to date, Client reports receiving the 2nd dose of the Covid vaccine. - Social history:: Smoking status: Patient denies any tobacco usage or history of. Patient/guardian denies using alcohol. Screenin:10 [facility] ED Fall Risk Assessment (Adult) History of falling in the last 3 months, nj1 including since admission No falls in past 3 months (0 pts) Confusion or Disorientation No (0 pts) Intoxicated or Sedated No (0 pts) Impaired Gait No (0 pts) Mobility Assist Device Used No (0 pt) Altered Elimination No (0 pt) Score/Fall Risk Level 0 - 2 = Low Risk Oriented to surroundings, Maintained a safe environment, Hourly rounding (assess needs \T\ fall precautionary measures) done. Abuse screen: Denies threats or abuse. Denies injuries from another. Nutritional screening: No deficits noted. Tuberculosis screening: No symptoms or risk factors identified. Assessment: 13:10 General: Appears in no apparent distress. comfortable, Behavior is calm, cooperative, nj1 appropriate for age. Pain: Complains of pain in left foot Pain currently is 6 out of 10 on a pain scale. Neuro: Level of Consciousness is awake, alert, obeys commands, Oriented to person, place, situation. Cardiovascular: Patient's skin is warm and dry. Respiratory: Airway is patent Respiratory effort is even, unlabored. Musculoskeletal: Reports pain in left foot. 14:50 Reassessment: Patient appears in no apparent distress at this time. Patient and/or ss family updated on plan of care and expected duration. Pain level reassessed. Patient is alert, oriented x 3, equal unlabored respirations, skin warm/dry/pink. 14:50 Reassessment: Pt states she has a walker at home, does not need a new one. Charge nurse nj1 notified. Vital Signs: 11:04 BP 164 / 95; Pulse 84; Resp 18; Temp 98.2(O); Pulse Ox 100% on R/A; Weight 48.53 kg; ld1 Height 4 ft. 10 in. ; Pain 6/10; 14:50 BP 195 / 95; Pulse 72; Resp 18; Pulse Ox 100% ; Pain 6/10; ss 11:04 Body Mass Index 22.36 (48.53 kg, 147.32 cm) ld1 11:04 Pain Scale: Adult ld1 14:50 Pain Scale: Adult ss ED Course: 10:49 Patient arrived in ED. im 10:51 Jennifer Kaye MD is Private Physician. im 10:59 Jet Zheng [facility] m 10:59 Garry Ventura DO is Attending Physician. jmm 11:05 Triage completed. ld1 11:05 Arm band placed on right wrist. ld1 12:58 XRAY Foot LEFT 3 View In Process Unspecified. EDMS 13:01 Ariane Dorman, RN is Primary Nurse. nj1 13:10 Patient has correct armband on for positive identification. Bed in low position. Call nj1 light in reach. Adult w/ patient. 14:11 Unruly Dean DPM is Referral Physician. [facility] 14:50 No provider procedures requiring assistance completed. Patient did not have IV access nj1 during this emergency room visit. 14:52 Notified Nurse Practitioner and/or Physician Forex Trader of vital signs. Ok to go ahead nj1 with discharge, no new orders received. Administered Medications: No medications were administered Medication: 14:55 VIS not applicable for this client. nj1 Outcome: 14:12 Discharge ordered by MD. [facility] 14:50 Discharged to home via wheelchair, with family. nj1 14:50 Condition: stable 14:50 Discharge instructions given to patient, family, Instructed on discharge instructions, follow up and referral plans. medication usage, Demonstrated understanding of instructions, follow-up care, medications, Prescriptions given X 1. 14:55 Patient left the ED. nj1 Signatures: Dispatcher [employer] EDMS Jet Zheng PA PA [facility] Sujata Carvajal RN RN Geovanna Ventura RN RN [facility] Ariane Dorman, ANT RN nj1 Estelle Chowdhury im Corrections: (The following items were deleted from the chart) 14:54 14:52 BP 195 / 95; Pulse 72bpm; Resp 18bpm; Pulse Ox 100%; Pain 6/10, Adult; [facility] 14:59 14:58 Patient left the ED. nj1 nj1
--- NOTE | 2023-02-15 14:12 | EDPHYS ---
Physician Documentation [facility] [place] Name: Suri Lemus Age: 88 yrs Sex: Female : 1935 Arrival Date: 02/15/2023 Time: 10:47 Bed 12 Private MD: Jennifer Kaye C ED Physician Garry Ventura HPI: 02/15 11:07 This 88 yrs old Female presents to ER via Ambulatory with complaints of Crush Injury To [facility] Foot. 11:07 The patient presents with an injury, pain. Onset: The symptoms/episode began/occurred [facility] acutely, just prior to arrival. Modifying factors: The symptoms are alleviated by nothing, the symptoms are aggravated by nothing. This is an 88/m with a history of cva, chf, hlp, htn, that presents to the ED with complaints of left foot pain after cement fell on her foot. Denies other injury. Pain has worsened since initial injury this past Saturday. . Historical: - Allergies: 11:05 Levaquin; ld1 11:05 Lisinopril; ld1 - PMHx: 11:05 Cerebrovascular accident; CHF; Hyperlipidemia; Hypertension; neuropathy; Pacemaker; ld1 - PSHx: 11:05 pacemaker; ld1 - Immunization history:: Adult Immunizations up to date, Client reports receiving the 2nd dose of the Covid vaccine. - Social history:: Smoking status: Patient denies any tobacco usage or history of. Patient/guardian denies using alcohol. ROS: 11:07 MS/extremity: Positive for ecchymosis, pain. jm 11:07 Constitutional: Negative for fever, chills, and weight loss, Cardiovascular: Negative for chest pain, palpitations, and edema, Respiratory: Negative for shortness of breath, cough, wheezing, and pleuritic chest pain. 11:07 MS/extremity: Positive for pain. 11:07 All other systems are negative. Exam: 11:07 Constitutional: This is a well developed, well nourished patient who is awake, alert, [facility] and in no acute distress. Head/Face: atraumatic. Eyes: EOMI, no conjunctival erythema appreciated ENT: Moist Mucus Membranes Neck: Trachea midline, Supple Chest/axilla: Normal chest wall appearance and motion. Cardiovascular: Regular rate and rhythm. No edema appreciated Respiratory: Normal respirations, no respiratory distress appreciated Abdomen/GI: Non distended Back: Normal ROM 11:07 Musculoskeletal/extremity: ecchymosis noted to the dorsum of the left foot, compartments are soft, NVI. 11:07 Skin: ecchymosis noted to the dorsum of the left foot. 11:07 Neuro: Orientation: is normal, Mentation: is normal, Memory: is normal. 11:07 Psych: Behavior/mood is pleasant, cooperative. Vital Signs: 11:04 BP 164 / 95; Pulse 84; Resp 18; Temp 98.2(O); Pulse Ox 100% on R/A; Weight 48.53 kg; ld1 Height 4 ft. 10 in. ; Pain 6/10; 14:50 BP 195 / 95; Pulse 72; Resp 18; Pulse Ox 100% ; Pain 6/10; ss 11:04 Body Mass Index 22.36 (48.53 kg, 147.32 cm) ld1 11:04 Pain Scale: Adult ld1 14:50 Pain Scale: Adult ss MDM: 12:19 Patient medically screened. [facility] 13:53 Differential diagnosis: fracture, contusion. Data reviewed: vital signs, nurses notes. [facility] 14:10 I considered the following discharge prescriptions or medication management in the [facility] emergency department Medications were administered in the Emergency Department. See MAR. Counseling: I had a detailed discussion with the patient and/or guardian regarding: the historical points, exam findings, and any diagnostic results supporting the discharge/admit diagnosis, radiology results, the need for outpatient follow up, to return to the emergency department if symptoms worsen or persist or if there are any questions or concerns that arise at home. ED course: Xray is negative. Advised to follow up with pcp and otherwise given strict return precautions. Patient understood and agrees with the plan of care. . 02/15 11:06 Order name: XRAY Foot LEFT 3 View; Complete Time: 13:49 ld1 Administered Medications: No medications were administered Disposition: 20:59 Co-signature as Attending Physician, Garry Ventura DO I was immediately available on-site ms3 in the Emergency Department for consultation in the care of the patient. Disposition Summary: 02/15/23 14:12 Discharge Ordered Location: Home [facility] Condition: Stable [facility] Diagnosis - Contusion of left foot [facility] Followup: [facility] - With: Selbst, Unruly, DPM - When: 2 - 3 days - Reason: Recheck today's complaints, Continuance of care, Re-evaluation by your physician Discharge Instructions: - Discharge Summary Sheet jovanni - Foot Contusion jovanni Forms: - Medication Reconciliation Form jovanni - Thank You Letter jovanni - Antibiotic Education jovanni - Prescription Opioid Use jovanni Prescriptions: - orphenadrine citrate 100 mg Oral Tablet Sustained Release - take 1 tablet by ORAL route 2 times per day As needed; 20 tablet; Refills: 0, jmm Product Selection Permitted Signatures: Dispatcher [employer] Jet Gómez PA PA jmm Sims, Marcus, DO DO ms3 Geovanna Ventura, RN RN ld1
[2023-02-15 15:03] VITALS: TEMP 98.2; O2SAT 100
[2023-02-15 15:04] VITALS: BP 195/95
== END 2023-02-15 14:58 | disposition home or self-care (01) ==
LOC: ER 10:47
DX: S90.32XA Contusion of left foot, initial encounter (principal); Z95.0 Presence of cardiac pacemaker; Z88.1 Allergy status to other antibiotic agents; Z88.8 Allergy status to other drugs, medicaments and biological substances
CPT/HCPCS: 99283

== ENCOUNTER → 2023-08-31 | Emergency (ER) | payer OTHER ==
[~2023-08-31] MED LIST: KCL 20 MEQ/100 mL IVPB 100 ML IV ONE; NA CHLORIDE 0.9% 0 ML ONE; POTASSIUM 25 MEQ EFFERV TAB ONE; cloNIDine HCL 0.1 MG TAB ONE
[2023-08-31 13:31] LABS: Absolute Lymphocytes (CBC) 2.2 K/uL (0.7-4.9); Hematocrit 38.3 % (36.0-45.0); Lymphocytes % 26.6 % (15.3-44.8); MCV 86.8 fL (80-100); MPV 8.2 fL (7.6-11.3); Platelets 291 thou/uL (152-406); RBC Red Blood Cell Count 4.41 M/uL (3.86-4.86)
[2023-08-31 13:47] LABS: Protime INR 1.04
[2023-08-31 13:53] LABS: Albumin 3.2 g/dL (3.4-5.0); Bilirubin Direct 0.2 mg/dL (0-0.2); Bilirubin Indirect, Calculated 0.4 mg/dL (0.2-0.8); Bilirubin Total 0.6 mg/dL (0.2-1.0); Magnesium 1.7 mg/dL (1.6-2.4); Potassium 2.9 mEq/L (3.5-5.1); Protein, Total 6.8 g/dL (6.4-8.2); Troponin High Sensitivity 35.5 pg/mL (<58.9)
--- NOTE | 2023-08-31 14:08 | RAD REPORT ---
EXAM DESCRIPTION: CT - Head Brain Wo Cont - 08/31/2023 1:36 pm CLINICAL HISTORY: Alteration of awareness/confusion COMPARISON: December 2022 TECHNIQUE: Computed axial tomography of the head was obtained. IV contrast was not requested. All CT scans are performed using dose optimization technique as appropriate and may include automated exposure control or mA/KV adjustment according to patient size. FINDINGS: An intracranial bleed is not seen The ventricles are normal in caliber No extra-axial fluid collection is noted. Mild low-density areas within periventricular, deep and subcortical white matter likely represent is chemic changes secondary to small vessel disease. Small left parietal bone osteoma Fluid within the sinuses/ mastoids is not seen. IMPRESSION: No acute intracranial abnormality is seen If patient's symptoms persist MRI of the brain would be recommended
--- NOTE | 2023-08-31 14:30 | RAD REPORT ---
EXAM DESCRIPTION: Luigi Single View08/31/2023 2:00 pm CLINICAL HISTORY: Chest pain COMPARISON: 12/2022 FINDINGS: The lungs appear clear of acute infiltrate. The heart is mildly enlarged. Pacemaker leads are in place. IMPRESSION: No acute abnormalities displayed
[2023-08-31 14:34] LABS: Specific Gravity 1.008 (1.005-1.030); Urine Bacteria <20 /HPF (<20); Urine Bilirubin NEGATIVE (Negative); Urine Blood Negative (Negative); Urine Clarity Clear (Clear); Urine Color Colorless (Yellow); Urine Glucose NEGATIVE (Negative); Urine Mucus Slight /HPF (None Seen); Urine Protein NEGATIVE (Negative); Urine RBC None Seen /HPF (None Seen); Urine Urobilinogen Normal (Normal); Urine pH 6.5 (5.0-7.0)
--- NOTE | 2023-08-31 15:53 | RAD REPORT ---
EXAM DESCRIPTION: CT - Chest Abd Pelvis Wo Con - 08/31/2023 3:33 pm CLINICAL HISTORY: Chest and abdominal pain COMPARISON: 2021 TECHNIQUE: Computed axial tomography of the chest, abdomen and pelvis was obtained. Oral contrast wa s given. IV contrast was not requested. All CT scans are performed using dose optimization technique as appropriate and may include automated exposure control or mA/KV adjustment according to patient size. FINDINGS: The evaluation of mediastinum, walt, vessels and solid organs is limited secondary to the lack of IV contrast administration Mild to moderate chronic appearing interstitial opacities left lower lobe. No mediastinal or hilar lymphadenopathy is seen. A pleural effusion is not present. A pericardial effusion is not seen. The liver, spleen,, adrenals and left kidney appear grossly normal. A 2.7 centimeters cystic mass pancreatic head mildly enlarged Small right kidney There is no evidence of diverticulitis. Hysterectomy. No adnexal mass. Small amount of free fluid within the pelvis IMPRESSION: Mild enlargement of a 2.7 centimeter cystic pancreatic mass. It was recently biopsied Small amount of free fluid pelvis
--- NOTE | 2023-08-31 18:20 | EDPHYS ---
Physician Documentation [facility] Name: Suri Lemus Age: 88 yrs Sex: Female : 1935 Arrival Date: 08/31/2023 Time: 11:56 Bed 16 Private MD: ED Physician Moisés Luna HPI: 08/31 12:30 This 88 yrs old Female presents to ER via Wheelchair with complaints of General cp Weakness, Altered Mental Status. 12:30 The patient's problem is reported as weakness, that is generalized. cp 12:30 Onset: The symptoms/episode began/occurred last night. cp 12:30 Duration: The episode is continuous. Associated signs and symptoms: Pertinent cp negatives: abdominal pain, chest pain, diarrhea, headache, vomiting, fever. Patient's baseline: Neuro: alert and fully oriented, Motor: no deficits, Ambulation: walks without assistance, Speech: normal. Historical: - Allergies: 12:20 Levaquin; jj7 12:20 Lisinopril; jj7 - PMHx: 12:20 Cerebrovascular accident; CHF; Hyperlipidemia; Hypertension; neuropathy; Pacemaker; jj7 - PSHx: 12:20 pacemaker; DEFIB; HYSTERECTOMY (pacemaker); jj7 - Immunization history:: Adult Immunizations up to date. - Social history:: Smoking status: Patient denies any tobacco usage or history of. Patient/guardian denies using alcohol, street drugs. ROS: 12:33 Constitutional: Negative for body aches, chills, fever, poor PO intake, cp 12:33 Respiratory: Negative for cough, shortness of breath, wheezing, cp 12:33 Abdomen/GI: Negative for abdominal pain, vomiting, diarrhea, constipation, black/tarry stool, rectal bleeding, 12:33 Neuro: Positive for weakness, Negative for headache, syncope, 12:33 Eyes: Negative for injury, pain, redness, and discharge, cp 12:33 ENT: Negative for drainage from ear(s), ear pain, sore throat, difficulty swallowing, difficulty handling secretions, 12:33 Cardiovascular: Negative for chest pain, edema, 12:33 All other systems are negative, Exam: 12:40 Constitutional: The patient appears in no acute distress, alert, awake, cp non-diaphoretic, non-toxic, well developed, 12:40 Head/Face: Normocephalic, atraumatic. cp 12:40 Eyes: Periorbital structures: appear normal, Pupils: equal, round, and reactive to light and accomodation, Extraocular movements: intact throughout, Conjunctiva: normal, no exudate, no injection, Sclera: no appreciated abnormality, Lids and lashes: appear normal, bilaterally, 12:40 ENT: External ear(s): are unremarkable, Nose: is normal, Mouth: Lips: dry, Oral mucosa: pink and intact, moist, Posterior pharynx: Airway: no evidence of obstruction, patent, 12:40 Neck: ROM/movement: is normal, is supple, without pain, no range of motions limitations, 12:40 Chest/axilla: Inspection: normal, 12:40 Cardiovascular: Rate: normal, Rhythm: regular, Edema: is not appreciated, JVD: is not appreciated, 12:40 Respiratory: the patient does not display signs of respiratory distress, Respirations: normal, no use of accessory muscles, no retractions, labored breathing, is not present, Breath sounds: are clear throughout, no decreased breath sounds, no stridor, no wheezing, 12:40 Abdomen/GI: Inspection: abdomen appears normal, Palpation: abdomen is soft and non-tender, in all quadrants, 12:40 Back: pain, is absent, ROM is normal, 12:40 Skin: cellulitis, is not appreciated, no rash present. 12:40 Neuro: Orientation: to person, place \T\ time. Mentation: able to follow commands, Motor: moves all fours, no focal deficits, Sensation: no obvious gross deficits, 13:00 ECG was reviewed by the Attending Physician. cp 14:50 Radiologist reports: no acute intracranial findings cp Vital Signs: 12:17 BP 161 / 89; Pulse 71; Resp 20; Temp 98.2; Pulse Ox 99% ; Weight 40.82 kg; Height 4 ft. jj7 10 in. ; Pain 0/10; 12:30 BP 160 / 88; Pulse 75; Resp 17; Temp 98; Pulse Ox 99% on R/A; rs5 14:02 BP 172 / 90; Pulse 80; Resp 17; Pulse Ox 99% on R/A; rs5 15:15 BP 209 / 102; Pulse 76; Resp 17; Pulse Ox 99% on R/A; rs5 16:00 BP 170 / 91; Pulse 80; Resp 18; Pulse Ox 100% on R/A; rs5 17:20 BP 174 / 96; Pulse 76; Resp 17; Pulse Ox 99% on R/A; rs5 18:22 BP 169 / 94; Pulse 72; Resp 18; Pulse Ox 99% on R/A; rs5 12:17 Body Mass Index 18.81 (40.82 kg, 147.32 cm) [facility] 12:17 Pain Scale: Adult [facility] MDM: 12:28 Patient medically screened. cp 18:50 Data reviewed: vital signs, nurses notes, lab test result(s), EKG, radiologic studies, cp CT scan, plain films. 18:50 Consideration of Admission/Observation Escalation of care including cp admission/observation considered. I considered the following discharge prescriptions or medication management in the emergency department Medications were administered in the Emergency Department. See MAR. Care significantly affected by the following chronic conditions: Hypertension, Congestive Heart Failure. Counseling: I had a detailed discussion with the patient and/or guardian regarding the historical points, exam findings, and any diagnostic results supporting the discharge/admit diagnosis, the presence of at least one elevated blood pressure reading (>120/80) during this emergency department visit, lab results, radiology results, to return to the emergency department if symptoms worsen or persist or if there are any questions or concerns that arise at home. Response to treatment: the patient's symptoms have mildly improved after treatment, and as a result, I will discharge patient. ED course: VSS. Discussed results of today's findings. Recommendation is continued hydration and will discharge to home for continued monitoring. 08/31 12:26 Order name: Basic Metabolic Panel; Complete Time: 14:48 08/31 14:49 Interpretation: Normal except: K 2.9; ANION GAP 4.9; BUN 26; CRE 1.76; GFR 27; CA 8.3. 08/31 12:26 Order name: CBC with Diff; Complete Time: 13:49 08/31 14:49 Interpretation: Normal except: RDW 15.6; BASO% 1.4. 08/31 12:26 Order name: LFT's; Complete Time: 14:48 cp 08/31 14:49 Interpretation: Normal except: ALB 3.2; GLOB 3.6; A/G 0.9. 08/31 12:26 Order name: Magnesium; Complete Time: 14:48 cp 08/31 12:26 Order name: NT PRO-BNP; Complete Time: 14:48 cp 08/31 14:49 Interpretation: Abnormal: NT PRO-BNP 2462. cp 08/31 12:26 Order name: PT-INR; Complete Time: 13:49 cp 08/31 12:26 Order name: Troponin HS; Complete Time: 14:48 cp 08/31 12:26 Order name: Urinalysis W/Microscopic; Complete Time: 14:48 cp 08/31 12:27 Order name: Lactate w/ 2H reflex if indic.; Complete Time: 14:48 cp 08/31 12:26 Order name: XRAY Chest (1 view); Complete Time: 14:48 cp 08/31 12:30 Order name: CT Head Brain wo Cont; Complete Time: 14:48 cp 08/31 14:52 Order name: CT Chest Abdomen Pelvis W/O Contrast; Complete Time: 15:57 cp 08/31 12:26 Order name: EKG; Complete Time: 12:27 cp 08/31 12:26 Order name: Cardiac monitoring; Complete Time: 13:25 cp 08/31 12:26 Order name: EKG - Nurse/Tech; Complete Time: 13:25 cp 08/31 12:26 Order name: IV Saline Lock; Complete Time: 13:25 cp 08/31 12:26 Order name: Labs collected and sent; Complete Time: 13:25 cp 08/31 12:26 Order name: O2 Per Protocol; Complete Time: 13:25 08/31 12:26 Order name: O2 Sat Monitoring; Complete Time: 13:25 cp EC:00 Rate is 70 beats/min. Rhythm is regular. QRS interval is prolonged at 128 msec. QT cp interval is normal. T waves are Inverted in leads III, aVR, V2. Interpreted by me. Reviewed by me. Administered Medications: 15:09 Drug: Potassium Chloride IV 20 mEq IV at calculated rate once; administer over 1-2 rs5 hours Route: IV; Rate: calculated rate; Site: left antecubital; 15:30 Follow up: Response: No adverse reaction rs5 15:09 Drug: NS 0.9% IV 500 ml IV at 250 ml/hr continuous Route: IV; Rate: 250 ml/hr; Site: rs5 left antecubital; 15:30 Follow up: Response: No adverse reaction rs5 15:20 Drug: cloNIDine PO 0.2 mg PO once Route: PO; rs5 16:00 Follow up: Response: No adverse reaction; Blood pressure is lowered rs5 16:23 Drug: Potassium PO Effervescent Tablet 50 mEq PO once; dissolve in 4 ounces of water or rs5 juice Route: PO; 17:00 Follow up: Response: No adverse reaction rs5 Disposition Summary: 08/31/23 18:20 Discharge Ordered Notes: Location: Home cp Problem: new cp Symptoms: have improved cp Condition: Stable cp Diagnosis - Weakness cp - Hypokalemia cp Followup: cp - With: Luis Alberto Kaye MD - When: 2 - 3 days - Reason: Recheck today's complaints Discharge Instructions: - Discharge Summary Sheet cp - Potassium Content of Foods cp - Weakness cp - Hypokalemia cp Forms: - Medication Reconciliation Form cp - Thank You Letter cp - Antibiotic Education cp - Prescription Opioid Use cp - Patient Portal Instructions cp - Leadership Thank You Letter cp Signatures: Dispatcher [employer] EDMoisés Benoit PA PA cp Johnson, Juwairiyah RN RN jj7 Mckinley Coronado RN RN rs5
--- NOTE | 2023-08-31 18:20 | ER ---
Nurse's Notes [facility] Name: Suri Lemus Age: 88 yrs Sex: Female : 1935 Arrival Date: 08/31/2023 Time: 11:56 Bed 16 Private MD: Diagnosis: Weakness;Hypokalemia Presentation: 08/31 12:17 Chief complaint: Patient states: STARTED HAVING WEAKNESS LAST NIGHT. GRANDDAUGHTER jj7 STATES SHE IS HAVING SOME AMS. Coronavirus screen: At this time, the client does not indicate any symptoms associated with coronavirus-19. Ebola Screen: No symptoms or risks identified at this time. Initial Sepsis Screen: Does the patient meet any 2 criteria? No. Patient's initial sepsis screen is negative. Does the patient have a suspected source of infection? No. Patient's initial sepsis screen is negative. Risk Assessment: Do you want to hurt yourself or someone else? Patient reports no desire to harm self or others. 12:17 Method Of Arrival: Wheelchair j7 12:17 Acuity: TAQUERIA 3 jj7 Triage Assessment: 12:20 General: Appears in no apparent distress. comfortable, Behavior is calm, cooperative, jj7 appropriate for age. General: Reports fatigue for 1-2 days. Pain: Denies pain. Neuro: No deficits noted. Historical: - Allergies: 12:20 Levaquin; jj7 12:20 Lisinopril; jj7 - PMHx: 12:20 Cerebrovascular accident; CHF; Hyperlipidemia; Hypertension; neuropathy; Pacemaker; jj7 - PSHx: 12:20 pacemaker; DEFIB; HYSTERECTOMY (pacemaker); jj7 - Immunization history:: Adult Immunizations up to date. - Social history:: Smoking status: Patient denies any tobacco usage or history of. Patient/guardian denies using alcohol, street drugs. Screenin:30 [facility] ED Fall Risk Assessment (Adult) History of falling in the last 3 months, rs5 including since admission No falls in past 3 months (0 pts) Confusion or Disorientation No (0 pts) Intoxicated or Sedated No (0 pts) Impaired Gait Yes (1 pt) Mobility Assist Device Used Yes (1 pt) Altered Elimination No (0 pt) Score/Fall Risk Level 0 - 2 = Low Risk Oriented to surroundings, Maintained a safe environment. Abuse screen: Denies threats or abuse. Nutritional screening: No deficits noted. Tuberculosis screening: No symptoms or risk factors identified. Assessment: 12:30 General: Appears in no apparent distress. comfortable, Behavior is calm, cooperative. rs5 Pain: Denies pain. Neuro: Level of Consciousness is awake, alert, obeys commands, Oriented to person, place, time, situation. Cardiovascular: Heart tones S1 S2 present Rhythm is regular. Respiratory: Airway is patent Respiratory effort is even, unlabored, Respiratory pattern is regular, symmetrical, Breath sounds are clear bilaterally. GI: Abdomen is flat, non-distended, Bowel sounds present X 4 quads. Abd is soft and non tender X 4 quads. : No signs and/or symptoms were reported regarding the genitourinary system. EENT: No signs and/or symptoms were reported regarding the EENT system. Derm: Skin is intact, Skin is pink, warm \T\ dry. Musculoskeletal: Circulation, motion, and sensation intact. Range of motion: intact in all extremities. 13:40 Reassessment: No changes from previously documented assessment. rs5 14:46 Reassessment: Patient and/or family updated on plan of care and expected duration. Pain rs5 level reassessed. Patient is alert, oriented x 3, equal unlabored respirations, skin warm/dry/pink. Neuro: Level of Consciousness is awake, alert, obeys commands, Oriented to person, place, time, situation. Cardiovascular: Rhythm is regular. Musculoskeletal: Range of motion: intact in all extremities. 15:15 Reassessment: Provider notified of pt's elevated blood pressure . rs5 16:02 Reassessment: No changes from previously documented assessment. rs5 17:10 Reassessment: Pt in bed, eyes closed, respirations even, unlabored. Normal sinus rhythm rs5 noted on monitor. Side rails up x2, family at bedside. 18:20 Reassessment: No changes from previously documented assessment. rs5 Vital Signs: 12:17 BP 161 / 89; Pulse 71; Resp 20; Temp 98.2; Pulse Ox 99% ; Weight 40.82 kg; Height 4 ft. jj7 10 in. ; Pain 0/10; 12:30 BP 160 / 88; Pulse 75; Resp 17; Temp 98; Pulse Ox 99% on R/A; rs5 14:02 BP 172 / 90; Pulse 80; Resp 17; Pulse Ox 99% on R/A; rs5 15:15 BP 209 / 102; Pulse 76; Resp 17; Pulse Ox 99% on R/A; rs5 16:00 BP 170 / 91; Pulse 80; Resp 18; Pulse Ox 100% on R/A; rs5 17:20 BP 174 / 96; Pulse 76; Resp 17; Pulse Ox 99% on R/A; rs5 18:22 BP 169 / 94; Pulse 72; Resp 18; Pulse Ox 99% on R/A; rs5 12:17 Body Mass Index 18.81 (40.82 kg, 147.32 cm) [facility] 12:17 Pain Scale: Adult [facility] ED Course: 11:59 Patient arrived in ED. ts1 12:20 Triage completed. [facility] 12:20 Moisés Guerrero PA is PHCP. cp 12:20 Moisés Luna MD is Attending Physician. cp 12:20 Arm band placed on right wrist. [facility] 12:30 Patient has correct armband on for positive identification. Bed in low position. Call rs5 light in reach. Side rails up X2. Adult w/ patient. 12:36 Mckinley Coronado, RN is Primary Nurse. rs5 13:25 Inserted saline lock: 22 gauge in left antecubital area, using aseptic technique. Blood ds4 collected. Missed attempt(s): 22 gauge in left forearm. Bleeding controlled, band aid applied, catheter tip intact. 13:25 Lactate w/ 2H reflex if indic. Sent. ds4 13:37 CT Head Brain wo Cont In Process Unspecified. EDMS 14:02 XRAY Chest (1 view) In Process Unspecified. EDMS 15:34 CT Chest Abdomen Pelvis W/O Contrast In Process Unspecified. EDMS 18:05 No provider procedures requiring assistance completed. rs5 18:20 Luis Alberto Kaye MD is Referral Physician. cp 18:50 IV discontinued, intact, bleeding controlled, No redness/swelling at site. Pressure rs5 dressing applied. Administered Medications: 15:09 Drug: Potassium Chloride IV 20 mEq IV at calculated rate once; administer over 1-2 rs5 hours Route: IV; Rate: calculated rate; Site: left antecubital; 15:30 Follow up: Response: No adverse reaction rs5 15:09 Drug: NS 0.9% IV 500 ml IV at 250 ml/hr continuous Route: IV; Rate: 250 ml/hr; Site: rs5 left antecubital; 15:30 Follow up: Response: No adverse reaction rs5 15:20 Drug: cloNIDine PO 0.2 mg PO once Route: PO; rs5 16:00 Follow up: Response: No adverse reaction; Blood pressure is lowered rs5 16:23 Drug: Potassium PO Effervescent Tablet 50 mEq PO once; dissolve in 4 ounces of water or rs5 juice Route: PO; 17:00 Follow up: Response: No adverse reaction rs5 Medication: 18:00 VIS not applicable for this client. rs5 Outcome: 18:20 Discharge ordered by MD. cp 18:50 Discharged to home via wheelchair, with family, rs5 18:50 Condition: stable 18:50 Discharge instructions given to patient, family, Instructed on discharge instructions, follow up and referral plans. Demonstrated understanding of instructions, follow-up care, 18:51 Patient left the ED. rs5 Signatures: Dispatcher [employer] EDMS Brody Spivey ds4 Moisés Guerrero PA PA cp Johnson, Juwairiyah, RN RN jj7 Mckinley Coronado RN RN rs5 Rachel Lundberg PAS PAS ts1
[2023-08-31 21:09] VITALS: BP 161/89; TEMP 98.2; O2SAT 99
== END ==
LOC: ER 11:56
DX: E87.6 Hypokalemia (principal); I10 Essential (primary) hypertension; I50.9 Heart failure, unspecified; Z86.73 Personal history of transient ischemic attack (TIA), and cerebral infarction without residual deficits; Z95.810 Presence of automatic (implantable) cardiac defibrillator; Z88.1 Allergy status to other antibiotic agents; Z88.8 Allergy status to other drugs, medicaments and biological substances
CPT/HCPCS: 85025; 81001; 80048; 36415; 83735; 85610; 80076; 83605; 84484; 83880; 70450; 71250; 74176; 71045; 96374; 99284; J3480; 93005; J7040